=== PATIENT | female | born 1945 | race Caucasian/White ===

== ENCOUNTER 2017-03-29 16:34 | Inpatient (IN) | payer BC, MEDICARE ==
[~2017-03-29] VITALS: Ht 165.1 cm; Wt 80.3 kg
--- NOTE | 2017-03-29 17:11 | PHYS DOC ---
Past Medical History Past Medical History: High Cholesterol, Hypertension, Hypothyroid Past Surgical History: No Surgical History Alcohol Use: None Drug Use: None Adult General Chief Complaint Chief Complaint: ABDOMINAL PAIN HPI HPI Patient is a 71 year old female who presents with joey-umbilicus pain and constipation. She states it started yesterday. It comes in waves. Sometimes move around makes it feel better. Nothing makes it feel worse. She is afraid that she might have a bowel blockage concerns her area around her bellybutton swollen. She has had an appendectomy and cholecystectomy that was laparoscopic in nature. She denies any fevers chills or vomiting. She's had some nausea. Review of Systems Review of Systems Constitutional: Denies fever or chills [] Eyes: Denies change in visual acuity, redness, or eye pain [] HENT: Denies nasal congestion or sore throat [] Respiratory: Denies cough or shortness of breath [] Cardiovascular: No additional information not addressed in HPI [] GI: Positive for abdominal pain, nausea, denies any vomiting, bloody stools or diarrhea [] : Denies dysuria or hematuria [] Musculoskeletal: Denies back pain or joint pain [] Integument: Denies rash or skin lesions [] Neurologic: Denies headache, focal weakness or sensory changes [] Endocrine: Denies polyuria or polydipsia [] Current Medications Current Medications Current Medications Medications (Trade) Dose Ordered Sig/Stevie Start Time Stop Time Status Last Admin Dose Admin Diphenhydramine HCl (Benadryl) 25 mg 1X ONCE 03/29/17 21:15 03/29/17 21:16 DC 03/29/17 21:01 25 MG Iohexol (Omnipaque 240 Mg/ml) 30 ml 1X ONCE 03/29/17 19:45 03/29/17 19:46 DC 03/29/17 19:45 30 ML Morphine Sulfate 2 mg 2 mg PRN Q15MIN PRN 03/29/17 17:45 03/30/17 17:44 03/29/17 17:46 2 MG Ondansetron HCl (Zofran) 4 mg 1X ONCE 03/29/17 20:00 03/29/17 20:01 DC 03/29/17 19:58 4 MG Prochlorperazine Edisylate (Compazine) 10 mg 1X ONCE 03/29/17 21:15 03/29/17 21:16 DC 03/29/17 21:01 10 MG Sodium Chloride (Iv Sodium Chloride 0.9% 1000ml Bag) 1,000 ml @ 1,000 mls/hr Q1H 03/29/17 17:32 03/29/17 18:31 DC 03/29/17 17:32 1,000 MLS/HR Allergies Allergies Allergies Coded Allergies Type Severity Reaction Last Updated Verified Sulfa (Sulfonamide Antibiotics) Allergy Intermediate hives 06/25/15 No penicillin Allergy Intermediate hives 06/25/15 Yes Physical Exam Physical Exam Constitutional: Well developed, well nourished, no acute distress, non-toxic appearance. [] HENT: Normocephalic, atraumatic, bilateral external ears normal, oropharynx moist, no oral exudates, nose normal. [] Eyes: PERRLA, EOMI, conjunctiva normal, no discharge. [] Neck: Normal range of motion, no tenderness, supple, no stridor. [] Cardiovascular:Heart rate regular rhythm, no murmur [] Lungs & Thorax: Bilateral breath sounds clear to auscultation [] Abdomen: Bowel sounds normal, soft, palpation with likely periumbilical hernia, no masses, no pulsatile masses. [] Skin: Warm, dry, no erythema, no rash. [] Back: No tenderness, no CVA tenderness. [] Extremities: No tenderness, no cyanosis, no clubbing, ROM intact, no edema. [] Neurologic: Alert and oriented X 3, normal motor function, normal sensory function, no focal deficits noted. [] Psychologic: Affect normal, judgement normal, mood normal. [] Current Patient Data Vital Signs Vital Signs Date Time Temp Pulse Resp B/P Pulse Ox O2 Delivery O2 Flow Rate FiO2 03/29/17 19:30 80 18 147/79 96 Room Air 03/29/17 16:35 98.2 98.2 Lab Values Laboratory Tests Test 03/29/17 17:11 03/29/17 22:49 White Blood Count 18.5x10^3/uL (4.0-11.0) H Red Blood Count 5.55x10^6/uL (3.50-5.40) H Hemoglobin 18.3g/dL (12.0-15.5) H Hematocrit 54.3% (36.0-47.0) H Mean Corpuscular Volume 98fL (79-100) Mean Corpuscular Hemoglobin 33pg (25-35) Mean Corpuscular Hemoglobin Concent 34g/dL (31-37) Red Cell Distribution Width 13.7% (11.5-14.5) Platelet Count 373x10^3/uL (140-400) Neutrophils (%) (Auto) 91% (31-73) H Lymphocytes (%) (Auto) 5% (24-48) L Monocytes (%) (Auto) 3% (0-9) Eosinophils (%) (Auto) 0% (0-3) Basophils (%) (Auto) 0% (0-3) Neutrophils # (Auto) 16.9x10^3uL (1.8-7.7) H Lymphocytes # (Auto) 1.0x10^3/uL (1.0-4.8) Monocytes # (Auto) 0.6x10^3/uL (0.0-1.1) Eosinophils # (Auto) 0.0x10^3/uL (0.0-0.7) Basophils # (Auto) 0.0x10^3/uL (0.0-0.2) Segmented Neutrophils % 89% (35-66) H Band Neutrophils % 1% (0-9) Lymphocytes % 6% (24-48) L Monocytes % 4% (0-10) Platelet Estimate Adequate (ADEQUATE) Large Platelets Occ Ovalocytes Occ Prothrombin Time 12.5SEC (11.7-14.0) Prothrombin Time INR 1.0 (0.8-1.1) PTT 27SEC (24-38) Urine Color Roslyn Urine Clarity Clear Urine pH 5.5 Urine Specific [place] >=1.030 Urine Protein 30mg/dL (NEG-TRACE) Urine Glucose (UA) Negativemg/dL (NEG) Urine Ketones (Stick) Tracemg/dL (NEG) Urine Blood Negative (NEG) Urine Nitrite Negative (NEG) Urine Bilirubin Small (NEG) Urine Urobilinogen Dipstick 0.2mg/dL (0.2 mg/dL) Urine Leukocyte Esterase Small (NEG) Urine RBC 0/HPF (0-2) Urine WBC 1-4/HPF (0-4) Urine Squamous Epithelial Cells Occ/LPF Urine Amorphous Sediment Present/HPF Urine Bacteria 0/HPF (0-FEW) Urine Hyaline Casts Moderate/HPF Urine Mucus Slight/LPF Sodium Level 135mmol/L (136-145) L Potassium Level 3.9mmol/L (3.5-5.1) Chloride Level 96mmol/L (98-107) L Carbon Dioxide Level 27mmol/L (21-32) Anion Gap 12 (6-14) Blood Urea Nitrogen 29mg/dL (7-20) H Creatinine 1.7mg/dL (0.6-1.0) H Estimated GFR (Cockcroft-Gault) 29.7 Glucose Level 238mg/dL (70-99) H Calcium Level 9.2mg/dL (8.5-10.1) Total Bilirubin 0.9mg/dL (0.2-1.0) Direct Bilirubin 0.2mg/dL (0.0-0.2) Aspartate Amino Transferase (AST) 25U/L (15-37) Alanine Aminotransferase (ALT) 23U/L (14-59) Alkaline Phosphatase 64U/L (46-116) Creatine Kinase 53U/L (26-192) Creatine Kinase MB (Mass) 1.4ng/mL (0.0-3.6) Creatine Kinase MB Relative Index 2.6% (0-4) Total Protein 7.3g/dL (6.4-8.2) Albumin 3.5g/dL (3.4-5.0) Lipase 72U/L (73-393) L Lactic Acid Level 3.3mmol/L (0.4-2.0) H Laboratory Tests 03/29/17 17:11 Laboratory Tests 03/29/17 17:11 EKG EKG [] Radiology/Procedures Radiology/Procedures [facility] [address] [place] [address] IMAGING REPORT Signed PATIENT: MAG CASTANEDA ACCOUNT: [id number] : 1945 LOCATION: ER AGE: 71 SEX: F EXAM STATUS: REG ER ORD. PHYSICIAN: ABE DU MD REASON: abd pain PROCEDURE: CT ABD PEL W/ORAL CONTRST ONLY Examination: CT of the abdomen pelvis with oral contrast. HISTORY History of umbilical pain, constipation. COMPARISON None available. TECHNIQUE Axial CT images of the abdomen pelvis were performed with oral contrast. Coronal sagittal reformats were performed. Exposure: One or more of the following dose reduction technique were utilized for this examination: 1. Automated exposure control. 2.Adjustment of MA and /or KV according to patient size. 3. Use of iterative reconstruction technique. Findings: The visualized bibasilar lungs demonstrates minimal bibasilar lung atelectasis. No evidence of free air identified in the abdomen. The evaluation of the solid organs is limited lack of IV contrast. Patient could not finish oral contrast as patient started vomiting. Cholecystectomy clips identified. The visualized non contrasted liver, spleen, adrenals grossly appears unremarkable. No evidence of intrarenal collecting system calculi identified. Cystic structure identified in superior pole of the right kidney probably a cyst measuring 5.2 centimeters however evaluation is limited without contrast. The visualized pancreas grossly appears unremarkable. The stomach is mildly distended. There are multiple dilated small bowel loops identified in the left mid abdomen with some collapsed small bowel loops identified in the right lower quadrant. There is a likely transition point in the left mid abdomen best visualized on series 2 image #64. Moderate inflammatory fat stranding identified about the small bowel loops with fluid identified around the small bowel loops in the right mid abdomen.There is a moderate size anterior abdominal wall umbilical hernia containing fat and fluid. An obvious bowel loop extension into the umbilical hernia is not identified. Examination limited without IV contrast. Urinary bladder is mildly distended. Feces and gas noted in the colon. The urinary bladder is mildly distended. Moderate aortic atherosclerosis. Moderate amount of free fluid identified in the abdomen measuring water density. Moderate degenerative changes identified in the visualized thoracolumbar spine. Impression: 1. Findings consistent with small bowel obstruction with dilated small bowel loops proximally and collapsed small bowel loops distally. There is a possible transition point identified on series 2 image #62 in the left mid abdomen. Internal hernia or closed loop obstruction is not completely excluded given the amount of fluid around the bowel loops. 2. Moderate inflammatory fat stranding identified in the right mid abdomen with some with some fluid within with moderate amount of fluid in the abdomen could be secondary enteritis. 3. Moderate ascites. 4. Moderate size umbilical hernia containing fat and possibly fluid within. An obvious bowel loop extension into the umbilical hernia is not identified however examination is limited. Electronically signed by: Farhad Pittman (Mar 29, 2017 21:53:59) DICTATED and SIGNED BY: FARHAD PITTMAN MD DATE: 03/29/17 215 CC: ABE DU MD; ZAKI JULES MD ~ Impressions: Abdominal pain Small bowel obstruction Course & Med Decision Making Course & Med Decision Making Pertinent Labs and Imaging studies reviewed. (See chart for details) Patient is have an elevated white blood cell count 18.5 with hemoglobin 18.5. She's received IV fluids and antinausea meds. She does not have an acidosis or other concerns at this time. She is feeling better infection was sleeping upon my reassessment on her. CT scan does confirm a small bowel obstruction with transition point. At this point I do not believe a acute surgical intervention is needed. Patient being admitted to the hospitalist with consultations to Dr. Everett I spoke with an updated on the CT scan lab results and vitals the patient also did the same for Dr. Rosenbaum with GI. Hospitalist will be to start Cipro Flagyl and continue IV fluids. Patient's in stable condition at this time be admitted to the hospital with interim orders written. Dragon Disclaimer Dragon Disclaimer This electronic medical record was generated, in whole or in part, using a voice recognition dictation system. Departure Departure Impression: Primary Impression: Abdominal pain Disposition: ADMITTED INPATIENT Admitting Physician: Regina Caldera Condition: STABLE Referrals: ZAKI JULES MD (PCP) ABE DU MD Mar 29, 2017 17:11
[2017-03-29] MEDS ORDERED: IV NORMAL SALINE 1000ML BAG 1,000 ML IV SCH (17:32)
[2017-03-29] MEDS ORDERED: ONDANSETRON PF 4 MG/2 ML VIAL. IV ONE ×2 (17:45→20:00)
[2017-03-29] MEDS: MORPHINE SULFATE 2 MG/ML DISP.SYRIN. IV/SQ PRN (17:46)
[2017-03-29 17:47] LABS: BILIRUBIN,URINE SMALL (NEG); GLUCOSE,URINE NEGATIVE (NEG); NITRITE,URINE NEGATIVE (NEG); PH,URINE 5.5; PROTEIN,URINE 30 mg/dL (NEG-TRACE); UROBILINOGEN,URINE 0.2 mg/dL (0.2 mg/dL)
[2017-03-29 17:57] LABS: BACTERIA,URINE 0 /HPF (0-FEW); RBC,URINE 0 /HPF (0-2); SQUAMOUS EPITHELIAL CELL,UR OCC /LPF
[2017-03-29 18:15] LABS: BASO % 0 % (0-3); EOS % 0 % (0-3); HEMATOCRIT 54.3 % (36.0-47.0); HEMOGLOBIN 18.3 g/dL (12.0-15.5); LYMPH % 5 % (24-48); MEAN CORPUSCULAR HEMOGLOBIN 33 pg (25-35); MEAN CORPUSCULAR HGB CONC 34 g/dL (31-37); MEAN CORPUSCULAR VOLUME 98 fL (79-100); MONO % 3 % (0-9); NEUT % 91 % (31-73); PLATELET COUNT 373 x10^3/uL (140-400); RED BLOOD COUNT 5.55 x10^6/uL (3.50-5.40); RED CELL DISTRIBUTION WIDTH 13.7 % (11.5-14.5); WHITE BLOOD COUNT 18.5 x10^3/uL (4.0-11.0)
[2017-03-29 18:25] LABS: PROTHROMBIN TIME PATIENT 12.5 SEC (11.7-14.0)
[2017-03-29 18:27] LABS: CALCIUM 9.2 mg/dL (8.5-10.1); CREATININE 1.7 mg/dL (0.6-1.0); GFR 29.7; POTASSIUM 3.9 mmol/L (3.5-5.1)
[2017-03-29 18:33] LABS: ALBUMIN 3.5 g/dL (3.4-5.0); DIRECT BILIRUBIN 0.2 mg/dL (0.0-0.2); TOTAL BILIRUBIN 0.9 mg/dL (0.2-1.0); TOTAL PROTEIN 7.3 g/dL (6.4-8.2)
[2017-03-29 18:52] LABS: CKMB MASS 1.4 ng/mL (0.0-3.6)
[2017-03-29] MEDS ORDERED: IOHEXOL 240 MG/ML 50ML VIAL. PO ONE (19:45)
[2017-03-29 20:45] LABS: OVALOCYTES OCC; PLT ESTIMATE ADEQUATE (ADEQUATE)
[2017-03-29] MEDS ORDERED: diphenhydrAMINE 50 MG/ML VIAL IVP ONE (21:15)
[2017-03-29] MEDS ORDERED: PROCHLORPERAZINE 10 MG/2 ML VIAL. IV ONE (21:15)
--- NOTE | 2017-03-29 21:55 | RAD ---
Examination: CT of the abdomen pelvis with oral contrast. HISTORY History of umbilical pain, constipation. COMPARISON None available. TECHNIQUE Axial CT images of the abdomen pelvis were performed with oral contrast. Coronal sagittal reformats were performed. Exposure: One or more of the following dose reduction technique were utilized for this examination: 1. Automated exposure control. 2.Adjustment of MA and /or KV according to patient size. 3. Use of iterative reconstruction technique. Findings: The visualized bibasilar lungs demonstrates minimal bibasilar lung atelectasis. No evidence of free air identified in the abdomen. The evaluation of the solid organs is limited lack of IV contrast. Patient could not finish oral contrast as patient started vomiting. Cholecystectomy clips identified. The visualized non contrasted liver, spleen, adrenals grossly appears unremarkable. No evidence of intrarenal collecting system calculi identified. Cystic structure identified in superior pole of the right kidney probably a cyst measuring 5.2 centimeters however evaluation is limited without contrast. The visualized pancreas grossly appears unremarkable. The stomach is mildly distended. There are multiple dilated small bowel loops identified in the left mid abdomen with some collapsed small bowel loops identified in the right lower quadrant. There is a likely transition point in the left mid abdomen best visualized on series 2 image #64. Moderate inflammatory fat stranding identified about the small bowel loops with fluid identified around the small bowel loops in the right mid abdomen.There is a moderate size anterior abdominal wall umbilical hernia containing fat and fluid. An obvious bowel loop extension into the umbilical hernia is not identified. Examination limited without IV contrast. Urinary bladder is mildly distended. Feces and gas noted in the colon. The urinary bladder is mildly distended. Moderate aortic atherosclerosis. Moderate amount of free fluid identified in the abdomen measuring water density. Moderate degenerative changes identified in the visualized thoracolumbar spine. Impression: 1. Findings consistent with small bowel obstruction with dilated small bowel loops proximally and collapsed small bowel loops distally. There is a possible transition point identified on series 2 image #62 in the left mid abdomen. Internal hernia or closed loop obstruction is not completely excluded given the amount of fluid around the bowel loops. 2. Moderate inflammatory fat stranding identified in the right mid abdomen with some with some fluid within with moderate amount of fluid in the abdomen could be secondary enteritis. 3. Moderate ascites. 4. Moderate size umbilical hernia containing fat and possibly fluid within. An obvious bowel loop extension into the umbilical hernia is not identified however examination is limited. Electronically signed by: Farhad Pittman (Mar 29, 2017 21:53:59)
[2017-03-29] MEDS ORDERED: ONDANSETRON PF 4 MG/2 ML VIAL. IV PRN (23:45)
[2017-03-29] MEDS ORDERED: fentaNYL PF VIAL 100 MCG/2 ML VIAL IV PRN (23:45)
[2017-03-30] VITALS (8 sets, daily range): BP systolic 114–150; BP diastolic 63–81
--- NOTE | 2017-03-30 00:32 | ACF ---
Admission Forms Criteria ABDOMINAL PAIN Clinical Indications for Admission to Inpatient Care (Place 'X' for any and all applicable criteria): Admission is indicated for ANY ONE of the following(1)(2)(3)(4)(5): [X ]I. Inpatient admission required rather than observation care (Also use Abdominal Pain: Observation Care, as appropriate) because of ANY ONE of the following: [ ]a) Severe pain requiring acute inpatient management [X ]b) Identification of etiology/finding that requires inpatient care (eg, aortic dissection, free air) [ ]c) Absent bowel sounds with complete ileus(6) [ ]d) Suspected toxic megacolon [ ]e) Severe electrolyte abnormalities requiring inpatient care [ ]f) High fever or infection requiring inpatient admission as indicated by ANY ONE of following(7)(8): [ ] i) Appropriate outpatient or observational care antimicrobial treatment unavailable, not effective, or not feasible [ ] ii) Documented bacteremia [ ] iii) Temperature > 104.9 degrees F (oral) [ ] iv) T >103.1 F (oral) or < 96.8 F(rectal) that does not respond to all emergency treatment measures [ ]g) Signs of intestinal obstruction [B] [ ]h) Hemodynamic instability [ ]i) IV fluid to replace significant ongoing losses (greater than 3 L/m2 per day) (12)(13) [ ]j) Percutaneous or open drainage (eg, abscess, biliary tract ) procedures [ ]k) Parenteral nutrition regimen that must be implemented on inpatient basis [ ]l) Other condition,treatment or monitoring requiring inpatient admission. [ ]II. Peritoneal signs present [ ]III. Surgery needed that cannot be performed on an ambulatory basis. [ ]IV. Evaluation requires patient to not eat or drink for extended period ( eg, more than 24 hours). [ ]V. Contraindications and/or Inappropriate clinical situations for Observational Care in patients with abdominal pain, when ANY ONE of the following is required: [ ]a) Thorough evaluation is required to prevent catastrophic events due to delays in diagnosing (e.g.Mesenteric ischemia) 1,3 [ ]b) Patient with severe pathology or with chronic symptoms unlikely to improve in the ED stay (3) [ ]. General contraindications and/or Inappropriate clinical situations for Observational Care in patients with abdominal pain, when ANY ONE of the following is required: [ ]a) Prediction of prolongation of LOS based on ANY ONE of the following may be considered as a contraindication for observational care 2, 3, 4, 5, 6, 7, 8, 9, 10, 11 [ ]i) Age > 65 yrs. [ ]ii) Patient arriving by ambulance [ ]iii) Patient with high acuity [ ]iv) Patient requiring vital sign monitoring [ ]v) Patient on IV medication [ ]b) Systolic blood pressures 180mmHg 3,12 [ ]c) Patient with altered mental status including delirium and other alteration of consciousness, (3) [ ]d) Patient whose discharge disposition will be to a long-term home or rehabilitation home should not be managed in Emergency Department Observation Unit. CMS rule requires 3 days hospital stay before such placement.3,13 [ ]e) Patient with failure to thrive due to broad array of etiologies 3,16,17 [ ]f) Inability to ambulate 3,14 Extended stay beyond goal length of stay may be needed for(2)(3): [ ]a) Persistent abdominal pain with suspected intra-abdominal process [ ]b) Diagnosed condition requiring continued stay (e.g., pancreatitis, complicated diverticulitis) [ ]c) Surgery (e.g., colectomy) The original [facility] content created by [employer] has been revised. The portions of the content which have been revised are identified through the use of italic text or in bold, and [facility] has neither reviewed nor approved the modified material.All other unmodified content is copyright [facility]. Please see references footnoted in the original [facility] edition 2015 Admission Criteria Met?: Yes MARCI HART Mar 30, 2017 00:32
[2017-03-30] MEDS: POTASSIUM CL 20MEQ D5-0.45NACL 1,000 ML IV ONE ×2 (00:34→06:13)
[2017-03-30] MEDS: CIPROFLOXACIN 400MG PREMIX 200 ML IV ONE ×2 (00:35→06:14)
[2017-03-30] MEDS: MORPHINE SULFATE 2 MG/ML DISP.SYRIN. IV/SQ PRN (00:39)
[2017-03-30 06:00] LABS: HEMATOCRIT 50.4 % (36.0-47.0); HEMOGLOBIN 17.1 g/dL (12.0-15.5); MEAN CORPUSCULAR VOLUME 98 fL (79-100); RED BLOOD COUNT 5.17 x10^6/uL (3.50-5.40); WHITE BLOOD COUNT 21.4 x10^3/uL (4.0-11.0)
[2017-03-30 06:01] LABS: BASO % 0 % (0-3); EOS % 0 % (0-3); LYMPH # 1.4 x10^3/uL (1.0-4.8); LYMPH % 7 % (24-48); MEAN CORPUSCULAR HEMOGLOBIN 33 pg (25-35); MEAN CORPUSCULAR HGB CONC 34 g/dL (31-37); MONO % 6 % (0-9); NEUT % 87 % (31-73); PLATELET COUNT 335 x10^3/uL (140-400); RED CELL DISTRIBUTION WIDTH 13.8 % (11.5-14.5)
[2017-03-30 06:43] LABS: ALBUMIN 3.3 g/dL (3.4-5.0); ALBUMIN/GLOBULIN RATIO 1.1 (1.0-1.7); CALCIUM 9.2 mg/dL (8.5-10.1); CREATININE 1.8 mg/dL (0.6-1.0); GFR 27.8; POTASSIUM 4.8 mmol/L (3.5-5.1); TOTAL BILIRUBIN 0.9 mg/dL (0.2-1.0); TOTAL PROTEIN 6.3 g/dL (6.4-8.2)
[2017-03-30] MEDS ORDERED: LEVO88TA4 PO (07:45)
[2017-03-30] MEDS ORDERED: NIAC1000 PO (07:47)
--- NOTE | 2017-03-30 07:56 | PDOC1 ---
History and Physical Current Problem List Problem List Problems Medical Problems: (1) Abdominal pain Status: Acute (2) Nausea & vomiting Status: Acute Current Medications Current Medications Current Medications Medications (Trade) Dose Ordered Sig/Stevie Start Time Stop Time Status Last Admin Dose Admin Ciprofloxacin Lactate (Cipro 200mg Premix) 100 ml @ 100 mls/hr [id number] 03/30/17 18:00 Diphenhydramine HCl (Benadryl) 25 mg 1X ONCE 03/29/17 21:15 03/29/17 21:16 DC 03/29/17 21:01 25 MG Fentanyl Citrate 25 mcg 25 mcg PRN Q1HR PRN 03/29/17 23:45 03/30/17 23:44 03/30/17 06:12 25 MCG Iohexol (Omnipaque 240 Mg/ml) 30 ml 1X ONCE 03/29/17 19:45 03/29/17 19:46 DC 03/29/17 19:45 30 ML Metronidazole 100 ml @ 100 mls/hr Q8HRS 03/30/17 00:00 Morphine Sulfate 2 mg 2 mg PRN Q15MIN PRN 03/29/17 17:45 03/30/17 17:44 03/30/17 00:39 2 MG Ondansetron HCl (Zofran) 4 mg PRN Q8HRS PRN 03/29/17 23:45 03/30/17 23:44 Potassium Chloride/Dextrose/ Sod Cl 1,000 ml @ 75 mls/hr 1X ONCE 03/30/17 00:00 03/30/17 13:19 03/30/17 06:13 75 MLS/HR Prochlorperazine Edisylate (Compazine) 10 mg 1X ONCE 03/29/17 21:15 03/29/17 21:16 DC 03/29/17 21:01 10 MG Sodium Chloride (Iv Sodium Chloride 0.9% 1000ml Bag) 1,000 ml @ 1,000 mls/hr Q1H 03/29/17 17:32 03/29/17 18:31 DC 03/29/17 17:32 1,000 MLS/HR Allergies Allergies Allergies Coded Allergies Type Severity Reaction Last Updated Verified Sulfa (Sulfonamide Antibiotics) Allergy Intermediate hives 06/25/15 No penicillin Allergy Intermediate hives 06/25/15 Yes ROS Review of System CONSTITUTIONAL: No fever or chills EYES: No recent changes SKIN: No rash or itching CARDIOVASCULAR: No chest pain, syncope, palpitations, or edema RESPIRATORY: No SOB or cough GASTROINTESTINAL: Nausea, vomiting or abdominal pain NEUROLOGICAL: No headaches or weakness ENDOCRINE: No cold or heat intolerance GENITOURINARY: No urgency or frequency of urination MUSCULOSKELETAL: No back pain or joint pain LYMPHATICS: No enlarged lymph nodes PSYCHIATRIC: No anxiety or depression Physical Exam Physical Exam GEN.: No apparent distress. Alert and oriented times 3 HEENT: Head is normocephalic, atraumatic NECK: Supple. no jvd LUNGS: Clear to auscultation. normal airflow HEART: RRR, S1, S2 present. Peripheral pulses intact ABDOMEN: Soft, umbical hernia, mild tenderness around umbical ok, decreased BM EXTREMITIES: Without any cyanosis. NEUROLOGIC: Normal speech, normal tone PSYCHIATRIC: Normal affect, normal mood. SKIN: No ulcerations Vitals Vitals Vital Signs Date Time Temp Pulse Resp B/P Pulse Ox O2 Delivery O2 Flow Rate FiO2 03/30/17 06:12 20 Room Air 03/30/17 02:10 92 139/71 93 03/29/17 16:35 98.2 98.2 Labs Labs Laboratory Tests Test 03/29/17 17:11 03/29/17 22:49 03/30/17 05:20 White Blood Count 18.5x10^3/uL (4.0-11.0) 21.4x10^3/uL (4.0-11.0) Red Blood Count 5.55x10^6/uL (3.50-5.40) 5.17x10^6/uL (3.50-5.40) Hemoglobin 18.3g/dL (12.0-15.5) 17.1g/dL (12.0-15.5) Hematocrit 54.3% (36.0-47.0) 50.4% (36.0-47.0) Mean Corpuscular Volume 98fL (79-100) 98fL (79-100) Mean Corpuscular Hemoglobin 33pg (25-35) 33pg (25-35) Mean Corpuscular Hemoglobin Concent 34g/dL (31-37) 34g/dL (31-37) Red Cell Distribution Width 13.7% (11.5-14.5) 13.8% (11.5-14.5) Platelet Count 373x10^3/uL (140-400) 335x10^3/uL (140-400) Neutrophils (%) (Auto) 91% (31-73) 87% (31-73) Lymphocytes (%) (Auto) 5% (24-48) 7% (24-48) Monocytes (%) (Auto) 3% (0-9) 6% (0-9) Eosinophils (%) (Auto) 0% (0-3) 0% (0-3) Basophils (%) (Auto) 0% (0-3) 0% (0-3) Neutrophils # (Auto) 16.9x10^3uL (1.8-7.7) 18.7x10^3uL (1.8-7.7) Lymphocytes # (Auto) 1.0x10^3/uL (1.0-4.8) 1.4x10^3/uL (1.0-4.8) Monocytes # (Auto) 0.6x10^3/uL (0.0-1.1) 1.2x10^3/uL (0.0-1.1) Eosinophils # (Auto) 0.0x10^3/uL (0.0-0.7) 0.0x10^3/uL (0.0-0.7) Basophils # (Auto) 0.0x10^3/uL (0.0-0.2) 0.0x10^3/uL (0.0-0.2) Segmented Neutrophils % 89% (35-66) Band Neutrophils % 1% (0-9) Lymphocytes % 6% (24-48) Monocytes % 4% (0-10) Platelet Estimate Adequate (ADEQUATE) Large Platelets Occ Ovalocytes Occ Prothrombin Time 12.5SEC (11.7-14.0) Prothromb Time International Ratio 1.0 (0.8-1.1) Activated Partial Thromboplast Time 27SEC (24-38) Urine Color Roslyn Urine Clarity Clear Urine pH 5.5 Urine Specific [place] >=1.030 Urine Protein 30mg/dL (NEG-TRACE) Urine Glucose (UA) Negativemg/dL (NEG) Urine Ketones (Stick) Tracemg/dL (NEG) Urine Blood Negative (NEG) Urine Nitrite Negative (NEG) Urine Bilirubin Small (NEG) Urine Urobilinogen Dipstick 0.2mg/dL (0.2 mg/dL) Urine Leukocyte Esterase Small (NEG) Urine RBC 0/HPF (0-2) Urine WBC 1-4/HPF (0-4) Urine Squamous Epithelial Cells Occ/LPF Urine Amorphous Sediment Present/HPF Urine Bacteria 0/HPF (0-FEW) Urine Hyaline Casts Moderate/HPF Urine Mucus Slight/LPF Sodium Level 135mmol/L (136-145) 137mmol/L (136-145) Potassium Level 3.9mmol/L (3.5-5.1) 4.8mmol/L (3.5-5.1) Chloride Level 96mmol/L (98-107) 99mmol/L (98-107) Carbon Dioxide Level 27mmol/L (21-32) 26mmol/L (21-32) Anion Gap 12 (6-14) 12 (6-14) Blood Urea Nitrogen 29mg/dL (7-20) 40mg/dL (7-20) Creatinine 1.7mg/dL (0.6-1.0) 1.8mg/dL (0.6-1.0) Estimated GFR (Cockcroft-Gault) 29.7 27.8 Glucose Level 238mg/dL (70-99) 163mg/dL (70-99) Calcium Level 9.2mg/dL (8.5-10.1) 9.2mg/dL (8.5-10.1) Total Bilirubin 0.9mg/dL (0.2-1.0) 0.9mg/dL (0.2-1.0) Direct Bilirubin 0.2mg/dL (0.0-0.2) Aspartate Amino Transf (AST/SGOT) 25U/L (15-37) 23U/L (15-37) Alanine Aminotransferase (ALT/SGPT) 23U/L (14-59) 18U/L (14-59) Alkaline Phosphatase 64U/L (46-116) 62U/L (46-116) Creatine Kinase 53U/L (26-192) Creatine Kinase MB (Mass) 1.4ng/mL (0.0-3.6) Creatine Kinase MB Relative Index 2.6% (0-4) Total Protein 7.3g/dL (6.4-8.2) 6.3g/dL (6.4-8.2) Albumin 3.5g/dL (3.4-5.0) 3.3g/dL (3.4-5.0) Lipase 72U/L (73-393) Lactic Acid Level 3.3mmol/L (0.4-2.0) BUN/Creatinine Ratio 22 (6-20) Albumin/Globulin Ratio 1.1 (1.0-1.7) Laboratory Tests Test 03/29/17 17:11 03/29/17 22:49 03/30/17 05:20 White Blood Count 18.5x10^3/uL (4.0-11.0) 21.4x10^3/uL (4.0-11.0) Red Blood Count 5.55x10^6/uL (3.50-5.40) 5.17x10^6/uL (3.50-5.40) Hemoglobin 18.3g/dL (12.0-15.5) 17.1g/dL (12.0-15.5) Hematocrit 54.3% (36.0-47.0) 50.4% (36.0-47.0) Mean Corpuscular Volume 98fL (79-100) 98fL (79-100) Mean Corpuscular Hemoglobin 33pg (25-35) 33pg (25-35) Mean Corpuscular Hemoglobin Concent 34g/dL (31-37) 34g/dL (31-37) Red Cell Distribution Width 13.7% (11.5-14.5) 13.8% (11.5-14.5) Platelet Count 373x10^3/uL (140-400) 335x10^3/uL (140-400) Neutrophils (%) (Auto) 91% (31-73) 87% (31-73) Lymphocytes (%) (Auto) 5% (24-48) 7% (24-48) Monocytes (%) (Auto) 3% (0-9) 6% (0-9) Eosinophils (%) (Auto) 0% (0-3) 0% (0-3) Basophils (%) (Auto) 0% (0-3) 0% (0-3) Neutrophils # (Auto) 16.9x10^3uL (1.8-7.7) 18.7x10^3uL (1.8-7.7) Lymphocytes # (Auto) 1.0x10^3/uL (1.0-4.8) 1.4x10^3/uL (1.0-4.8) Monocytes # (Auto) 0.6x10^3/uL (0.0-1.1) 1.2x10^3/uL (0.0-1.1) Eosinophils # (Auto) 0.0x10^3/uL (0.0-0.7) 0.0x10^3/uL (0.0-0.7) Basophils # (Auto) 0.0x10^3/uL (0.0-0.2) 0.0x10^3/uL (0.0-0.2) Segmented Neutrophils % 89% (35-66) Band Neutrophils % 1% (0-9) Lymphocytes % 6% (24-48) Monocytes % 4% (0-10) Platelet Estimate Adequate (ADEQUATE) Large Platelets Occ Ovalocytes Occ Prothrombin Time 12.5SEC (11.7-14.0) Prothromb Time International Ratio 1.0 (0.8-1.1) Activated Partial Thromboplast Time 27SEC (24-38) Urine Color Roslyn Urine Clarity Clear Urine pH 5.5 Urine Specific [place] >=1.030 Urine Protein 30mg/dL (NEG-TRACE) Urine Glucose (UA) Negativemg/dL (NEG) Urine Ketones (Stick) Tracemg/dL (NEG) Urine Blood Negative (NEG) Urine Nitrite Negative (NEG) Urine Bilirubin Small (NEG) Urine Urobilinogen Dipstick 0.2mg/dL (0.2 mg/dL) Urine Leukocyte Esterase Small (NEG) Urine RBC 0/HPF (0-2) Urine WBC 1-4/HPF (0-4) Urine Squamous Epithelial Cells Occ/LPF Urine Amorphous Sediment Present/HPF Urine Bacteria 0/HPF (0-FEW) Urine Hyaline Casts Moderate/HPF Urine Mucus Slight/LPF Sodium Level 135mmol/L (136-145) 137mmol/L (136-145) Potassium Level 3.9mmol/L (3.5-5.1) 4.8mmol/L (3.5-5.1) Chloride Level 96mmol/L (98-107) 99mmol/L (98-107) Carbon Dioxide Level 27mmol/L (21-32) 26mmol/L (21-32) Anion Gap 12 (6-14) 12 (6-14) Blood Urea Nitrogen 29mg/dL (7-20) 40mg/dL (7-20) Creatinine 1.7mg/dL (0.6-1.0) 1.8mg/dL (0.6-1.0) Estimated GFR (Cockcroft-Gault) 29.7 27.8 Glucose Level 238mg/dL (70-99) 163mg/dL (70-99) Calcium Level 9.2mg/dL (8.5-10.1) 9.2mg/dL (8.5-10.1) Total Bilirubin 0.9mg/dL (0.2-1.0) 0.9mg/dL (0.2-1.0) Direct Bilirubin 0.2mg/dL (0.0-0.2) Aspartate Amino Transf (AST/SGOT) 25U/L (15-37) 23U/L (15-37) Alanine Aminotransferase (ALT/SGPT) 23U/L (14-59) 18U/L (14-59) Alkaline Phosphatase 64U/L (46-116) 62U/L (46-116) Creatine Kinase 53U/L (26-192) Creatine Kinase MB (Mass) 1.4ng/mL (0.0-3.6) Creatine Kinase MB Relative Index 2.6% (0-4) Total Protein 7.3g/dL (6.4-8.2) 6.3g/dL (6.4-8.2) Albumin 3.5g/dL (3.4-5.0) 3.3g/dL (3.4-5.0) Lipase 72U/L (73-393) Lactic Acid Level 3.3mmol/L (0.4-2.0) BUN/Creatinine Ratio 22 (6-20) Albumin/Globulin Ratio 1.1 (1.0-1.7) VTE Prophylaxis Ordered VTE Prophylaxis Devices: Yes VTE Pharmacological Prophylaxi: Yes MERCEDEZ DUPREE MD Mar 30, 2017 07:56
--- NOTE | 2017-03-30 08:30 | EKG ---
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
[2017-03-30] MEDS ORDERED: CIPROFLOXACIN 400MG PREMIX 200 ML IV SCH (09:00)
--- NOTE | 2017-03-30 09:50 | PDOC2 ---
VITALY ROSS PROGRAM OFFICER 03/30/17 0950: CONSULT Date of Consult Date of Consult DATE: 03/30/17 TIME: 09:42 Reason for Consult Reason for Consult: sbo Referring Physician Referring Physician: ER Identification/Chief Complaint Chief Complaint abdominal pain Source Source: Chart review, Patient History of Present Illness Reason for Visit: Abdominal pain with n/v starting , although constipation since saturday. Not currently passing any flatus. Denies similar problems in past. Has a bulge to umbilical area that is where most of her pain is located. Past Medical History Cardiovascular: HTN Endocrine: Hypothyroidism Past Surgical History Past Surgical History: Appendectomy (open), Cholecystectomy, Hysterectomy Family History Family History: Coronary Artery Disease, Diabetes Social History Quit ALCOHOL: none Drugs: None Lives: with Family Current Problem List Problem List Problems Medical Problems: (1) Abdominal pain Status: Acute (2) Nausea & vomiting Status: Acute Current Medications Current Medications Current Medications Morphine Sulfate 2 mg 2 mg PRN Q15MIN PRN IV/SQ PAIN GREATER THAN 3/10 Last administered on 03/30/17 00:39; Start 03/29/17 at 17:45; Stop 03/30/17 at 17:44 Sodium Chloride (Iv Sodium Chloride 0.9% 1000ml Bag) 1,000 ml @ 1,000 mls/hr Q1H IV Last administered on 03/29/17 17:32; Start 03/29/17 at 17:32; Stop at 18:31; Status DC Ondansetron HCl (Zofran) 4 mg 1X ONCE IV Last administered on 03/29/17 17:45 ; Start 03/29/17 at 17:45; Stop 03/29/17 at 17:46; Status DC Iohexol (Omnipaque 240 Mg/ml) 30 ml 1X ONCE PO Last administered on 03/29/17 19:45; Start 03/29/17 at 19:45; Stop 03/29/17 at 19:46; Status DC Ondansetron HCl (Zofran) 4 mg 1X ONCE IV Last administered on 03/29/17 19:58 ; Start 03/29/17 at 20:00; Stop 03/29/17 at 20:01; Status DC Prochlorperazine Edisylate (Compazine) 10 mg 1X ONCE IV Last administered on 21:01; Start 03/29/17 at 21:15; Stop 03/29/17 at 21:16; Status DC Diphenhydramine HCl (Benadryl) 25 mg 1X ONCE IVP Last administered on 21:01; Start 03/29/17 at 21:15; Stop 03/29/17 at 21:16; Status DC Ondansetron HCl (Zofran) 4 mg PRN Q8HRS PRN IV NAUSEA/VOMITING Last administered on 03/30/17 07:59; Start 03/29/17 at 23:45; Stop 03/30/17 at 23:44 Fentanyl Citrate 25 mcg 25 mcg PRN Q1HR PRN IV SEVERE PAIN Last administered on 03/30/17 06:12; Start 03/29/17 at 23:45; Stop 03/30/17 at 23:44 Potassium Chloride/Dextrose/ Sod Cl 1,000 ml @ 75 mls/hr 1X ONCE IV Last administered on 03/30/17 06:13; Start 03/30/17 at 00:00; Stop 03/30/17 at 13:19 Ciprofloxacin Lactate 200 ml @ 200 mls/hr Q12HR IV ; Start 03/30/17 at 09:00; Status UNV Metronidazole 100 ml @ 100 mls/hr Q8HRS IV Last administered on 03/30/17 08: 18; Start 03/30/17 at 00:00 Ciprofloxacin Lactate 200 ml @ 200 mls/hr 1X ONCE IV Last administered on 06:14; Start 03/30/17 at 00:00; Stop 03/30/17 at 00:59; Status DC Ciprofloxacin Lactate (Cipro 200mg Premix) 100 ml @ 100 mls/hr [id number] IV ; Start 03/30/17 at 18:00 Active Scripts Active Reported Niaspan (Niacin) 1,000 Mg Tab.er.24h 1 Tab PO BID Levothyroxine Sodium 88 Mcg Tablet 1 Tab PO DAILY Allergies Allergies: Coded Allergies: Sulfa (Sulfonamide Antibiotics) (Unverified Allergy, Intermediate, hives, 06/25/15) penicillin (Verified Allergy, Intermediate, hives, 06/25/15) ROS General: YES: Appetite (loss), No: Chills, Other (fevers) PSYCHOLOGICAL ROS: No: Anxiety, Depression Eyes: No Blurry vision, No Double vision HEENT: No: Heacaches, Sore Throat Hematological and Lymphatic: No: Bleeding Problems, Blood Clots Respiratory: No: Cough, Shortness of breath Cardiovascular: No Chest Pain, No Palpitations Gastrointestinal: Yes Other (see hpi) Genitourinary: No Dysuria, No Hematuria Musculoskeletal: No Joint Pain Neurological: No Confusion, No Numbness/Tingling Skin: No Pruritus, No Rash Physical Exam General: Alert, Oriented X3, Cooperative, No acute distress HEENT: PERRLA, Mucous membr. moist/pink Lungs: Clear to auscultation, Normal air movement Heart: Regular rate, Normal S1, Normal S2, No murmurs Abdomen: Soft, Other (palpable mass to umbilicus, unable to reduce, moderate pain to hernia, mild pain to epigastric, no guarding or rebound) Extremities: No clubbing, No cyanosis Skin: No rashes, No breakdown Neuro: Normal gait, Normal speech Psych/Mental Status: Mental status NL, Mood NL MUSCULOSKELETAL: No deformity, No swelling Vitals VITALS Vital Signs Date Time Temp Pulse Resp B/P Pulse Ox O2 Delivery O2 Flow Rate FiO2 03/30/17 08:01 18 93 Room Air 03/30/17 07:00 98.9 98 126/63 98.9 Labs Labs Laboratory Tests Test 03/29/17 17:11 03/29/17 22:49 03/30/17 05:20 White Blood Count 18.5x10^3/uL (4.0-11.0) 21.4x10^3/uL (4.0-11.0) Red Blood Count 5.55x10^6/uL (3.50-5.40) 5.17x10^6/uL (3.50-5.40) Hemoglobin 18.3g/dL (12.0-15.5) 17.1g/dL (12.0-15.5) Hematocrit 54.3% (36.0-47.0) 50.4% (36.0-47.0) Mean Corpuscular Volume 98fL (79-100) 98fL (79-100) Mean Corpuscular Hemoglobin 33pg (25-35) 33pg (25-35) Mean Corpuscular Hemoglobin Concent 34g/dL (31-37) 34g/dL (31-37) Red Cell Distribution Width 13.7% (11.5-14.5) 13.8% (11.5-14.5) Platelet Count 373x10^3/uL (140-400) 335x10^3/uL (140-400) Neutrophils (%) (Auto) 91% (31-73) 87% (31-73) Lymphocytes (%) (Auto) 5% (24-48) 7% (24-48) Monocytes (%) (Auto) 3% (0-9) 6% (0-9) Eosinophils (%) (Auto) 0% (0-3) 0% (0-3) Basophils (%) (Auto) 0% (0-3) 0% (0-3) Neutrophils # (Auto) 16.9x10^3uL (1.8-7.7) 18.7x10^3uL (1.8-7.7) Lymphocytes # (Auto) 1.0x10^3/uL (1.0-4.8) 1.4x10^3/uL (1.0-4.8) Monocytes # (Auto) 0.6x10^3/uL (0.0-1.1) 1.2x10^3/uL (0.0-1.1) Eosinophils # (Auto) 0.0x10^3/uL (0.0-0.7) 0.0x10^3/uL (0.0-0.7) Basophils # (Auto) 0.0x10^3/uL (0.0-0.2) 0.0x10^3/uL (0.0-0.2) Segmented Neutrophils % 89% (35-66) Band Neutrophils % 1% (0-9) Lymphocytes % 6% (24-48) Monocytes % 4% (0-10) Platelet Estimate Adequate (ADEQUATE) Large Platelets Occ Ovalocytes Occ Prothrombin Time 12.5SEC (11.7-14.0) Prothromb Time International Ratio 1.0 (0.8-1.1) Activated Partial Thromboplast Time 27SEC (24-38) Urine Color Roslyn Urine Clarity Clear Urine pH 5.5 Urine Specific [place] >=1.030 Urine Protein 30mg/dL (NEG-TRACE) Urine Glucose (UA) Negativemg/dL (NEG) Urine Ketones (Stick) Tracemg/dL (NEG) Urine Blood Negative (NEG) Urine Nitrite Negative (NEG) Urine Bilirubin Small (NEG) Urine Urobilinogen Dipstick 0.2mg/dL (0.2 mg/dL) Urine Leukocyte Esterase Small (NEG) Urine RBC 0/HPF (0-2) Urine WBC 1-4/HPF (0-4) Urine Squamous Epithelial Cells Occ/LPF Urine Amorphous Sediment Present/HPF Urine Bacteria 0/HPF (0-FEW) Urine Hyaline Casts Moderate/HPF Urine Mucus Slight/LPF Sodium Level 135mmol/L (136-145) 137mmol/L (136-145) Potassium Level 3.9mmol/L (3.5-5.1) 4.8mmol/L (3.5-5.1) Chloride Level 96mmol/L (98-107) 99mmol/L (98-107) Carbon Dioxide Level 27mmol/L (21-32) 26mmol/L (21-32) Anion Gap 12 (6-14) 12 (6-14) Blood Urea Nitrogen 29mg/dL (7-20) 40mg/dL (7-20) Creatinine 1.7mg/dL (0.6-1.0) 1.8mg/dL (0.6-1.0) Estimated GFR (Cockcroft-Gault) 29.7 27.8 Glucose Level 238mg/dL (70-99) 163mg/dL (70-99) Calcium Level 9.2mg/dL (8.5-10.1) 9.2mg/dL (8.5-10.1) Total Bilirubin 0.9mg/dL (0.2-1.0) 0.9mg/dL (0.2-1.0) Direct Bilirubin 0.2mg/dL (0.0-0.2) Aspartate Amino Transf (AST/SGOT) 25U/L (15-37) 23U/L (15-37) Alanine Aminotransferase (ALT/SGPT) 23U/L (14-59) 18U/L (14-59) Alkaline Phosphatase 64U/L (46-116) 62U/L (46-116) Creatine Kinase 53U/L (26-192) Creatine Kinase MB (Mass) 1.4ng/mL (0.0-3.6) Creatine Kinase MB Relative Index 2.6% (0-4) Total Protein 7.3g/dL (6.4-8.2) 6.3g/dL (6.4-8.2) Albumin 3.5g/dL (3.4-5.0) 3.3g/dL (3.4-5.0) Lipase 72U/L (73-393) Lactic Acid Level 3.3mmol/L (0.4-2.0) BUN/Creatinine Ratio 22 (6-20) Albumin/Globulin Ratio 1.1 (1.0-1.7) Laboratory Tests Test 03/29/17 17:11 03/29/17 22:49 03/30/17 05:20 White Blood Count 18.5x10^3/uL (4.0-11.0) 21.4x10^3/uL (4.0-11.0) Red Blood Count 5.55x10^6/uL (3.50-5.40) 5.17x10^6/uL (3.50-5.40) Hemoglobin 18.3g/dL (12.0-15.5) 17.1g/dL (12.0-15.5) Hematocrit 54.3% (36.0-47.0) 50.4% (36.0-47.0) Mean Corpuscular Volume 98fL (79-100) 98fL (79-100) Mean Corpuscular Hemoglobin 33pg (25-35) 33pg (25-35) Mean Corpuscular Hemoglobin Concent 34g/dL (31-37) 34g/dL (31-37) Red Cell Distribution Width 13.7% (11.5-14.5) 13.8% (11.5-14.5) Platelet Count 373x10^3/uL (140-400) 335x10^3/uL (140-400) Neutrophils (%) (Auto) 91% (31-73) 87% (31-73) Lymphocytes (%) (Auto) 5% (24-48) 7% (24-48) Monocytes (%) (Auto) 3% (0-9) 6% (0-9) Eosinophils (%) (Auto) 0% (0-3) 0% (0-3) Basophils (%) (Auto) 0% (0-3) 0% (0-3) Neutrophils # (Auto) 16.9x10^3uL (1.8-7.7) 18.7x10^3uL (1.8-7.7) Lymphocytes # (Auto) 1.0x10^3/uL (1.0-4.8) 1.4x10^3/uL (1.0-4.8) Monocytes # (Auto) 0.6x10^3/uL (0.0-1.1) 1.2x10^3/uL (0.0-1.1) Eosinophils # (Auto) 0.0x10^3/uL (0.0-0.7) 0.0x10^3/uL (0.0-0.7) Basophils # (Auto) 0.0x10^3/uL (0.0-0.2) 0.0x10^3/uL (0.0-0.2) Segmented Neutrophils % 89% (35-66) Band Neutrophils % 1% (0-9) Lymphocytes % 6% (24-48) Monocytes % 4% (0-10) Platelet Estimate Adequate (ADEQUATE) Large Platelets Occ Ovalocytes Occ Prothrombin Time 12.5SEC (11.7-14.0) Prothromb Time International Ratio 1.0 (0.8-1.1) Activated Partial Thromboplast Time 27SEC (24-38) Urine Color Roslyn Urine Clarity Clear Urine pH 5.5 Urine Specific [place] >=1.030 Urine Protein 30mg/dL (NEG-TRACE) Urine Glucose (UA) Negativemg/dL (NEG) Urine Ketones (Stick) Tracemg/dL (NEG) Urine Blood Negative (NEG) Urine Nitrite Negative (NEG) Urine Bilirubin Small (NEG) Urine Urobilinogen Dipstick 0.2mg/dL (0.2 mg/dL) Urine Leukocyte Esterase Small (NEG) Urine RBC 0/HPF (0-2) Urine WBC 1-4/HPF (0-4) Urine Squamous Epithelial Cells Occ/LPF Urine Amorphous Sediment Present/HPF Urine Bacteria 0/HPF (0-FEW) Urine Hyaline Casts Moderate/HPF Urine Mucus Slight/LPF Sodium Level 135mmol/L (136-145) 137mmol/L (136-145) Potassium Level 3.9mmol/L (3.5-5.1) 4.8mmol/L (3.5-5.1) Chloride Level 96mmol/L (98-107) 99mmol/L (98-107) Carbon Dioxide Level 27mmol/L (21-32) 26mmol/L (21-32) Anion Gap 12 (6-14) 12 (6-14) Blood Urea Nitrogen 29mg/dL (7-20) 40mg/dL (7-20) Creatinine 1.7mg/dL (0.6-1.0) 1.8mg/dL (0.6-1.0) Estimated GFR (Cockcroft-Gault) 29.7 27.8 Glucose Level 238mg/dL (70-99) 163mg/dL (70-99) Calcium Level 9.2mg/dL (8.5-10.1) 9.2mg/dL (8.5-10.1) Total Bilirubin 0.9mg/dL (0.2-1.0) 0.9mg/dL (0.2-1.0) Direct Bilirubin 0.2mg/dL (0.0-0.2) Aspartate Amino Transf (AST/SGOT) 25U/L (15-37) 23U/L (15-37) Alanine Aminotransferase (ALT/SGPT) 23U/L (14-59) 18U/L (14-59) Alkaline Phosphatase 64U/L (46-116) 62U/L (46-116) Creatine Kinase 53U/L (26-192) Creatine Kinase MB (Mass) 1.4ng/mL (0.0-3.6) Creatine Kinase MB Relative Index 2.6% (0-4) Total Protein 7.3g/dL (6.4-8.2) 6.3g/dL (6.4-8.2) Albumin 3.5g/dL (3.4-5.0) 3.3g/dL (3.4-5.0) Lipase 72U/L (73-393) Lactic Acid Level 3.3mmol/L (0.4-2.0) BUN/Creatinine Ratio 22 (6-20) Albumin/Globulin Ratio 1.1 (1.0-1.7) Assessment/Plan Assessment/Plan abdominal pain n/v dehydration, leukocytosis, lactic acidosis, ark/jyoti incarcerated fat containing umbilical hernia sbo vs ileus will place NG, LIS for decompression recheck lactic acid hydration, electrolyte management per primary provider plan GG SBFT in AM to further eval for sbo consider elective repair of hernia once sbo resolved d/w MARGOTH Womack MD 03/30/17 1214: CONSULT Allergies Allergies: Coded Allergies: Sulfa (Sulfonamide Antibiotics) (Unverified Allergy, Intermediate, hives, 06/25/15) penicillin (Verified Allergy, Intermediate, hives, 06/25/15) Assessment/Plan Assessment/Plan Pt seen and examined independently by myself: 71 year old female with 2 day history of abdominal pain, diffuse but worse in upper abdomen. She reports associated nausea and vomiting, no bowel movement today, passed a little gas this morning. Other HPI as above; PMH/PSH/ROS/SH as above, reviewed; exam: alert, oriented, appears ill, tired; NG just placed, no scleral icterus, lungs clear, heart RR and R, abdomen soft, reports mild tenderness upper abdomen , mid abdominal mass consistent with fat containing hernia on CT, not reducible but soft, ext neg for edema; CT reviewed, dilated SB loops, fat containing mid abdominal hernia, significant ascites, no free air; Labs noted with elevated WBC; A/P) Abdominal pain, ileus vs SBO, dehydration, fat containing abdominal hernia; Recommend hydration, NG tube decompression, gastrograffin SB series now to better determine bowel process; if mechanical obstruction present would likely need to proceed to surgery. Will follow VITALY ROSS APRN Mar 30, 2017 09:50 MARGOTH DAWSON MD Mar 30, 2017 12:14
[2017-03-30] MEDS ORDERED: ALBUTEROL SULFATE 2.5 MG/3 ML NEBU. NEB PRN (10:30)
[2017-03-30] MEDS ORDERED: hydrALAZINE 20 MG/ML VIAL. IVP PRN (10:30)
[2017-03-30] MEDS ORDERED: HYDROcodone/APAP 5/325MG 1 TAB TABLET PO PRN (10:30)
[2017-03-30] MEDS ORDERED: IOHEXOL 350 MG/ML 100 ML VIAL. PO ONE (11:00)
[2017-03-30] MEDS ORDERED: CONTRAST GIVEN MC PRN (11:00)
[2017-03-30] MEDS: MORPHINE SULFATE 2 MG/ML DISP.SYRIN. IV PRN ×2 (11:05→13:45)
--- NOTE | 2017-03-30 12:15 | HP ---
ADMIT DATE: 03/30/2017 CHIEF COMPLAINT: Nausea, vomiting, abdominal pain. HISTORY OF PRESENT ILLNESS: A 71-year-old female patient with prior history of hypertension, hypothyroidism, presented to the ER with complaints of nausea, vomiting, abdominal pain, started 2 days ago, . Symptoms are intractable in nature, and she could not keep anything down, still having nausea and abdominal pain located over right lower quadrant. She denies any fever or prior surgeries; however, when she was a child, she had an appendectomy and recent cholecystectomy. The patient denies any sick contacts or travel history. She did eat at [employer] and her ate the same food; he is doing fine. PAST MEDICAL HISTORY: Hypertension, hyperlipidemia, hypothyroidism. PAST SURGICAL HISTORY: Appendectomy and cholecystectomy. PERSONAL HISTORY: No smoking, no alcohol, no drug abuse. FAMILY HISTORY: Unknown to the patient. ALLERGIES: SULFA, PENICILLIN. REVIEW OF SYSTEMS AND PHYSICAL EXAMINATION: Please see my electronic H and P. LABORATORY DATA: On presentation, WBC 18.5, hemoglobin 18.3, MCV is 98, platelets 373, segmented neutrophils 89. Chemistry: Sodium is 135, potassium 3.9, chloride is 96, carbon dioxide is 27, gap is 12, BUN is 29, creatinine 1.7, glucose 238. Lactic acid 3.3, lipase 72. PT/INR within normal limits. Urinalysis: Ketones trace, nitrites negative, leukocyte esterase is small, and casts moderate. IMAGING STUDIES: 1. CT abdomen and pelvis showed small-bowel obstruction with dilated small bowel loops proximally and collapsed small bowel loops distally. There is a possible transition point identified in the left mid abdomen. 2. Moderate inflammatory fat stranding identified in the right mid abdomen. 3. Moderate ascites. 4. Moderate sized umbilical hernia. ASSESSMENT: 1. Nausea, vomiting, abdominal pain due to small-bowel obstruction, transition point in the left mid abdomen. 2. Umbilical hernia, moderate size. 3. Hypothyroidism. 4. Hypertension. 5. Leukocytosis. 6. Acute kidney injury, unknown baseline creatinine. 7. Hyperglycemia. PLAN: 1. She has been admitted to the hospital and will keep her n.p.o. and IV hydration at 75 mL per hour. Ciprofloxacin and Flagyl has been started. 2. Pain control with IV morphine. 3. General Surgery has been consulted, appreciate the recommendations. 4. Monitor WBC. 5. Monitor renal functions. 6. I will order a renal ultrasound. 7. Sliding scale insulin for hyperglycemia. 8. P.r.n. Zofran for nausea. 9. Plan explained to the patient. Prognosis is guarded. MERCEDEZ DUPREE MD DR: OMEGA/truman JOB#: [id number] / [id number] PINA
[2017-03-30] MEDS: IV NORMAL SALINE 1000ML BAG 1,000 ML IV SCH (12:33)
[2017-03-30] MEDS: ENOXAPARIN 30 MG/0.3 ML SYRINGE. SQ SCH (12:33)
--- NOTE | 2017-03-30 13:28 | PDOC2 ---
GI CONSULT Date Date/Time DATE: 03/30/17 TIME: 13:19 Providers Attending Physician Heber Abarca MD Referring Physician Consulting Physician Dr. Jackson History of Present Illness HPI 71 yo WF with history of mild constipation- but does not take laxatives- denies abd pain in past and denies SBO symptoms in past- onset for 1-2 days of n /v and abd pain and CT on admission suggests SBO and umbilical hernia. Risk factors are open appy nearly burst- at age 14, plus cholecystectomy and hysterectomy in past. Last BM was earlier this week, none yesterday or today. NGT place and presently undergoing SBFT. Had colonoscopy in past with Dr. Rodas - described as negative History Past Medical History HTN hypothroid Past Surgical History appy age 14 jonnie hysterectomy Past Surgical History: Appendectomy (open), Cholecystectomy, Hysterectomy FAMILY HISTORY: Coronary Artery Disease Social/Personal History ex smoker no alcohol no illicit drugs Review of Systems Gastrointestinal: Yes: abdominal pain, constipation, nausea, vomiting Allergies Allergies Allergies Coded Allergies Type Severity Reaction Last Updated Verified Sulfa (Sulfonamide Antibiotics) Allergy Intermediate hives 06/25/15 No penicillin Allergy Intermediate hives 06/25/15 Yes Medications Medications Current Medications Morphine Sulfate 2 mg 2 mg PRN Q15MIN PRN IV/SQ PAIN GREATER THAN 3/10 Last administered on 03/30/17 00:39; Start 03/29/17 at 17:45; Stop 03/30/17 at 17:44 Sodium Chloride (Iv Sodium Chloride 0.9% 1000ml Bag) 1,000 ml @ 1,000 mls/hr Q1H IV Last administered on 03/29/17 17:32; Start 03/29/17 at 17:32; Stop at 18:31; Status DC Ondansetron HCl (Zofran) 4 mg 1X ONCE IV Last administered on 03/29/17 17:45 ; Start 03/29/17 at 17:45; Stop 03/29/17 at 17:46; Status DC Iohexol (Omnipaque 240 Mg/ml) 30 ml 1X ONCE PO Last administered on 03/29/17 19:45; Start 03/29/17 at 19:45; Stop 03/29/17 at 19:46; Status DC Ondansetron HCl (Zofran) 4 mg 1X ONCE IV Last administered on 03/29/17 19:58 ; Start 03/29/17 at 20:00; Stop 03/29/17 at 20:01; Status DC Prochlorperazine Edisylate (Compazine) 10 mg 1X ONCE IV Last administered on 21:01; Start 03/29/17 at 21:15; Stop 03/29/17 at 21:16; Status DC Diphenhydramine HCl (Benadryl) 25 mg 1X ONCE IVP Last administered on 21:01; Start 03/29/17 at 21:15; Stop 03/29/17 at 21:16; Status DC Ondansetron HCl (Zofran) 4 mg PRN Q8HRS PRN IV NAUSEA/VOMITING Last administered on 03/30/17 07:59; Start 03/29/17 at 23:45; Stop 03/30/17 at 23:44 Fentanyl Citrate 25 mcg 25 mcg PRN Q1HR PRN IV SEVERE PAIN Last administered on 03/30/17 06:12; Start 03/29/17 at 23:45; Stop 03/30/17 at 23:44 Potassium Chloride/Dextrose/ Sod Cl 1,000 ml @ 75 mls/hr 1X ONCE IV Last administered on 03/30/17 06:13; Start 03/30/17 at 00:00; Stop 03/30/17 at 13:19 Ciprofloxacin Lactate 200 ml @ 200 mls/hr Q12HR IV ; Start 03/30/17 at 09:00; Status UNV Metronidazole 100 ml @ 100 mls/hr Q8HRS IV Last administered on 03/30/17 08: 18; Start 03/30/17 at 00:00 Ciprofloxacin Lactate 200 ml @ 200 mls/hr 1X ONCE IV Last administered on 06:14; Start 03/30/17 at 00:00; Stop 03/30/17 at 00:59; Status DC Ciprofloxacin Lactate (Cipro 200mg Premix) 100 ml @ 100 mls/hr [id number] IV ; Start 03/30/17 at 18:00 Enoxaparin Sodium (Lovenox 30mg Syringe) 30 mg Q24H SQ Last administered on 12:33; Start 03/30/17 at 11:00 Acetaminophen (Tylenol) 325 mg PRN Q6HRS PRN PO MILD PAIN / TEMP; Start at 10:30 Acetaminophen/ Hydrocodone Bitart (Lortab 5/325) 1 tab PRN Q6HRS PRN PO MODERATE TO SEVERE PAIN; Start 03/30/17 at 10:30 Hydralazine HCl (Apresoline) 10 mg PRN Q4HRS PRN IVP ELEVATED BP, SEE COMMENTS ; Start 03/30/17 at 10:30 Ondansetron HCl (Zofran) 4 mg PRN Q8HRS PRN IV NAUSEA/VOMITING; Start 03/30/17 at 10:30 Albuterol Sulfate 2.5 mg 2.5 mg PRN Q4HRS PRN NEB SHORTNESS OF BREATH; Start at 10:30 Sodium Chloride (Iv Sodium Chloride 0.9% 1000ml Bag) 1,000 ml @ 75 mls/hr [id number] IV Last administered on 03/30/17 12:33; Start 03/30/17 at 10:30 Morphine Sulfate 2 mg 2 mg PRN Q2HR PRN IV PAIN Last administered on 03/30/17 11:05; Start 03/30/17 at 10:30 Metronidazole 100 ml @ 100 mls/hr Q12HR IV ; Start 03/30/17 at 21:00; Stop at 21:00; Status DC Ciprofloxacin Lactate (Cipro 200mg Premix) 100 ml @ 100 mls/hr Q12HR IV ; Start 03/30/17 at 21:00; Stop 03/30/17 at 21:00; Status DC Iohexol (Omnipaque 350 Mg/ml) 400 ml 1X ONCE PO Last administered on 11:47; Start 03/30/17 at 11:00; Stop 03/30/17 at 11:01; Status DC Info (Do NOT chart on this entry -- for MONITORING) 1 each PRN DAILY PRN MC SEE COMMENTS; Start 03/30/17 at 11:00; Stop 04/01/17 at 10:59 Active Scripts Active Reported Niaspan (Niacin) 1,000 Mg Tab.er.24h 1 Tab PO BID Levothyroxine Sodium 88 Mcg Tablet 1 Tab PO DAILY Physical Exam Physical Exam VSS afebrile chest -clear cor- RRR abd- soft mildly distended mildly tender- few if any bowel sounds NGT in place extrem - no CCE neuro - alert non focal Labs Labs Laboratory Tests Test 03/29/17 17:11 03/29/17 22:49 03/30/17 05:20 03/30/17 10:00 White Blood Count 18.5x10^3/uL (4.0-11.0) 21.4x10^3/uL (4.0-11.0) Red Blood Count 5.55x10^6/uL (3.50-5.40) 5.17x10^6/uL (3.50-5.40) Hemoglobin 18.3g/dL (12.0-15.5) 17.1g/dL (12.0-15.5) Hematocrit 54.3% (36.0-47.0) 50.4% (36.0-47.0) Mean Corpuscular Volume 98fL (79-100) 98fL (79-100) Mean Corpuscular Hemoglobin 33pg (25-35) 33pg (25-35) Mean Corpuscular Hemoglobin Concent 34g/dL (31-37) 34g/dL (31-37) Red Cell Distribution Width 13.7% (11.5-14.5) 13.8% (11.5-14.5) Platelet Count 373x10^3/uL (140-400) 335x10^3/uL (140-400) Neutrophils (%) (Auto) 91% (31-73) 87% (31-73) Lymphocytes (%) (Auto) 5% (24-48) 7% (24-48) Monocytes (%) (Auto) 3% (0-9) 6% (0-9) Eosinophils (%) (Auto) 0% (0-3) 0% (0-3) Basophils (%) (Auto) 0% (0-3) 0% (0-3) Neutrophils # (Auto) 16.9x10^3uL (1.8-7.7) 18.7x10^3uL (1.8-7.7) Lymphocytes # (Auto) 1.0x10^3/uL (1.0-4.8) 1.4x10^3/uL (1.0-4.8) Monocytes # (Auto) 0.6x10^3/uL (0.0-1.1) 1.2x10^3/uL (0.0-1.1) Eosinophils # (Auto) 0.0x10^3/uL (0.0-0.7) 0.0x10^3/uL (0.0-0.7) Basophils # (Auto) 0.0x10^3/uL (0.0-0.2) 0.0x10^3/uL (0.0-0.2) Segmented Neutrophils % 89% (35-66) Band Neutrophils % 1% (0-9) Lymphocytes % 6% (24-48) Monocytes % 4% (0-10) Platelet Estimate Adequate (ADEQUATE) Large Platelets Occ Ovalocytes Occ Prothrombin Time 12.5SEC (11.7-14.0) Prothromb Time International Ratio 1.0 (0.8-1.1) Activated Partial Thromboplast Time 27SEC (24-38) Urine Color Roslyn Urine Clarity Clear Urine pH 5.5 Urine Specific Marston >=1.030 Urine Protein 30mg/dL (NEG-TRACE) Urine Glucose (UA) Negativemg/dL (NEG) Urine Ketones (Stick) Tracemg/dL (NEG) Urine Blood Negative (NEG) Urine Nitrite Negative (NEG) Urine Bilirubin Small (NEG) Urine Urobilinogen Dipstick 0.2mg/dL (0.2 mg/dL) Urine Leukocyte Esterase Small (NEG) Urine RBC 0/HPF (0-2) Urine WBC 1-4/HPF (0-4) Urine Squamous Epithelial Cells Occ/LPF Urine Amorphous Sediment Present/HPF Urine Bacteria 0/HPF (0-FEW) Urine Hyaline Casts Moderate/HPF Urine Mucus Slight/LPF Sodium Level 135mmol/L (136-145) 137mmol/L (136-145) Potassium Level 3.9mmol/L (3.5-5.1) 4.8mmol/L (3.5-5.1) Chloride Level 96mmol/L (98-107) 99mmol/L (98-107) Carbon Dioxide Level 27mmol/L (21-32) 26mmol/L (21-32) Anion Gap 12 (6-14) 12 (6-14) Blood Urea Nitrogen 29mg/dL (7-20) 40mg/dL (7-20) Creatinine 1.7mg/dL (0.6-1.0) 1.8mg/dL (0.6-1.0) Estimated GFR (Cockcroft-Gault) 29.7 27.8 Glucose Level 238mg/dL (70-99) 163mg/dL (70-99) Calcium Level 9.2mg/dL (8.5-10.1) 9.2mg/dL (8.5-10.1) Total Bilirubin 0.9mg/dL (0.2-1.0) 0.9mg/dL (0.2-1.0) Direct Bilirubin 0.2mg/dL (0.0-0.2) Aspartate Amino Transf (AST/SGOT) 25U/L (15-37) 23U/L (15-37) Alanine Aminotransferase (ALT/SGPT) 23U/L (14-59) 18U/L (14-59) Alkaline Phosphatase 64U/L (46-116) 62U/L (46-116) Creatine Kinase 53U/L (26-192) Creatine Kinase MB (Mass) 1.4ng/mL (0.0-3.6) Creatine Kinase MB Relative Index 2.6% (0-4) Total Protein 7.3g/dL (6.4-8.2) 6.3g/dL (6.4-8.2) Albumin 3.5g/dL (3.4-5.0) 3.3g/dL (3.4-5.0) Lipase 72U/L (73-393) Lactic Acid Level 3.3mmol/L (0.4-2.0) 2.2mmol/L (0.4-2.0) BUN/Creatinine Ratio 22 (6-20) Albumin/Globulin Ratio 1.1 (1.0-1.7) Imaging Imaging CT Assessment Assessment Abd pain with n/v and imaging suggesting SBO with transition point- NGT in place Mild elevation in lactate and elevated HGb and BUN suggesting pre renal - elevated WBC suggests inflammation and surgery plans are moving forward Problems: Plan Plan Surgery- timing per surgery consultation Thank you for allowing us to participate in the care of your patient. We will continue to follow the patient with you and provide an appropriate recommendation as it becomes available. FINA JACKSON MD Mar 30, 2017 13:28
--- NOTE | 2017-03-30 15:15 | RAD ---
Small bowel series with water-soluble contrast History: Small bowel obstruction. Findings: Preliminary supine and upright films demonstrates moderate central small bowel dilatation consistent with small bowel obstruction. Small air-fluid levels are seen. No free air is evident. Tip of NG tube is seen within the distal body of the stomach. A total of 200 cc of Omnipaque 350 was administered via the NG tube. Subsequent overhead films were obtained including portable films up to 3 hours and 10 minutes. There is contrast opacification of the dilated central jejunal bowel loops. There is no significant progression from 30 minutes at 12:10 PM to 3 hours and 10 minutes at 2:50 PM. Findings are consistent with high-grade small bowel obstruction. These findings were discussed with Dr. Noé Everett at 3:00 PM. IMPRESSION: High-grade small bowel obstruction. Follow-up KUB will be performed at 4:30 PM which will be 4 hours 50 minutes.
[2017-03-30] MEDS ORDERED: IV RINGERS,LACTATED 1000ML 1,000 ML IV SCH (16:43)
[2017-03-30] MEDS ORDERED: HYDROmorphone 2 MG/ML VIAL IV PRN (16:45)
[2017-03-30] MEDS ORDERED: LIDOCAINE 1% 1 ML SYRINGE. ID PRN (16:45)
[2017-03-30] MEDS ORDERED: fentaNYL PF VIAL 100 MCG/2 ML VIAL IV PRN (16:45)
[2017-03-30] MEDS ORDERED: PROCHLORPERAZINE 10 MG/2 ML VIAL. IV PRN (16:45)
[2017-03-30] MEDS ORDERED: MORPHINE SULFATE 2 MG/ML DISP.SYRIN. IV PRN (16:45)
[2017-03-30] MEDS ORDERED: LIDOCAINE 2% 100 MG/5 ML SYRINGE. ONE (17:18)
[2017-03-30] MEDS ORDERED: ROCURONIUM 50 MG/5 ML VIAL. ONE (17:18)
[2017-03-30] MEDS ORDERED: PROPOFOL 20 ML IV ONE (17:18)
[2017-03-30] MEDS ORDERED: DESFLURANE > 120 MINUTES IH ONE (17:18)
[2017-03-30] MEDS ORDERED: SUCCINYLCHOLINE 200 MG/10 ML VIAL. ONE (17:18)
[2017-03-30] MEDS ORDERED: DEXAMETHASONE SOD PHOS 20 MG/5 ML VIAL. ONE (17:18)
[2017-03-30] MEDS ORDERED: fentaNYL PF VIAL 100 MCG/2 ML VIAL ONE ×2 (17:18→18:58)
[2017-03-30] MEDS ORDERED: ONDANSETRON PF 4 MG/2 ML VIAL. ONE (17:18)
[2017-03-30] MEDS: CIPROFLOXACIN 200MG PREMIX 100 ML IV SCH (17:49)
--- NOTE | 2017-03-30 17:55 | PDOC ---
Provider Note Provider Note Attempted to see pt Down for surgery Exploratory lap Labs stable. Will follow in am KAY NUNEZ MD Mar 30, 2017 17:55
[2017-03-30] MEDS ORDERED: PHENYLEPHRINE in 0.9% NACL PF 1 MG/10 ML DISP.SYRIN. IV ONE (18:09)
--- NOTE | 2017-03-30 20:20 | PDOC4 ---
Operative Note Operative Note Operative Note: Preoperative Diagnosis: Small bowel obstruction, ventral hernia Postoperative Diagnosis: Same Procedure: Exploratory laparotomy, lysis of adhesions with release of small bowel obstruction, small bowel resection with primary anastomosis, primary repair of ventral hernia Surgeon: Karlos Metallographic Technician: Jessica MICHELE Anesthesia: Gen. Specimen: Segment of the ileum to pathology Drains: None Complications: None Findings: Ventral hernia containing adherent omentum, mechanical small bowel obstruction due to adhesions involving ileum with secondary focal ischemia Indication: The patient is a 71-year-old female who reported to the hospital with abdominal pain. Her evaluation was consistent with a high-grade small bowel obstruction. She was offered surgical treatment with expected laparotomy and potential bowel resection. The risks of surgery were discussed which include bleeding, infection, anastomotic leak, pain, anesthetic risk, this or injury, potential need for additional surgery or procedure. In addition she has a ventral hernia which appears to contain fat on her CAT scan. Surgery will likely involve repair of the hernia and she is aware of this. Description: The patient was taken to the operating room and placed supine on the operating table. Gen. anesthesia was performed. The abdomen was prepped with ChloraPrep and draped in a standard surgical manner. A fairly small vertical midline incision was made extending superior and inferior to the umbilicus. Cautery dissection was carried down through the subcutaneous tissue to the fascia. The patient had a hernia near her umbilicus and old suture material was identified. The appearance was most consistent with a recurrent hernia following prior attempted suture repair. There was no mesh or other foreign body. The hernia sac was opened and the abdominal cavity was entered. The fascia was clear of adhesions and I was able to open the fascia for the length of the skin incision. Initial inspection showed multiple dilated loops of small bowel with bloody ascitic fluid. The fluid was suctioned and we began a running the small intestine. The site of obstruction became clear in the low abdomen. There were some focal adhesions leading to a choke point causing a high -grade bowel obstruction in the ileum. The adhesions were lysed allowing the involved bowel to be brought into the area of visualization. Inspection showed some compromise of a segment of the ileum. We allowed several minutes to elapse to see if some of the ischemic effect was reversible. A portion of the small intestine did improve significantly and appeared viable. There remained however a focal segment with some patchy darker areas on the serosa concerning for irreversible ischemia. We proceeded with resection of this segment of ileum. The intestine was divided proximal and distal to the involved segment using a [id number] stapling device. The mesentery was then dissected. Blood vessels were dissected free, ligated with 2-0 Vicryl, and divided. The LigaSure device assisted with mesenteric dissection as well. The small bowel segment was then fully excised and sent to pathology. A 2 layer handsewn anastomosis was then constructed between the viable limbs of small bowel. The posterior seromuscular layer was developed first with interrupted 3-0 Vicryl sutures. The staple lines were then excised. The next layer was then constructed with 3-0 PDS in a running locked fashion. The anterior seromuscular layer was then completed with interrupted 3-0 Vicryl. The mesenteric defect was also closed with 3-0 Vicryl. Upon completion the anastomosis appeared well viable and was tension-free. The abdominal cavity was irrigated with sterile saline which was then suctioned. The remainder of the small bowel was run in its entirety and appeared unremarkable apart from the secondary obstructive defect. The bowel was then returned to the abdominal cavity. The hernia sac was then excised and the fascial edges were freshened up. The fascia and hernia defect were then closed primarily using a 1 PDS suture. The subcutaneous tissue was approximated with 3- 0 Vicryl. The skin was then closed with a running 4-0 Monocryl suture. Steri- Strips and a sterile dressing were then applied. The patient tolerated the procedure well and was sent to the recovery room in stable condition. At the end of the case all counts were correct. MARGOTH DAWSON MD Mar 30, 2017 20:20
[2017-03-30] MEDS: fentaNYL PF VIAL 100 MCG/2 ML VIAL IV PRN ×2 (20:55→21:23)
[2017-03-30] MEDS ORDERED: CIPROFLOXACIN 200MG PREMIX 100 ML IV SCH (21:00)
[2017-03-31] VITALS (7 sets, daily range): BP systolic 103–151; BP diastolic 49–86
[2017-03-31] MEDS: MORPHINE SULFATE 2 MG/ML DISP.SYRIN. IV PRN ×7 (03:44→22:18)
[2017-03-31] MEDS: IV NORMAL SALINE 1000ML BAG 1,000 ML IV SCH ×3 (03:51→14:16)
[2017-03-31 05:20] LABS: BASO % 0 % (0-3); EOS % 0 % (0-3); HEMATOCRIT 44.2 % (36.0-47.0); LYMPH # 0.8 x10^3/uL (1.0-4.8); LYMPH % 6 % (24-48); MEAN CORPUSCULAR HEMOGLOBIN 33 pg (25-35); MEAN CORPUSCULAR HGB CONC 34 g/dL (31-37); MEAN CORPUSCULAR VOLUME 98 fL (79-100); MONO % 8 % (0-9); NEUT % 86 % (31-73); PLATELET COUNT 257 x10^3/uL (140-400); RED BLOOD COUNT 4.52 x10^6/uL (3.50-5.40); RED CELL DISTRIBUTION WIDTH 13.8 % (11.5-14.5); WHITE BLOOD COUNT 14.2 x10^3/uL (4.0-11.0)
[2017-03-31 05:35] LABS: CALCIUM 8.6 mg/dL (8.5-10.1); CREATININE 1.7 mg/dL (0.6-1.0); GFR 29.7; POTASSIUM 4.3 mmol/L (3.5-5.1)
[2017-03-31] MEDS: CIPROFLOXACIN 200MG PREMIX 100 ML IV SCH ×2 (06:39→18:04)
[2017-03-31] MEDS ORDERED: IV NORMAL SALINE 500ML BAG 500 ML IV PRN (08:30)
[2017-03-31] MEDS ORDERED: MAGNESIUM SULFATE 2GM 50 ML IV PRN (08:30)
--- NOTE | 2017-03-31 08:41 | PDOC2 ---
DATE OF CONSULT Date of Consult 03/31/2017 REASON FOR CONSULT Reason for Consult CRISTINA REFERRING PHYSICIAN Referring Provider Dr Abarca CHIEF COMPLAINT Chief Complaint Problems Medical Problems: (1) Abdominal pain Status: Acute (2) Nausea & vomiting Status: Acute SOURCE Source pt and EMR HPI HPI as dictated. SBO now S/p Exploratory laparotomy, lysis of adhesions with release of small bowel obstruction, small bowel resection with primary anastomosis, primary repair of ventral hernia SOCIAL HISTORY Social History ex smoker no alcohol no illicit drugs CURRENT MEDICATIONS Current Meds Current Medications Medications (Trade) Dose Ordered Sig/Stevie Route PRN Reason Start Time Stop Time Status Last Admin Dose Admin Ciprofloxacin Lactate (Cipro 200mg Premix) 100 ml @ 100 mls/hr [id number] IV 03/30/17 18:00 03/31/17 06:39 Enoxaparin Sodium 30 mg 30 mg Q24H SQ 03/30/17 11:00 03/30/17 12:33 Sodium Chloride (Iv Sodium Chloride 0.9% 1000ml Bag) 1,000 ml @ 75 mls/hr [id number] IV 03/30/17 10:30 03/31/17 03:51 Morphine Sulfate 2 mg PRN Q2HR PRN IV PAIN 03/30/17 10:30 03/31/17 08:21 Iohexol (Omnipaque 350 Mg/ml) 400 ml 1X ONCE PO 03/30/17 11:00 03/30/17 11:01 DC 03/30/17 11:47 Fentanyl Citrate (Fentanyl 2ml Vial) 50 mcg PRN Q5MIN PRN IV MODERATE PAIN 03/30/17 16:45 03/31/17 16:44 03/30/17 21:23 ALLERGIES Allergies: Coded Allergies: Sulfa (Sulfonamide Antibiotics) (Unverified Allergy, Intermediate, hives, 06/25/15) penicillin (Verified Allergy, Intermediate, hives, 06/25/15) ROS ROS GEN: no Fevers no Chills EYES: no new Visual Complaints ENT: no EN Drainage no Hearing deficiets CVS: no Orthopnea no CP RESP: no SOB no KERN GI: + Nausea + Vomiting (Better post op) : no Dysuria no Urgency HEME: no easy bruising no Palp Ly Nodes NEURO no Focal Weakness no Sz + Gen Weakness and pre-syncopal s/s PSYCH: no Suicidal Ideation no Depression SKIN: no Rashes ENDO: no Polyuria or Polydipsia no Hot/Cold Intolerance MU SK: occ Arthraigia no Myalgia VITAL SIGNS Vital Signs VS - Last 72 Hours, by Label Date Time Temp Pulse Resp B/P Pulse Ox O2 Delivery O2 Flow Rate FiO2 03/31/17 08:21 18 94 Nasal Cannula 2.0 03/31/17 03:59 98.1 88 20 142/86 94 Nasal Cannula 2.0 98.1 03/31/17 03:44 20 Nasal Cannula 03/31/17 00:30 98.4 88 20 151/49 96 Nasal Cannula 2.0 98.4 03/30/17 23:30 98.6 94 18 148/69 96 Nasal Cannula 2.0 98.6 03/30/17 23:00 98.7 80 20 139/67 95 Nasal Cannula 2.0 98.7 03/30/17 22:30 98.0 93 18 141/79 98 Nasal Cannula 2.0 98.0 03/30/17 22:15 98.3 96 18 142/78 93 Nasal Cannula 2.0 98.3 03/30/17 22:00 98.2 91 18 150/74 93 Nasal Cannula 2.0 98.2 03/30/17 21:53 20 Nasal Cannula 03/30/17 21:45 98.5 98 18 150/81 95 Nasal Cannula 2.0 98.5 03/30/17 21:25 99.1 96 16 168/63 94 Nasal Cannula 2 99.1 03/30/17 21:23 16 96 Nasal Cannula 2.0 03/30/17 21:10 99.7 92 16 166/74 96 Nasal Cannula 2 99.7 03/30/17 21:00 Nasal Cannula 2 03/30/17 20:55 90 14 166/70 95 Room Air 03/30/17 20:55 16 94 Room Air 03/30/17 20:40 80 16 172/69 100 Simple Mask 10 03/30/17 20:25 Mask 10 03/30/17 20:25 99.2 81 16 174/76 100 Simple Mask 10 99.2 03/30/17 17:26 98.1 93 22 143/65 100 Room Air 98.1 03/30/17 14:55 96 Room Air 03/30/17 14:15 18 96 Room Air 03/30/17 13:45 18 97 Room Air 03/30/17 12:32 98.1 88 24 114/72 97 Room Air 98.1 03/30/17 11:05 18 93 Room Air 03/30/17 08:01 18 93 Room Air 03/30/17 08:00 18 93 Room Air 03/30/17 07:50 Room Air 03/30/17 07:00 98.9 98 22 126/63 98 Room Air 98.9 PHYSICAL EXAM Physical Exam General Appearance: Awake Alert Oriented x 3 In no Distress Eyes: VIsion Unchanged Conjunctiva Normal EN: No EN Drainage Mucous Memb. moist Neck: no JVD no JVP Supple no Thyromegaly CVS: S1 S2 no Murmur No Gallop No Rub no Edema Resp: no Rales no Rhonchi no Acc. Muscle use GI: BS hypoactive NO Bruit + Tender Non Distended : no CVA tenderness; no Suprapubic Tenderness SKIN: no Rashes Breast Exam deferred Mu.Sk: Adequate ROM no Muscle Atrophy Heme: Unable to palpate Obvious LAD no Splenomegaly NEURO: Good Strength and Tone Cranial Nerves II - XII grossly intact Psych: not Depressed no Active hallucination ASSESSMENT/PLAN Assessment/Plan CRISTINA - VMn due to previous NV - Uo improving with IVF,watch trend. Current FLuid and E-lyte status does not necessitate emergent need for Dialysis. Will re- evaluate for Dialysis in am Oliguria - suspect sev vol depeliton - ^ IVF for now, prn Boluses (pt denies cardiac history) vol depeliton asso with sev NV - feeling better now Lactic Acidemia - suspect due to above. ^ IVF and reval SBO - now s/p Exploratory laparotomy, lysis of adhesions with release of small bowel obstruction, small bowel resection with primary anastomosis, primary repair of ventral hernia - ? NEed for TPN - await GS eval Discussed Plan of Care and prognosis etc. at length with pt. LABS Labs: Laboratory Tests Test 03/30/17 10:00 03/31/17 04:20 Lactic Acid Level 2.2mmol/L (0.4-2.0) White Blood Count 14.2x10^3/uL (4.0-11.0) Red Blood Count 4.52x10^6/uL (3.50-5.40) Hemoglobin 15.0g/dL (12.0-15.5) Hematocrit 44.2% (36.0-47.0) Mean Corpuscular Volume 98fL (79-100) Mean Corpuscular Hemoglobin 33pg (25-35) Mean Corpuscular Hemoglobin Concent 34g/dL (31-37) Red Cell Distribution Width 13.8% (11.5-14.5) Platelet Count 257x10^3/uL (140-400) Neutrophils (%) (Auto) 86% (31-73) Lymphocytes (%) (Auto) 6% (24-48) Monocytes (%) (Auto) 8% (0-9) Eosinophils (%) (Auto) 0% (0-3) Basophils (%) (Auto) 0% (0-3) Neutrophils # (Auto) 12.3x10^3uL (1.8-7.7) Lymphocytes # (Auto) 0.8x10^3/uL (1.0-4.8) Monocytes # (Auto) 1.1x10^3/uL (0.0-1.1) Eosinophils # (Auto) 0.0x10^3/uL (0.0-0.7) Basophils # (Auto) 0.0x10^3/uL (0.0-0.2) Sodium Level 137mmol/L (136-145) Chloride Level 101mmol/L (98-107) Carbon Dioxide Level 28mmol/L (21-32) Anion Gap 8 (6-14) Blood Urea Nitrogen 50mg/dL (7-20) Estimated GFR (Cockcroft-Gault) 29.7 Glucose Level 167mg/dL (70-99) Calcium Level 8.6mg/dL (8.5-10.1) PAULA KELLY MD Mar 31, 2017 08:41
--- NOTE | 2017-03-31 09:12 | CONS ---
DATE OF CONSULTATION: 03/31/2017 PRIMARY PHYSICIAN: Dr. Abarca. REASON FOR CONSULTATION: Acute renal failure. HISTORY OF PRESENT ILLNESS: The patient is a 71-year-old female who has usually been in good health by her reports. She developed nausea, vomiting and abdominal pain on and she presented to the hospital for further evaluation. She claims she was so weak, she could barely even stand. She could not keep fluids or food down. She is not aware of known renal insufficiency. She underwent a CT scan without IV contrast with only oral contrast and she was noted to have small-bowel obstruction. She is now status post surgery for the same. Denies history of kidney stones, etc. No NSAID use. PAST MEDICAL HISTORY: Significant for appendectomy, cholecystectomy, hypertension, hyperlipidemia, hypothyroidism, questionable history of COPD, occasional constipation. FAMILY HISTORY: Positive for father with heart problems. No renal problems in the family. Brother is known to have diabetes. SOCIAL HISTORY: She is , previous smoker. No significant alcohol use per se. For rest of the details, please see electronic records. PAULA KELLY MD DR: KIM/truman JOB#: [id number] / [id number]
--- NOTE | 2017-03-31 09:40 | RAD ---
KUB History: Follow-up from small bowel series. Small bowel obstruction. Comparison: Small bowel series performed earlier. The last film was 3 hours 10 minutes. This KUB is labeled as 4 hours and 50 minutes. Findings: There is no further progression of the contrast material over the past one hour and 40 minutes. This is consistent with a high-grade small bowel obstruction. IMPRESSION: High-grade small bowel obstruction.
--- NOTE | 2017-03-31 10:22 | PDOC ---
PROGRESS NOTES Chief Complaint Chief Complaint 1. Small-bowel obstruction, transition, S/P Exploratory laparotomy, lysis of adhesions with release of small bowel obstruction, small bowel resection with primary anastomosis, primary repair of ventral hernia: On Cipro and Flagyl, IV Dilaudid, NG tube, IV hydration, 2. Umbilical hernia, Repaired, Abdominal binder present. 3. Hypothyroidism. 4. Hypertension.: stable 5. Leukocytosis.: improving, on abx. 6. Acute kidney injury, unknown baseline creatinine.: better, nephrology consulted. 7. Hyperglycemia.: on SSI, NPO, History of Present Illness History of Present Illness no flatus on ng no fever doing better Vitals Vitals Vital Signs Date Time Temp Pulse Resp B/P Pulse Ox O2 Delivery O2 Flow Rate FiO2 03/31/17 08:21 18 94 Nasal Cannula 2.0 03/31/17 07:00 98.4 90 148/54 98.4 Physical Exam General: Alert, Oriented X3, Cooperative, No acute distress, Other (NG) Heart: Regular rate, Normal S1, Normal S2, No murmurs Abdomen: Soft, No masses, Other (abdominal bidner) Extremities: No clubbing, No cyanosis Skin: No rashes, No breakdown Labs LABS Laboratory Tests Test 03/31/17 04:20 White Blood Count 14.2x10^3/uL (4.0-11.0) Red Blood Count 4.52x10^6/uL (3.50-5.40) Hemoglobin 15.0g/dL (12.0-15.5) Hematocrit 44.2% (36.0-47.0) Mean Corpuscular Volume 98fL (79-100) Mean Corpuscular Hemoglobin 33pg (25-35) Mean Corpuscular Hemoglobin Concent 34g/dL (31-37) Red Cell Distribution Width 13.8% (11.5-14.5) Platelet Count 257x10^3/uL (140-400) Neutrophils (%) (Auto) 86% (31-73) Lymphocytes (%) (Auto) 6% (24-48) Monocytes (%) (Auto) 8% (0-9) Eosinophils (%) (Auto) 0% (0-3) Basophils (%) (Auto) 0% (0-3) Neutrophils # (Auto) 12.3x10^3uL (1.8-7.7) Lymphocytes # (Auto) 0.8x10^3/uL (1.0-4.8) Monocytes # (Auto) 1.1x10^3/uL (0.0-1.1) Eosinophils # (Auto) 0.0x10^3/uL (0.0-0.7) Basophils # (Auto) 0.0x10^3/uL (0.0-0.2) Sodium Level 137mmol/L (136-145) Potassium Level 4.3mmol/L (3.5-5.1) Chloride Level 101mmol/L (98-107) Carbon Dioxide Level 28mmol/L (21-32) Anion Gap 8 (6-14) Blood Urea Nitrogen 50mg/dL (7-20) Creatinine 1.7mg/dL (0.6-1.0) Estimated GFR (Cockcroft-Gault) 29.7 Glucose Level 167mg/dL (70-99) Calcium Level 8.6mg/dL (8.5-10.1) Assessment and Plan Assessmemt and Plan Problems Medical Problems: (1) Abdominal pain Status: Acute (2) Nausea & vomiting Status: Acute Problems: Comment Review of Relevant I have reviewed the following items daphne (where applicable) has been applied. Labs Laboratory Tests Test 03/29/17 17:11 03/29/17 22:49 03/30/17 05:20 03/30/17 10:00 White Blood Count 18.5x10^3/uL (4.0-11.0) 21.4x10^3/uL (4.0-11.0) Red Blood Count 5.55x10^6/uL (3.50-5.40) 5.17x10^6/uL (3.50-5.40) Hemoglobin 18.3g/dL (12.0-15.5) 17.1g/dL (12.0-15.5) Hematocrit 54.3% (36.0-47.0) 50.4% (36.0-47.0) Mean Corpuscular Volume 98fL (79-100) 98fL (79-100) Mean Corpuscular Hemoglobin 33pg (25-35) 33pg (25-35) Mean Corpuscular Hemoglobin Concent 34g/dL (31-37) 34g/dL (31-37) Red Cell Distribution Width 13.7% (11.5-14.5) 13.8% (11.5-14.5) Platelet Count 373x10^3/uL (140-400) 335x10^3/uL (140-400) Neutrophils (%) (Auto) 91% (31-73) 87% (31-73) Lymphocytes (%) (Auto) 5% (24-48) 7% (24-48) Monocytes (%) (Auto) 3% (0-9) 6% (0-9) Eosinophils (%) (Auto) 0% (0-3) 0% (0-3) Basophils (%) (Auto) 0% (0-3) 0% (0-3) Neutrophils # (Auto) 16.9x10^3uL (1.8-7.7) 18.7x10^3uL (1.8-7.7) Lymphocytes # (Auto) 1.0x10^3/uL (1.0-4.8) 1.4x10^3/uL (1.0-4.8) Monocytes # (Auto) 0.6x10^3/uL (0.0-1.1) 1.2x10^3/uL (0.0-1.1) Eosinophils # (Auto) 0.0x10^3/uL (0.0-0.7) 0.0x10^3/uL (0.0-0.7) Basophils # (Auto) 0.0x10^3/uL (0.0-0.2) 0.0x10^3/uL (0.0-0.2) Segmented Neutrophils % 89% (35-66) Band Neutrophils % 1% (0-9) Lymphocytes % 6% (24-48) Monocytes % 4% (0-10) Platelet Estimate Adequate (ADEQUATE) Large Platelets Occ Ovalocytes Occ Prothrombin Time 12.5SEC (11.7-14.0) Prothromb Time International Ratio 1.0 (0.8-1.1) Activated Partial Thromboplast Time 27SEC (24-38) Urine Color [place] Urine Clarity Clear Urine pH 5.5 Urine Specific [place] >=1.030 Urine Protein 30mg/dL (NEG-TRACE) Urine Glucose (UA) Negativemg/dL (NEG) Urine Ketones (Stick) Tracemg/dL (NEG) Urine Blood Negative (NEG) Urine Nitrite Negative (NEG) Urine Bilirubin Small (NEG) Urine Urobilinogen Dipstick 0.2mg/dL (0.2 mg/dL) Urine Leukocyte Esterase Small (NEG) Urine RBC 0/HPF (0-2) Urine WBC 1-4/HPF (0-4) Urine Squamous Epithelial Cells Occ/LPF Urine Amorphous Sediment Present/HPF Urine Bacteria 0/HPF (0-FEW) Urine Hyaline Casts Moderate/HPF Urine Mucus Slight/LPF Sodium Level 135mmol/L (136-145) 137mmol/L (136-145) Potassium Level 3.9mmol/L (3.5-5.1) 4.8mmol/L (3.5-5.1) Chloride Level 96mmol/L (98-107) 99mmol/L (98-107) Carbon Dioxide Level 27mmol/L (21-32) 26mmol/L (21-32) Anion Gap 12 (6-14) 12 (6-14) Blood Urea Nitrogen 29mg/dL (7-20) 40mg/dL (7-20) Creatinine 1.7mg/dL (0.6-1.0) 1.8mg/dL (0.6-1.0) Estimated GFR (Cockcroft-Gault) 29.7 27.8 Glucose Level 238mg/dL (70-99) 163mg/dL (70-99) Calcium Level 9.2mg/dL (8.5-10.1) 9.2mg/dL (8.5-10.1) Total Bilirubin 0.9mg/dL (0.2-1.0) 0.9mg/dL (0.2-1.0) Direct Bilirubin 0.2mg/dL (0.0-0.2) Aspartate Amino Transf (AST/SGOT) 25U/L (15-37) 23U/L (15-37) Alanine Aminotransferase (ALT/SGPT) 23U/L (14-59) 18U/L (14-59) Alkaline Phosphatase 64U/L (46-116) 62U/L (46-116) Creatine Kinase 53U/L (26-192) Creatine Kinase MB (Mass) 1.4ng/mL (0.0-3.6) Creatine Kinase MB Relative Index 2.6% (0-4) Total Protein 7.3g/dL (6.4-8.2) 6.3g/dL (6.4-8.2) Albumin 3.5g/dL (3.4-5.0) 3.3g/dL (3.4-5.0) Lipase 72U/L (73-393) Lactic Acid Level 3.3mmol/L (0.4-2.0) 2.2mmol/L (0.4-2.0) BUN/Creatinine Ratio 22 (6-20) Albumin/Globulin Ratio 1.1 (1.0-1.7) Test 03/31/17 04:20 White Blood Count 14.2x10^3/uL (4.0-11.0) Red Blood Count 4.52x10^6/uL (3.50-5.40) Hemoglobin 15.0g/dL (12.0-15.5) Hematocrit 44.2% (36.0-47.0) Mean Corpuscular Volume 98fL (79-100) Mean Corpuscular Hemoglobin 33pg (25-35) Mean Corpuscular Hemoglobin Concent 34g/dL (31-37) Red Cell Distribution Width 13.8% (11.5-14.5) Platelet Count 257x10^3/uL (140-400) Neutrophils (%) (Auto) 86% (31-73) Lymphocytes (%) (Auto) 6% (24-48) Monocytes (%) (Auto) 8% (0-9) Eosinophils (%) (Auto) 0% (0-3) Basophils (%) (Auto) 0% (0-3) Neutrophils # (Auto) 12.3x10^3uL (1.8-7.7) Lymphocytes # (Auto) 0.8x10^3/uL (1.0-4.8) Monocytes # (Auto) 1.1x10^3/uL (0.0-1.1) Eosinophils # (Auto) 0.0x10^3/uL (0.0-0.7) Basophils # (Auto) 0.0x10^3/uL (0.0-0.2) Sodium Level 137mmol/L (136-145) Potassium Level 4.3mmol/L (3.5-5.1) Chloride Level 101mmol/L (98-107) Carbon Dioxide Level 28mmol/L (21-32) Anion Gap 8 (6-14) Blood Urea Nitrogen 50mg/dL (7-20) Creatinine 1.7mg/dL (0.6-1.0) Estimated GFR (Cockcroft-Gault) 29.7 Glucose Level 167mg/dL (70-99) Calcium Level 8.6mg/dL (8.5-10.1) Laboratory Tests Test 03/31/17 04:20 White Blood Count 14.2x10^3/uL (4.0-11.0) Red Blood Count 4.52x10^6/uL (3.50-5.40) Hemoglobin 15.0g/dL (12.0-15.5) Hematocrit 44.2% (36.0-47.0) Mean Corpuscular Volume 98fL (79-100) Mean Corpuscular Hemoglobin 33pg (25-35) Mean Corpuscular Hemoglobin Concent 34g/dL (31-37) Red Cell Distribution Width 13.8% (11.5-14.5) Platelet Count 257x10^3/uL (140-400) Neutrophils (%) (Auto) 86% (31-73) Lymphocytes (%) (Auto) 6% (24-48) Monocytes (%) (Auto) 8% (0-9) Eosinophils (%) (Auto) 0% (0-3) Basophils (%) (Auto) 0% (0-3) Neutrophils # (Auto) 12.3x10^3uL (1.8-7.7) Lymphocytes # (Auto) 0.8x10^3/uL (1.0-4.8) Monocytes # (Auto) 1.1x10^3/uL (0.0-1.1) Eosinophils # (Auto) 0.0x10^3/uL (0.0-0.7) Basophils # (Auto) 0.0x10^3/uL (0.0-0.2) Sodium Level 137mmol/L (136-145) Potassium Level 4.3mmol/L (3.5-5.1) Chloride Level 101mmol/L (98-107) Carbon Dioxide Level 28mmol/L (21-32) Anion Gap 8 (6-14) Blood Urea Nitrogen 50mg/dL (7-20) Creatinine 1.7mg/dL (0.6-1.0) Estimated GFR (Cockcroft-Gault) 29.7 Glucose Level 167mg/dL (70-99) Calcium Level 8.6mg/dL (8.5-10.1) Microbiology 03/30/17 Blood Culture - Preliminary, Resulted NO GROWTH AFTER 1 DAY Medications Current Medications Morphine Sulfate 2 mg 2 mg PRN Q15MIN PRN IV/SQ PAIN GREATER THAN 3/10 Last administered on 03/30/17 00:39; Start 03/29/17 at 17:45; Stop 03/30/17 at 17:44 ; Status DC Sodium Chloride (Iv Sodium Chloride 0.9% 1000ml Bag) 1,000 ml @ 1,000 mls/hr Q1H IV Last administered on 03/29/17 17:32; Start 03/29/17 at 17:32; Stop at 18:31; Status DC Ondansetron HCl (Zofran) 4 mg 1X ONCE IV Last administered on 03/29/17 17:45 ; Start 03/29/17 at 17:45; Stop 03/29/17 at 17:46; Status DC Iohexol (Omnipaque 240 Mg/ml) 30 ml 1X ONCE PO Last administered on 03/29/17 19:45; Start 03/29/17 at 19:45; Stop 03/29/17 at 19:46; Status DC Ondansetron HCl (Zofran) 4 mg 1X ONCE IV Last administered on 03/29/17 19:58 ; Start 03/29/17 at 20:00; Stop 03/29/17 at 20:01; Status DC Prochlorperazine Edisylate (Compazine) 10 mg 1X ONCE IV Last administered on 21:01; Start 03/29/17 at 21:15; Stop 03/29/17 at 21:16; Status DC Diphenhydramine HCl (Benadryl) 25 mg 1X ONCE IVP Last administered on 21:01; Start 03/29/17 at 21:15; Stop 03/29/17 at 21:16; Status DC Ondansetron HCl (Zofran) 4 mg PRN Q8HRS PRN IV NAUSEA/VOMITING Last administered on 03/30/17 07:59; Start 03/29/17 at 23:45; Stop 03/30/17 at 23:44 ; Status DC Fentanyl Citrate 25 mcg 25 mcg PRN Q1HR PRN IV SEVERE PAIN Last administered on 03/30/17 06:12; Start 03/29/17 at 23:45; Stop 03/30/17 at 23:44; Status DC Potassium Chloride/Dextrose/ Sod Cl 1,000 ml @ 75 mls/hr 1X ONCE IV Last administered on 03/30/17 06:13; Start 03/30/17 at 00:00; Stop 03/30/17 at 13:19 ; Status DC Ciprofloxacin Lactate 200 ml @ 200 mls/hr Q12HR IV ; Start 03/30/17 at 09:00; Status UNV Metronidazole 100 ml @ 100 mls/hr Q8HRS IV Last administered on 03/31/17 05: 40; Start 03/30/17 at 00:00 Ciprofloxacin Lactate 200 ml @ 200 mls/hr 1X ONCE IV Last administered on 06:14; Start 03/30/17 at 00:00; Stop 03/30/17 at 00:59; Status DC Ciprofloxacin Lactate (Cipro 200mg Premix) 100 ml @ 100 mls/hr [id number] IV Last administered on 03/31/17 06:39; Start 03/30/17 at 18:00 Enoxaparin Sodium (Lovenox 30mg Syringe) 30 mg Q24H SQ Last administered on 12:33; Start 03/30/17 at 11:00 Acetaminophen (Tylenol) 325 mg PRN Q6HRS PRN PO MILD PAIN / TEMP; Start at 10:30 Acetaminophen/ Hydrocodone Bitart (Lortab 5/325) 1 tab PRN Q6HRS PRN PO MODERATE TO SEVERE PAIN; Start 03/30/17 at 10:30 Hydralazine HCl (Apresoline) 10 mg PRN Q4HRS PRN IVP ELEVATED BP, SEE COMMENTS ; Start 03/30/17 at 10:30 Ondansetron HCl (Zofran) 4 mg PRN Q8HRS PRN IV NAUSEA/VOMITING; Start 03/30/17 at 10:30 Albuterol Sulfate 2.5 mg 2.5 mg PRN Q4HRS PRN NEB SHORTNESS OF BREATH; Start at 10:30 Sodium Chloride (Iv Sodium Chloride 0.9% 1000ml Bag) 1,000 ml @ 150 mls/hr Q6H40M IV Last administered on 03/31/17 03:51; Start 03/30/17 at 10:30 Morphine Sulfate 2 mg 2 mg PRN Q2HR PRN IV PAIN Last administered on 03/31/17 08:21; Start 03/30/17 at 10:30 Metronidazole 100 ml @ 100 mls/hr Q12HR IV ; Start 03/30/17 at 21:00; Stop at 21:00; Status DC Ciprofloxacin Lactate (Cipro 200mg Premix) 100 ml @ 100 mls/hr Q12HR IV ; Start 03/30/17 at 21:00; Stop 03/30/17 at 21:00; Status DC Iohexol (Omnipaque 350 Mg/ml) 400 ml 1X ONCE PO Last administered on 11:47; Start 03/30/17 at 11:00; Stop 03/30/17 at 11:01; Status DC Info (Do NOT chart on this entry -- for MONITORING) 1 each PRN DAILY PRN MC SEE COMMENTS; Start 03/30/17 at 11:00; Stop 04/01/17 at 10:59 Fentanyl Citrate (Fentanyl 2ml Vial) 25 mcg PRN Q5MIN PRN IV MILD PAIN; Start 03/30/17 at 16:45; Stop 03/31/17 at 16:44 Fentanyl Citrate (Fentanyl 2ml Vial) 50 mcg PRN Q5MIN PRN IV MODERATE PAIN Last administered on 03/30/17 21:23; Start 03/30/17 at 16:45; Stop 03/31/17 at 16:44 Morphine Sulfate 1 mg 1 mg PRN Q10MIN PRN IV SEVERE PAIN; Start 03/30/17 at 16: 45; Stop 03/31/17 at 16:44 Lactated Ringer's (Iv Lactated Ringers) 1,000 ml @ 30 mls/hr Q24H IV ; Start at 16:43; Stop 03/31/17 at 04:43; Status DC Lidocaine HCl 2 ml PRN 1X PRN ID PRIOR TO IV START; Start 03/30/17 at 16:45; Stop 03/31/17 at 16:44 Hydromorphone HCl (Dilaudid) 0.5 mg PRN Q10MIN PRN IV SEV PAIN, Second choice; Start 03/30/17 at 16:45; Stop 03/31/17 at 16:44 Prochlorperazine Edisylate (Compazine) 5 mg PACU PRN PRN IV NAUSEA, MRX1; Start 03/30/17 at 16:45; Stop 03/31/17 at 16:44 Dexamethasone Sodium Phosphate (Decadron) 20 mg STK-MED ONCE .ROUTE ; Start at 17:18; Stop 03/30/17 at 17:19; Status DC Ondansetron HCl 4 mg 4 mg STK-MED ONCE .ROUTE ; Start 03/30/17 at 17:18; Stop at 17:19; Status DC Propofol (Diprivan) 20 ml @ As Directed STK-MED ONCE IV ; Start 03/30/17 at 17: 18; Stop 03/30/17 at 17:19; Status DC Lidocaine HCl (Lidocaine HCl 2% Abboject) 100 mg STK-MED ONCE .ROUTE ; Start at 17:18; Stop 03/30/17 at 17:19; Status DC Desflurane (Suprane) 90 ml STK-MED ONCE IH ; Start 03/30/17 at 17:18; Stop 03/30 at 17:19; Status DC Fentanyl Citrate (Fentanyl 2ml Vial) 100 mcg STK-MED ONCE .ROUTE ; Start at 17:18; Stop 03/30/17 at 17:19; Status DC Succinylcholine Chloride (Anectine) 200 mg STK-MED ONCE .ROUTE ; Start 03/30/17 at 17:18; Stop 03/30/17 at 17:19; Status DC Rocuronium [place] (Zemuron) 50 mg STK-MED ONCE .ROUTE ; Start 03/30/17 at 17:18 ; Stop 03/30/17 at 17:19; Status DC Phenylephrine HCl 1 mg STK-MED ONCE IV ; Start 03/30/17 at 18:09; Stop 03/30/17 at 18:10; Status DC Fentanyl Citrate 100 mcg 100 mcg STK-MED ONCE .ROUTE ; Start 03/30/17 at 18:58; Stop 03/30/17 at 18:59; Status DC Sodium Chloride 500 ml @ 0 mls/hr QID PRN IV UO< 30cc/hr over previous 6hrs; Start 03/31/17 at 08:30 Magnesium Sulfate/ Dextrose (Magnesium Sulfate PREMIX 2GM) 50 ml @ 25 mls/hr PRN DAILY PRN IV for Mag < 1.7 on am labs; Start 03/31/17 at 08:30 Active Scripts Active Reported Niaspan (Niacin) 1,000 Mg Tab.er.24h 1 Tab PO BID Levothyroxine Sodium 88 Mcg Tablet 1 Tab PO DAILY Vitals/I & O Vital Sign - Last 24 Hours 03/30/17 03/30/17 03/30/17 03/30/17 11:05 12:32 13:45 14:15 Temp 98.1 98.1 Pulse 88 Resp 18 24 18 18 B/P 114/72 Pulse Ox 93 97 97 96 O2 Delivery Room Air Room Air Room Air Room Air 03/30/17 03/30/17 03/30/17 03/30/17 14:55 17:26 20:25 20:25 Temp 98.1 99.2 98.1 99.2 Pulse 93 81 Resp 22 16 B/P 143/65 174/76 Pulse Ox 96 100 100 O2 Delivery Room Air Room Air Simple Mask Mask O2 Flow Rate 10 10 03/30/17 03/30/17 03/30/17 03/30/17 20:40 20:55 20:55 21:00 Pulse 80 90 Resp 16 16 14 B/P 172/69 166/70 Pulse Ox 100 94 95 O2 Delivery Simple Mask Room Air Room Air Nasal Cannula O2 Flow Rate 10 2 03/30/17 03/30/17 03/30/17 03/30/17 21:10 21:23 21:25 21:45 Temp 99.7 99.1 98.5 99.7 99.1 98.5 Pulse 92 96 98 Resp 16 16 16 18 B/P 166/74 168/63 150/81 Pulse Ox 96 96 94 95 O2 Delivery Nasal Cannula Nasal Cannula Nasal Cannula Nasal Cannula O2 Flow Rate 2 2.0 2 2.0 03/30/17 03/30/17 03/30/17 03/30/17 21:53 22:00 22:15 22:30 Temp 98.2 98.3 98.0 98.2 98.3 98.0 Pulse 91 96 93 Resp 20 18 18 18 B/P 150/74 142/78 141/79 Pulse Ox 93 93 98 O2 Delivery Nasal Cannula Nasal Cannula Nasal Cannula Nasal Cannula O2 Flow Rate 2.0 2.0 2.0 03/30/17 03/30/17 03/31/17 03/31/17 23:00 23:30 00:30 03:44 Temp 98.7 98.6 98.4 98.7 98.6 98.4 Pulse 80 94 88 Resp 20 18 20 20 B/P 139/67 148/69 151/49 Pulse Ox 95 96 96 O2 Delivery Nasal Cannula Nasal Cannula Nasal Cannula Nasal Cannula O2 Flow Rate 2.0 2.0 2.0 03/31/17 03/31/17 03/31/17 03/31/17 03:59 07:00 07:50 08:21 Temp 98.1 98.4 98.1 98.4 Pulse 88 90 Resp 18 B/P 142/86 148/54 Pulse Ox 94 96 94 O2 Delivery Nasal Cannula Room Air Nasal Cannula O2 Flow Rate 2.0 2.0 Intake and Output 03/30/17 03/30/17 03/31/17 15:00 23:00 07:00 Intake Total 100 ml Output Total 2525 ml 200 ml Balance -2425 ml -200 ml MERCEDEZ DUPREE MD Mar 31, 2017 10:22
--- NOTE | 2017-03-31 10:28 | PDOC ---
VITALY ROSS [employer] DIRECTOR 03/31/17 1028: SURGICAL PROGRESS NOTE Subjective incisional pain, improved however from admission no flatus Vital Signs Vital Signs Date Time Temp Pulse Resp B/P Pulse Ox O2 Delivery O2 Flow Rate FiO2 03/31/17 08:21 18 94 Nasal Cannula 2.0 03/31/17 07:00 98.4 90 148/54 98.4 I&O Intake and Output 03/31/17 07:00 Intake Total 100 ml Output Total 2725 ml Balance -2625 ml Intake Oral 0 ml IV Total 100 ml Output Urine Total 850 ml Gastric Drainage Total 1825 ml Estimated Blood Loss 50 ml PATIENT HAS A ROLON: Yes (dc pod#2) General: Alert, Oriented X3, Cooperative, No acute distress HEENT: Other (ng bilious) Abdomen: Soft, Other (dressing dry, binder in place) Labs Laboratory Tests Test 03/29/17 17:11 03/29/17 22:49 03/30/17 05:20 03/30/17 10:00 White Blood Count 18.5x10^3/uL (4.0-11.0) 21.4x10^3/uL (4.0-11.0) Red Blood Count 5.55x10^6/uL (3.50-5.40) 5.17x10^6/uL (3.50-5.40) Hemoglobin 18.3g/dL (12.0-15.5) 17.1g/dL (12.0-15.5) Hematocrit 54.3% (36.0-47.0) 50.4% (36.0-47.0) Mean Corpuscular Volume 98fL (79-100) 98fL (79-100) Mean Corpuscular Hemoglobin 33pg (25-35) 33pg (25-35) Mean Corpuscular Hemoglobin Concent 34g/dL (31-37) 34g/dL (31-37) Red Cell Distribution Width 13.7% (11.5-14.5) 13.8% (11.5-14.5) Platelet Count 373x10^3/uL (140-400) 335x10^3/uL (140-400) Neutrophils (%) (Auto) 91% (31-73) 87% (31-73) Lymphocytes (%) (Auto) 5% (24-48) 7% (24-48) Monocytes (%) (Auto) 3% (0-9) 6% (0-9) Eosinophils (%) (Auto) 0% (0-3) 0% (0-3) Basophils (%) (Auto) 0% (0-3) 0% (0-3) Neutrophils # (Auto) 16.9x10^3uL (1.8-7.7) 18.7x10^3uL (1.8-7.7) Lymphocytes # (Auto) 1.0x10^3/uL (1.0-4.8) 1.4x10^3/uL (1.0-4.8) Monocytes # (Auto) 0.6x10^3/uL (0.0-1.1) 1.2x10^3/uL (0.0-1.1) Eosinophils # (Auto) 0.0x10^3/uL (0.0-0.7) 0.0x10^3/uL (0.0-0.7) Basophils # (Auto) 0.0x10^3/uL (0.0-0.2) 0.0x10^3/uL (0.0-0.2) Segmented Neutrophils % 89% (35-66) Band Neutrophils % 1% (0-9) Lymphocytes % 6% (24-48) Monocytes % 4% (0-10) Platelet Estimate Adequate (ADEQUATE) Large Platelets Occ Ovalocytes Occ Prothrombin Time 12.5SEC (11.7-14.0) Prothromb Time International Ratio 1.0 (0.8-1.1) Activated Partial Thromboplast Time 27SEC (24-38) Urine Color [place] Urine Clarity Clear Urine pH 5.5 Urine Specific [place] >=1.030 Urine Protein 30mg/dL (NEG-TRACE) Urine Glucose (UA) Negativemg/dL (NEG) Urine Ketones (Stick) Tracemg/dL (NEG) Urine Blood Negative (NEG) Urine Nitrite Negative (NEG) Urine Bilirubin Small (NEG) Urine Urobilinogen Dipstick 0.2mg/dL (0.2 mg/dL) Urine Leukocyte Esterase Small (NEG) Urine RBC 0/HPF (0-2) Urine WBC 1-4/HPF (0-4) Urine Squamous Epithelial Cells Occ/LPF Urine Amorphous Sediment Present/HPF Urine Bacteria 0/HPF (0-FEW) Urine Hyaline Casts Moderate/HPF Urine Mucus Slight/LPF Sodium Level 135mmol/L (136-145) 137mmol/L (136-145) Potassium Level 3.9mmol/L (3.5-5.1) 4.8mmol/L (3.5-5.1) Chloride Level 96mmol/L (98-107) 99mmol/L (98-107) Carbon Dioxide Level 27mmol/L (21-32) 26mmol/L (21-32) Anion Gap 12 (6-14) 12 (6-14) Blood Urea Nitrogen 29mg/dL (7-20) 40mg/dL (7-20) Creatinine 1.7mg/dL (0.6-1.0) 1.8mg/dL (0.6-1.0) Estimated GFR (Cockcroft-Gault) 29.7 27.8 Glucose Level 238mg/dL (70-99) 163mg/dL (70-99) Calcium Level 9.2mg/dL (8.5-10.1) 9.2mg/dL (8.5-10.1) Total Bilirubin 0.9mg/dL (0.2-1.0) 0.9mg/dL (0.2-1.0) Direct Bilirubin 0.2mg/dL (0.0-0.2) Aspartate Amino Transf (AST/SGOT) 25U/L (15-37) 23U/L (15-37) Alanine Aminotransferase (ALT/SGPT) 23U/L (14-59) 18U/L (14-59) Alkaline Phosphatase 64U/L (46-116) 62U/L (46-116) Creatine Kinase 53U/L (26-192) Creatine Kinase MB (Mass) 1.4ng/mL (0.0-3.6) Creatine Kinase MB Relative Index 2.6% (0-4) Total Protein 7.3g/dL (6.4-8.2) 6.3g/dL (6.4-8.2) Albumin 3.5g/dL (3.4-5.0) 3.3g/dL (3.4-5.0) Lipase 72U/L (73-393) Lactic Acid Level 3.3mmol/L (0.4-2.0) 2.2mmol/L (0.4-2.0) BUN/Creatinine Ratio 22 (6-20) Albumin/Globulin Ratio 1.1 (1.0-1.7) Test 03/31/17 04:20 White Blood Count 14.2x10^3/uL (4.0-11.0) Red Blood Count 4.52x10^6/uL (3.50-5.40) Hemoglobin 15.0g/dL (12.0-15.5) Hematocrit 44.2% (36.0-47.0) Mean Corpuscular Volume 98fL (79-100) Mean Corpuscular Hemoglobin 33pg (25-35) Mean Corpuscular Hemoglobin Concent 34g/dL (31-37) Red Cell Distribution Width 13.8% (11.5-14.5) Platelet Count 257x10^3/uL (140-400) Neutrophils (%) (Auto) 86% (31-73) Lymphocytes (%) (Auto) 6% (24-48) Monocytes (%) (Auto) 8% (0-9) Eosinophils (%) (Auto) 0% (0-3) Basophils (%) (Auto) 0% (0-3) Neutrophils # (Auto) 12.3x10^3uL (1.8-7.7) Lymphocytes # (Auto) 0.8x10^3/uL (1.0-4.8) Monocytes # (Auto) 1.1x10^3/uL (0.0-1.1) Eosinophils # (Auto) 0.0x10^3/uL (0.0-0.7) Basophils # (Auto) 0.0x10^3/uL (0.0-0.2) Sodium Level 137mmol/L (136-145) Potassium Level 4.3mmol/L (3.5-5.1) Chloride Level 101mmol/L (98-107) Carbon Dioxide Level 28mmol/L (21-32) Anion Gap 8 (6-14) Blood Urea Nitrogen 50mg/dL (7-20) Creatinine 1.7mg/dL (0.6-1.0) Estimated GFR (Cockcroft-Gault) 29.7 Glucose Level 167mg/dL (70-99) Calcium Level 8.6mg/dL (8.5-10.1) Laboratory Tests Test 03/31/17 04:20 White Blood Count 14.2x10^3/uL (4.0-11.0) Red Blood Count 4.52x10^6/uL (3.50-5.40) Hemoglobin 15.0g/dL (12.0-15.5) Hematocrit 44.2% (36.0-47.0) Mean Corpuscular Volume 98fL (79-100) Mean Corpuscular Hemoglobin 33pg (25-35) Mean Corpuscular Hemoglobin Concent 34g/dL (31-37) Red Cell Distribution Width 13.8% (11.5-14.5) Platelet Count 257x10^3/uL (140-400) Neutrophils (%) (Auto) 86% (31-73) Lymphocytes (%) (Auto) 6% (24-48) Monocytes (%) (Auto) 8% (0-9) Eosinophils (%) (Auto) 0% (0-3) Basophils (%) (Auto) 0% (0-3) Neutrophils # (Auto) 12.3x10^3uL (1.8-7.7) Lymphocytes # (Auto) 0.8x10^3/uL (1.0-4.8) Monocytes # (Auto) 1.1x10^3/uL (0.0-1.1) Eosinophils # (Auto) 0.0x10^3/uL (0.0-0.7) Basophils # (Auto) 0.0x10^3/uL (0.0-0.2) Sodium Level 137mmol/L (136-145) Potassium Level 4.3mmol/L (3.5-5.1) Chloride Level 101mmol/L (98-107) Carbon Dioxide Level 28mmol/L (21-32) Anion Gap 8 (6-14) Blood Urea Nitrogen 50mg/dL (7-20) Creatinine 1.7mg/dL (0.6-1.0) Estimated GFR (Cockcroft-Gault) 29.7 Glucose Level 167mg/dL (70-99) Calcium Level 8.6mg/dL (8.5-10.1) Problem List Problems Medical Problems: (1) Abdominal pain Status: Acute (2) Nausea & vomiting Status: Acute Assessment/Plan POD#1 xlap, ISABELA, release SBO, SBR, VIH continue NG, wbc improved CRISTINA, renal following Problems: MARGOTH DAWSON MD 03/31/17 1711: SURGICAL PROGRESS NOTE Assessment/Plan Reviewed, agree with above Problems: VITALY ROSS [employer] DIRECTOR Mar 31, 2017 10:28 MARGOTH DAWSON MD Mar 31, 2017 17:11
[2017-03-31] MEDS: ENOXAPARIN 30 MG/0.3 ML SYRINGE. SQ SCH (10:49)
--- NOTE | 2017-03-31 12:47 | PDOC ---
GI PROGRESS NOTES Date Date/Time DATE: 03/31/17 TIME: 12:45 Subjective Subjective post op SB resection and lysis of adhesions Objective Vitals Vital Signs Date Time Temp Pulse Resp B/P Pulse Ox O2 Delivery O2 Flow Rate FiO2 03/31/17 11:00 98.6 80 22 150/60 98 Room Air 98.6 03/31/17 10:49 18 94 Room Air 2.0 03/31/17 08:21 18 94 Nasal Cannula 2.0 03/31/17 07:50 Room Air 03/31/17 07:00 98.4 90 22 148/54 96 98.4 03/31/17 03:59 98.1 88 20 142/86 94 Nasal Cannula 2.0 98.1 03/31/17 03:44 20 Nasal Cannula 03/31/17 00:30 98.4 88 20 151/49 96 Nasal Cannula 2.0 98.4 03/30/17 23:30 98.6 94 18 148/69 96 Nasal Cannula 2.0 98.6 03/30/17 23:00 98.7 80 20 139/67 95 Nasal Cannula 2.0 98.7 03/30/17 22:30 98.0 93 18 141/79 98 Nasal Cannula 2.0 98.0 03/30/17 22:15 98.3 96 18 142/78 93 Nasal Cannula 2.0 98.3 03/30/17 22:00 98.2 91 18 150/74 93 Nasal Cannula 2.0 98.2 03/30/17 21:53 20 Nasal Cannula 03/30/17 21:45 98.5 98 18 150/81 95 Nasal Cannula 2.0 98.5 03/30/17 21:25 99.1 96 16 168/63 94 Nasal Cannula 2 99.1 03/30/17 21:23 16 96 Nasal Cannula 2.0 03/30/17 21:10 99.7 92 16 166/74 96 Nasal Cannula 2 99.7 03/30/17 21:00 Nasal Cannula 2 03/30/17 20:55 90 14 166/70 95 Room Air 03/30/17 20:55 16 94 Room Air 03/30/17 20:40 80 16 172/69 100 Simple Mask 10 03/30/17 20:25 Mask 10 03/30/17 20:25 99.2 81 16 174/76 100 Simple Mask 10 99.2 03/30/17 17:26 98.1 93 22 143/65 100 Room Air 98.1 03/30/17 14:55 96 Room Air 03/30/17 14:15 18 96 Room Air 03/30/17 13:45 18 97 Room Air Labs Labs Laboratory Tests Test 03/31/17 04:20 White Blood Count 14.2x10^3/uL (4.0-11.0) Red Blood Count 4.52x10^6/uL (3.50-5.40) Hemoglobin 15.0g/dL (12.0-15.5) Hematocrit 44.2% (36.0-47.0) Mean Corpuscular Volume 98fL (79-100) Mean Corpuscular Hemoglobin 33pg (25-35) Mean Corpuscular Hemoglobin Concent 34g/dL (31-37) Red Cell Distribution Width 13.8% (11.5-14.5) Platelet Count 257x10^3/uL (140-400) Neutrophils (%) (Auto) 86% (31-73) Lymphocytes (%) (Auto) 6% (24-48) Monocytes (%) (Auto) 8% (0-9) Eosinophils (%) (Auto) 0% (0-3) Basophils (%) (Auto) 0% (0-3) Neutrophils # (Auto) 12.3x10^3uL (1.8-7.7) Lymphocytes # (Auto) 0.8x10^3/uL (1.0-4.8) Monocytes # (Auto) 1.1x10^3/uL (0.0-1.1) Eosinophils # (Auto) 0.0x10^3/uL (0.0-0.7) Basophils # (Auto) 0.0x10^3/uL (0.0-0.2) Sodium Level 137mmol/L (136-145) Potassium Level 4.3mmol/L (3.5-5.1) Chloride Level 101mmol/L (98-107) Carbon Dioxide Level 28mmol/L (21-32) Anion Gap 8 (6-14) Blood Urea Nitrogen 50mg/dL (7-20) Creatinine 1.7mg/dL (0.6-1.0) Estimated GFR (Cockcroft-Gault) 29.7 Glucose Level 167mg/dL (70-99) Calcium Level 8.6mg/dL (8.5-10.1) Physical Exam Physical Exam VSS afebrile chest -clear cor- RRR abd- soft mildly tender- few if any bowel sounds NGT in place extrem - no CCE neuro - alert non focal Assessment Assessment Post op SBO- SB resection of ischemic area and lysis of adhesions with release of SBO- clinically improved- pain better- NGT in place await return of bowel function Problems: FINA RAMIREZ MD Mar 31, 2017 12:47
[2017-04-01] MEDS: IV NORMAL SALINE 1000ML BAG 1,000 ML IV SCH (01:41)
[2017-04-01] MEDS: MORPHINE SULFATE 2 MG/ML DISP.SYRIN. IV PRN ×3 (02:40→19:54)
[2017-04-01 03:08] VITALS: BP 113/45
[2017-04-01 04:23] LABS: BASO % 0 % (0-3); EOS % 0 % (0-3); HEMATOCRIT 31.2 % (36.0-47.0); HEMOGLOBIN 10.7 g/dL (12.0-15.5); LYMPH # 1.3 x10^3/uL (1.0-4.8); LYMPH % 16 % (24-48); MEAN CORPUSCULAR HEMOGLOBIN 34 pg (25-35); MEAN CORPUSCULAR HGB CONC 34 g/dL (31-37); MEAN CORPUSCULAR VOLUME 98 fL (79-100); MONO % 12 % (0-9); NEUT % 72 % (31-73); PLATELET COUNT 179 x10^3/uL (140-400); RED BLOOD COUNT 3.19 x10^6/uL (3.50-5.40); RED CELL DISTRIBUTION WIDTH 14.1 % (11.5-14.5); WHITE BLOOD COUNT 8.1 x10^3/uL (4.0-11.0)
[2017-04-01 05:40] LABS: CALCIUM 8.1 mg/dL (8.5-10.1); GFR 54.8; POTASSIUM 3.8 mmol/L (3.5-5.1)
[2017-04-01 05:45] LABS: ALBUMIN 2.4 g/dL (3.4-5.0); CALCIUM 7.9 mg/dL (8.5-10.1); GFR 54.8; PHOSPHORUS 2.6 mg/dL (2.6-4.7)
[2017-04-01 07:00] VITALS: BP 109/54
[2017-04-01] MEDS: CIPROFLOXACIN 200MG PREMIX 100 ML IV SCH ×2 (09:03→21:24)
--- NOTE | 2017-04-01 10:30 | PDOC ---
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 04/01/17 1030: SURGICAL PROGRESS NOTE Subjective pain managed + headache was up ambulating yesterday evening no flatus Vital Signs Vital Signs Date Time Temp Pulse Resp B/P Pulse Ox O2 Delivery O2 Flow Rate FiO2 04/01/17 09:03 Nasal Cannula 2.0 04/01/17 07:00 98.4 71 17 109/54 96 98.4 I&O Intake and Output 04/01/17 07:00 Intake Total 510 ml Output Total 2700 ml Balance -2190 ml Intake Oral 410 ml IV Total 100 ml Output Urine Total 1850 ml Gastric Drainage Total 850 ml PATIENT HAS A NOBLE: Yes General: Alert, Oriented X3, Cooperative, No acute distress HEENT: Other (ng bilious ) Abdomen: Soft, Other (binder in place, dressing dry, tender midabdomen) Labs Laboratory Tests Test 03/31/17 04:20 04/01/17 03:39 White Blood Count 14.2x10^3/uL (4.0-11.0) 8.1x10^3/uL (4.0-11.0) Red Blood Count 4.52x10^6/uL (3.50-5.40) 3.19x10^6/uL (3.50-5.40) Hemoglobin 15.0g/dL (12.0-15.5) 10.7g/dL (12.0-15.5) Hematocrit 44.2% (36.0-47.0) 31.2% (36.0-47.0) Mean Corpuscular Volume 98fL (79-100) 98fL (79-100) Mean Corpuscular Hemoglobin 33pg (25-35) 34pg (25-35) Mean Corpuscular Hemoglobin Concent 34g/dL (31-37) 34g/dL (31-37) Red Cell Distribution Width 13.8% (11.5-14.5) 14.1% (11.5-14.5) Platelet Count 257x10^3/uL (140-400) 179x10^3/uL (140-400) Neutrophils (%) (Auto) 86% (31-73) 72% (31-73) Lymphocytes (%) (Auto) 6% (24-48) 16% (24-48) Monocytes (%) (Auto) 8% (0-9) 12% (0-9) Eosinophils (%) (Auto) 0% (0-3) 0% (0-3) Basophils (%) (Auto) 0% (0-3) 0% (0-3) Neutrophils # (Auto) 12.3x10^3uL (1.8-7.7) 5.9x10^3uL (1.8-7.7) Lymphocytes # (Auto) 0.8x10^3/uL (1.0-4.8) 1.3x10^3/uL (1.0-4.8) Monocytes # (Auto) 1.1x10^3/uL (0.0-1.1) 1.0x10^3/uL (0.0-1.1) Eosinophils # (Auto) 0.0x10^3/uL (0.0-0.7) 0.0x10^3/uL (0.0-0.7) Basophils # (Auto) 0.0x10^3/uL (0.0-0.2) 0.0x10^3/uL (0.0-0.2) Sodium Level 137mmol/L (136-145) 141mmol/L (136-145) Potassium Level 4.3mmol/L (3.5-5.1) 4.0mmol/L (3.5-5.1) Chloride Level 101mmol/L (98-107) 107mmol/L (98-107) Carbon Dioxide Level 28mmol/L (21-32) 28mmol/L (21-32) Anion Gap 8 (6-14) 6 (6-14) Blood Urea Nitrogen 50mg/dL (7-20) 32mg/dL (7-20) Creatinine 1.7mg/dL (0.6-1.0) 1.0mg/dL (0.6-1.0) Estimated GFR (Cockcroft-Gault) 29.7 54.8 Glucose Level 167mg/dL (70-99) 94mg/dL (70-99) Calcium Level 8.6mg/dL (8.5-10.1) 7.9mg/dL (8.5-10.1) Phosphorus Level 2.6mg/dL (2.6-4.7) Magnesium Level 1.9mg/dL (1.8-2.4) Albumin 2.4g/dL (3.4-5.0) Laboratory Tests Test 04/01/17 03:39 White Blood Count 8.1x10^3/uL (4.0-11.0) Red Blood Count 3.19x10^6/uL (3.50-5.40) Hemoglobin 10.7g/dL (12.0-15.5) Hematocrit 31.2% (36.0-47.0) Mean Corpuscular Volume 98fL (79-100) Mean Corpuscular Hemoglobin 34pg (25-35) Mean Corpuscular Hemoglobin Concent 34g/dL (31-37) Red Cell Distribution Width 14.1% (11.5-14.5) Platelet Count 179x10^3/uL (140-400) Neutrophils (%) (Auto) 72% (31-73) Lymphocytes (%) (Auto) 16% (24-48) Monocytes (%) (Auto) 12% (0-9) Eosinophils (%) (Auto) 0% (0-3) Basophils (%) (Auto) 0% (0-3) Neutrophils # (Auto) 5.9x10^3uL (1.8-7.7) Lymphocytes # (Auto) 1.3x10^3/uL (1.0-4.8) Monocytes # (Auto) 1.0x10^3/uL (0.0-1.1) Eosinophils # (Auto) 0.0x10^3/uL (0.0-0.7) Basophils # (Auto) 0.0x10^3/uL (0.0-0.2) Sodium Level 141mmol/L (136-145) Potassium Level 4.0mmol/L (3.5-5.1) Chloride Level 107mmol/L (98-107) Carbon Dioxide Level 28mmol/L (21-32) Anion Gap 6 (6-14) Blood Urea Nitrogen 32mg/dL (7-20) Creatinine 1.0mg/dL (0.6-1.0) Estimated GFR (Cockcroft-Gault) 54.8 Glucose Level 94mg/dL (70-99) Calcium Level 7.9mg/dL (8.5-10.1) Phosphorus Level 2.6mg/dL (2.6-4.7) Magnesium Level 1.9mg/dL (1.8-2.4) Albumin 2.4g/dL (3.4-5.0) Problem List Problems Medical Problems: (1) Abdominal pain Status: Acute (2) Nausea & vomiting Status: Acute Assessment/Plan s/p sxlap, sbr continue NG today cr 1 now wbc normal dc noble ambulate await bowel function Problems: MARGOTH DAWSON MD 04/01/171952: SURGICAL PROGRESS NOTE Assessment/Plan Agree with above Problems: VITALY ROSS APRN April 01, 2017 10:30 MARGOTH DAWSON MD April 01, 2017 19:53
[2017-04-01 10:48] VITALS: BP 116/55
[2017-04-01] MEDS: ACETAMINOPHEN 325 MG TABLET. PO PRN (11:25)
[2017-04-01] MEDS: ENOXAPARIN 30 MG/0.3 ML SYRINGE. SQ SCH (11:26)
--- NOTE | 2017-04-01 12:02 | PDOC ---
PROGRESS NOTES Chief Complaint Chief Complaint 1. Small-bowel obstruction, transition, S/P Exploratory laparotomy, lysis of adhesions with release of small bowel obstruction, small bowel resection with primary anastomosis, primary repair of ventral hernia: On Cipro and Flagyl, IV Dilaudid, NG tube, IV hydration, no bowel movement yet, no flatus, continue current care. 2. Umbilical hernia, Repaired, Abdominal binder present. 3. Hypothyroidism. 4. Hypertension.: stable 5. Leukocytosis.: improving, on abx. 6. Acute kidney injury, unknown baseline creatinine.: better, nephrology consulted. 7. Hyperglycemia.: on SSI, NPO, History of Present Illness History of Present Illness no flatus on ng no fever doing better Vitals Vitals Vital Signs Date Time Temp Pulse Resp B/P Pulse Ox O2 Delivery O2 Flow Rate FiO2 04/01/17 10:48 98.2 70 17 116/55 95 Room Air 98.2 04/01/17 09:03 2.0 Physical Exam General: Alert, Oriented X3, Cooperative, No acute distress Heart: Regular rate, Normal S1, Normal S2, No murmurs Abdomen: Soft, Other (binder in place, dressing dry, tender midabdomen) Extremities: No clubbing, No cyanosis Skin: No rashes, No breakdown Labs LABS Laboratory Tests Test 04/01/17 03:39 White Blood Count 8.1x10^3/uL (4.0-11.0) Red Blood Count 3.19x10^6/uL (3.50-5.40) Hemoglobin 10.7g/dL (12.0-15.5) Hematocrit 31.2% (36.0-47.0) Mean Corpuscular Volume 98fL (79-100) Mean Corpuscular Hemoglobin 34pg (25-35) Mean Corpuscular Hemoglobin Concent 34g/dL (31-37) Red Cell Distribution Width 14.1% (11.5-14.5) Platelet Count 179x10^3/uL (140-400) Neutrophils (%) (Auto) 72% (31-73) Lymphocytes (%) (Auto) 16% (24-48) Monocytes (%) (Auto) 12% (0-9) Eosinophils (%) (Auto) 0% (0-3) Basophils (%) (Auto) 0% (0-3) Neutrophils # (Auto) 5.9x10^3uL (1.8-7.7) Lymphocytes # (Auto) 1.3x10^3/uL (1.0-4.8) Monocytes # (Auto) 1.0x10^3/uL (0.0-1.1) Eosinophils # (Auto) 0.0x10^3/uL (0.0-0.7) Basophils # (Auto) 0.0x10^3/uL (0.0-0.2) Sodium Level 141mmol/L (136-145) Potassium Level 4.0mmol/L (3.5-5.1) Chloride Level 107mmol/L (98-107) Carbon Dioxide Level 28mmol/L (21-32) Anion Gap 6 (6-14) Blood Urea Nitrogen 32mg/dL (7-20) Creatinine 1.0mg/dL (0.6-1.0) Estimated GFR (Cockcroft-Gault) 54.8 Glucose Level 94mg/dL (70-99) Calcium Level 7.9mg/dL (8.5-10.1) Phosphorus Level 2.6mg/dL (2.6-4.7) Magnesium Level 1.9mg/dL (1.8-2.4) Albumin 2.4g/dL (3.4-5.0) Assessment and Plan Assessmemt and Plan Problems Medical Problems: (1) Abdominal pain Status: Acute (2) Nausea & vomiting Status: Acute Problems: Comment Review of Relevant I have reviewed the following items dpahne (where applicable) has been applied. Labs Laboratory Tests Test 03/31/17 04:20 04/01/17 03:39 White Blood Count 14.2x10^3/uL (4.0-11.0) 8.1x10^3/uL (4.0-11.0) Red Blood Count 4.52x10^6/uL (3.50-5.40) 3.19x10^6/uL (3.50-5.40) Hemoglobin 15.0g/dL (12.0-15.5) 10.7g/dL (12.0-15.5) Hematocrit 44.2% (36.0-47.0) 31.2% (36.0-47.0) Mean Corpuscular Volume 98fL (79-100) 98fL (79-100) Mean Corpuscular Hemoglobin 33pg (25-35) 34pg (25-35) Mean Corpuscular Hemoglobin Concent 34g/dL (31-37) 34g/dL (31-37) Red Cell Distribution Width 13.8% (11.5-14.5) 14.1% (11.5-14.5) Platelet Count 257x10^3/uL (140-400) 179x10^3/uL (140-400) Neutrophils (%) (Auto) 86% (31-73) 72% (31-73) Lymphocytes (%) (Auto) 6% (24-48) 16% (24-48) Monocytes (%) (Auto) 8% (0-9) 12% (0-9) Eosinophils (%) (Auto) 0% (0-3) 0% (0-3) Basophils (%) (Auto) 0% (0-3) 0% (0-3) Neutrophils # (Auto) 12.3x10^3uL (1.8-7.7) 5.9x10^3uL (1.8-7.7) Lymphocytes # (Auto) 0.8x10^3/uL (1.0-4.8) 1.3x10^3/uL (1.0-4.8) Monocytes # (Auto) 1.1x10^3/uL (0.0-1.1) 1.0x10^3/uL (0.0-1.1) Eosinophils # (Auto) 0.0x10^3/uL (0.0-0.7) 0.0x10^3/uL (0.0-0.7) Basophils # (Auto) 0.0x10^3/uL (0.0-0.2) 0.0x10^3/uL (0.0-0.2) Sodium Level 137mmol/L (136-145) 141mmol/L (136-145) Potassium Level 4.3mmol/L (3.5-5.1) 4.0mmol/L (3.5-5.1) Chloride Level 101mmol/L (98-107) 107mmol/L (98-107) Carbon Dioxide Level 28mmol/L (21-32) 28mmol/L (21-32) Anion Gap 8 (6-14) 6 (6-14) Blood Urea Nitrogen 50mg/dL (7-20) 32mg/dL (7-20) Creatinine 1.7mg/dL (0.6-1.0) 1.0mg/dL (0.6-1.0) Estimated GFR (Cockcroft-Gault) 29.7 54.8 Glucose Level 167mg/dL (70-99) 94mg/dL (70-99) Calcium Level 8.6mg/dL (8.5-10.1) 7.9mg/dL (8.5-10.1) Phosphorus Level 2.6mg/dL (2.6-4.7) Magnesium Level 1.9mg/dL (1.8-2.4) Albumin 2.4g/dL (3.4-5.0) Laboratory Tests Test 04/01/17 03:39 White Blood Count 8.1x10^3/uL (4.0-11.0) Red Blood Count 3.19x10^6/uL (3.50-5.40) Hemoglobin 10.7g/dL (12.0-15.5) Hematocrit 31.2% (36.0-47.0) Mean Corpuscular Volume 98fL (79-100) Mean Corpuscular Hemoglobin 34pg (25-35) Mean Corpuscular Hemoglobin Concent 34g/dL (31-37) Red Cell Distribution Width 14.1% (11.5-14.5) Platelet Count 179x10^3/uL (140-400) Neutrophils (%) (Auto) 72% (31-73) Lymphocytes (%) (Auto) 16% (24-48) Monocytes (%) (Auto) 12% (0-9) Eosinophils (%) (Auto) 0% (0-3) Basophils (%) (Auto) 0% (0-3) Neutrophils # (Auto) 5.9x10^3uL (1.8-7.7) Lymphocytes # (Auto) 1.3x10^3/uL (1.0-4.8) Monocytes # (Auto) 1.0x10^3/uL (0.0-1.1) Eosinophils # (Auto) 0.0x10^3/uL (0.0-0.7) Basophils # (Auto) 0.0x10^3/uL (0.0-0.2) Sodium Level 141mmol/L (136-145) Potassium Level 4.0mmol/L (3.5-5.1) Chloride Level 107mmol/L (98-107) Carbon Dioxide Level 28mmol/L (21-32) Anion Gap 6 (6-14) Blood Urea Nitrogen 32mg/dL (7-20) Creatinine 1.0mg/dL (0.6-1.0) Estimated GFR (Cockcroft-Gault) 54.8 Glucose Level 94mg/dL (70-99) Calcium Level 7.9mg/dL (8.5-10.1) Phosphorus Level 2.6mg/dL (2.6-4.7) Magnesium Level 1.9mg/dL (1.8-2.4) Albumin 2.4g/dL (3.4-5.0) Microbiology 03/30/17 Blood Culture - Preliminary, Resulted NO GROWTH AFTER 2 DAYS 03/29/17 Urine Culture - Final, Complete 03/29/17 Urine Culture Result 1 (CYNTHIA) - Final, Complete Medications Current Medications Morphine Sulfate 2 mg 2 mg PRN Q15MIN PRN IV/SQ PAIN GREATER THAN 3/10 Last administered on 03/30/17 00:39; Start 03/29/17 at 17:45; Stop 03/30/17 at 17:44 ; Status DC Sodium Chloride (Iv Sodium Chloride 0.9% 1000ml Bag) 1,000 ml @ 1,000 mls/hr Q1H IV Last administered on 03/29/17 17:32; Start 03/29/17 at 17:32; Stop at 18:31; Status DC Ondansetron HCl (Zofran) 4 mg 1X ONCE IV Last administered on 03/29/17 17:45 ; Start 03/29/17 at 17:45; Stop 03/29/17 at 17:46; Status DC Iohexol (Omnipaque 240 Mg/ml) 30 ml 1X ONCE PO Last administered on 03/29/17 19:45; Start 03/29/17 at 19:45; Stop 03/29/17 at 19:46; Status DC Ondansetron HCl (Zofran) 4 mg 1X ONCE IV Last administered on 03/29/17 19:58 ; Start 03/29/17 at 20:00; Stop 03/29/17 at 20:01; Status DC Prochlorperazine Edisylate (Compazine) 10 mg 1X ONCE IV Last administered on 21:01; Start 03/29/17 at 21:15; Stop 03/29/17 at 21:16; Status DC Diphenhydramine HCl (Benadryl) 25 mg 1X ONCE IVP Last administered on 21:01; Start 03/29/17 at 21:15; Stop 03/29/17 at 21:16; Status DC Ondansetron HCl (Zofran) 4 mg PRN Q8HRS PRN IV NAUSEA/VOMITING Last administered on 03/30/17 07:59; Start 03/29/17 at 23:45; Stop 03/30/17 at 23:44 ; Status DC Fentanyl Citrate 25 mcg 25 mcg PRN Q1HR PRN IV SEVERE PAIN Last administered on 03/30/17 06:12; Start 03/29/17 at 23:45; Stop 03/30/17 at 23:44; Status DC Potassium Chloride/Dextrose/ Sod Cl 1,000 ml @ 75 mls/hr 1X ONCE IV Last administered on 03/30/17 06:13; Start 03/30/17 at 00:00; Stop 03/30/17 at 13:19 ; Status DC Ciprofloxacin Lactate 200 ml @ 200 mls/hr Q12HR IV ; Start 03/30/17 at 09:00; Status UNV Metronidazole 100 ml @ 100 mls/hr Q8HRS IV Last administered on 04/01/17 05:58 ; Start 03/30/17 at 00:00 Ciprofloxacin Lactate 200 ml @ 200 mls/hr 1X ONCE IV Last administered on 06:14; Start 03/30/17 at 00:00; Stop 03/30/17 at 00:59; Status DC Ciprofloxacin Lactate (Cipro 200mg Premix) 100 ml @ 100 mls/hr [id number] IV Last administered on 04/01/17 09:03; Start 03/30/17 at 18:00 Enoxaparin Sodium (Lovenox 30mg Syringe) 30 mg Q24H SQ Last administered on 04/01 11:26; Start 03/30/17 at 11:00; Stop 04/01/17 at 11:50; Status DC Acetaminophen (Tylenol) 325 mg PRN Q6HRS PRN PO MILD PAIN / TEMP Last administered on 04/01/17 11:25; Start 03/30/17 at 10:30 Acetaminophen/ Hydrocodone Bitart (Lortab 5/325) 1 tab PRN Q6HRS PRN PO MODERATE TO SEVERE PAIN; Start 03/30/17 at 10:30 Hydralazine HCl (Apresoline) 10 mg PRN Q4HRS PRN IVP ELEVATED BP, SEE COMMENTS ; Start 03/30/17 at 10:30 Ondansetron HCl (Zofran) 4 mg PRN Q8HRS PRN IV NAUSEA/VOMITING; Start 03/30/17 at 10:30 Albuterol Sulfate 2.5 mg 2.5 mg PRN Q4HRS PRN NEB SHORTNESS OF BREATH; Start at 10:30 Sodium Chloride (Iv Sodium Chloride 0.9% 1000ml Bag) 1,000 ml @ 150 mls/hr Q6H40M IV Last administered on 04/01/17 01:41; Start 03/30/17 at 10:30 Morphine Sulfate 2 mg 2 mg PRN Q2HR PRN IV PAIN Last administered on 04/01/17 09:03; Start 03/30/17 at 10:30 Metronidazole 100 ml @ 100 mls/hr Q12HR IV ; Start 03/30/17 at 21:00; Stop at 21:00; Status DC Ciprofloxacin Lactate (Cipro 200mg Premix) 100 ml @ 100 mls/hr Q12HR IV ; Start 03/30/17 at 21:00; Stop 03/30/17 at 21:00; Status DC Iohexol (Omnipaque 350 Mg/ml) 400 ml 1X ONCE PO Last administered on 11:47; Start 03/30/17 at 11:00; Stop 03/30/17 at 11:01; Status DC Info (Do NOT chart on this entry -- for MONITORING) 1 each PRN DAILY PRN MC SEE COMMENTS; Start 03/30/17 at 11:00; Stop 04/01/17 at 10:59; Status DC Fentanyl Citrate (Fentanyl 2ml Vial) 25 mcg PRN Q5MIN PRN IV MILD PAIN; Start 03/30/17 at 16:45; Stop 03/31/17 at 16:44; Status DC Fentanyl Citrate (Fentanyl 2ml Vial) 50 mcg PRN Q5MIN PRN IV MODERATE PAIN Last administered on 03/30/17t 21:23; Start 03/30/17 at 16:45; Stop 03/31/17 at 16:44; Status DC Morphine Sulfate 1 mg 1 mg PRN Q10MIN PRN IV SEVERE PAIN; Start 03/30/17 at 16: 45; Stop 03/31/17 at 16:44; Status DC Lactated Ringer's (Iv Lactated Ringers) 1,000 ml @ 30 mls/hr Q24H IV ; Start at 16:43; Stop 03/31/17 at 04:43; Status DC Lidocaine HCl 2 ml PRN 1X PRN ID PRIOR TO IV START; Start 03/30/17 at 16:45; Stop 03/31/17 at 16:44; Status DC Hydromorphone HCl (Dilaudid) 0.5 mg PRN Q10MIN PRN IV SEV PAIN, Second choice; Start 03/30/17 at 16:45; Stop 03/31/17 at 16:44; Status DC Prochlorperazine Edisylate (Compazine) 5 mg PACU PRN PRN IV NAUSEA, MRX1; Start 03/30/17 at 16:45; Stop 03/31/17 at 16:44; Status DC Dexamethasone Sodium Phosphate (Decadron) 20 mg STK-MED ONCE .ROUTE ; Start at 17:18; Stop 03/30/17 at 17:19; Status DC Ondansetron HCl 4 mg 4 mg STK-MED ONCE .ROUTE ; Start 03/30/17 at 17:18; Stop at 17:19; Status DC Propofol (Diprivan) 20 ml @ As Directed STK-MED ONCE IV ; Start 03/30/17 at 17: 18; Stop 03/30/17 at 17:19; Status DC Lidocaine HCl (Lidocaine HCl 2% Abboject) 100 mg STK-MED ONCE .ROUTE ; Start at 17:18; Stop 03/30/17 at 17:19; Status DC Desflurane (Suprane) 90 ml STK-MED ONCE IH ; Start 03/30/17 at 17:18; Stop 03/30 at 17:19; Status DC Fentanyl Citrate (Fentanyl 2ml Vial) 100 mcg STK-MED ONCE .ROUTE ; Start at 17:18; Stop 03/30/17 at 17:19; Status DC Succinylcholine Chloride (Anectine) 200 mg STK-MED ONCE .ROUTE ; Start 03/30/17 at 17:18; Stop 03/30/17 at 17:19; Status DC Rocuronium Dora (Zemuron) 50 mg STK-MED ONCE .ROUTE ; Start 03/30/17 at 17:18 ; Stop 03/30/17 at 17:19; Status DC Phenylephrine HCl 1 mg STK-MED ONCE IV ; Start 03/30/17 at 18:09; Stop 03/30/17 at 18:10; Status DC Fentanyl Citrate 100 mcg 100 mcg STK-MED ONCE .ROUTE ; Start 03/30/17 at 18:58; Stop 03/30/17 at 18:59; Status DC Sodium Chloride 500 ml @ 0 mls/hr QID PRN IV UO< 30cc/hr over previous 6hrs; Start 03/31/17 at 08:30 Magnesium Sulfate/ Dextrose (Magnesium Sulfate PREMIX 2GM) 50 ml @ 25 mls/hr PRN DAILY PRN IV for Mag < 1.7 on am labs; Start 03/31/17 at 08:30 Enoxaparin Sodium (Lovenox 40mg Syringe) 40 mg Q24H SQ ; Start 04/02/17 at 12:00 Active Scripts Active Reported Niaspan (Niacin) 1,000 Mg Tab.er.24h 1 Tab PO BID Levothyroxine Sodium 88 Mcg Tablet 1 Tab PO DAILY Vitals/I & O Vital Sign - Last 24 Hours 03/31/17 03/31/17 03/31/17 03/31/17 12:57 15:00 15:12 15:42 Temp 97.4 97.4 Pulse 84 Resp 18 20 18 B/P 133/58 Pulse Ox 98 97 98 98 O2 Delivery Room Air Room Air Room Air O2 Flow Rate 2.0 2.0 03/31/17 03/31/17 03/31/17 03/31/17 19:00 19:02 19:32 20:00 Temp 98.3 98.3 Pulse 78 Resp 20 B/P 103/59 Pulse Ox 95 98 O2 Delivery Room Air Nasal Cannula Nasal Cannula Room Air O2 Flow Rate 2.0 2.0 03/31/17 03/31/17 04/01/17 04/01/17 22:18 22:56 02:40 03:08 Temp 98.0 98.4 98.0 98.4 Pulse 81 77 Resp 20 18 B/P 133/59 113/45 Pulse Ox 91 96 O2 Delivery Nasal Cannula Room Air Nasal Cannula Room Air 04/01/17 04/01/17 04/01/17 07:00 09:03 10:48 Temp 98.4 98.2 98.4 98.2 Pulse 71 70 Resp B/P 109/54 116/55 Pulse Ox 96 95 O2 Delivery Room Air Nasal Cannula Room Air O2 Flow Rate 2.0 Intake and Output 03/31/17 03/31/17 04/01/17 14:59 22:59 06:59 Intake Total 360 ml 50 ml 100 ml Output Total 2200 ml 500 ml Balance 360 ml -2150 ml -400 ml MERCEDEZ DUPREE MD April 01, 2017 12:02
--- NOTE | 2017-04-01 13:27 | PDOC ---
Subjective: Subjective: Feeling better, really no pain right now, no n/v, no flatus or BM. Objective: Objective: Reviewed surg note - continue NG today. Vital Signs: Vital Signs Date Time Temp Pulse Resp B/P Pulse Ox O2 Delivery O2 Flow Rate FiO2 04/01/17 10:48 98.2 70 17 116/55 95 Room Air 98.2 04/01/17 09:03 2.0 Labs: Laboratory Tests Test 04/01/17 03:39 White Blood Count 8.1x10^3/uL Red Blood Count 3.19x10^6/uL Hemoglobin 10.7g/dL Hematocrit 31.2% Mean Corpuscular Volume 98fL Mean Corpuscular Hemoglobin 34pg Mean Corpuscular Hemoglobin Concent 34g/dL Red Cell Distribution Width 14.1% Platelet Count 179x10^3/uL Neutrophils (%) (Auto) 72% Lymphocytes (%) (Auto) 16% Monocytes (%) (Auto) 12% Eosinophils (%) (Auto) 0% Basophils (%) (Auto) 0% Neutrophils # (Auto) 5.9x10^3uL Lymphocytes # (Auto) 1.3x10^3/uL Monocytes # (Auto) 1.0x10^3/uL Eosinophils # (Auto) 0.0x10^3/uL Basophils # (Auto) 0.0x10^3/uL Sodium Level 141mmol/L Potassium Level 4.0mmol/L Chloride Level 107mmol/L Carbon Dioxide Level 28mmol/L Anion Gap 6 Blood Urea Nitrogen 32mg/dL Creatinine 1.0mg/dL Estimated GFR (Cockcroft-Gault) 54.8 Glucose Level 94mg/dL Calcium Level 7.9mg/dL Phosphorus Level 2.6mg/dL Magnesium Level 1.9mg/dL Albumin 2.4g/dL PE: GEN: NAD, pleasant LUNGS: clear anteriorly, nasal cannula HEART: RRR ABD: abd binder NEURO/PSYCH: A & O 3 A/P: SBO s/p resection, ISABELA, ventral hernia repair -- Surg plans as above, will follow/await resolution of post op ileus. TRISTEN BENJAMIN April 01, 2017 13:27
--- NOTE | 2017-04-01 14:14 | PDOC ---
SUBJECTIVE ROS CRISTINA Doign and feeling much better today CVS: no Orthopnea, no CP RESP: no SOB, no KERN GI: no Nausea, no Vomiting - NGT in place : no Dysuria, no Urgency OBJECTIVE Vital Signs Vital Signs Date Time Temp Pulse Resp B/P Pulse Ox O2 Delivery O2 Flow Rate FiO2 04/01/17 10:48 98.2 70 17 116/55 95 Room Air 98.2 04/01/17 09:03 2.0 I & 0 Intake and Output 04/01/17 07:00 Intake Total 510 ml Output Total 2700 ml Balance -2190 ml Intake Oral 410 ml IV Total 100 ml Output Urine Total 1850 ml Gastric Drainage Total 850 ml PHYSICAL EXAM Physical Exam General Appearance: Awake Alert Oriented x 3 In no Distress Eyes: VIsion Unchanged Conjunctiva Normal EN: No EN Drainage Mucous Memb. moist - NGT in place Neck: no JVD no JVP Supple no Thyromegaly CVS: S1 S2 no Murmur No Gallop No Rub no Edema Resp: no Rales no Rhonchi no Acc. Muscle use GI: BS hypoactive NO Bruit + Tender Non Distended : no CVA tenderness; no Suprapubic Tenderness ASSESSMENT/PLAN CRISTINA - now resolved; VMn due to previous NV - Uo improving with IVF,watch trend. Oliguria - suspect sev vol depeliton -ct with ^ IVF prn Boluses vol depeliton asso with sev NV - feeling much better now after vol repletion SBO - ? change IVF to TPN eventually untill able to take PO Discussed Plan of Care and prognosis etc. at length with pt. COMMENT/RELEVANT DATA Meds Current Medications Medications (Trade) Dose Ordered Sig/Stevie Start Time Stop Time Status Last Admin Dose Admin Acetaminophen (Tylenol) 325 mg PRN Q6HRS PRN 03/30/17 10:30 04/01/17 11:25 325 MG Acetaminophen/ Hydrocodone Bitart (Lortab 5/325) 1 tab PRN Q6HRS PRN 03/30/17 10:30 Albuterol Sulfate 2.5 mg 2.5 mg PRN Q4HRS PRN 03/30/17 10:30 Ciprofloxacin Lactate (Cipro 200mg Premix) 100 ml @ 100 mls/hr Q12HR 03/30/17 21:00 03/30/17 21:00 DC Ciprofloxacin Lactate (Cipro 400mg Premix) 200 ml @ 200 mls/hr 1X ONCE 03/30/17 00:00 03/30/17 00:59 DC 03/30/17 06:14 200 MLS/HR Desflurane (Suprane) 90 ml STK-MED ONCE 03/30/17 17:18 03/30/17 17:19 DC Dexamethasone Sodium Phosphate (Decadron) 20 mg STK-MED ONCE 03/30/17 17:18 03/30/17 17:19 DC Diphenhydramine HCl (Benadryl) 25 mg 1X ONCE 03/29/17 21:15 03/29/17 21:16 DC 03/29/17 21:01 25 MG Enoxaparin Sodium (Lovenox 30mg Syringe) 30 mg Q24H 03/30/17 11:00 04/01/17 11:50 DC 04/01/17 11:26 30 MG Enoxaparin Sodium (Lovenox 40mg Syringe) 40 mg Q24H 04/02/17 12:00 Fentanyl Citrate (Fentanyl 2ml Vial) 100 mcg STK-MED ONCE 03/30/17 17:18 03/30/17 17:19 DC Fentanyl Citrate 25 mcg 25 mcg PRN Q1HR PRN 03/29/17 23:45 03/30/17 23:44 DC 03/30/17 06:12 25 MCG Fentanyl Citrate 100 mcg 100 mcg STK-MED ONCE 03/30/17 18:58 03/30/17 18:59 DC Hydralazine HCl (Apresoline) 10 mg PRN Q4HRS PRN 03/30/17 10:30 Hydromorphone HCl (Dilaudid) 0.5 mg PRN Q10MIN PRN 03/30/17 16:45 03/31/17 16:44 DC Info (Do NOT chart on this entry -- for MONITORING) 1 each PRN DAILY PRN 03/30/17 11:00 04/01/17 10:59 DC Iohexol (Omnipaque 240 Mg/ml) 30 ml 1X ONCE 03/29/17 19:45 03/29/17 19:46 DC 03/29/17 19:45 30 ML Iohexol (Omnipaque 350 Mg/ml) 400 ml 1X ONCE 03/30/17 11:00 03/30/17 11:01 DC 03/30/17 11:47 200 ML Lactated Ringer's (Iv Lactated Ringers) 1,000 ml @ 30 mls/hr Q24H 03/30/17 16:43 03/31/17 04:43 DC Lidocaine HCl (Lidocaine HCl 2% Abboject) 100 mg STK-MED ONCE 03/30/17 17:18 03/30/17 17:19 DC Magnesium Sulfate/ Dextrose (Magnesium Sulfate PREMIX 2GM) 50 ml @ 25 mls/hr PRN DAILY PRN 03/31/17 08:30 Metronidazole 100 ml @ 100 mls/hr Q12HR 03/30/17 21:00 03/30/17 21:00 DC Morphine Sulfate 1 mg 1 mg PRN Q10MIN PRN 03/30/17 16:45 03/31/17 16:44 DC Morphine Sulfate 2 mg 2 mg PRN Q2HR PRN 03/30/17 10:30 04/01/17 09:03 2 MG Ondansetron HCl (Zofran) 4 mg PRN Q8HRS PRN 03/30/17 10:30 Ondansetron HCl 4 mg 4 mg STK-MED ONCE 03/30/17 17:18 03/30/17 17:19 DC Phenylephrine HCl 1 mg STK-MED ONCE 03/30/17 18:09 03/30/17 18:10 DC Potassium Chloride/Dextrose/ Sod Cl 1,000 ml @ 75 mls/hr 1X ONCE 03/30/17 00:00 03/30/17 13:19 DC 03/30/17 06:13 75 MLS/HR Prochlorperazine Edisylate (Compazine) 5 mg PACU PRN PRN 03/30/17 16:45 03/31/17 16:44 DC Propofol (Diprivan) 20 ml @ As Directed STK-MED ONCE 03/30/17 17:18 03/30/17 17:19 DC Rocuronium [place] (Zemuron) 50 mg STK-MED ONCE 03/30/17 17:18 03/30/17 17:19 DC Sodium Chloride 500 ml @ 0 mls/hr QID PRN 03/31/17 08:30 Sodium Chloride (Iv Sodium Chloride 0.9% 1000ml Bag) 1,000 ml @ 150 mls/hr Q6H40M 03/30/17 10:30 04/01/17 01:41 150 MLS/HR Succinylcholine Chloride (Anectine) 200 mg STK-MED ONCE 03/30/17 17:18 03/30/17 17:19 DC Lab Laboratory Tests Test 04/01/17 03:39 White Blood Count 8.1x10^3/uL (4.0-11.0) Red Blood Count 3.19x10^6/uL (3.50-5.40) Hemoglobin 10.7g/dL (12.0-15.5) Hematocrit 31.2% (36.0-47.0) Mean Corpuscular Volume 98fL (79-100) Mean Corpuscular Hemoglobin 34pg (25-35) Mean Corpuscular Hemoglobin Concent 34g/dL (31-37) Red Cell Distribution Width 14.1% (11.5-14.5) Platelet Count 179x10^3/uL (140-400) Neutrophils (%) (Auto) 72% (31-73) Lymphocytes (%) (Auto) 16% (24-48) Monocytes (%) (Auto) 12% (0-9) Eosinophils (%) (Auto) 0% (0-3) Basophils (%) (Auto) 0% (0-3) Neutrophils # (Auto) 5.9x10^3uL (1.8-7.7) Lymphocytes # (Auto) 1.3x10^3/uL (1.0-4.8) Monocytes # (Auto) 1.0x10^3/uL (0.0-1.1) Eosinophils # (Auto) 0.0x10^3/uL (0.0-0.7) Basophils # (Auto) 0.0x10^3/uL (0.0-0.2) Sodium Level 141mmol/L (136-145) Potassium Level 4.0mmol/L (3.5-5.1) Chloride Level 107mmol/L (98-107) Carbon Dioxide Level 28mmol/L (21-32) Anion Gap 6 (6-14) Blood Urea Nitrogen 32mg/dL (7-20) Creatinine 1.0mg/dL (0.6-1.0) Estimated GFR (Cockcroft-Gault) 54.8 Glucose Level 94mg/dL (70-99) Calcium Level 7.9mg/dL (8.5-10.1) Phosphorus Level 2.6mg/dL (2.6-4.7) Magnesium Level 1.9mg/dL (1.8-2.4) Albumin 2.4g/dL (3.4-5.0) PAULA KELLY MD April 01, 2017 14:13
[2017-04-01 15:00] VITALS: BP 115/50
[2017-04-01] MEDS: AMINO AC 3%/ELECTROLYTE/GLYCER 1,000 ML IV SCH (15:41)
[2017-04-01 19:00] VITALS: BP 134/58
[2017-04-01] MEDS: ONDANSETRON PF 4 MG/2 ML VIAL. IV PRN (19:54)
--- NOTE | 2017-04-01 21:38 | RAD ---
PROCEDURE KUB HISTORY NG tube placement, difficulty breathing COMPARISON Small bowel exam March 30, 2017 FINDINGS KUB is submitted. Nasogastric tube tip is in the region of the stomach. There is persistent small bowel dilatation although some gas in the colon. There is some residual contrast in segments of the small bowel in the pelvis. IMPRESSION 1. There is now nasogastric tube terminating in the stomach. There is residual small bowel dilatation, may be seen with at least partial small-bowel obstruction. Electronically signed by: Lino Rascon MD (April 01, 2017 21:36:58)
[2017-04-01 23:00] VITALS: BP 117/49
[2017-04-02 03:00] VITALS: BP 128/61
[2017-04-02] MEDS: AMINO AC 3%/ELECTROLYTE/GLYCER 1,000 ML IV SCH ×2 (05:43→14:35)
[2017-04-02] MEDS: MORPHINE SULFATE 2 MG/ML DISP.SYRIN. IV PRN ×3 (06:34→20:37)
[2017-04-02] MEDS: CIPROFLOXACIN 200MG PREMIX 100 ML IV SCH ×2 (06:34→16:38)
[2017-04-02 07:00] VITALS: BP 117/41
[2017-04-02 07:57] LABS: BASO % 0 % (0-3); EOS % 1 % (0-3); HEMATOCRIT 36.6 % (36.0-47.0); HEMOGLOBIN 12.3 g/dL (12.0-15.5); LYMPH # 1.5 x10^3/uL (1.0-4.8); LYMPH % 16 % (24-48); MEAN CORPUSCULAR HEMOGLOBIN 33 pg (25-35); MEAN CORPUSCULAR HGB CONC 34 g/dL (31-37); MEAN CORPUSCULAR VOLUME 99 fL (79-100); MONO % 11 % (0-9); NEUT % 72 % (31-73); PLATELET COUNT 226 x10^3/uL (140-400); RED BLOOD COUNT 3.71 x10^6/uL (3.50-5.40); RED CELL DISTRIBUTION WIDTH 13.5 % (11.5-14.5)
[2017-04-02 09:32] LABS: ALBUMIN 2.4 g/dL (3.4-5.0); CALCIUM 8.8 mg/dL (8.5-10.1); CREATININE 0.8 mg/dL (0.6-1.0); GFR 70.9; PHOSPHORUS 2.1 mg/dL (2.6-4.7); POTASSIUM 3.8 mmol/L (3.5-5.1)
[2017-04-02] MEDS: ONDANSETRON PF 4 MG/2 ML VIAL. IV PRN (09:40)
[2017-04-02] MEDS ORDERED: IV NORMAL SALINE 500ML BAG 500 ML IV PRN (10:45)
[2017-04-02 11:04] VITALS: BP 120/45
[2017-04-02] MEDS: ENOXAPARIN 40 MG/0.4 ML SYRINGE. SQ SCH (11:42)
[2017-04-02] MEDS: POTASSIUM PHOSPHATE DIBASIC 13.6 MMOL in IV NORMAL SALINE 250ML 250 ML IV SCH ×3 (11:43→16:42)
[2017-04-02] MEDS: TPN PER PHARMACY MC PRN (12:15)
--- NOTE | 2017-04-02 13:09 | PDOC ---
Subjective: Subjective: Abd pain, no flatus. Objective: Objective: Still significant NG output. Vital Signs: Vital Signs Date Time Temp Pulse Resp B/P Pulse Ox O2 Delivery O2 Flow Rate FiO2 04/02/17 11:04 97.8 70 20 120/45 93 Nasal Cannula 2.0 97.8 Labs: Laboratory Tests Test 04/02/17 06:33 04/02/17 06:35 Sodium Level 139mmol/L Potassium Level 3.8mmol/L Chloride Level 105mmol/L Carbon Dioxide Level 31mmol/L Anion Gap 3 Blood Urea Nitrogen 26mg/dL Creatinine 0.8mg/dL Estimated GFR (Cockcroft-Gault) 70.9 Glucose Level 97mg/dL Calcium Level 8.8mg/dL Phosphorus Level 2.1mg/dL Albumin 2.4g/dL White Blood Count 9.0x10^3/uL Red Blood Count 3.71x10^6/uL Hemoglobin 12.3g/dL Hematocrit 36.6% Mean Corpuscular Volume 99fL Mean Corpuscular Hemoglobin 33pg Mean Corpuscular Hemoglobin Concent 34g/dL Red Cell Distribution Width 13.5% Platelet Count 226x10^3/uL Neutrophils (%) (Auto) 72% Lymphocytes (%) (Auto) 16% Monocytes (%) (Auto) 11% Eosinophils (%) (Auto) 1% Basophils (%) (Auto) 0% Neutrophils # (Auto) 6.5x10^3uL Lymphocytes # (Auto) 1.5x10^3/uL Monocytes # (Auto) 1.0x10^3/uL Eosinophils # (Auto) 0.1x10^3/uL Basophils # (Auto) 0.0x10^3/uL Magnesium Level 2.1mg/dL Imaging: KUB 04/01/17 IMPRESSION 1. There is now nasogastric tube terminating in the stomach. There is residual small bowel dilatation, may be seen with at least partial small-bowel obstruction. PE: GEN: NAD, NG LUNGS: clear anteriorly HEART: RRR ABD: abd binder NEURO/PSYCH: A & O 3 A/P: SBO s/p resection, ISABELA, ventral hernia repair -- NG per surgery. TRISTEN BENJAMIN April 02, 2017 13:09
--- NOTE | 2017-04-02 13:57 | PDOC ---
PROGRESS NOTES Subjective Subjective feeling generally better, no flatus or stool Objective Objective Vital Signs Date Time Temp Pulse Resp B/P Pulse Ox O2 Delivery O2 Flow Rate FiO2 04/02/17 11:04 97.8 70 20 120/45 93 Nasal Cannula 2.0 97.8 Intake and Output 04/02/17 07:00 Intake Total 1000 ml Output Total 2390 ml Balance -1390 ml Intake Oral 0 ml IV Total 1000 ml Output Urine Total 390 ml Gastric Drainage Total 2000 ml # Voids 1 Physical Exam Abdomen: Soft Assessment Assessment Problems Medical Problems: (1) Abdominal pain Status: Acute (2) Nausea & vomiting Status: Acute Plan Plan of Care S/P SB resection; await return of bowel function; NG output still high, will continue Comment Review of Relevant I have reviewed the following items daphne (where applicable) has been applied. Labs Laboratory Tests Test 04/01/17 03:39 04/02/17 06:33 04/02/17 06:35 White Blood Count 8.1x10^3/uL (4.0-11.0) 9.0x10^3/uL (4.0-11.0) Red Blood Count 3.19x10^6/uL (3.50-5.40) 3.71x10^6/uL (3.50-5.40) Hemoglobin 10.7g/dL (12.0-15.5) 12.3g/dL (12.0-15.5) Hematocrit 31.2% (36.0-47.0) 36.6% (36.0-47.0) Mean Corpuscular Volume 98fL (79-100) 99fL (79-100) Mean Corpuscular Hemoglobin 34pg (25-35) 33pg (25-35) Mean Corpuscular Hemoglobin Concent 34g/dL (31-37) 34g/dL (31-37) Red Cell Distribution Width 14.1% (11.5-14.5) 13.5% (11.5-14.5) Platelet Count 179x10^3/uL (140-400) 226x10^3/uL (140-400) Neutrophils (%) (Auto) 72% (31-73) 72% (31-73) Lymphocytes (%) (Auto) 16% (24-48) 16% (24-48) Monocytes (%) (Auto) 12% (0-9) 11% (0-9) Eosinophils (%) (Auto) 0% (0-3) 1% (0-3) Basophils (%) (Auto) 0% (0-3) 0% (0-3) Neutrophils # (Auto) 5.9x10^3uL (1.8-7.7) 6.5x10^3uL (1.8-7.7) Lymphocytes # (Auto) 1.3x10^3/uL (1.0-4.8) 1.5x10^3/uL (1.0-4.8) Monocytes # (Auto) 1.0x10^3/uL (0.0-1.1) 1.0x10^3/uL (0.0-1.1) Eosinophils # (Auto) 0.0x10^3/uL (0.0-0.7) 0.1x10^3/uL (0.0-0.7) Basophils # (Auto) 0.0x10^3/uL (0.0-0.2) 0.0x10^3/uL (0.0-0.2) Sodium Level 141mmol/L (136-145) 139mmol/L (136-145) Potassium Level 4.0mmol/L (3.5-5.1) 3.8mmol/L (3.5-5.1) Chloride Level 107mmol/L (98-107) 105mmol/L (98-107) Carbon Dioxide Level 28mmol/L (21-32) 31mmol/L (21-32) Anion Gap 6 (6-14) 3 (6-14) Blood Urea Nitrogen 32mg/dL (7-20) 26mg/dL (7-20) Creatinine 1.0mg/dL (0.6-1.0) 0.8mg/dL (0.6-1.0) Estimated GFR (Cockcroft-Gault) 54.8 70.9 Glucose Level 94mg/dL (70-99) 97mg/dL (70-99) Calcium Level 7.9mg/dL (8.5-10.1) 8.8mg/dL (8.5-10.1) Phosphorus Level 2.6mg/dL (2.6-4.7) 2.1mg/dL (2.6-4.7) Magnesium Level 1.9mg/dL (1.8-2.4) 2.1mg/dL (1.8-2.4) Albumin 2.4g/dL (3.4-5.0) 2.4g/dL (3.4-5.0) Laboratory Tests Test 04/02/17 06:33 04/02/17 06:35 Sodium Level 139mmol/L (136-145) Potassium Level 3.8mmol/L (3.5-5.1) Chloride Level 105mmol/L (98-107) Carbon Dioxide Level 31mmol/L (21-32) Anion Gap 3 (6-14) Blood Urea Nitrogen 26mg/dL (7-20) Creatinine 0.8mg/dL (0.6-1.0) Estimated GFR (Cockcroft-Gault) 70.9 Glucose Level 97mg/dL (70-99) Calcium Level 8.8mg/dL (8.5-10.1) Phosphorus Level 2.1mg/dL (2.6-4.7) Albumin 2.4g/dL (3.4-5.0) White Blood Count 9.0x10^3/uL (4.0-11.0) Red Blood Count 3.71x10^6/uL (3.50-5.40) Hemoglobin 12.3g/dL (12.0-15.5) Hematocrit 36.6% (36.0-47.0) Mean Corpuscular Volume 99fL (79-100) Mean Corpuscular Hemoglobin 33pg (25-35) Mean Corpuscular Hemoglobin Concent 34g/dL (31-37) Red Cell Distribution Width 13.5% (11.5-14.5) Platelet Count 226x10^3/uL (140-400) Neutrophils (%) (Auto) 72% (31-73) Lymphocytes (%) (Auto) 16% (24-48) Monocytes (%) (Auto) 11% (0-9) Eosinophils (%) (Auto) 1% (0-3) Basophils (%) (Auto) 0% (0-3) Neutrophils # (Auto) 6.5x10^3uL (1.8-7.7) Lymphocytes # (Auto) 1.5x10^3/uL (1.0-4.8) Monocytes # (Auto) 1.0x10^3/uL (0.0-1.1) Eosinophils # (Auto) 0.1x10^3/uL (0.0-0.7) Basophils # (Auto) 0.0x10^3/uL (0.0-0.2) Magnesium Level 2.1mg/dL (1.8-2.4) Microbiology 03/30/17 Blood Culture - Preliminary, Resulted NO GROWTH AFTER 3 DAYS 03/29/17 Urine Culture - Final, Complete 03/29/17 Urine Culture Result 1 (CYNTHIA) - Final, Complete Medications Current Medications Morphine Sulfate 2 mg 2 mg PRN Q15MIN PRN IV/SQ PAIN GREATER THAN 3/10 Last administered on 03/30/17 00:39; Start 03/29/17 at 17:45; Stop 03/30/17 at 17:44 ; Status DC Sodium Chloride (Iv Sodium Chloride 0.9% 1000ml Bag) 1,000 ml @ 1,000 mls/hr Q1H IV Last administered on 03/29/17 17:32; Start 03/29/17 at 17:32; Stop at 18:31; Status DC Ondansetron HCl (Zofran) 4 mg 1X ONCE IV Last administered on 03/29/17 17:45 ; Start 03/29/17 at 17:45; Stop 03/29/17 at 17:46; Status DC Iohexol (Omnipaque 240 Mg/ml) 30 ml 1X ONCE PO Last administered on 03/29/17 19:45; Start 03/29/17 at 19:45; Stop 03/29/17 at 19:46; Status DC Ondansetron HCl (Zofran) 4 mg 1X ONCE IV Last administered on 03/29/17 19:58 ; Start 03/29/17 at 20:00; Stop 03/29/17 at 20:01; Status DC Prochlorperazine Edisylate (Compazine) 10 mg 1X ONCE IV Last administered on 21:01; Start 03/29/17 at 21:15; Stop 03/29/17 at 21:16; Status DC Diphenhydramine HCl (Benadryl) 25 mg 1X ONCE IVP Last administered on 21:01; Start 03/29/17 at 21:15; Stop 03/29/17 at 21:16; Status DC Ondansetron HCl (Zofran) 4 mg PRN Q8HRS PRN IV NAUSEA/VOMITING Last administered on 03/30/17 07:59; Start 03/29/17 at 23:45; Stop 03/30/17 at 23:44 ; Status DC Fentanyl Citrate 25 mcg 25 mcg PRN Q1HR PRN IV SEVERE PAIN Last administered on 03/30/17 06:12; Start 03/29/17 at 23:45; Stop 03/30/17 at 23:44; Status DC Potassium Chloride/Dextrose/ Sod Cl 1,000 ml @ 75 mls/hr 1X ONCE IV Last administered on 03/30/17 06:13; Start 03/30/17 at 00:00; Stop 03/30/17 at 13:19 ; Status DC Ciprofloxacin Lactate 200 ml @ 200 mls/hr Q12HR IV ; Start 03/30/17 at 09:00; Status UNV Metronidazole 100 ml @ 100 mls/hr Q8HRS IV Last administered on 04/02/17 05:43 ; Start 03/30/17 at 00:00 Ciprofloxacin Lactate 200 ml @ 200 mls/hr 1X ONCE IV Last administered on 06:14; Start 03/30/17 at 00:00; Stop 03/30/17 at 00:59; Status DC Ciprofloxacin Lactate (Cipro 200mg Premix) 100 ml @ 100 mls/hr [id number] IV Last administered on 04/02/17 06:34; Start 03/30/17 at 18:00 Enoxaparin Sodium (Lovenox 30mg Syringe) 30 mg Q24H SQ Last administered on 04/01 11:26; Start 03/30/17 at 11:00; Stop 04/01/17 at 11:50; Status DC Acetaminophen (Tylenol) 325 mg PRN Q6HRS PRN PO MILD PAIN / TEMP Last administered on 04/01/17 11:25; Start 03/30/17 at 10:30 Acetaminophen/ Hydrocodone Bitart (Lortab 5/325) 1 tab PRN Q6HRS PRN PO MODERATE TO SEVERE PAIN; Start 03/30/17 at 10:30 Hydralazine HCl (Apresoline) 10 mg PRN Q4HRS PRN IVP ELEVATED BP, SEE COMMENTS ; Start 03/30/17 at 10:30 Ondansetron HCl (Zofran) 4 mg PRN Q8HRS PRN IV NAUSEA/VOMITING Last administered on 04/02/17 09:40; Start 03/30/17 at 10:30 Albuterol Sulfate 2.5 mg 2.5 mg PRN Q4HRS PRN NEB SHORTNESS OF BREATH; Start at 10:30 Sodium Chloride (Iv Sodium Chloride 0.9% 1000ml Bag) 1,000 ml @ 150 mls/hr Q6H40M IV Last administered on 04/01/17 01:41; Start 03/30/17 at 10:30; Stop at 14:14; Status DC Morphine Sulfate 2 mg 2 mg PRN Q2HR PRN IV PAIN Last administered on 04/02/17 09:34; Start 03/30/17 at 10:30 Metronidazole 100 ml @ 100 mls/hr Q12HR IV ; Start 03/30/17 at 21:00; Stop at 21:00; Status DC Ciprofloxacin Lactate (Cipro 200mg Premix) 100 ml @ 100 mls/hr Q12HR IV ; Start 03/30/17 at 21:00; Stop 03/30/17 at 21:00; Status DC Iohexol (Omnipaque 350 Mg/ml) 400 ml 1X ONCE PO Last administered on 11:47; Start 03/30/17 at 11:00; Stop 03/30/17 at 11:01; Status DC Info (Do NOT chart on this entry -- for MONITORING) 1 each PRN DAILY PRN MC SEE COMMENTS; Start 03/30/17 at 11:00; Stop 04/01/17 at 10:59; Status DC Fentanyl Citrate (Fentanyl 2ml Vial) 25 mcg PRN Q5MIN PRN IV MILD PAIN; Start 03/30/17 at 16:45; Stop 03/31/17 at 16:44; Status DC Fentanyl Citrate (Fentanyl 2ml Vial) 50 mcg PRN Q5MIN PRN IV MODERATE PAIN Last administered on 03/30/17t 21:23; Start 03/30/17 at 16:45; Stop 03/31/17 at 16:44; Status DC Morphine Sulfate 1 mg 1 mg PRN Q10MIN PRN IV SEVERE PAIN; Start 03/30/17 at 16: 45; Stop 03/31/17 at 16:44; Status DC Lactated Ringer's (Iv Lactated Ringers) 1,000 ml @ 30 mls/hr Q24H IV ; Start at 16:43; Stop 03/31/17 at 04:43; Status DC Lidocaine HCl 2 ml PRN 1X PRN ID PRIOR TO IV START; Start 03/30/17 at 16:45; Stop 03/31/17 at 16:44; Status DC Hydromorphone HCl (Dilaudid) 0.5 mg PRN Q10MIN PRN IV SEV PAIN, Second choice; Start 03/30/17 at 16:45; Stop 03/31/17 at 16:44; Status DC Prochlorperazine Edisylate (Compazine) 5 mg PACU PRN PRN IV NAUSEA, MRX1; Start 03/30/17 at 16:45; Stop 03/31/17 at 16:44; Status DC Dexamethasone Sodium Phosphate (Decadron) 20 mg STK-MED ONCE .ROUTE ; Start at 17:18; Stop 03/30/17 at 17:19; Status DC Ondansetron HCl 4 mg 4 mg STK-MED ONCE .ROUTE ; Start 03/30/17 at 17:18; Stop at 17:19; Status DC Propofol (Diprivan) 20 ml @ As Directed STK-MED ONCE IV ; Start 03/30/17 at 17: 18; Stop 03/30/17 at 17:19; Status DC Lidocaine HCl (Lidocaine HCl 2% Abboject) 100 mg STK-MED ONCE .ROUTE ; Start at 17:18; Stop 03/30/17 at 17:19; Status DC Desflurane (Suprane) 90 ml STK-MED ONCE IH ; Start 03/30/17 at 17:18; Stop 03/30 at 17:19; Status DC Fentanyl Citrate (Fentanyl 2ml Vial) 100 mcg STK-MED ONCE .ROUTE ; Start at 17:18; Stop 03/30/17 at 17:19; Status DC Succinylcholine Chloride (Anectine) 200 mg STK-MED ONCE .ROUTE ; Start 03/30/17 at 17:18; Stop 03/30/17 at 17:19; Status DC Rocuronium [place] (Zemuron) 50 mg STK-MED ONCE .ROUTE ; Start 03/30/17 at 17:18 ; Stop 03/30/17 at 17:19; Status DC Phenylephrine HCl 1 mg STK-MED ONCE IV ; Start 03/30/17 at 18:09; Stop 03/30/17 at 18:10; Status DC Fentanyl Citrate 100 mcg 100 mcg STK-MED ONCE .ROUTE ; Start 03/30/17 at 18:58; Stop 03/30/17 at 18:59; Status DC Sodium Chloride 500 ml @ 0 mls/hr QID PRN IV UO< 30cc/hr over previous 6hrs; Start 03/31/17 at 08:30 Magnesium Sulfate/ Dextrose (Magnesium Sulfate PREMIX 2GM) 50 ml @ 25 mls/hr PRN DAILY PRN IV for Mag < 1.7 on am labs; Start 03/31/17 at 08:30 Enoxaparin Sodium 40 mg 40 mg Q24H SQ Last administered on 04/02/17 11:42; Start 04/02/17 at 12:00 Amino Acids/ Glycerin/ Electrolytes 1,000 ml @ 80 mls/hr [id number] IV Last administered on 04/02/17 05:43; Start 04/01/17 at 14:15 Potassium Phosphate 13.6 mmol/Sodium Chloride 254.5333 ml @ 127.... Q2H IV Last administered on 04/02/17 11:43; Start 04/02/17 at 11:00; Stop 04/02/17 at 16: 59 Sodium Chloride (Iv Sodium Chloride 0.9% 500ml Bag) 500 ml @ 0 mls/hr PRN QID PRN IV UO< 30cc/hr over previous 6hrs; Start 04/02/17 at 10:45 Info 1 each 1 each PRN DAILY PRN MC SEE COMMENTS Last administered on 04/02/17 12:15; Start 04/02/17 at 11:30 Sodium Chloride/ Potassium Chloride/ Potassium Phosphate/ Magnesium Sulfate/ Calcium Gluconate/ Multivitamins/ Chromium/Copper/ Manganese/Seleni/ Zn/Total Parenteral Nutrition/Amino Acids/Dextrose/ Fat Emulsion Intravenous (Sodium Chloride/ Potassium Phosphate/Calc... 1,512 ml @ 63 mls/hr TPN CONT IV ; Start 04/02/17 at 22:00 Active Scripts Active Reported Niaspan (Niacin) 1,000 Mg Tab.er.24h 1 Tab PO BID Levothyroxine Sodium 88 Mcg Tablet 1 Tab PO DAILY Vitals/I & O Vital Sign - Last 24 Hours 04/01/17 04/01/17 04/01/17 04/01/17 15:00 19:00 19:54 20:30 Temp 98.2 98.8 98.2 98.8 Pulse 66 78 Resp 17 20 18 B/P 115/50 134/58 Pulse Ox 96 95 O2 Delivery Room Air Nasal Cannula Nasal Cannula Nasal Cannula O2 Flow Rate 2.0 2.0 2.0 04/01/17 04/02/17 04/02/17 04/02/17 23:00 03:00 06:34 07:00 Temp 99.0 98.7 97.8 99.0 98.7 97.8 Pulse 75 68 69 Resp 20 20 18 20 B/P 117/49 128/61 117/41 Pulse Ox 93 98 92 O2 Delivery Nasal Cannula Nasal Cannula Nasal Cannula Nasal Cannula O2 Flow Rate 2.0 2.0 2.0 2.0 04/02/17 04/02/17 04/02/17 04/02/17 07:39 08:20 09:34 10:04 Pulse Ox 96 96 O2 Delivery Room Air Room Air Room Air Room Air O2 Flow Rate 2.0 04/02/17 11:04 Temp 97.8 97.8 Pulse 70 Resp 20 B/P 120/45 Pulse Ox 93 O2 Delivery Nasal Cannula O2 Flow Rate 2.0 Intake and Output 04/01/17 04/01/17 04/02/17 15:00 23:00 07:00 Intake Total 1000 ml 0 ml Output Total 1600 ml 790 ml Balance 1000 ml -1600 ml -790 ml MARGOTH DAWSON MD April 02, 2017 13:57
--- NOTE | 2017-04-02 14:30 | PDOC ---
PROGRESS NOTES Chief Complaint Chief Complaint 1. Small-bowel obstruction, transition, S/P Exploratory laparotomy, lysis of adhesions with release of small bowel obstruction, small bowel resection with primary anastomosis, primary repair of ventral hernia: On Cipro and Flagyl, IV Dilaudid, NG tube, IV hydration, no bowel movement yet, no flatus, continue current care. 2. Umbilical hernia, Repaired, Abdominal binder present. 3. Hypothyroidism. 4. Hypertension.: stable 5. Leukocytosis.: improving, on abx. 6. Acute kidney injury, unknown baseline creatinine.: better, nephrology consulted. 7. Hyperglycemia.: on SSI, NPO, plan: fu with sx, gi, id, renal still no flatus or BM, NG suction large amount npo, ppn poor iv access, will get PICC line and start TPN pain control encourage pt to ambulate History of Present Illness History of Present Illness no flatus on ng no fever doing better Vitals Vitals Vital Signs Date Time Temp Pulse Resp B/P Pulse Ox O2 Delivery O2 Flow Rate FiO2 04/02/17 11:04 97.8 70 20 120/45 93 Nasal Cannula 2.0 97.8 Physical Exam General: Alert, Oriented X3, Cooperative, No acute distress Heart: Regular rate, Normal S1, Normal S2, No murmurs Lungs: Clear Abdomen: Soft, Other (very deminished BS) Extremities: No clubbing, No cyanosis Skin: No rashes, No breakdown Labs LABS Laboratory Tests Test 04/02/17 06:33 04/02/17 06:35 Sodium Level 139mmol/L (136-145) Potassium Level 3.8mmol/L (3.5-5.1) Chloride Level 105mmol/L (98-107) Carbon Dioxide Level 31mmol/L (21-32) Anion Gap 3 (6-14) Blood Urea Nitrogen 26mg/dL (7-20) Creatinine 0.8mg/dL (0.6-1.0) Estimated GFR (Cockcroft-Gault) 70.9 Glucose Level 97mg/dL (70-99) Calcium Level 8.8mg/dL (8.5-10.1) Phosphorus Level 2.1mg/dL (2.6-4.7) Albumin 2.4g/dL (3.4-5.0) White Blood Count 9.0x10^3/uL (4.0-11.0) Red Blood Count 3.71x10^6/uL (3.50-5.40) Hemoglobin 12.3g/dL (12.0-15.5) Hematocrit 36.6% (36.0-47.0) Mean Corpuscular Volume 99fL (79-100) Mean Corpuscular Hemoglobin 33pg (25-35) Mean Corpuscular Hemoglobin Concent 34g/dL (31-37) Red Cell Distribution Width 13.5% (11.5-14.5) Platelet Count 226x10^3/uL (140-400) Neutrophils (%) (Auto) 72% (31-73) Lymphocytes (%) (Auto) 16% (24-48) Monocytes (%) (Auto) 11% (0-9) Eosinophils (%) (Auto) 1% (0-3) Basophils (%) (Auto) 0% (0-3) Neutrophils # (Auto) 6.5x10^3uL (1.8-7.7) Lymphocytes # (Auto) 1.5x10^3/uL (1.0-4.8) Monocytes # (Auto) 1.0x10^3/uL (0.0-1.1) Eosinophils # (Auto) 0.1x10^3/uL (0.0-0.7) Basophils # (Auto) 0.0x10^3/uL (0.0-0.2) Magnesium Level 2.1mg/dL (1.8-2.4) Review of Systems Review of Systems No fever, chills, sob or chest pain Assessment and Plan Assessmemt and Plan Problems Medical Problems: (1) Abdominal pain Status: Acute (2) Nausea & vomiting Status: Acute Problems: Comment Review of Relevant I have reviewed the following items daphne (where applicable) has been applied. Labs Laboratory Tests Test 04/01/17 03:39 04/02/17 06:33 04/02/17 06:35 White Blood Count 8.1x10^3/uL (4.0-11.0) 9.0x10^3/uL (4.0-11.0) Red Blood Count 3.19x10^6/uL (3.50-5.40) 3.71x10^6/uL (3.50-5.40) Hemoglobin 10.7g/dL (12.0-15.5) 12.3g/dL (12.0-15.5) Hematocrit 31.2% (36.0-47.0) 36.6% (36.0-47.0) Mean Corpuscular Volume 98fL (79-100) 99fL (79-100) Mean Corpuscular Hemoglobin 34pg (25-35) 33pg (25-35) Mean Corpuscular Hemoglobin Concent 34g/dL (31-37) 34g/dL (31-37) Red Cell Distribution Width 14.1% (11.5-14.5) 13.5% (11.5-14.5) Platelet Count 179x10^3/uL (140-400) 226x10^3/uL (140-400) Neutrophils (%) (Auto) 72% (31-73) 72% (31-73) Lymphocytes (%) (Auto) 16% (24-48) 16% (24-48) Monocytes (%) (Auto) 12% (0-9) 11% (0-9) Eosinophils (%) (Auto) 0% (0-3) 1% (0-3) Basophils (%) (Auto) 0% (0-3) 0% (0-3) Neutrophils # (Auto) 5.9x10^3uL (1.8-7.7) 6.5x10^3uL (1.8-7.7) Lymphocytes # (Auto) 1.3x10^3/uL (1.0-4.8) 1.5x10^3/uL (1.0-4.8) Monocytes # (Auto) 1.0x10^3/uL (0.0-1.1) 1.0x10^3/uL (0.0-1.1) Eosinophils # (Auto) 0.0x10^3/uL (0.0-0.7) 0.1x10^3/uL (0.0-0.7) Basophils # (Auto) 0.0x10^3/uL (0.0-0.2) 0.0x10^3/uL (0.0-0.2) Sodium Level 141mmol/L (136-145) 139mmol/L (136-145) Potassium Level 4.0mmol/L (3.5-5.1) 3.8mmol/L (3.5-5.1) Chloride Level 107mmol/L (98-107) 105mmol/L (98-107) Carbon Dioxide Level 28mmol/L (21-32) 31mmol/L (21-32) Anion Gap 6 (6-14) 3 (6-14) Blood Urea Nitrogen 32mg/dL (7-20) 26mg/dL (7-20) Creatinine 1.0mg/dL (0.6-1.0) 0.8mg/dL (0.6-1.0) Estimated GFR (Cockcroft-Gault) 54.8 70.9 Glucose Level 94mg/dL (70-99) 97mg/dL (70-99) Calcium Level 7.9mg/dL (8.5-10.1) 8.8mg/dL (8.5-10.1) Phosphorus Level 2.6mg/dL (2.6-4.7) 2.1mg/dL (2.6-4.7) Magnesium Level 1.9mg/dL (1.8-2.4) 2.1mg/dL (1.8-2.4) Albumin 2.4g/dL (3.4-5.0) 2.4g/dL (3.4-5.0) Laboratory Tests Test 04/02/17 06:33 04/02/17 06:35 Sodium Level 139mmol/L (136-145) Potassium Level 3.8mmol/L (3.5-5.1) Chloride Level 105mmol/L (98-107) Carbon Dioxide Level 31mmol/L (21-32) Anion Gap 3 (6-14) Blood Urea Nitrogen 26mg/dL (7-20) Creatinine 0.8mg/dL (0.6-1.0) Estimated GFR (Cockcroft-Gault) 70.9 Glucose Level 97mg/dL (70-99) Calcium Level 8.8mg/dL (8.5-10.1) Phosphorus Level 2.1mg/dL (2.6-4.7) Albumin 2.4g/dL (3.4-5.0) White Blood Count 9.0x10^3/uL (4.0-11.0) Red Blood Count 3.71x10^6/uL (3.50-5.40) Hemoglobin 12.3g/dL (12.0-15.5) Hematocrit 36.6% (36.0-47.0) Mean Corpuscular Volume 99fL (79-100) Mean Corpuscular Hemoglobin 33pg (25-35) Mean Corpuscular Hemoglobin Concent 34g/dL (31-37) Red Cell Distribution Width 13.5% (11.5-14.5) Platelet Count 226x10^3/uL (140-400) Neutrophils (%) (Auto) 72% (31-73) Lymphocytes (%) (Auto) 16% (24-48) Monocytes (%) (Auto) 11% (0-9) Eosinophils (%) (Auto) 1% (0-3) Basophils (%) (Auto) 0% (0-3) Neutrophils # (Auto) 6.5x10^3uL (1.8-7.7) Lymphocytes # (Auto) 1.5x10^3/uL (1.0-4.8) Monocytes # (Auto) 1.0x10^3/uL (0.0-1.1) Eosinophils # (Auto) 0.1x10^3/uL (0.0-0.7) Basophils # (Auto) 0.0x10^3/uL (0.0-0.2) Magnesium Level 2.1mg/dL (1.8-2.4) Microbiology 03/30/17 Blood Culture - Preliminary, Resulted NO GROWTH AFTER 3 DAYS 03/29/17 Urine Culture - Final, Complete 03/29/17 Urine Culture Result 1 (CYNTHIA) - Final, Complete Medications Current Medications Morphine Sulfate 2 mg 2 mg PRN Q15MIN PRN IV/SQ PAIN GREATER THAN 3/10 Last administered on 03/30/17 00:39; Start 03/29/17 at 17:45; Stop 03/30/17 at 17:44 ; Status DC Sodium Chloride (Iv Sodium Chloride 0.9% 1000ml Bag) 1,000 ml @ 1,000 mls/hr Q1H IV Last administered on 03/29/17 17:32; Start 03/29/17 at 17:32; Stop at 18:31; Status DC Ondansetron HCl (Zofran) 4 mg 1X ONCE IV Last administered on 03/29/17 17:45 ; Start 03/29/17 at 17:45; Stop 03/29/17 at 17:46; Status DC Iohexol (Omnipaque 240 Mg/ml) 30 ml 1X ONCE PO Last administered on 03/29/17 19:45; Start 03/29/17 at 19:45; Stop 03/29/17 at 19:46; Status DC Ondansetron HCl (Zofran) 4 mg 1X ONCE IV Last administered on 03/29/17 19:58 ; Start 03/29/17 at 20:00; Stop 03/29/17 at 20:01; Status DC Prochlorperazine Edisylate (Compazine) 10 mg 1X ONCE IV Last administered on 21:01; Start 03/29/17 at 21:15; Stop 03/29/17 at 21:16; Status DC Diphenhydramine HCl (Benadryl) 25 mg 1X ONCE IVP Last administered on 21:01; Start 03/29/17 at 21:15; Stop 03/29/17 at 21:16; Status DC Ondansetron HCl (Zofran) 4 mg PRN Q8HRS PRN IV NAUSEA/VOMITING Last administered on 03/30/17 07:59; Start 03/29/17 at 23:45; Stop 03/30/17 at 23:44 ; Status DC Fentanyl Citrate 25 mcg 25 mcg PRN Q1HR PRN IV SEVERE PAIN Last administered on 03/30/17 06:12; Start 03/29/17 at 23:45; Stop 03/30/17 at 23:44; Status DC Potassium Chloride/Dextrose/ Sod Cl 1,000 ml @ 75 mls/hr 1X ONCE IV Last administered on 03/30/17 06:13; Start 03/30/17 at 00:00; Stop 03/30/17 at 13:19 ; Status DC Ciprofloxacin Lactate 200 ml @ 200 mls/hr Q12HR IV ; Start 03/30/17 at 09:00; Status UNV Metronidazole 100 ml @ 100 mls/hr Q8HRS IV Last administered on 04/02/17 05:43 ; Start 03/30/17 at 00:00 Ciprofloxacin Lactate 200 ml @ 200 mls/hr 1X ONCE IV Last administered on 06:14; Start 03/30/17 at 00:00; Stop 03/30/17 at 00:59; Status DC Ciprofloxacin Lactate (Cipro 200mg Premix) 100 ml @ 100 mls/hr [id number] IV Last administered on 04/02/17 06:34; Start 03/30/17 at 18:00 Enoxaparin Sodium (Lovenox 30mg Syringe) 30 mg Q24H SQ Last administered on 04/01 11:26; Start 03/30/17 at 11:00; Stop 04/01/17 at 11:50; Status DC Acetaminophen (Tylenol) 325 mg PRN Q6HRS PRN PO MILD PAIN / TEMP Last administered on 04/01/17 11:25; Start 03/30/17 at 10:30 Acetaminophen/ Hydrocodone Bitart (Lortab 5/325) 1 tab PRN Q6HRS PRN PO MODERATE TO SEVERE PAIN; Start 03/30/17 at 10:30 Hydralazine HCl (Apresoline) 10 mg PRN Q4HRS PRN IVP ELEVATED BP, SEE COMMENTS ; Start 03/30/17 at 10:30 Ondansetron HCl (Zofran) 4 mg PRN Q8HRS PRN IV NAUSEA/VOMITING Last administered on 04/02/17 09:40; Start 03/30/17 at 10:30 Albuterol Sulfate 2.5 mg 2.5 mg PRN Q4HRS PRN NEB SHORTNESS OF BREATH; Start at 10:30 Sodium Chloride (Iv Sodium Chloride 0.9% 1000ml Bag) 1,000 ml @ 150 mls/hr Q6H40M IV Last administered on 04/01/17 01:41; Start 03/30/17 at 10:30; Stop at 14:14; Status DC Morphine Sulfate 2 mg 2 mg PRN Q2HR PRN IV PAIN Last administered on 04/02/17 09:34; Start 03/30/17 at 10:30 Metronidazole 100 ml @ 100 mls/hr Q12HR IV ; Start 03/30/17 at 21:00; Stop at 21:00; Status DC Ciprofloxacin Lactate (Cipro 200mg Premix) 100 ml @ 100 mls/hr Q12HR IV ; Start 03/30/17 at 21:00; Stop 03/30/17 at 21:00; Status DC Iohexol (Omnipaque 350 Mg/ml) 400 ml 1X ONCE PO Last administered on 11:47; Start 03/30/17 at 11:00; Stop 03/30/17 at 11:01; Status DC Info (Do NOT chart on this entry -- for MONITORING) 1 each PRN DAILY PRN MC SEE COMMENTS; Start 03/30/17 at 11:00; Stop 04/01/17 at 10:59; Status DC Fentanyl Citrate (Fentanyl 2ml Vial) 25 mcg PRN Q5MIN PRN IV MILD PAIN; Start 03/30/17 at 16:45; Stop 03/31/17 at 16:44; Status DC Fentanyl Citrate (Fentanyl 2ml Vial) 50 mcg PRN Q5MIN PRN IV MODERATE PAIN Last administered on 03/30/17t 21:23; Start 03/30/17 at 16:45; Stop 03/31/17 at 16:44; Status DC Morphine Sulfate 1 mg 1 mg PRN Q10MIN PRN IV SEVERE PAIN; Start 03/30/17 at 16: 45; Stop 03/31/17 at 16:44; Status DC Lactated Ringer's (Iv Lactated Ringers) 1,000 ml @ 30 mls/hr Q24H IV ; Start at 16:43; Stop 03/31/17 at 04:43; Status DC Lidocaine HCl 2 ml PRN 1X PRN ID PRIOR TO IV START; Start 03/30/17 at 16:45; Stop 03/31/17 at 16:44; Status DC Hydromorphone HCl (Dilaudid) 0.5 mg PRN Q10MIN PRN IV SEV PAIN, Second choice; Start 03/30/17 at 16:45; Stop 03/31/17 at 16:44; Status DC Prochlorperazine Edisylate (Compazine) 5 mg PACU PRN PRN IV NAUSEA, MRX1; Start 03/30/17 at 16:45; Stop 03/31/17 at 16:44; Status DC Dexamethasone Sodium Phosphate (Decadron) 20 mg STK-MED ONCE .ROUTE ; Start at 17:18; Stop 03/30/17 at 17:19; Status DC Ondansetron HCl 4 mg 4 mg STK-MED ONCE .ROUTE ; Start 03/30/17 at 17:18; Stop at 17:19; Status DC Propofol (Diprivan) 20 ml @ As Directed STK-MED ONCE IV ; Start 03/30/17 at 17: 18; Stop 03/30/17 at 17:19; Status DC Lidocaine HCl (Lidocaine HCl 2% Abboject) 100 mg STK-MED ONCE .ROUTE ; Start at 17:18; Stop 03/30/17 at 17:19; Status DC Desflurane (Suprane) 90 ml STK-MED ONCE IH ; Start 03/30/17 at 17:18; Stop 03/30 at 17:19; Status DC Fentanyl Citrate (Fentanyl 2ml Vial) 100 mcg STK-MED ONCE .ROUTE ; Start at 17:18; Stop 03/30/17 at 17:19; Status DC Succinylcholine Chloride (Anectine) 200 mg STK-MED ONCE .ROUTE ; Start 03/30/17 at 17:18; Stop 03/30/17 at 17:19; Status DC Rocuronium [place] (Zemuron) 50 mg STK-MED ONCE .ROUTE ; Start 03/30/17 at 17:18 ; Stop 03/30/17 at 17:19; Status DC Phenylephrine HCl 1 mg STK-MED ONCE IV ; Start 03/30/17 at 18:09; Stop 03/30/17 at 18:10; Status DC Fentanyl Citrate 100 mcg 100 mcg STK-MED ONCE .ROUTE ; Start 03/30/17 at 18:58; Stop 03/30/17 at 18:59; Status DC Sodium Chloride 500 ml @ 0 mls/hr QID PRN IV UO< 30cc/hr over previous 6hrs; Start 03/31/17 at 08:30 Magnesium Sulfate/ Dextrose (Magnesium Sulfate PREMIX 2GM) 50 ml @ 25 mls/hr PRN DAILY PRN IV for Mag < 1.7 on am labs; Start 03/31/17 at 08:30 Enoxaparin Sodium 40 mg 40 mg Q24H SQ Last administered on 04/02/17 11:42; Start 04/02/17 at 12:00 Amino Acids/ Glycerin/ Electrolytes 1,000 ml @ 80 mls/hr [id number] IV Last administered on 04/02/17 05:43; Start 04/01/17 at 14:15 Potassium Phosphate 13.6 mmol/Sodium Chloride 254.5333 ml @ 127.... Q2H IV Last administered on 04/02/17 11:43; Start 04/02/17 at 11:00; Stop 04/02/17 at 16: 59 Sodium Chloride (Iv Sodium Chloride 0.9% 500ml Bag) 500 ml @ 0 mls/hr PRN QID PRN IV UO< 30cc/hr over previous 6hrs; Start 04/02/17 at 10:45 Info 1 each 1 each PRN DAILY PRN MC SEE COMMENTS Last administered on 04/02/17 12:15; Start 04/02/17 at 11:30 Sodium Chloride/ Potassium Chloride/ Potassium Phosphate/ Magnesium Sulfate/ Calcium Gluconate/ Multivitamins/ Chromium/Copper/ Manganese/Seleni/ Zn/Total Parenteral Nutrition/Amino Acids/Dextrose/ Fat Emulsion Intravenous (Sodium Chloride/ Potassium Phosphate/Calc... 1,512 ml @ 63 mls/hr TPN CONT IV ; Start 04/02/17 at 22:00 Active Scripts Active Reported Niaspan (Niacin) 1,000 Mg Tab.er.24h 1 Tab PO BID Levothyroxine Sodium 88 Mcg Tablet 1 Tab PO DAILY Vitals/I & O Vital Sign - Last 24 Hours 04/01/17 04/01/17 04/01/17 04/01/17 15:00 19:00 19:54 20:30 Temp 98.2 98.8 98.2 98.8 Pulse 66 78 Resp 17 20 18 B/P 115/50 134/58 Pulse Ox 96 95 O2 Delivery Room Air Nasal Cannula Nasal Cannula Nasal Cannula O2 Flow Rate 2.0 2.0 2.0 04/01/17 04/02/17 04/02/17 04/02/17 23:00 03:00 06:34 07:00 Temp 99.0 98.7 97.8 99.0 98.7 97.8 Pulse 75 68 69 Resp 20 20 18 20 B/P 117/49 128/61 117/41 Pulse Ox 93 98 92 O2 Delivery Nasal Cannula Nasal Cannula Nasal Cannula Nasal Cannula O2 Flow Rate 2.0 2.0 2.0 2.0 04/02/17 04/02/17 04/02/17 04/02/17 07:39 08:20 09:34 10:04 Pulse Ox 96 96 O2 Delivery Room Air Room Air Room Air Room Air O2 Flow Rate 2.0 04/02/17 11:04 Temp 97.8 97.8 Pulse 70 Resp 20 B/P 120/45 Pulse Ox 93 O2 Delivery Nasal Cannula O2 Flow Rate 2.0 Intake and Output 04/01/17 04/01/17 04/02/17 15:00 23:00 07:00 Intake Total 1000 ml 0 ml Output Total 1600 ml 790 ml Balance 1000 ml -1600 ml -790 ml LAURA TATUM MD April 02, 2017 14:30
[2017-04-02] MEDS ORDERED: 0.9 % SODIUM CHLORIDE 10 ML DISP.SYRIN. IV PRN ×2 (14:45)
[2017-04-02 15:00] VITALS: BP 122/44
[2017-04-02 19:00] VITALS: BP 132/58
[2017-04-02] MEDS ORDERED: TOTAL PARENTERAL NUTRITION 1,424.9987 ML, AMINO ACIDS 10 % 60 GM, DEXTROSE 70 % IN WATE... IV SCH ×10 (22:00)
[2017-04-02 23:00] VITALS: BP 124/56
[2017-04-03 04:25] LABS: BASO % 1 % (0-3); EOS % 2 % (0-3); HEMATOCRIT 32.4 % (36.0-47.0); LYMPH # 1.7 x10^3/uL (1.0-4.8); LYMPH % 21 % (24-48); MEAN CORPUSCULAR HEMOGLOBIN 34 pg (25-35); MEAN CORPUSCULAR HGB CONC 34 g/dL (31-37); MEAN CORPUSCULAR VOLUME 99 fL (79-100); MONO % 12 % (0-9); NEUT % 65 % (31-73); PLATELET COUNT 209 x10^3/uL (140-400); RED BLOOD COUNT 3.28 x10^6/uL (3.50-5.40); RED CELL DISTRIBUTION WIDTH 13.6 % (11.5-14.5); WHITE BLOOD COUNT 7.9 x10^3/uL (4.0-11.0)
[2017-04-03 04:28] LABS: ALBUMIN 2.2 g/dL (3.4-5.0); CALCIUM 8.2 mg/dL (8.5-10.1); CREATININE 0.7 mg/dL (0.6-1.0); GFR 82.7
[2017-04-03] MEDS: MORPHINE SULFATE 2 MG/ML DISP.SYRIN. IV PRN (06:21)
[2017-04-03 07:00] VITALS: BP 120/60
[2017-04-03] MEDS: CIPROFLOXACIN 200MG PREMIX 100 ML IV SCH ×2 (07:43→16:44)
[2017-04-03 10:38] VITALS: BP 121/59
[2017-04-03] MEDS: ENOXAPARIN 40 MG/0.4 ML SYRINGE. SQ SCH (11:33)
--- NOTE | 2017-04-03 12:26 | PDOC ---
SUBJECTIVE ROS CRISTINA/ Oliguria Doing and feeling much better today CVS: no Orthopnea, no CP RESP: no SOB, no KERN GI: no Nausea, no Vomiting : no Dysuria, no Urgency OBJECTIVE Vital Signs Vital Signs Date Time Temp Pulse Resp B/P Pulse Ox O2 Delivery O2 Flow Rate FiO2 04/03/17 10:38 97.7 74 20 121/59 95 Nasal Cannula 2.0 97.7 I & 0 Intake and Output 04/03/17 07:00 Intake Total 904.5333 ml Output Total 1650 ml Balance -745.4667 ml Intake Oral 0 ml IV Total 354.5333 ml Blood Product IV Normal Saline Flush 550 ml Output Urine Total 650 ml Stool Total 0 ml Gastric Drainage Total 500 ml Drainage Total 500 ml # Voids 2 # Bowel Movements 1 PHYSICAL EXAM Physical Exam General Appearance: Awake Alert Oriented x 3 In no Distress Eyes: VIsion Unchanged Conjunctiva Normal EN: No EN Drainage Mucous Memb. moist - NGT in place Neck: no JVD no JVP Supple no Thyromegaly CVS: S1 S2 no Murmur No Gallop No Rub no Edema Resp: no Rales no Rhonchi no Acc. Muscle use GI: BS hypoactive NO Bruit min Tender Non Distended : no CVA tenderness; no Suprapubic Tenderness ASSESSMENT/PLAN CRISTINA - now resolved; VMn due to previous NV - Uo improving with IVF, Oliguria - suspect sev vol depeliton -ct with ^ IVF prn Boluses vol depeliton asso with sev NV - feeling much better now after vol repletion SBO - changed IVF to TPN eventually untill able to take PO. NGT to come out today Discussed Plan of Care and prognosis etc. at length with pt and Dr Everett COMMENT/RELEVANT DATA Meds Current Medications Medications (Trade) Dose Ordered Sig/Stevie Start Time Stop Time Status Last Admin Dose Admin Acetaminophen (Tylenol) 325 mg PRN Q6HRS PRN 03/30/17 10:30 04/01/17 11:25 325 MG Acetaminophen/ Hydrocodone Bitart (Lortab 5/325) 1 tab PRN Q6HRS PRN 03/30/17 10:30 Albuterol Sulfate 2.5 mg 2.5 mg PRN Q4HRS PRN 03/30/17 10:30 Amino Acids/ Glycerin/ Electrolytes 1,000 ml @ 80 mls/hr [id number] 04/01/17 14:15 04/02/17 14:40 DC 04/02/17 05:43 80 MLS/HR Ciprofloxacin Lactate (Cipro 200mg Premix) 100 ml @ 100 mls/hr Q12HR 03/30/17 21:00 03/30/17 21:00 DC Ciprofloxacin Lactate (Cipro 400mg Premix) 200 ml @ 200 mls/hr 1X ONCE 03/30/17 00:00 03/30/17 00:59 DC 03/30/17 06:14 200 MLS/HR Desflurane (Suprane) 90 ml STK-MED ONCE 03/30/17 17:18 03/30/17 17:19 DC Dexamethasone Sodium Phosphate (Decadron) 20 mg STK-MED ONCE 03/30/17 17:18 03/30/17 17:19 DC Diphenhydramine HCl (Benadryl) 25 mg 1X ONCE 03/29/17 21:15 03/29/17 21:16 DC 03/29/17 21:01 25 MG Enoxaparin Sodium (Lovenox 30mg Syringe) 30 mg Q24H 03/30/17 11:00 04/01/17 11:50 DC 04/01/17 11:26 30 MG Enoxaparin Sodium 40 mg 40 mg Q24H 04/02/17 12:00 04/03/17 11:33 40 MG Fentanyl Citrate (Fentanyl 2ml Vial) 100 mcg STK-MED ONCE 03/30/17 17:18 03/30/17 17:19 DC Fentanyl Citrate 25 mcg 25 mcg PRN Q1HR PRN 03/29/17 23:45 03/30/17 23:44 DC 03/30/17 06:12 25 MCG Fentanyl Citrate 100 mcg 100 mcg STK-MED ONCE 03/30/17 18:58 03/30/17 18:59 DC Hydralazine HCl (Apresoline) 10 mg PRN Q4HRS PRN 03/30/17 10:30 Hydromorphone HCl (Dilaudid) 0.5 mg PRN Q10MIN PRN 03/30/17 16:45 03/31/17 16:44 DC Info (Do NOT chart on this entry -- for MONITORING) 1 each PRN DAILY PRN 03/30/17 11:00 04/01/17 10:59 DC Info 1 each 1 each PRN DAILY PRN 04/02/17 11:30 04/02/17 12:15 1 EACH Iohexol (Omnipaque 240 Mg/ml) 30 ml 1X ONCE 03/29/17 19:45 03/29/17 19:46 DC 03/29/17 19:45 30 ML Iohexol (Omnipaque 350 Mg/ml) 400 ml 1X ONCE 03/30/17 11:00 03/30/17 11:01 DC 03/30/17 11:47 200 ML Lactated Ringer's (Iv Lactated Ringers) 1,000 ml @ 30 mls/hr Q24H 03/30/17 16:43 03/31/17 04:43 DC Lidocaine HCl (Lidocaine HCl 2% Abboject) 100 mg STK-MED ONCE 03/30/17 17:18 03/30/17 17:19 DC Magnesium Sulfate/ Dextrose (Magnesium Sulfate PREMIX 2GM) 50 ml @ 25 mls/hr PRN DAILY PRN 03/31/17 08:30 Metronidazole 100 ml @ 100 mls/hr Q12HR 03/30/17 21:00 03/30/17 21:00 DC Morphine Sulfate 1 mg 1 mg PRN Q10MIN PRN 03/30/17 16:45 03/31/17 16:44 DC Morphine Sulfate 2 mg 2 mg PRN Q2HR PRN 03/30/17 10:30 04/03/17 06:21 2 MG Ondansetron HCl (Zofran) 4 mg PRN Q8HRS PRN 03/30/17 10:30 04/02/17 09:40 4 MG Ondansetron HCl 4 mg 4 mg STK-MED ONCE 03/30/17 17:18 03/30/17 17:19 DC Phenylephrine HCl 1 mg STK-MED ONCE 03/30/17 18:09 03/30/17 18:10 DC Potassium Chloride/Dextrose/ Sod Cl 1,000 ml @ 75 mls/hr 1X ONCE 03/30/17 00:00 03/30/17 13:19 DC 03/30/17 06:13 75 MLS/HR Potassium Phosphate 13.6 mmol/Sodium Chloride 254.5333 ml @ 127.... Q2H 04/02/17 11:00 04/02/17 16:59 DC 04/02/17 16:42 127.267 MLS/HR Prochlorperazine Edisylate (Compazine) 5 mg PACU PRN PRN 03/30/17 16:45 03/31/17 16:44 DC Propofol (Diprivan) 20 ml @ As Directed STK-MED ONCE 03/30/17 17:18 03/30/17 17:19 DC Rocuronium [place] (Zemuron) 50 mg STK-MED ONCE 03/30/17 17:18 03/30/17 17:19 DC Sodium Chloride (Iv Sodium Chloride 0.9% 500ml Bag) 500 ml @ 0 mls/hr PRN QID PRN 04/02/17 10:45 Sodium Chloride (Iv Sodium Chloride 0.9% 1000ml Bag) 1,000 ml @ 150 mls/hr Q6H40M 03/30/17 10:30 04/01/17 14:14 DC 04/01/17 01:41 150 MLS/HR Sodium Chloride (Normal Saline Flush) 20 ml QSHIFT PRN 04/02/17 14:45 Sodium Chloride/ Potassium Chloride/ Potassium Phosphate/ Magnesium Sulfate/ Calcium Gluconate/ Multivitamins/ Chromium/Copper/ Manganese/Seleni/ Zn/Total Parenteral Nutrition/Amino Acids/Dextrose/ Fat Emulsion Intravenous (Sodium Chloride/ Potassium Phosphate/Calc... 1,512 ml @ 63 mls/hr TPN CONT 04/02/17 22:00 04/02/17 22:00 63 MLS/HR Succinylcholine Chloride (Anectine) 200 mg STK-MED ONCE 03/30/17 17:18 03/30/17 17:19 DC Lab Laboratory Tests Test 04/02/17 15:59 04/02/17 21:22 04/03/17 04:00 04/03/17 05:44 Glucose (Fingerstick) 81mg/dL (70-99) 78mg/dL (70-99) 127mg/dL (70-99) White Blood Count 7.9x10^3/uL (4.0-11.0) Red Blood Count 3.28x10^6/uL (3.50-5.40) Hemoglobin 11.0g/dL (12.0-15.5) Hematocrit 32.4% (36.0-47.0) Mean Corpuscular Volume 99fL (79-100) Mean Corpuscular Hemoglobin 34pg (25-35) Mean Corpuscular Hemoglobin Concent 34g/dL (31-37) Red Cell Distribution Width 13.6% (11.5-14.5) Platelet Count 209x10^3/uL (140-400) Neutrophils (%) (Auto) 65% (31-73) Lymphocytes (%) (Auto) 21% (24-48) Monocytes (%) (Auto) 12% (0-9) Eosinophils (%) (Auto) 2% (0-3) Basophils (%) (Auto) 1% (0-3) Neutrophils # (Auto) 5.1x10^3uL (1.8-7.7) Lymphocytes # (Auto) 1.7x10^3/uL (1.0-4.8) Monocytes # (Auto) 1.0x10^3/uL (0.0-1.1) Eosinophils # (Auto) 0.1x10^3/uL (0.0-0.7) Basophils # (Auto) 0.0x10^3/uL (0.0-0.2) Sodium Level 140mmol/L (136-145) Potassium Level 4.0mmol/L (3.5-5.1) Chloride Level 107mmol/L (98-107) Carbon Dioxide Level 31mmol/L (21-32) Anion Gap 2 (6-14) Blood Urea Nitrogen 21mg/dL (7-20) Creatinine 0.7mg/dL (0.6-1.0) Estimated GFR (Cockcroft-Gault) 82.7 Glucose Level 131mg/dL (70-99) Calcium Level 8.2mg/dL (8.5-10.1) Phosphorus Level 3.0mg/dL (2.6-4.7) Magnesium Level 1.7mg/dL (1.8-2.4) Albumin 2.2g/dL (3.4-5.0) Test 04/03/17 07:05 04/03/17 10:46 Glucose (Fingerstick) 135mg/dL (70-99) 139mg/dL (70-99) PAULA KELLY MD April 03, 2017 12:26
[2017-04-03] MEDS ORDERED: MAGNESIUM SULFATE 1GM 100 ML IV ONE (12:30)
--- NOTE | 2017-04-03 12:57 | PDOC ---
PROGRESS NOTES Chief Complaint Chief Complaint 1. Small-bowel obstruction, transition, S/P Exploratory laparotomy, lysis of adhesions with release of small bowel obstruction, small bowel resection with primary anastomosis, primary repair of ventral hernia: On Cipro and Flagyl, IV Dilaudid, NG tube, IV hydration, no bowel movement yet, no flatus, continue current care. 2. Umbilical hernia, Repaired, Abdominal binder present. 3. Hypothyroidism. 4. Hypertension.: stable 5. Leukocytosis.: improving, on abx. 6. Acute kidney injury, unknown baseline creatinine.: better, nephrology consulted. 7. Hyperglycemia.: on SSI, NPO, plan: fu with sx, gi, id, renal still no flatus or BM, NG suction large amount npo, ppn poor iv access, will get PICC line and start TPN pain control encourage pt to ambulate History of Present Illness History of Present Illness Claims passed gas On tPN Lytes ok Still NPO Abd wound inspected - looks good PLAN: Await GS rounds DIet per gS COnt current pain regimen and tPN Miight be able to start clears Vitals Vitals Vital Signs Date Time Temp Pulse Resp B/P Pulse Ox O2 Delivery O2 Flow Rate FiO2 04/03/17 10:38 97.7 74 20 121/59 95 Nasal Cannula 2.0 97.7 Physical Exam General: Alert, Oriented X3, Cooperative, No acute distress Heart: Regular rate, Normal S1, Normal S2, No murmurs Lungs: Clear Abdomen: Soft, Other (very deminished BS) Extremities: No clubbing, No cyanosis Skin: No rashes, No breakdown Labs LABS Laboratory Tests Test 04/02/17 15:59 04/02/17 21:22 04/03/17 04:00 04/03/17 05:44 Glucose (Fingerstick) 81mg/dL (70-99) 78mg/dL (70-99) 127mg/dL (70-99) White Blood Count 7.9x10^3/uL (4.0-11.0) Red Blood Count 3.28x10^6/uL (3.50-5.40) Hemoglobin 11.0g/dL (12.0-15.5) Hematocrit 32.4% (36.0-47.0) Mean Corpuscular Volume 99fL (79-100) Mean Corpuscular Hemoglobin 34pg (25-35) Mean Corpuscular Hemoglobin Concent 34g/dL (31-37) Red Cell Distribution Width 13.6% (11.5-14.5) Platelet Count 209x10^3/uL (140-400) Neutrophils (%) (Auto) 65% (31-73) Lymphocytes (%) (Auto) 21% (24-48) Monocytes (%) (Auto) 12% (0-9) Eosinophils (%) (Auto) 2% (0-3) Basophils (%) (Auto) 1% (0-3) Neutrophils # (Auto) 5.1x10^3uL (1.8-7.7) Lymphocytes # (Auto) 1.7x10^3/uL (1.0-4.8) Monocytes # (Auto) 1.0x10^3/uL (0.0-1.1) Eosinophils # (Auto) 0.1x10^3/uL (0.0-0.7) Basophils # (Auto) 0.0x10^3/uL (0.0-0.2) Sodium Level 140mmol/L (136-145) Potassium Level 4.0mmol/L (3.5-5.1) Chloride Level 107mmol/L (98-107) Carbon Dioxide Level 31mmol/L (21-32) Anion Gap 2 (6-14) Blood Urea Nitrogen 21mg/dL (7-20) Creatinine 0.7mg/dL (0.6-1.0) Estimated GFR (Cockcroft-Gault) 82.7 Glucose Level 131mg/dL (70-99) Calcium Level 8.2mg/dL (8.5-10.1) Phosphorus Level 3.0mg/dL (2.6-4.7) Magnesium Level 1.7mg/dL (1.8-2.4) Albumin 2.2g/dL (3.4-5.0) Test 04/03/17 07:05 04/03/17 10:46 Glucose (Fingerstick) 135mg/dL (70-99) 139mg/dL (70-99) Review of Systems Review of Systems abd soreness, flatus ,no n/v/d Assessment and Plan Assessmemt and Plan Problems Medical Problems: (1) Abdominal pain Status: Acute (2) Nausea & vomiting Status: Acute Problems: Comment Review of Relevant I have reviewed the following items daphne (where applicable) has been applied. Labs Laboratory Tests Test 04/02/17 06:33 04/02/17 06:35 04/02/17 15:59 04/02/17 21:22 Sodium Level 139mmol/L (136-145) Potassium Level 3.8mmol/L (3.5-5.1) Chloride Level 105mmol/L (98-107) Carbon Dioxide Level 31mmol/L (21-32) Anion Gap 3 (6-14) Blood Urea Nitrogen 26mg/dL (7-20) Creatinine 0.8mg/dL (0.6-1.0) Estimated GFR (Cockcroft-Gault) 70.9 Glucose Level 97mg/dL (70-99) Calcium Level 8.8mg/dL (8.5-10.1) Phosphorus Level 2.1mg/dL (2.6-4.7) Albumin 2.4g/dL (3.4-5.0) White Blood Count 9.0x10^3/uL (4.0-11.0) Red Blood Count 3.71x10^6/uL (3.50-5.40) Hemoglobin 12.3g/dL (12.0-15.5) Hematocrit 36.6% (36.0-47.0) Mean Corpuscular Volume 99fL (79-100) Mean Corpuscular Hemoglobin 33pg (25-35) Mean Corpuscular Hemoglobin Concent 34g/dL (31-37) Red Cell Distribution Width 13.5% (11.5-14.5) Platelet Count 226x10^3/uL (140-400) Neutrophils (%) (Auto) 72% (31-73) Lymphocytes (%) (Auto) 16% (24-48) Monocytes (%) (Auto) 11% (0-9) Eosinophils (%) (Auto) 1% (0-3) Basophils (%) (Auto) 0% (0-3) Neutrophils # (Auto) 6.5x10^3uL (1.8-7.7) Lymphocytes # (Auto) 1.5x10^3/uL (1.0-4.8) Monocytes # (Auto) 1.0x10^3/uL (0.0-1.1) Eosinophils # (Auto) 0.1x10^3/uL (0.0-0.7) Basophils # (Auto) 0.0x10^3/uL (0.0-0.2) Magnesium Level 2.1mg/dL (1.8-2.4) Glucose (Fingerstick) 81mg/dL (70-99) 78mg/dL (70-99) Test 04/03/17 04:00 04/03/17 05:44 04/03/17 07:05 04/03/17 10:46 White Blood Count 7.9x10^3/uL (4.0-11.0) Red Blood Count 3.28x10^6/uL (3.50-5.40) Hemoglobin 11.0g/dL (12.0-15.5) Hematocrit 32.4% (36.0-47.0) Mean Corpuscular Volume 99fL (79-100) Mean Corpuscular Hemoglobin 34pg (25-35) Mean Corpuscular Hemoglobin Concent 34g/dL (31-37) Red Cell Distribution Width 13.6% (11.5-14.5) Platelet Count 209x10^3/uL (140-400) Neutrophils (%) (Auto) 65% (31-73) Lymphocytes (%) (Auto) 21% (24-48) Monocytes (%) (Auto) 12% (0-9) Eosinophils (%) (Auto) 2% (0-3) Basophils (%) (Auto) 1% (0-3) Neutrophils # (Auto) 5.1x10^3uL (1.8-7.7) Lymphocytes # (Auto) 1.7x10^3/uL (1.0-4.8) Monocytes # (Auto) 1.0x10^3/uL (0.0-1.1) Eosinophils # (Auto) 0.1x10^3/uL (0.0-0.7) Basophils # (Auto) 0.0x10^3/uL (0.0-0.2) Sodium Level 140mmol/L (136-145) Potassium Level 4.0mmol/L (3.5-5.1) Chloride Level 107mmol/L (98-107) Carbon Dioxide Level 31mmol/L (21-32) Anion Gap 2 (6-14) Blood Urea Nitrogen 21mg/dL (7-20) Creatinine 0.7mg/dL (0.6-1.0) Estimated GFR (Cockcroft-Gault) 82.7 Glucose Level 131mg/dL (70-99) Calcium Level 8.2mg/dL (8.5-10.1) Phosphorus Level 3.0mg/dL (2.6-4.7) Magnesium Level 1.7mg/dL (1.8-2.4) Albumin 2.2g/dL (3.4-5.0) Glucose (Fingerstick) 127mg/dL (70-99) 135mg/dL (70-99) 139mg/dL (70-99) Laboratory Tests Test 04/02/17 15:59 04/02/17 21:22 04/03/17 04:00 04/03/17 05:44 Glucose (Fingerstick) 81mg/dL (70-99) 78mg/dL (70-99) 127mg/dL (70-99) White Blood Count 7.9x10^3/uL (4.0-11.0) Red Blood Count 3.28x10^6/uL (3.50-5.40) Hemoglobin 11.0g/dL (12.0-15.5) Hematocrit 32.4% (36.0-47.0) Mean Corpuscular Volume 99fL (79-100) Mean Corpuscular Hemoglobin 34pg (25-35) Mean Corpuscular Hemoglobin Concent 34g/dL (31-37) Red Cell Distribution Width 13.6% (11.5-14.5) Platelet Count 209x10^3/uL (140-400) Neutrophils (%) (Auto) 65% (31-73) Lymphocytes (%) (Auto) 21% (24-48) Monocytes (%) (Auto) 12% (0-9) Eosinophils (%) (Auto) 2% (0-3) Basophils (%) (Auto) 1% (0-3) Neutrophils # (Auto) 5.1x10^3uL (1.8-7.7) Lymphocytes # (Auto) 1.7x10^3/uL (1.0-4.8) Monocytes # (Auto) 1.0x10^3/uL (0.0-1.1) Eosinophils # (Auto) 0.1x10^3/uL (0.0-0.7) Basophils # (Auto) 0.0x10^3/uL (0.0-0.2) Sodium Level 140mmol/L (136-145) Potassium Level 4.0mmol/L (3.5-5.1) Chloride Level 107mmol/L (98-107) Carbon Dioxide Level 31mmol/L (21-32) Anion Gap 2 (6-14) Blood Urea Nitrogen 21mg/dL (7-20) Creatinine 0.7mg/dL (0.6-1.0) Estimated GFR (Cockcroft-Gault) 82.7 Glucose Level 131mg/dL (70-99) Calcium Level 8.2mg/dL (8.5-10.1) Phosphorus Level 3.0mg/dL (2.6-4.7) Magnesium Level 1.7mg/dL (1.8-2.4) Albumin 2.2g/dL (3.4-5.0) Test 04/03/17 07:05 04/03/17 10:46 Glucose (Fingerstick) 135mg/dL (70-99) 139mg/dL (70-99) Microbiology 03/30/17 Blood Culture - Preliminary, Resulted NO GROWTH AFTER 4 DAYS 03/29/17 Urine Culture - Final, Complete 03/29/17 Urine Culture Result 1 (CYNTHIA) - Final, Complete Medications Current Medications Morphine Sulfate 2 mg 2 mg PRN Q15MIN PRN IV/SQ PAIN GREATER THAN 3/10 Last administered on 03/30/17 00:39; Start 03/29/17 at 17:45; Stop 03/30/17 at 17:44 ; Status DC Sodium Chloride (Iv Sodium Chloride 0.9% 1000ml Bag) 1,000 ml @ 1,000 mls/hr Q1H IV Last administered on 03/29/17 17:32; Start 03/29/17 at 17:32; Stop at 18:31; Status DC Ondansetron HCl (Zofran) 4 mg 1X ONCE IV Last administered on 03/29/17 17:45 ; Start 03/29/17 at 17:45; Stop 03/29/17 at 17:46; Status DC Iohexol (Omnipaque 240 Mg/ml) 30 ml 1X ONCE PO Last administered on 03/29/17 19:45; Start 03/29/17 at 19:45; Stop 03/29/17 at 19:46; Status DC Ondansetron HCl (Zofran) 4 mg 1X ONCE IV Last administered on 03/29/17 19:58 ; Start 03/29/17 at 20:00; Stop 03/29/17 at 20:01; Status DC Prochlorperazine Edisylate (Compazine) 10 mg 1X ONCE IV Last administered on 21:01; Start 03/29/17 at 21:15; Stop 03/29/17 at 21:16; Status DC Diphenhydramine HCl (Benadryl) 25 mg 1X ONCE IVP Last administered on 21:01; Start 03/29/17 at 21:15; Stop 03/29/17 at 21:16; Status DC Ondansetron HCl (Zofran) 4 mg PRN Q8HRS PRN IV NAUSEA/VOMITING Last administered on 03/30/17 07:59; Start 03/29/17 at 23:45; Stop 03/30/17 at 23:44 ; Status DC Fentanyl Citrate 25 mcg 25 mcg PRN Q1HR PRN IV SEVERE PAIN Last administered on 03/30/17 06:12; Start 03/29/17 at 23:45; Stop 03/30/17 at 23:44; Status DC Potassium Chloride/Dextrose/ Sod Cl 1,000 ml @ 75 mls/hr 1X ONCE IV Last administered on 03/30/17 06:13; Start 03/30/17 at 00:00; Stop 03/30/17 at 13:19 ; Status DC Ciprofloxacin Lactate 200 ml @ 200 mls/hr Q12HR IV ; Start 03/30/17 at 09:00; Status UNV Metronidazole 100 ml @ 100 mls/hr Q8HRS IV Last administered on 04/03/17 11:33 ; Start 03/30/17 at 00:00 Ciprofloxacin Lactate 200 ml @ 200 mls/hr 1X ONCE IV Last administered on 06:14; Start 03/30/17 at 00:00; Stop 03/30/17 at 00:59; Status DC Ciprofloxacin Lactate (Cipro 200mg Premix) 100 ml @ 100 mls/hr [id number] IV Last administered on 04/03/17 07:43; Start 03/30/17 at 18:00 Enoxaparin Sodium (Lovenox 30mg Syringe) 30 mg Q24H SQ Last administered on 04/01 11:26; Start 03/30/17 at 11:00; Stop 04/01/17 at 11:50; Status DC Acetaminophen (Tylenol) 325 mg PRN Q6HRS PRN PO MILD PAIN / TEMP Last administered on 04/01/17 11:25; Start 03/30/17 at 10:30 Acetaminophen/ Hydrocodone Bitart (Lortab 5/325) 1 tab PRN Q6HRS PRN PO MODERATE TO SEVERE PAIN; Start 03/30/17 at 10:30 Hydralazine HCl (Apresoline) 10 mg PRN Q4HRS PRN IVP ELEVATED BP, SEE COMMENTS ; Start 03/30/17 at 10:30 Ondansetron HCl (Zofran) 4 mg PRN Q8HRS PRN IV NAUSEA/VOMITING Last administered on 04/02/17 09:40; Start 03/30/17 at 10:30 Albuterol Sulfate 2.5 mg 2.5 mg PRN Q4HRS PRN NEB SHORTNESS OF BREATH; Start at 10:30 Sodium Chloride (Iv Sodium Chloride 0.9% 1000ml Bag) 1,000 ml @ 150 mls/hr Q6H40M IV Last administered on 04/01/17 01:41; Start 03/30/17 at 10:30; Stop at 14:14; Status DC Morphine Sulfate 2 mg 2 mg PRN Q2HR PRN IV PAIN Last administered on 04/03/17 06:21; Start 03/30/17 at 10:30 Metronidazole 100 ml @ 100 mls/hr Q12HR IV ; Start 03/30/17 at 21:00; Stop at 21:00; Status DC Ciprofloxacin Lactate (Cipro 200mg Premix) 100 ml @ 100 mls/hr Q12HR IV ; Start 03/30/17 at 21:00; Stop 03/30/17 at 21:00; Status DC Iohexol (Omnipaque 350 Mg/ml) 400 ml 1X ONCE PO Last administered on 11:47; Start 03/30/17 at 11:00; Stop 03/30/17 at 11:01; Status DC Info (Do NOT chart on this entry -- for MONITORING) 1 each PRN DAILY PRN MC SEE COMMENTS; Start 03/30/17 at 11:00; Stop 04/01/17 at 10:59; Status DC Fentanyl Citrate (Fentanyl 2ml Vial) 25 mcg PRN Q5MIN PRN IV MILD PAIN; Start 03/30/17 at 16:45; Stop 03/31/17 at 16:44; Status DC Fentanyl Citrate (Fentanyl 2ml Vial) 50 mcg PRN Q5MIN PRN IV MODERATE PAIN Last administered on 03/30/17t 21:23; Start 03/30/17 at 16:45; Stop 03/31/17 at 16:44; Status DC Morphine Sulfate 1 mg 1 mg PRN Q10MIN PRN IV SEVERE PAIN; Start 03/30/17 at 16: 45; Stop 03/31/17 at 16:44; Status DC Lactated Ringer's (Iv Lactated Ringers) 1,000 ml @ 30 mls/hr Q24H IV ; Start at 16:43; Stop 03/31/17 at 04:43; Status DC Lidocaine HCl 2 ml PRN 1X PRN ID PRIOR TO IV START; Start 03/30/17 at 16:45; Stop 03/31/17 at 16:44; Status DC Hydromorphone HCl (Dilaudid) 0.5 mg PRN Q10MIN PRN IV SEV PAIN, Second choice; Start 03/30/17 at 16:45; Stop 03/31/17 at 16:44; Status DC Prochlorperazine Edisylate (Compazine) 5 mg PACU PRN PRN IV NAUSEA, MRX1; Start 03/30/17 at 16:45; Stop 03/31/17 at 16:44; Status DC Dexamethasone Sodium Phosphate (Decadron) 20 mg STK-MED ONCE .ROUTE ; Start at 17:18; Stop 03/30/17 at 17:19; Status DC Ondansetron HCl 4 mg 4 mg STK-MED ONCE .ROUTE ; Start 03/30/17 at 17:18; Stop at 17:19; Status DC Propofol (Diprivan) 20 ml @ As Directed STK-MED ONCE IV ; Start 03/30/17 at 17: 18; Stop 03/30/17 at 17:19; Status DC Lidocaine HCl (Lidocaine HCl 2% Abboject) 100 mg STK-MED ONCE .ROUTE ; Start at 17:18; Stop 03/30/17 at 17:19; Status DC Desflurane (Suprane) 90 ml STK-MED ONCE IH ; Start 03/30/17 at 17:18; Stop 03/30 at 17:19; Status DC Fentanyl Citrate (Fentanyl 2ml Vial) 100 mcg STK-MED ONCE .ROUTE ; Start at 17:18; Stop 03/30/17 at 17:19; Status DC Succinylcholine Chloride (Anectine) 200 mg STK-MED ONCE .ROUTE ; Start 03/30/17 at 17:18; Stop 03/30/17 at 17:19; Status DC Rocuronium Deeth (Zemuron) 50 mg STK-MED ONCE .ROUTE ; Start 03/30/17 at 17:18 ; Stop 03/30/17 at 17:19; Status DC Phenylephrine HCl 1 mg STK-MED ONCE IV ; Start 03/30/17 at 18:09; Stop 03/30/17 at 18:10; Status DC Fentanyl Citrate 100 mcg 100 mcg STK-MED ONCE .ROUTE ; Start 03/30/17 at 18:58; Stop 03/30/17 at 18:59; Status DC Sodium Chloride 500 ml @ 0 mls/hr QID PRN IV UO< 30cc/hr over previous 6hrs; Start 03/31/17 at 08:30 Magnesium Sulfate/ Dextrose (Magnesium Sulfate PREMIX 2GM) 50 ml @ 25 mls/hr PRN DAILY PRN IV for Mag < 1.7 on am labs; Start 03/31/17 at 08:30 Enoxaparin Sodium 40 mg 40 mg Q24H SQ Last administered on 04/03/17t 11:33; Start 04/02/17 at 12:00 Amino Acids/ Glycerin/ Electrolytes 1,000 ml @ 80 mls/hr [id number] IV Last administered on 04/02/17 05:43; Start 04/01/17 at 14:15; Stop 04/02/17 at 14:40; Status DC Potassium Phosphate 13.6 mmol/Sodium Chloride 254.5333 ml @ 127.... Q2H IV Last administered on 04/02/17 16:42; Start 04/02/17 at 11:00; Stop 04/02/17 at 16: 59; Status DC Sodium Chloride (Iv Sodium Chloride 0.9% 500ml Bag) 500 ml @ 0 mls/hr PRN QID PRN IV UO< 30cc/hr over previous 6hrs; Start 04/02/17 at 10:45 Info 1 each 1 each PRN DAILY PRN MC SEE COMMENTS Last administered on 04/02/17 12:15; Start 04/02/17 at 11:30 Sodium Chloride/ Potassium Chloride/ Potassium Phosphate/ Magnesium Sulfate/ Calcium Gluconate/ Multivitamins/ Chromium/Copper/ Manganese/Seleni/ Zn/Total Parenteral Nutrition/Amino Acids/Dextrose/ Fat Emulsion Intravenous (Sodium Chloride/ Potassium Phosphate/Calc... 1,512 ml @ 63 mls/hr TPN CONT IV Last administered on 04/02/17 22:00; Start 04/02/17 at 22:00 Sodium Chloride (Normal Saline Flush) 10 ml QSHIFT PRN IV AFTER MEDS AND BLOOD DRAWS; Start 04/02/17 at 14:45 Sodium Chloride 20 ml 20 ml QSHIFT PRN IV AFTER MEDS AND BLOOD DRAWS; Start 04/02/17 at 14:45 Magnesium Sulfate/ Dextrose 100 ml @ 100 mls/hr 1X ONCE IV Last administered on 04/03/17 12:40; Start 04/03/17 at 12:30; Stop 04/03/17 at 13:29 Sodium Chloride/ Potassium Chloride/ Potassium Phosphate/ Magnesium Sulfate/ Calcium Gluconate/ Multivitamins/ Zinc/Copper/ Mindi/Chrom/ Selen/Total Parenteral Nutrition/Amino Acids/Dextrose/ Fat Emulsion Intravenous (Sodium Chloride/ Potassium Phosphate/Calc... 1,512 ml @ 63 mls/hr TPN CONT IV ; Start 04/03/17 at 22:00 Active Scripts Active Reported Niaspan (Niacin) 1,000 Mg Tab.er.24h 1 Tab PO BID Levothyroxine Sodium 88 Mcg Tablet 1 Tab PO DAILY Vitals/I & O Vital Sign - Last 24 Hours 04/02/17 04/02/17 04/02/17 04/02/17 15:00 19:00 20:37 23:00 Temp 97.8 98.6 99.2 97.8 98.6 99.2 Pulse 70 74 71 Resp 20 20 20 20 B/P 122/44 132/58 124/56 Pulse Ox 94 91 93 O2 Delivery Room Air Room Air Room Air Room Air 04/03/17 04/03/17 04/03/17 04/03/17 03:00 06:21 07:00 07:00 Temp 97.7 97.7 Pulse 74 Resp 24 20 18 20 B/P 120/60 Pulse Ox 93 94 O2 Delivery Nasal Cannula Room Air Nasal Cannula O2 Flow Rate 2.0 2.0 2.0 04/03/17 04/03/17 08:00 10:38 Temp 97.7 97.7 Pulse 74 Resp 20 B/P 121/59 Pulse Ox 95 O2 Delivery Room Air Nasal Cannula O2 Flow Rate 2.0 2.0 Intake and Output 04/02/17 04/02/17 04/03/17 15:00 23:00 07:00 Intake Total 354.5333 ml 550 ml Output Total 150 ml 700 ml 800 ml Balance -150 ml -345.4667 ml -250 ml GRIS BRANDON MD April 03, 2017 12:57
[2017-04-03] MEDS: TPN PER PHARMACY MC PRN ×2 (13:01→13:13)
--- NOTE | 2017-04-03 13:06 | PDOC ---
PROGRESS NOTES Subjective Subjective looks well, passing gas Objective Objective Vital Signs Date Time Temp Pulse Resp B/P Pulse Ox O2 Delivery O2 Flow Rate FiO2 04/03/17 10:38 97.7 74 20 121/59 95 Nasal Cannula 2.0 97.7 Intake and Output 04/03/17 07:00 Intake Total 904.5333 ml Output Total 1650 ml Balance -745.4667 ml Intake Oral 0 ml IV Total 354.5333 ml Blood Product IV Normal Saline Flush 550 ml Output Urine Total 650 ml Stool Total 0 ml Gastric Drainage Total 500 ml Drainage Total 500 ml # Voids 2 # Bowel Movements 1 Physical Exam Abdomen: Soft, No hepatosplenomegaly General: Alert, Oriented X3 Assessment Assessment Problems Medical Problems: (1) Abdominal pain Status: Acute (2) Nausea & vomiting Status: Acute Plan Plan of Care DC NG tube, ice chips Comment Review of Relevant I have reviewed the following items daphne (where applicable) has been applied. Labs Laboratory Tests Test 04/02/17 06:33 04/02/17 06:35 04/02/17 15:59 04/02/17 21:22 Sodium Level 139mmol/L (136-145) Potassium Level 3.8mmol/L (3.5-5.1) Chloride Level 105mmol/L (98-107) Carbon Dioxide Level 31mmol/L (21-32) Anion Gap 3 (6-14) Blood Urea Nitrogen 26mg/dL (7-20) Creatinine 0.8mg/dL (0.6-1.0) Estimated GFR (Cockcroft-Gault) 70.9 Glucose Level 97mg/dL (70-99) Calcium Level 8.8mg/dL (8.5-10.1) Phosphorus Level 2.1mg/dL (2.6-4.7) Albumin 2.4g/dL (3.4-5.0) White Blood Count 9.0x10^3/uL (4.0-11.0) Red Blood Count 3.71x10^6/uL (3.50-5.40) Hemoglobin 12.3g/dL (12.0-15.5) Hematocrit 36.6% (36.0-47.0) Mean Corpuscular Volume 99fL (79-100) Mean Corpuscular Hemoglobin 33pg (25-35) Mean Corpuscular Hemoglobin Concent 34g/dL (31-37) Red Cell Distribution Width 13.5% (11.5-14.5) Platelet Count 226x10^3/uL (140-400) Neutrophils (%) (Auto) 72% (31-73) Lymphocytes (%) (Auto) 16% (24-48) Monocytes (%) (Auto) 11% (0-9) Eosinophils (%) (Auto) 1% (0-3) Basophils (%) (Auto) 0% (0-3) Neutrophils # (Auto) 6.5x10^3uL (1.8-7.7) Lymphocytes # (Auto) 1.5x10^3/uL (1.0-4.8) Monocytes # (Auto) 1.0x10^3/uL (0.0-1.1) Eosinophils # (Auto) 0.1x10^3/uL (0.0-0.7) Basophils # (Auto) 0.0x10^3/uL (0.0-0.2) Magnesium Level 2.1mg/dL (1.8-2.4) Glucose (Fingerstick) 81mg/dL (70-99) 78mg/dL (70-99) Test 04/03/17 04:00 04/03/17 05:44 04/03/17 07:05 04/03/17 10:46 White Blood Count 7.9x10^3/uL (4.0-11.0) Red Blood Count 3.28x10^6/uL (3.50-5.40) Hemoglobin 11.0g/dL (12.0-15.5) Hematocrit 32.4% (36.0-47.0) Mean Corpuscular Volume 99fL (79-100) Mean Corpuscular Hemoglobin 34pg (25-35) Mean Corpuscular Hemoglobin Concent 34g/dL (31-37) Red Cell Distribution Width 13.6% (11.5-14.5) Platelet Count 209x10^3/uL (140-400) Neutrophils (%) (Auto) 65% (31-73) Lymphocytes (%) (Auto) 21% (24-48) Monocytes (%) (Auto) 12% (0-9) Eosinophils (%) (Auto) 2% (0-3) Basophils (%) (Auto) 1% (0-3) Neutrophils # (Auto) 5.1x10^3uL (1.8-7.7) Lymphocytes # (Auto) 1.7x10^3/uL (1.0-4.8) Monocytes # (Auto) 1.0x10^3/uL (0.0-1.1) Eosinophils # (Auto) 0.1x10^3/uL (0.0-0.7) Basophils # (Auto) 0.0x10^3/uL (0.0-0.2) Sodium Level 140mmol/L (136-145) Potassium Level 4.0mmol/L (3.5-5.1) Chloride Level 107mmol/L (98-107) Carbon Dioxide Level 31mmol/L (21-32) Anion Gap 2 (6-14) Blood Urea Nitrogen 21mg/dL (7-20) Creatinine 0.7mg/dL (0.6-1.0) Estimated GFR (Cockcroft-Gault) 82.7 Glucose Level 131mg/dL (70-99) Calcium Level 8.2mg/dL (8.5-10.1) Phosphorus Level 3.0mg/dL (2.6-4.7) Magnesium Level 1.7mg/dL (1.8-2.4) Albumin 2.2g/dL (3.4-5.0) Glucose (Fingerstick) 127mg/dL (70-99) 135mg/dL (70-99) 139mg/dL (70-99) Laboratory Tests Test 04/02/17 15:59 04/02/17 21:22 04/03/17 04:00 04/03/17 05:44 Glucose (Fingerstick) 81mg/dL (70-99) 78mg/dL (70-99) 127mg/dL (70-99) White Blood Count 7.9x10^3/uL (4.0-11.0) Red Blood Count 3.28x10^6/uL (3.50-5.40) Hemoglobin 11.0g/dL (12.0-15.5) Hematocrit 32.4% (36.0-47.0) Mean Corpuscular Volume 99fL (79-100) Mean Corpuscular Hemoglobin 34pg (25-35) Mean Corpuscular Hemoglobin Concent 34g/dL (31-37) Red Cell Distribution Width 13.6% (11.5-14.5) Platelet Count 209x10^3/uL (140-400) Neutrophils (%) (Auto) 65% (31-73) Lymphocytes (%) (Auto) 21% (24-48) Monocytes (%) (Auto) 12% (0-9) Eosinophils (%) (Auto) 2% (0-3) Basophils (%) (Auto) 1% (0-3) Neutrophils # (Auto) 5.1x10^3uL (1.8-7.7) Lymphocytes # (Auto) 1.7x10^3/uL (1.0-4.8) Monocytes # (Auto) 1.0x10^3/uL (0.0-1.1) Eosinophils # (Auto) 0.1x10^3/uL (0.0-0.7) Basophils # (Auto) 0.0x10^3/uL (0.0-0.2) Sodium Level 140mmol/L (136-145) Potassium Level 4.0mmol/L (3.5-5.1) Chloride Level 107mmol/L (98-107) Carbon Dioxide Level 31mmol/L (21-32) Anion Gap 2 (6-14) Blood Urea Nitrogen 21mg/dL (7-20) Creatinine 0.7mg/dL (0.6-1.0) Estimated GFR (Cockcroft-Gault) 82.7 Glucose Level 131mg/dL (70-99) Calcium Level 8.2mg/dL (8.5-10.1) Phosphorus Level 3.0mg/dL (2.6-4.7) Magnesium Level 1.7mg/dL (1.8-2.4) Albumin 2.2g/dL (3.4-5.0) Test 04/03/17 07:05 04/03/17 10:46 Glucose (Fingerstick) 135mg/dL (70-99) 139mg/dL (70-99) Microbiology 03/30/17 Blood Culture - Preliminary, Resulted NO GROWTH AFTER 4 DAYS 03/29/17 Urine Culture - Final, Complete 03/29/17 Urine Culture Result 1 (CYNTHIA) - Final, Complete Medications Current Medications Morphine Sulfate 2 mg 2 mg PRN Q15MIN PRN IV/SQ PAIN GREATER THAN 3/10 Last administered on 03/30/17 00:39; Start 03/29/17 at 17:45; Stop 03/30/17 at 17:44 ; Status DC Sodium Chloride (Iv Sodium Chloride 0.9% 1000ml Bag) 1,000 ml @ 1,000 mls/hr Q1H IV Last administered on 03/29/17 17:32; Start 03/29/17 at 17:32; Stop at 18:31; Status DC Ondansetron HCl (Zofran) 4 mg 1X ONCE IV Last administered on 03/29/17 17:45 ; Start 03/29/17 at 17:45; Stop 03/29/17 at 17:46; Status DC Iohexol (Omnipaque 240 Mg/ml) 30 ml 1X ONCE PO Last administered on 03/29/17 19:45; Start 03/29/17 at 19:45; Stop 03/29/17 at 19:46; Status DC Ondansetron HCl (Zofran) 4 mg 1X ONCE IV Last administered on 03/29/17 19:58 ; Start 03/29/17 at 20:00; Stop 03/29/17 at 20:01; Status DC Prochlorperazine Edisylate (Compazine) 10 mg 1X ONCE IV Last administered on 21:01; Start 03/29/17 at 21:15; Stop 03/29/17 at 21:16; Status DC Diphenhydramine HCl (Benadryl) 25 mg 1X ONCE IVP Last administered on 21:01; Start 03/29/17 at 21:15; Stop 03/29/17 at 21:16; Status DC Ondansetron HCl (Zofran) 4 mg PRN Q8HRS PRN IV NAUSEA/VOMITING Last administered on 03/30/17 07:59; Start 03/29/17 at 23:45; Stop 03/30/17 at 23:44 ; Status DC Fentanyl Citrate 25 mcg 25 mcg PRN Q1HR PRN IV SEVERE PAIN Last administered on 03/30/17 06:12; Start 03/29/17 at 23:45; Stop 03/30/17 at 23:44; Status DC Potassium Chloride/Dextrose/ Sod Cl 1,000 ml @ 75 mls/hr 1X ONCE IV Last administered on 03/30/17 06:13; Start 03/30/17 at 00:00; Stop 03/30/17 at 13:19 ; Status DC Ciprofloxacin Lactate 200 ml @ 200 mls/hr Q12HR IV ; Start 03/30/17 at 09:00; Status UNV Metronidazole 100 ml @ 100 mls/hr Q8HRS IV Last administered on 04/03/17 11:33 ; Start 03/30/17 at 00:00 Ciprofloxacin Lactate 200 ml @ 200 mls/hr 1X ONCE IV Last administered on 06:14; Start 03/30/17 at 00:00; Stop 03/30/17 at 00:59; Status DC Ciprofloxacin Lactate (Cipro 200mg Premix) 100 ml @ 100 mls/hr [id number] IV Last administered on 04/03/17 07:43; Start 03/30/17 at 18:00 Enoxaparin Sodium (Lovenox 30mg Syringe) 30 mg Q24H SQ Last administered on 04/01 11:26; Start 03/30/17 at 11:00; Stop 04/01/17 at 11:50; Status DC Acetaminophen (Tylenol) 325 mg PRN Q6HRS PRN PO MILD PAIN / TEMP Last administered on 04/01/17 11:25; Start 03/30/17 at 10:30 Acetaminophen/ Hydrocodone Bitart (Lortab 5/325) 1 tab PRN Q6HRS PRN PO MODERATE TO SEVERE PAIN; Start 03/30/17 at 10:30 Hydralazine HCl (Apresoline) 10 mg PRN Q4HRS PRN IVP ELEVATED BP, SEE COMMENTS ; Start 03/30/17 at 10:30 Ondansetron HCl (Zofran) 4 mg PRN Q8HRS PRN IV NAUSEA/VOMITING Last administered on 04/02/17 09:40; Start 03/30/17 at 10:30 Albuterol Sulfate 2.5 mg 2.5 mg PRN Q4HRS PRN NEB SHORTNESS OF BREATH; Start at 10:30 Sodium Chloride (Iv Sodium Chloride 0.9% 1000ml Bag) 1,000 ml @ 150 mls/hr Q6H40M IV Last administered on 04/01/17 01:41; Start 03/30/17 at 10:30; Stop at 14:14; Status DC Morphine Sulfate 2 mg 2 mg PRN Q2HR PRN IV PAIN Last administered on 04/03/17 06:21; Start 03/30/17 at 10:30 Metronidazole 100 ml @ 100 mls/hr Q12HR IV ; Start 03/30/17 at 21:00; Stop at 21:00; Status DC Ciprofloxacin Lactate (Cipro 200mg Premix) 100 ml @ 100 mls/hr Q12HR IV ; Start 03/30/17 at 21:00; Stop 03/30/17 at 21:00; Status DC Iohexol (Omnipaque 350 Mg/ml) 400 ml 1X ONCE PO Last administered on 11:47; Start 03/30/17 at 11:00; Stop 03/30/17 at 11:01; Status DC Info (Do NOT chart on this entry -- for MONITORING) 1 each PRN DAILY PRN MC SEE COMMENTS; Start 03/30/17 at 11:00; Stop 04/01/17 at 10:59; Status DC Fentanyl Citrate (Fentanyl 2ml Vial) 25 mcg PRN Q5MIN PRN IV MILD PAIN; Start 03/30/17 at 16:45; Stop 03/31/17 at 16:44; Status DC Fentanyl Citrate (Fentanyl 2ml Vial) 50 mcg PRN Q5MIN PRN IV MODERATE PAIN Last administered on 03/30/17 21:23; Start 03/30/17 at 16:45; Stop 03/31/17 at 16:44; Status DC Morphine Sulfate 1 mg 1 mg PRN Q10MIN PRN IV SEVERE PAIN; Start 03/30/17 at 16: 45; Stop 03/31/17 at 16:44; Status DC Lactated Ringer's (Iv Lactated Ringers) 1,000 ml @ 30 mls/hr Q24H IV ; Start at 16:43; Stop 03/31/17 at 04:43; Status DC Lidocaine HCl 2 ml PRN 1X PRN ID PRIOR TO IV START; Start 03/30/17 at 16:45; Stop 03/31/17 at 16:44; Status DC Hydromorphone HCl (Dilaudid) 0.5 mg PRN Q10MIN PRN IV SEV PAIN, Second choice; Start 03/30/17 at 16:45; Stop 03/31/17 at 16:44; Status DC Prochlorperazine Edisylate (Compazine) 5 mg PACU PRN PRN IV NAUSEA, MRX1; Start 03/30/17 at 16:45; Stop 03/31/17 at 16:44; Status DC Dexamethasone Sodium Phosphate (Decadron) 20 mg STK-MED ONCE .ROUTE ; Start at 17:18; Stop 03/30/17 at 17:19; Status DC Ondansetron HCl 4 mg 4 mg STK-MED ONCE .ROUTE ; Start 03/30/17 at 17:18; Stop at 17:19; Status DC Propofol (Diprivan) 20 ml @ As Directed STK-MED ONCE IV ; Start 03/30/17 at 17: 18; Stop 03/30/17 at 17:19; Status DC Lidocaine HCl (Lidocaine HCl 2% Abboject) 100 mg STK-MED ONCE .ROUTE ; Start at 17:18; Stop 03/30/17 at 17:19; Status DC Desflurane (Suprane) 90 ml STK-MED ONCE IH ; Start 03/30/17 at 17:18; Stop 03/30 at 17:19; Status DC Fentanyl Citrate (Fentanyl 2ml Vial) 100 mcg STK-MED ONCE .ROUTE ; Start at 17:18; Stop 03/30/17 at 17:19; Status DC Succinylcholine Chloride (Anectine) 200 mg STK-MED ONCE .ROUTE ; Start 03/30/17 at 17:18; Stop 03/30/17 at 17:19; Status DC Rocuronium [place] (Zemuron) 50 mg STK-MED ONCE .ROUTE ; Start 03/30/17 at 17:18 ; Stop 03/30/17 at 17:19; Status DC Phenylephrine HCl 1 mg STK-MED ONCE IV ; Start 03/30/17 at 18:09; Stop 03/30/17 at 18:10; Status DC Fentanyl Citrate 100 mcg 100 mcg STK-MED ONCE .ROUTE ; Start 03/30/17 at 18:58; Stop 03/30/17 at 18:59; Status DC Sodium Chloride 500 ml @ 0 mls/hr QID PRN IV UO< 30cc/hr over previous 6hrs; Start 03/31/17 at 08:30 Magnesium Sulfate/ Dextrose (Magnesium Sulfate PREMIX 2GM) 50 ml @ 25 mls/hr PRN DAILY PRN IV for Mag < 1.7 on am labs; Start 03/31/17 at 08:30 Enoxaparin Sodium 40 mg 40 mg Q24H SQ Last administered on 04/03/17 11:33; Start 04/02/17 at 12:00 Amino Acids/ Glycerin/ Electrolytes 1,000 ml @ 80 mls/hr [id number] IV Last administered on 04/02/17 05:43; Start 04/01/17 at 14:15; Stop 04/02/17 at 14:40; Status DC Potassium Phosphate 13.6 mmol/Sodium Chloride 254.5333 ml @ 127.... Q2H IV Last administered on 04/02/17 16:42; Start 04/02/17 at 11:00; Stop 04/02/17 at 16: 59; Status DC Sodium Chloride (Iv Sodium Chloride 0.9% 500ml Bag) 500 ml @ 0 mls/hr PRN QID PRN IV UO< 30cc/hr over previous 6hrs; Start 04/02/17 at 10:45 Info 1 each 1 each PRN DAILY PRN MC SEE COMMENTS Last administered on 04/03/17 13:01; Start 04/02/17 at 11:30 Sodium Chloride/ Potassium Chloride/ Potassium Phosphate/ Magnesium Sulfate/ Calcium Gluconate/ Multivitamins/ Chromium/Copper/ Manganese/Seleni/ Zn/Total Parenteral Nutrition/Amino Acids/Dextrose/ Fat Emulsion Intravenous (Sodium Chloride/ Potassium Phosphate/Calc... 1,512 ml @ 63 mls/hr TPN CONT IV Last administered on 04/02/17 22:00; Start 04/02/17 at 22:00 Sodium Chloride (Normal Saline Flush) 10 ml QSHIFT PRN IV AFTER MEDS AND BLOOD DRAWS; Start 04/02/17 at 14:45 Sodium Chloride 20 ml 20 ml QSHIFT PRN IV AFTER MEDS AND BLOOD DRAWS; Start 04/02/17 at 14:45 Magnesium Sulfate/ Dextrose 100 ml @ 100 mls/hr 1X ONCE IV Last administered on 04/03/17t 12:40; Start 04/03/17 at 12:30; Stop 04/03/17 at 13:29 Sodium Chloride/ Potassium Chloride/ Potassium Phosphate/ Magnesium Sulfate/ Calcium Gluconate/ Multivitamins/ Zinc/Copper/ Mindi/Chrom/ Selen/Total Parenteral Nutrition/Amino Acids/Dextrose/ Fat Emulsion Intravenous (Sodium Chloride/ Potassium Phosphate/Calc... 1,512 ml @ 63 mls/hr TPN CONT IV ; Start 04/03/17 at 22:00 Active Scripts Active Reported Niaspan (Niacin) 1,000 Mg Tab.er.24h 1 Tab PO BID Levothyroxine Sodium 88 Mcg Tablet 1 Tab PO DAILY Vitals/I & O Vital Sign - Last 24 Hours 04/02/17 04/02/17 04/02/17 04/02/17 15:00 19:00 20:37 23:00 Temp 97.8 98.6 99.2 97.8 98.6 99.2 Pulse 70 74 71 Resp 20 20 20 20 B/P 122/44 132/58 124/56 Pulse Ox 94 91 93 O2 Delivery Room Air Room Air Room Air Room Air 04/03/17 04/03/17 04/03/17 04/03/17 03:00 06:21 07:00 07:00 Temp 97.7 97.7 Pulse 74 Resp 24 20 18 20 B/P 120/60 Pulse Ox 93 94 O2 Delivery Nasal Cannula Room Air Nasal Cannula O2 Flow Rate 2.0 2.0 2.0 04/03/17 04/03/17 08:00 10:38 Temp 97.7 97.7 Pulse 74 Resp 20 B/P 121/59 Pulse Ox 95 O2 Delivery Room Air Nasal Cannula O2 Flow Rate 2.0 2.0 Intake and Output 04/02/17 04/02/17 04/03/17 15:00 23:00 07:00 Intake Total 354.5333 ml 550 ml Output Total 150 ml 700 ml 800 ml Balance -150 ml -345.4667 ml -250 ml MARGOTH DAWSON MD April 03, 2017 13:06
--- NOTE | 2017-04-03 13:15 | PDOC ---
Subjective: Subjective: NG still w/ some output. Passed gas. Objective: Vital Signs: Vital Signs Date Time Temp Pulse Resp B/P Pulse Ox O2 Delivery O2 Flow Rate FiO2 04/03/17 10:38 97.7 74 20 121/59 95 Nasal Cannula 2.0 97.7 Labs: Laboratory Tests Test 04/02/17 15:59 04/02/17 21:22 04/03/17 05:44 04/03/17 07:05 Glucose (Fingerstick) 81mg/dL (70-99) 78mg/dL (70-99) 127mg/dL (70-99) 135mg/dL (70-99) Test 04/03/17 10:46 Glucose (Fingerstick) 139mg/dL (70-99) PE: GEN: NAD LUNGS: CTAB HEART: RRR ABD: soft, NG w/ ~100cc bilious NEURO/PSYCH: A & O 3 A/P: SBO s/p resection -- Reviewed surg note - plans to DC NG, try ice chips. TRISTEN BENJAMIN April 03, 2017 13:14
[2017-04-03 15:04] VITALS: BP 120/61
--- NOTE | 2017-04-03 16:56 | PATHOLOGY ---
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 - Mesenteric lymph node showing recent hemorrhage. COMMENT: The margins of resection appear viable although there are focal mucosal ischemic changes. (JPM:csd; d/t: 04/03/2017) REPORT ELECTRONICALLY SIGNED BY: Gonzalez Amaro M.D. DATE/TIME: 04/03/2017 16:55 * * * * * * * * GROSS PATHOLOGY: The specimen is received in formalin, labeled "Caron, segment of ileum", and consists of a hemorrhagic segment of ileum with attached mesenteric soft tissue weighing 191 g and measuring 32 cm in length and 2 cm in diameter. The serosa and attached mesenteric soft tissue are hemorrhagic. Opening of the bowel segment reveals a dusky red-brown mucosa without polyps or masses. Located at each end of the bowel segment is a staple resection margin. Mesenteric soft tissues are hemorrhagic without prominent lymph nodes, and there are several scattered vascular structures containing clotted blood. Portions of the bowel wall are hemorrhagic and edematous measuring up to 0.6 cm in thickness. Several hemorrhagic areas extend to mesenteric resection margins grossly. Firmware Architect sections are submitted as follows: En face section of one end of bowel segment A1, en face section of opposite end resection margin A2, sections of bowel wall from one end to the other A3-A4 and mesenteric soft tissue A5-A6. ([facility]; 04/02/2017) INITIAL CPT CODE(S): A; 13148 Professional services performed by [employer] at [address] [address] Technical services performed by [employer] at [address] [place] [address], [address] [address]. SPECIMEN(S) RECEIVED: A.Segment of ileum CLINICAL HISTORY: Abdominal pain, nausea, vomiting PATIENT: MAG CASTANEDA /AGE: 9 1945 (Age: 71) PATIENT #: [id number] ALT CASE #: SPECIMEN COLLECTION DATE: 03/30/2017 SPECIMEN RECEIVED DATE: 04/01/2017 [facility] - [address] [place] [address] - PHONE: [phone] * * * END OF REPORT * * *
[2017-04-03] MEDS: ONDANSETRON PF 4 MG/2 ML VIAL. IV PRN (18:55)
[2017-04-03 19:00] VITALS: BP 113/43
[2017-04-03] MEDS: ACETAMINOPHEN 325 MG TABLET. PO PRN (20:33)
[2017-04-03] MEDS ORDERED: DEXTROSE 70% IV SCH ×10 (22:00)
[2017-04-03] MEDS ORDERED: TOTAL PARENTERAL NUTRITION IV SCH ×10 (22:00)
[2017-04-03] MEDS ORDERED: [UNRECOGNIZED DRUG - OTHER] IV SCH ×10 (22:00)
[2017-04-03] MEDS ORDERED: AMINO ACIDS IV SCH ×10 (22:00)
[2017-04-03 23:00] VITALS: BP 114/48
[2017-04-04 02:44] VITALS: BP 122/59
[2017-04-04] MEDS: ONDANSETRON PF 4 MG/2 ML VIAL. IV PRN ×3 (03:30→21:05)
[2017-04-04] MEDS: CIPROFLOXACIN 200MG PREMIX 100 ML IV SCH (05:15)
[2017-04-04 07:00] VITALS: BP 118/75
[2017-04-04 07:47] LABS: BASO % 0 % (0-3); EOS % 2 % (0-3); HEMATOCRIT 33.5 % (36.0-47.0); HEMOGLOBIN 11.3 g/dL (12.0-15.5); LYMPH # 1.4 x10^3/uL (1.0-4.8); LYMPH % 16 % (24-48); MEAN CORPUSCULAR HEMOGLOBIN 33 pg (25-35); MEAN CORPUSCULAR HGB CONC 34 g/dL (31-37); MEAN CORPUSCULAR VOLUME 98 fL (79-100); MONO % 11 % (0-9); NEUT % 71 % (31-73); PLATELET COUNT 229 x10^3/uL (140-400); RED BLOOD COUNT 3.41 x10^6/uL (3.50-5.40); RED CELL DISTRIBUTION WIDTH 13.3 % (11.5-14.5); WHITE BLOOD COUNT 9.2 x10^3/uL (4.0-11.0)
[2017-04-04 08:07] LABS: ALBUMIN 2.5 g/dL (3.4-5.0); CALCIUM 8.3 mg/dL (8.5-10.1); CREATININE 0.7 mg/dL (0.6-1.0); GFR 82.7; PHOSPHORUS 3.4 mg/dL (2.6-4.7); POTASSIUM 4.1 mmol/L (3.5-5.1)
--- NOTE | 2017-04-04 09:33 | PDOC ---
VITALY ROSS [employer] 04/04/17 0933: SURGICAL PROGRESS NOTE Subjective emesis last night and again this AM small amount of flatus she really does not want another NG Vital Signs Vital Signs Date Time Temp Pulse Resp B/P (MAP) Pulse Ox O2 Delivery O2 Flow Rate FiO2 04/04/17 07:00 98.5 66 14 118/75 (89) 96 Nasal Cannula 2.0 98.5 I&O Intake and Output 04/04/17 07:00 Output Total 550 ml Balance -550 ml Output Urine Total 400 ml Gastric Drainage Total 150 ml # Voids 5 PATIENT HAS A ROLON: No General: Alert, Oriented X3, Cooperative, No acute distress Abdomen: Soft, Other (binder on, dressing under binder dry) Labs Laboratory Tests Test 04/02/17 15:59 04/02/17 21:22 04/03/17 04:00 04/03/17 05:44 Glucose (Fingerstick) 81 mg/dL (70-99) 78 mg/dL (70-99) 127 mg/dL (70-99) White Blood Count 7.9 x10^3/uL (4.0-11.0) Red Blood Count 3.28 x10^6/uL (3.50-5.40) Hemoglobin 11.0 g/dL (12.0-15.5) Hematocrit 32.4 % (36.0-47.0) Mean Corpuscular Volume 99 fL (79-100) Mean Corpuscular Hemoglobin 34 pg (25-35) Mean Corpuscular Hemoglobin Concent 34 g/dL (31-37) Red Cell Distribution Width 13.6 % (11.5-14.5) Platelet Count 209 x10^3/uL (140-400) Neutrophils (%) (Auto) 65 % (31-73) Lymphocytes (%) (Auto) 21 % (24-48) Monocytes (%) (Auto) 12 % (0-9) Eosinophils (%) (Auto) 2 % (0-3) Basophils (%) (Auto) 1 % (0-3) Neutrophils # (Auto) 5.1 x10^3uL (1.8-7.7) Lymphocytes # (Auto) 1.7 x10^3/uL (1.0-4.8) Monocytes # (Auto) 1.0 x10^3/uL (0.0-1.1) Eosinophils # (Auto) 0.1 x10^3/uL (0.0-0.7) Basophils # (Auto) 0.0 x10^3/uL (0.0-0.2) Sodium Level 140 mmol/L (136-145) Potassium Level 4.0 mmol/L (3.5-5.1) Chloride Level 107 mmol/L (98-107) Carbon Dioxide Level 31 mmol/L (21-32) Anion Gap 2 (6-14) Blood Urea Nitrogen 21 mg/dL (7-20) Creatinine 0.7 mg/dL (0.6-1.0) Estimated GFR (Cockcroft-Gault) 82.7 Glucose Level 131 mg/dL (70-99) Calcium Level 8.2 mg/dL (8.5-10.1) Phosphorus Level 3.0 mg/dL (2.6-4.7) Magnesium Level 1.7 mg/dL (1.8-2.4) Albumin 2.2 g/dL (3.4-5.0) Test 04/03/17 07:05 04/03/17 10:46 04/03/17 16:40 04/03/17 20:58 Glucose (Fingerstick) 135 mg/dL (70-99) 139 mg/dL (70-99) 130 mg/dL (70-99) 120 mg/dL (70-99) Test 04/04/17 06:00 04/04/17 06:15 White Blood Count 9.2 x10^3/uL (4.0-11.0) Red Blood Count 3.41 x10^6/uL (3.50-5.40) Hemoglobin 11.3 g/dL (12.0-15.5) Hematocrit 33.5 % (36.0-47.0) Mean Corpuscular Volume 98 fL (79-100) Mean Corpuscular Hemoglobin 33 pg (25-35) Mean Corpuscular Hemoglobin Concent 34 g/dL (31-37) Red Cell Distribution Width 13.3 % (11.5-14.5) Platelet Count 229 x10^3/uL (140-400) Neutrophils (%) (Auto) 71 % (31-73) Lymphocytes (%) (Auto) 16 % (24-48) Monocytes (%) (Auto) 11 % (0-9) Eosinophils (%) (Auto) 2 % (0-3) Basophils (%) (Auto) 0 % (0-3) Neutrophils # (Auto) 6.5 x10^3uL (1.8-7.7) Lymphocytes # (Auto) 1.4 x10^3/uL (1.0-4.8) Monocytes # (Auto) 1.0 x10^3/uL (0.0-1.1) Eosinophils # (Auto) 0.2 x10^3/uL (0.0-0.7) Basophils # (Auto) 0.0 x10^3/uL (0.0-0.2) Sodium Level 142 mmol/L (136-145) Potassium Level 4.1 mmol/L (3.5-5.1) Chloride Level 106 mmol/L (98-107) Carbon Dioxide Level 29 mmol/L (21-32) Anion Gap 7 (6-14) Blood Urea Nitrogen 19 mg/dL (7-20) Creatinine 0.7 mg/dL (0.6-1.0) Estimated GFR (Cockcroft-Gault) 82.7 Glucose Level 133 mg/dL (70-99) Calcium Level 8.3 mg/dL (8.5-10.1) Phosphorus Level 3.4 mg/dL (2.6-4.7) Magnesium Level 1.8 mg/dL (1.8-2.4) Albumin 2.5 g/dL (3.4-5.0) Laboratory Tests Test 04/03/17 10:46 04/03/17 16:40 04/03/17 20:58 04/04/17 06:00 Glucose (Fingerstick) 139 mg/dL (70-99) 130 mg/dL (70-99) 120 mg/dL (70-99) White Blood Count 9.2 x10^3/uL (4.0-11.0) Red Blood Count 3.41 x10^6/uL (3.50-5.40) Hemoglobin 11.3 g/dL (12.0-15.5) Hematocrit 33.5 % (36.0-47.0) Mean Corpuscular Volume 98 fL (79-100) Mean Corpuscular Hemoglobin 33 pg (25-35) Mean Corpuscular Hemoglobin Concent 34 g/dL (31-37) Red Cell Distribution Width 13.3 % (11.5-14.5) Platelet Count 229 x10^3/uL (140-400) Neutrophils (%) (Auto) 71 % (31-73) Lymphocytes (%) (Auto) 16 % (24-48) Monocytes (%) (Auto) 11 % (0-9) Eosinophils (%) (Auto) 2 % (0-3) Basophils (%) (Auto) 0 % (0-3) Neutrophils # (Auto) 6.5 x10^3uL (1.8-7.7) Lymphocytes # (Auto) 1.4 x10^3/uL (1.0-4.8) Monocytes # (Auto) 1.0 x10^3/uL (0.0-1.1) Eosinophils # (Auto) 0.2 x10^3/uL (0.0-0.7) Basophils # (Auto) 0.0 x10^3/uL (0.0-0.2) Test 04/04/17 06:15 Sodium Level 142 mmol/L (136-145) Potassium Level 4.1 mmol/L (3.5-5.1) Chloride Level 106 mmol/L (98-107) Carbon Dioxide Level 29 mmol/L (21-32) Anion Gap 7 (6-14) Blood Urea Nitrogen 19 mg/dL (7-20) Creatinine 0.7 mg/dL (0.6-1.0) Estimated GFR (Cockcroft-Gault) 82.7 Glucose Level 133 mg/dL (70-99) Calcium Level 8.3 mg/dL (8.5-10.1) Phosphorus Level 3.4 mg/dL (2.6-4.7) Magnesium Level 1.8 mg/dL (1.8-2.4) Albumin 2.5 g/dL (3.4-5.0) Problem List Problems Medical Problems: (1) Abdominal pain Status: Acute (2) Nausea & vomiting Status: Acute Assessment/Plan s/p xlap, sbr NPO, no sips await return of improved bowel function discussed NG if vomits again Problems: MARGOTH DAWSON MD 04/04/17 5332: SURGICAL PROGRESS NOTE Assessment/Plan Agree with above Problems: VITALY ROSS APRN April 04, 2017 09:33 MARGOTH DAWSON MD April 04, 2017 17:51
[2017-04-04 11:00] VITALS: BP 130/65
[2017-04-04] MEDS: MORPHINE SULFATE 2 MG/ML DISP.SYRIN. IV PRN (11:01)
--- NOTE | 2017-04-04 11:15 | PDOC ---
SUBJECTIVE ROS CRISTINA/ TPN doing OK CVS: no Orthopnea, no CP RESP: no SOB, no KERN GI: no current Nausea, + Vomiting last pm : no Dysuria, no Urgency OBJECTIVE Vital Signs Vital Signs Date Time Temp Pulse Resp B/P (MAP) Pulse Ox O2 Delivery O2 Flow Rate FiO2 04/04/17 11:01 20 Nasal Cannula 04/04/17 11:00 98.8 89 130/65 (86) 94 2.0 98.8 I & 0 Intake and Output 04/04/17 07:00 Output Total 550 ml Balance -550 ml Output Urine Total 400 ml Gastric Drainage Total 150 ml # Voids 5 PHYSICAL EXAM Physical Exam General Appearance: Awake: Alert Oriented x 3 Neck: No JVD or JVP Chest: CTA Bruno Heart: S1 S2 Abdomen - Soft + BS Extremities - No Edema ASSESSMENT/PLAN SBO/ Post Op Ileus - ct TPN untill able to take PO. Fluid and elyte status is acceptable COMMENT/RELEVANT DATA Meds Current Medications Medications (Trade) Dose Ordered Sig/Stevie Start Time Stop Time Status Last Admin Dose Admin Acetaminophen (Tylenol) 325 mg PRN Q6HRS PRN 03/30/17 10:30 04/03/17 20:33 325 MG Acetaminophen/ Hydrocodone Bitart (Lortab 5/325) 1 tab PRN Q6HRS PRN 03/30/17 10:30 Albuterol Sulfate (Ventolin Neb Soln) 2.5 mg PRN Q4HRS PRN 03/30/17 10:30 Amino Acids/ Glycerin/ Electrolytes 1,000 ml @ 80 mls/hr [id number] 04/01/17 14:15 04/02/17 14:40 DC 04/02/17 05:43 80 MLS/HR Ciprofloxacin Lactate 100 ml @ 100 mls/hr Q12HR 03/30/17 21:00 03/30/17 21:00 DC Desflurane (Suprane) 90 ml STK-MED ONCE 03/30/17 17:18 03/30/17 17:19 DC Dexamethasone Sodium Phosphate (Decadron) 20 mg STK-MED ONCE 03/30/17 17:18 03/30/17 17:19 DC Diphenhydramine HCl (Benadryl) 25 mg 1X ONCE 03/29/17 21:15 03/29/17 21:16 DC 03/29/17 21:01 25 MG Enoxaparin Sodium (Lovenox 30mg Syringe) 30 mg Q24H 03/30/17 11:00 04/01/17 11:50 DC 04/01/17 11:26 30 MG Enoxaparin Sodium (Lovenox 40mg Syringe) 40 mg Q24H 04/02/17 12:00 04/03/17 11:33 40 MG Fentanyl Citrate (Fentanyl 2ml Vial) 100 mcg STK-MED ONCE 03/30/17 18:58 03/30/17 18:59 DC Hydralazine HCl (Apresoline) 10 mg PRN Q4HRS PRN 03/30/17 10:30 Hydromorphone HCl (Dilaudid) 0.5 mg PRN Q10MIN PRN 03/30/17 16:45 03/31/17 16:44 DC Info 1 each PRN DAILY PRN 04/02/17 11:30 04/03/17 13:13 1 EACH Info (Do NOT chart on this entry -- for MONITORING) 1 each PRN DAILY PRN 03/30/17 11:00 04/01/17 10:59 DC Iohexol (Omnipaque 240 Mg/ml) 30 ml 1X ONCE 03/29/17 19:45 03/29/17 19:46 DC 03/29/17 19:45 30 ML Iohexol (Omnipaque 350 Mg/ml) 400 ml 1X ONCE 03/30/17 11:00 03/30/17 11:01 DC 03/30/17 11:47 200 ML Lactated Ringer's 1,000 ml @ 30 mls/hr Q24H 03/30/17 16:43 03/31/17 04:43 DC Lidocaine HCl (Lidocaine HCl 2% Abboject) 100 mg STK-MED ONCE 03/30/17 17:18 03/30/17 17:19 DC Magnesium Sulfate/ Dextrose 100 ml @ 100 mls/hr 1X ONCE 04/03/17 12:30 04/03/17 13:29 DC 04/03/17 12:40 100 MLS/HR Metoclopramide HCl (Reglan) 10 mg PRN Q6HRS PRN 04/04/17 10:45 Metronidazole 100 ml @ 100 mls/hr Q12HR 03/30/17 21:00 03/30/17 21:00 DC Morphine Sulfate 1 mg PRN Q10MIN PRN 03/30/17 16:45 03/31/17 16:44 DC Ondansetron HCl (Zofran) 4 mg PRN Q6HRS PRN 04/04/17 09:30 04/04/17 03:30 4 MG Phenylephrine HCl 1 mg STK-MED ONCE 03/30/17 18:09 03/30/17 18:10 DC Potassium Chloride/Dextrose/ Sod Cl 1,000 ml @ 75 mls/hr 1X ONCE 03/30/17 00:00 03/30/17 13:19 DC 03/30/17 06:13 75 MLS/HR Potassium Phosphate 13.6 mmol/Sodium Chloride 254.5333 ml @ 127.... Q2H 04/02/17 11:00 04/02/17 16:59 DC 04/02/17 16:42 127.267 MLS/HR Prochlorperazine Edisylate (Compazine) 5 mg PACU PRN PRN 03/30/17 16:45 03/31/17 16:44 DC Propofol 20 ml @ As Directed STK-MED ONCE 03/30/17 17:18 03/30/17 17:19 DC Rocuronium [place] (Zemuron) 50 mg STK-MED ONCE 03/30/17 17:18 03/30/17 17:19 DC Sodium Chloride (Normal Saline Flush) 20 ml QSHIFT PRN 04/02/17 14:45 Sodium Chloride 90 meq/Potassium Chloride 50 meq/ Potassium Phosphate 13.6 mmol/Magnesium Sulfate 10 meq/ Calcium Gluconate 10 meq/ Multivitamins 10 ml/Chromium/ Copper/Manganese/ Seleni/Zn 1 ml/ Total Parenteral Nutrition/Amino Acids/Dextrose/ Fat Emulsion Intravenous 1,512 ml @ 63 mls/hr TPN CONT 04/02/17 22:00 04/02/17 22:00 63 MLS/HR Sodium Chloride 90 meq/Potassium Chloride 50 meq/ Potassium Phosphate 13.6 mmol/Magnesium Sulfate 16 meq/ Calcium Gluconate 10 meq/ Multivitamins 10 ml/Zinc/Copper/ Mindi/Chrom/ Selen 1 ml/Total Parenteral Nutrition/Amino Acids/Dextrose/ Fat Emulsion Intravenous 1,512 ml @ 63 mls/hr TPN CONT 04/03/17 22:00 04/03/17 22:00 63 MLS/HR Succinylcholine Chloride (Anectine) 200 mg STK-MED ONCE 03/30/17 17:18 03/30/17 17:19 DC Lab Laboratory Tests Test 04/03/17 16:40 04/03/17 20:58 04/04/17 06:00 04/04/17 06:15 Glucose (Fingerstick) 130 mg/dL (70-99) 120 mg/dL (70-99) White Blood Count 9.2 x10^3/uL (4.0-11.0) Red Blood Count 3.41 x10^6/uL (3.50-5.40) Hemoglobin 11.3 g/dL (12.0-15.5) Hematocrit 33.5 % (36.0-47.0) Mean Corpuscular Volume 98 fL (79-100) Mean Corpuscular Hemoglobin 33 pg (25-35) Mean Corpuscular Hemoglobin Concent 34 g/dL (31-37) Red Cell Distribution Width 13.3 % (11.5-14.5) Platelet Count 229 x10^3/uL (140-400) Neutrophils (%) (Auto) 71 % (31-73) Lymphocytes (%) (Auto) 16 % (24-48) Monocytes (%) (Auto) 11 % (0-9) Eosinophils (%) (Auto) 2 % (0-3) Basophils (%) (Auto) 0 % (0-3) Neutrophils # (Auto) 6.5 x10^3uL (1.8-7.7) Lymphocytes # (Auto) 1.4 x10^3/uL (1.0-4.8) Monocytes # (Auto) 1.0 x10^3/uL (0.0-1.1) Eosinophils # (Auto) 0.2 x10^3/uL (0.0-0.7) Basophils # (Auto) 0.0 x10^3/uL (0.0-0.2) Sodium Level 142 mmol/L (136-145) Potassium Level 4.1 mmol/L (3.5-5.1) Chloride Level 106 mmol/L (98-107) Carbon Dioxide Level 29 mmol/L (21-32) Anion Gap 7 (6-14) Blood Urea Nitrogen 19 mg/dL (7-20) Creatinine 0.7 mg/dL (0.6-1.0) Estimated GFR (Cockcroft-Gault) 82.7 Glucose Level 133 mg/dL (70-99) Calcium Level 8.3 mg/dL (8.5-10.1) Phosphorus Level 3.4 mg/dL (2.6-4.7) Magnesium Level 1.8 mg/dL (1.8-2.4) Albumin 2.5 g/dL (3.4-5.0) PAULA KELLY MD April 04, 2017 11:15
--- NOTE | 2017-04-04 11:19 | PDOC ---
Subjective: Subjective: NG removed yesterday, emesis overnight. Abd pain. Some flatus. Wants to avoid NG replacement if possible. Objective: Vital Signs: Vital Signs Date Time Temp Pulse Resp B/P (MAP) Pulse Ox O2 Delivery O2 Flow Rate FiO2 04/04/17 11:01 20 Nasal Cannula 04/04/17 11:00 98.8 89 130/65 (86) 94 2.0 98.8 Labs: Laboratory Tests Test 04/03/17 16:40 04/03/17 20:58 04/04/17 06:00 04/04/17 06:15 Glucose (Fingerstick) 130 mg/dL 120 mg/dL White Blood Count 9.2 x10^3/uL Red Blood Count 3.41 x10^6/uL Hemoglobin 11.3 g/dL Hematocrit 33.5 % Mean Corpuscular Volume 98 fL Mean Corpuscular Hemoglobin 33 pg Mean Corpuscular Hemoglobin Concent 34 g/dL Red Cell Distribution Width 13.3 % Platelet Count 229 x10^3/uL Neutrophils (%) (Auto) 71 % Lymphocytes (%) (Auto) 16 % Monocytes (%) (Auto) 11 % Eosinophils (%) (Auto) 2 % Basophils (%) (Auto) 0 % Neutrophils # (Auto) 6.5 x10^3uL Lymphocytes # (Auto) 1.4 x10^3/uL Monocytes # (Auto) 1.0 x10^3/uL Eosinophils # (Auto) 0.2 x10^3/uL Basophils # (Auto) 0.0 x10^3/uL Sodium Level 142 mmol/L Potassium Level 4.1 mmol/L Chloride Level 106 mmol/L Carbon Dioxide Level 29 mmol/L Anion Gap 7 Blood Urea Nitrogen 19 mg/dL Creatinine 0.7 mg/dL Estimated GFR (Cockcroft-Gault) 82.7 Glucose Level 133 mg/dL Calcium Level 8.3 mg/dL Phosphorus Level 3.4 mg/dL Magnesium Level 1.8 mg/dL Albumin 2.5 g/dL PE: GEN: NAD, working w/ therapy LUNGS: clear HEART: RRR ABD: binder NEURO/PSYCH: A & O 3 A/P: SBO s/p resection -- Back to NPO, possibility of NG replacement. TRISTEN BENJAMIN April 04, 2017 11:19
--- NOTE | 2017-04-04 12:13 | PDOC ---
PROGRESS NOTES Chief Complaint Chief Complaint 1. Small-bowel obstruction, transition, S/P Exploratory laparotomy, lysis of adhesions with release of small bowel obstruction, small bowel resection with primary anastomosis, primary repair of ventral hernia: On Cipro and Flagyl, IV Dilaudid, NG tube, IV hydration, no bowel movement yet, no flatus, continue current care. 2. Umbilical hernia, Repaired, Abdominal binder present. 3. Hypothyroidism. 4. Hypertension.: stable 5. Leukocytosis.: improving, on abx. 6. Acute kidney injury, unknown baseline creatinine.: better, nephrology consulted. 7. Hyperglycemia.: on SSI, NPO, plan: fu with sx, gi, id, renal still no BM, has flatus since 04/03, NG out 04/03 npo, TPN pain control encourage pt to ambulate, CONTROL N/V, waiting for bowel function regain. History of Present Illness History of Present Illness Claims passed gas, no bm post op On tPN Lytes ok Still NPO, NG out on 04/03 N/V on 04/04 Abd wound inspected - looks good Vitals Vitals Vital Signs Date Time Temp Pulse Resp B/P (MAP) Pulse Ox O2 Delivery O2 Flow Rate FiO2 04/04/17 11:01 20 Nasal Cannula 04/04/17 11:00 98.8 89 130/65 (86) 94 2.0 98.8 Physical Exam General: Alert, Oriented X3, Cooperative, No acute distress Heart: Regular rate, Normal S1, Normal S2, No murmurs Lungs: Clear Abdomen: Soft, Other (binder on, dressing under binder dry. no BS) Extremities: No clubbing, No cyanosis Skin: No rashes, No breakdown Labs LABS Laboratory Tests Test 04/03/17 16:40 04/03/17 20:58 04/04/17 06:00 04/04/17 06:15 Glucose (Fingerstick) 130 mg/dL (70-99) 120 mg/dL (70-99) White Blood Count 9.2 x10^3/uL (4.0-11.0) Red Blood Count 3.41 x10^6/uL (3.50-5.40) Hemoglobin 11.3 g/dL (12.0-15.5) Hematocrit 33.5 % (36.0-47.0) Mean Corpuscular Volume 98 fL (79-100) Mean Corpuscular Hemoglobin 33 pg (25-35) Mean Corpuscular Hemoglobin Concent 34 g/dL (31-37) Red Cell Distribution Width 13.3 % (11.5-14.5) Platelet Count 229 x10^3/uL (140-400) Neutrophils (%) (Auto) 71 % (31-73) Lymphocytes (%) (Auto) 16 % (24-48) Monocytes (%) (Auto) 11 % (0-9) Eosinophils (%) (Auto) 2 % (0-3) Basophils (%) (Auto) 0 % (0-3) Neutrophils # (Auto) 6.5 x10^3uL (1.8-7.7) Lymphocytes # (Auto) 1.4 x10^3/uL (1.0-4.8) Monocytes # (Auto) 1.0 x10^3/uL (0.0-1.1) Eosinophils # (Auto) 0.2 x10^3/uL (0.0-0.7) Basophils # (Auto) 0.0 x10^3/uL (0.0-0.2) Sodium Level 142 mmol/L (136-145) Potassium Level 4.1 mmol/L (3.5-5.1) Chloride Level 106 mmol/L (98-107) Carbon Dioxide Level 29 mmol/L (21-32) Anion Gap 7 (6-14) Blood Urea Nitrogen 19 mg/dL (7-20) Creatinine 0.7 mg/dL (0.6-1.0) Estimated GFR (Cockcroft-Gault) 82.7 Glucose Level 133 mg/dL (70-99) Calcium Level 8.3 mg/dL (8.5-10.1) Phosphorus Level 3.4 mg/dL (2.6-4.7) Magnesium Level 1.8 mg/dL (1.8-2.4) Albumin 2.5 g/dL (3.4-5.0) Test 04/04/17 11:47 Glucose (Fingerstick) 140 mg/dL (70-99) Review of Systems Review of Systems no fever, chills, sob or chest pain Assessment and Plan Assessmemt and Plan Problems Medical Problems: (1) Abdominal pain Status: Acute (2) Nausea & vomiting Status: Acute Problems: Comment Review of Relevant I have reviewed the following items daphne (where applicable) has been applied. Labs Laboratory Tests Test 04/02/17 15:59 04/02/17 21:22 04/03/17 04:00 04/03/17 05:44 Glucose (Fingerstick) 81 mg/dL (70-99) 78 mg/dL (70-99) 127 mg/dL (70-99) White Blood Count 7.9 x10^3/uL (4.0-11.0) Red Blood Count 3.28 x10^6/uL (3.50-5.40) Hemoglobin 11.0 g/dL (12.0-15.5) Hematocrit 32.4 % (36.0-47.0) Mean Corpuscular Volume 99 fL (79-100) Mean Corpuscular Hemoglobin 34 pg (25-35) Mean Corpuscular Hemoglobin Concent 34 g/dL (31-37) Red Cell Distribution Width 13.6 % (11.5-14.5) Platelet Count 209 x10^3/uL (140-400) Neutrophils (%) (Auto) 65 % (31-73) Lymphocytes (%) (Auto) 21 % (24-48) Monocytes (%) (Auto) 12 % (0-9) Eosinophils (%) (Auto) 2 % (0-3) Basophils (%) (Auto) 1 % (0-3) Neutrophils # (Auto) 5.1 x10^3uL (1.8-7.7) Lymphocytes # (Auto) 1.7 x10^3/uL (1.0-4.8) Monocytes # (Auto) 1.0 x10^3/uL (0.0-1.1) Eosinophils # (Auto) 0.1 x10^3/uL (0.0-0.7) Basophils # (Auto) 0.0 x10^3/uL (0.0-0.2) Sodium Level 140 mmol/L (136-145) Potassium Level 4.0 mmol/L (3.5-5.1) Chloride Level 107 mmol/L (98-107) Carbon Dioxide Level 31 mmol/L (21-32) Anion Gap 2 (6-14) Blood Urea Nitrogen 21 mg/dL (7-20) Creatinine 0.7 mg/dL (0.6-1.0) Estimated GFR (Cockcroft-Gault) 82.7 Glucose Level 131 mg/dL (70-99) Calcium Level 8.2 mg/dL (8.5-10.1) Phosphorus Level 3.0 mg/dL (2.6-4.7) Magnesium Level 1.7 mg/dL (1.8-2.4) Albumin 2.2 g/dL (3.4-5.0) Test 04/03/17 07:05 04/03/17 10:46 04/03/17 16:40 04/03/17 20:58 Glucose (Fingerstick) 135 mg/dL (70-99) 139 mg/dL (70-99) 130 mg/dL (70-99) 120 mg/dL (70-99) Test 04/04/17 06:00 04/04/17 06:15 04/04/17 11:47 White Blood Count 9.2 x10^3/uL (4.0-11.0) Red Blood Count 3.41 x10^6/uL (3.50-5.40) Hemoglobin 11.3 g/dL (12.0-15.5) Hematocrit 33.5 % (36.0-47.0) Mean Corpuscular Volume 98 fL (79-100) Mean Corpuscular Hemoglobin 33 pg (25-35) Mean Corpuscular Hemoglobin Concent 34 g/dL (31-37) Red Cell Distribution Width 13.3 % (11.5-14.5) Platelet Count 229 x10^3/uL (140-400) Neutrophils (%) (Auto) 71 % (31-73) Lymphocytes (%) (Auto) 16 % (24-48) Monocytes (%) (Auto) 11 % (0-9) Eosinophils (%) (Auto) 2 % (0-3) Basophils (%) (Auto) 0 % (0-3) Neutrophils # (Auto) 6.5 x10^3uL (1.8-7.7) Lymphocytes # (Auto) 1.4 x10^3/uL (1.0-4.8) Monocytes # (Auto) 1.0 x10^3/uL (0.0-1.1) Eosinophils # (Auto) 0.2 x10^3/uL (0.0-0.7) Basophils # (Auto) 0.0 x10^3/uL (0.0-0.2) Sodium Level 142 mmol/L (136-145) Potassium Level 4.1 mmol/L (3.5-5.1) Chloride Level 106 mmol/L (98-107) Carbon Dioxide Level 29 mmol/L (21-32) Anion Gap 7 (6-14) Blood Urea Nitrogen 19 mg/dL (7-20) Creatinine 0.7 mg/dL (0.6-1.0) Estimated GFR (Cockcroft-Gault) 82.7 Glucose Level 133 mg/dL (70-99) Calcium Level 8.3 mg/dL (8.5-10.1) Phosphorus Level 3.4 mg/dL (2.6-4.7) Magnesium Level 1.8 mg/dL (1.8-2.4) Albumin 2.5 g/dL (3.4-5.0) Glucose (Fingerstick) 140 mg/dL (70-99) Laboratory Tests Test 04/03/17 16:40 04/03/17 20:58 04/04/17 06:00 04/04/17 06:15 Glucose (Fingerstick) 130 mg/dL (70-99) 120 mg/dL (70-99) White Blood Count 9.2 x10^3/uL (4.0-11.0) Red Blood Count 3.41 x10^6/uL (3.50-5.40) Hemoglobin 11.3 g/dL (12.0-15.5) Hematocrit 33.5 % (36.0-47.0) Mean Corpuscular Volume 98 fL (79-100) Mean Corpuscular Hemoglobin 33 pg (25-35) Mean Corpuscular Hemoglobin Concent 34 g/dL (31-37) Red Cell Distribution Width 13.3 % (11.5-14.5) Platelet Count 229 x10^3/uL (140-400) Neutrophils (%) (Auto) 71 % (31-73) Lymphocytes (%) (Auto) 16 % (24-48) Monocytes (%) (Auto) 11 % (0-9) Eosinophils (%) (Auto) 2 % (0-3) Basophils (%) (Auto) 0 % (0-3) Neutrophils # (Auto) 6.5 x10^3uL (1.8-7.7) Lymphocytes # (Auto) 1.4 x10^3/uL (1.0-4.8) Monocytes # (Auto) 1.0 x10^3/uL (0.0-1.1) Eosinophils # (Auto) 0.2 x10^3/uL (0.0-0.7) Basophils # (Auto) 0.0 x10^3/uL (0.0-0.2) Sodium Level 142 mmol/L (136-145) Potassium Level 4.1 mmol/L (3.5-5.1) Chloride Level 106 mmol/L (98-107) Carbon Dioxide Level 29 mmol/L (21-32) Anion Gap 7 (6-14) Blood Urea Nitrogen 19 mg/dL (7-20) Creatinine 0.7 mg/dL (0.6-1.0) Estimated GFR (Cockcroft-Gault) 82.7 Glucose Level 133 mg/dL (70-99) Calcium Level 8.3 mg/dL (8.5-10.1) Phosphorus Level 3.4 mg/dL (2.6-4.7) Magnesium Level 1.8 mg/dL (1.8-2.4) Albumin 2.5 g/dL (3.4-5.0) Test 04/04/17 11:47 Glucose (Fingerstick) 140 mg/dL (70-99) Microbiology 03/30/17 Blood Culture - Final, Complete NO GROWTH AFTER 5 DAYS 03/29/17 Urine Culture - Final, Complete 03/29/17 Urine Culture Result 1 (CYNTHIA) - Final, Complete Medications Current Medications Morphine Sulfate 2 mg PRN Q15MIN PRN IV/SQ PAIN GREATER THAN 3/10 Last administered on 03/30/17 00:39; Start 03/29/17 at 17:45; Stop 03/30/17 at 17:44 ; Status DC Sodium Chloride 1,000 ml @ 1,000 mls/hr Q1H IV Last administered on 03/29/17 17:32; Start 03/29/17 at 17:32; Stop 03/29/17 at 18:31; Status DC Ondansetron HCl (Zofran) 4 mg 1X ONCE IV Last administered on 03/29/17 17:45 ; Start 03/29/17 at 17:45; Stop 03/29/17 at 17:46; Status DC Iohexol (Omnipaque 240 Mg/ml) 30 ml 1X ONCE PO Last administered on 03/29/17 19:45; Start 03/29/17 at 19:45; Stop 03/29/17 at 19:46; Status DC Ondansetron HCl (Zofran) 4 mg 1X ONCE IV Last administered on 03/29/17 19:58 ; Start 03/29/17 at 20:00; Stop 03/29/17 at 20:01; Status DC Prochlorperazine Edisylate (Compazine) 10 mg 1X ONCE IV Last administered on 21:01; Start 03/29/17 at 21:15; Stop 03/29/17 at 21:16; Status DC Diphenhydramine HCl (Benadryl) 25 mg 1X ONCE IVP Last administered on 21:01; Start 03/29/17 at 21:15; Stop 03/29/17 at 21:16; Status DC Ondansetron HCl (Zofran) 4 mg PRN Q8HRS PRN IV NAUSEA/VOMITING Last administered on 03/30/17 07:59; Start 03/29/17 at 23:45; Stop 03/30/17 at 23:44 ; Status DC Fentanyl Citrate (Fentanyl 2ml Vial) 25 mcg PRN Q1HR PRN IV SEVERE PAIN Last administered on 03/30/17 06:12; Start 03/29/17 at 23:45; Stop 03/30/17 at 23:44 ; Status DC Potassium Chloride/Dextrose/ Sod Cl 1,000 ml @ 75 mls/hr 1X ONCE IV Last administered on 03/30/17 06:13; Start 03/30/17 at 00:00; Stop 03/30/17 at 13:19 ; Status DC Ciprofloxacin Lactate 200 ml @ 200 mls/hr Q12HR IV ; Start 03/30/17 at 09:00; Status UNV Metronidazole 100 ml @ 100 mls/hr Q8HRS IV Last administered on 04/04/17 03:31 ; Start 03/30/17 at 00:00 Ciprofloxacin Lactate 200 ml @ 200 mls/hr 1X ONCE IV Last administered on 06:14; Start 03/30/17 at 00:00; Stop 03/30/17 at 00:59; Status DC Ciprofloxacin Lactate 100 ml @ 100 mls/hr [id number] IV Last administered on 05:15; Start 03/30/17 at 18:00 Enoxaparin Sodium (Lovenox 30mg Syringe) 30 mg Q24H SQ Last administered on 04/01 11:26; Start 03/30/17 at 11:00; Stop 04/01/17 at 11:50; Status DC Acetaminophen (Tylenol) 325 mg PRN Q6HRS PRN PO MILD PAIN / TEMP Last administered on 04/03/17 20:33; Start 03/30/17 at 10:30 Acetaminophen/ Hydrocodone Bitart (Lortab 5/325) 1 tab PRN Q6HRS PRN PO MODERATE TO SEVERE PAIN; Start 03/30/17 at 10:30 Hydralazine HCl (Apresoline) 10 mg PRN Q4HRS PRN IVP ELEVATED BP, SEE COMMENTS ; Start 03/30/17 at 10:30 Ondansetron HCl (Zofran) 4 mg PRN Q8HRS PRN IV NAUSEA/VOMITING Last administered on 04/04/17 03:31; Start 03/30/17 at 10:30; Stop 04/04/17 at 09:32; Status DC Albuterol Sulfate (Ventolin Neb Soln) 2.5 mg PRN Q4HRS PRN NEB SHORTNESS OF BREATH; Start 03/30/17 at 10:30 Sodium Chloride 1,000 ml @ 150 mls/hr Q6H40M IV Last administered on 04/01/17 01:41; Start 03/30/17 at 10:30; Stop 04/01/17 at 14:14; Status DC Morphine Sulfate 2 mg PRN Q2HR PRN IV PAIN Last administered on 04/04/17 11:01 ; Start 03/30/17 at 10:30 Metronidazole 100 ml @ 100 mls/hr Q12HR IV ; Start 03/30/17 at 21:00; Stop at 21:00; Status DC Ciprofloxacin Lactate 100 ml @ 100 mls/hr Q12HR IV ; Start 03/30/17 at 21:00; Stop 03/30/17 at 21:00; Status DC Iohexol (Omnipaque 350 Mg/ml) 400 ml 1X ONCE PO Last administered on 11:47; Start 03/30/17 at 11:00; Stop 03/30/17 at 11:01; Status DC Info (Do NOT chart on this entry -- for MONITORING) 1 each PRN DAILY PRN MC SEE COMMENTS; Start 03/30/17 at 11:00; Stop 04/01/17 at 10:59; Status DC Fentanyl Citrate (Fentanyl 2ml Vial) 25 mcg PRN Q5MIN PRN IV MILD PAIN; Start 03/30/17 at 16:45; Stop 03/31/17 at 16:44; Status DC Fentanyl Citrate (Fentanyl 2ml Vial) 50 mcg PRN Q5MIN PRN IV MODERATE PAIN Last administered on 03/30/17t 21:23; Start 03/30/17 at 16:45; Stop 03/31/17 at 16:44; Status DC Morphine Sulfate 1 mg PRN Q10MIN PRN IV SEVERE PAIN; Start 03/30/17 at 16:45; Stop 03/31/17 at 16:44; Status DC Lactated Ringer's 1,000 ml @ 30 mls/hr Q24H IV ; Start 03/30/17 at 16:43; Stop 03/31/17 at 04:43; Status DC Lidocaine HCl 2 ml PRN 1X PRN ID PRIOR TO IV START; Start 03/30/17 at 16:45; Stop 03/31/17 at 16:44; Status DC Hydromorphone HCl (Dilaudid) 0.5 mg PRN Q10MIN PRN IV SEV PAIN, Second choice; Start 03/30/17 at 16:45; Stop 03/31/17 at 16:44; Status DC Prochlorperazine Edisylate (Compazine) 5 mg PACU PRN PRN IV NAUSEA, MRX1; Start 03/30/17 at 16:45; Stop 03/31/17 at 16:44; Status DC Dexamethasone Sodium Phosphate (Decadron) 20 mg STK-MED ONCE .ROUTE ; Start at 17:18; Stop 03/30/17 at 17:19; Status DC Ondansetron HCl (Zofran) 4 mg STK-MED ONCE .ROUTE ; Start 03/30/17 at 17:18; Stop 03/30/17 at 17:19; Status DC Propofol 20 ml @ As Directed STK-MED ONCE IV ; Start 03/30/17 at 17:18; Stop at 17:19; Status DC Lidocaine HCl (Lidocaine HCl 2% Abboject) 100 mg STK-MED ONCE .ROUTE ; Start at 17:18; Stop 03/30/17 at 17:19; Status DC Desflurane (Suprane) 90 ml STK-MED ONCE IH ; Start 03/30/17 at 17:18; Stop 03/30 at 17:19; Status DC Fentanyl Citrate (Fentanyl 2ml Vial) 100 mcg STK-MED ONCE .ROUTE ; Start at 17:18; Stop 03/30/17 at 17:19; Status DC Succinylcholine Chloride (Anectine) 200 mg STK-MED ONCE .ROUTE ; Start 03/30/17 at 17:18; Stop 03/30/17 at 17:19; Status DC Rocuronium [place] (Zemuron) 50 mg STK-MED ONCE .ROUTE ; Start 03/30/17 at 17:18 ; Stop 03/30/17 at 17:19; Status DC Phenylephrine HCl 1 mg STK-MED ONCE IV ; Start 03/30/17 at 18:09; Stop 03/30/17 at 18:10; Status DC Fentanyl Citrate (Fentanyl 2ml Vial) 100 mcg STK-MED ONCE .ROUTE ; Start at 18:58; Stop 03/30/17 at 18:59; Status DC Sodium Chloride 500 ml @ 0 mls/hr QID PRN IV UO< 30cc/hr over previous 6hrs; Start 03/31/17 at 08:30 Magnesium Sulfate/ Dextrose 50 ml @ 25 mls/hr PRN DAILY PRN IV for Mag < 1.7 on am labs; Start 03/31/17 at 08:30 Enoxaparin Sodium (Lovenox 40mg Syringe) 40 mg Q24H SQ Last administered on 04/03 11:33; Start 04/02/17 at 12:00 Amino Acids/ Glycerin/ Electrolytes 1,000 ml @ 80 mls/hr [id number] IV Last administered on 04/02/17 05:43; Start 04/01/17 at 14:15; Stop 04/02/17 at 14:40; Status DC Potassium Phosphate 13.6 mmol/Sodium Chloride 254.5333 ml @ 127.... Q2H IV Last administered on 04/02/17 16:42; Start 04/02/17 at 11:00; Stop 04/02/17 at 16: 59; Status DC Sodium Chloride 500 ml @ 0 mls/hr PRN QID PRN IV UO< 30cc/hr over previous 6hrs ; Start 04/02/17 at 10:45 Info 1 each PRN DAILY PRN MC SEE COMMENTS Last administered on 04/03/17 13:13; Start 04/02/17 at 11:30 Sodium Chloride 90 meq/Potassium Chloride 50 meq/ Potassium Phosphate 13.6 mmol/ Magnesium Sulfate 10 meq/ Calcium Gluconate 10 meq/ Multivitamins 10 ml/Chromium / Copper/Manganese/ Seleni/Zn 1 ml/ Total Parenteral Nutrition/Amino Acids/ Dextrose/ Fat Emulsion Intravenous 1,512 ml @ 63 mls/hr TPN CONT IV Last administered on 04/02/17 22:00; Start 04/02/17 at 22:00 Sodium Chloride (Normal Saline Flush) 10 ml QSHIFT PRN IV AFTER MEDS AND BLOOD DRAWS; Start 04/02/17 at 14:45 Sodium Chloride (Normal Saline Flush) 20 ml QSHIFT PRN IV AFTER MEDS AND BLOOD DRAWS; Start 04/02/17 at 14:45 Magnesium Sulfate/ Dextrose 100 ml @ 100 mls/hr 1X ONCE IV Last administered on 04/03/17 12:40; Start 04/03/17 at 12:30; Stop 04/03/17 at 13:29; Status DC Sodium Chloride 90 meq/Potassium Chloride 50 meq/ Potassium Phosphate 13.6 mmol/ Magnesium Sulfate 16 meq/ Calcium Gluconate 10 meq/ Multivitamins 10 ml/Zinc/ Copper/ Mindi/Chrom/ Selen 1 ml/Total Parenteral Nutrition/Amino Acids/Dextrose / Fat Emulsion Intravenous 1,512 ml @ 63 mls/hr TPN CONT IV Last administered on 04/03/17 22:00; Start 04/03/17 at 22:00 Ondansetron HCl (Zofran) 4 mg PRN Q6HRS PRN IV NAUSEA/VOMITING Last administered on 04/04/17t 03:30; Start 04/04/17 at 09:30 Metoclopramide HCl (Reglan) 10 mg PRN Q6HRS PRN IV NAUSEA/VOMITING; Start at 10:45 Active Scripts Active Reported Niaspan (Niacin) 1,000 Mg Tab.er.24h 1 Tab PO BID Levothyroxine Sodium 88 Mcg Tablet 1 Tab PO DAILY Vitals/I & O Vital Sign - Last 24 Hours 04/03/17 04/03/17 04/03/17 04/03/17 15:04 19:00 20:00 23:00 Temp 97.7 99.1 98.6 97.7 99.1 98.6 Pulse 74 64 63 Resp 20 18 18 B/P (MAP) 120/61 (80) 113/43 (66) 114/48 (70) Pulse Ox 95 95 96 O2 Delivery Nasal Cannula Nasal Cannula Room Air Nasal Cannula O2 Flow Rate 2.0 2.0 2.0 2.0 04/04/17 04/04/17 04/04/17 04/04/17 02:44 07:00 08:00 11:00 Temp 98.4 98.5 98.8 98.4 98.5 98.8 Pulse 72 66 89 Resp 18 14 16 B/P (MAP) 122/59 (80) 118/75 (89) 130/65 (86) Pulse Ox 94 96 94 O2 Delivery Nasal Cannula Nasal Cannula Nasal Cannula Nasal Cannula O2 Flow Rate 2.0 2.0 2.0 2.0 04/04/17 11:01 Resp 20 O2 Delivery Nasal Cannula Intake and Output 04/03/17 04/03/17 04/04/17 15:00 23:00 07:00 Output Total 150 ml 400 ml Balance -150 ml -400 ml LAURA TATUM MD April 04, 2017 12:12
[2017-04-04] MEDS: TPN PER PHARMACY MC PRN (13:25)
[2017-04-04 15:00] VITALS: BP 126/66
[2017-04-04] MEDS: ENOXAPARIN 40 MG/0.4 ML SYRINGE. SQ SCH (16:54)
[2017-04-04 19:00] VITALS: BP 110/45
[2017-04-04] MEDS ORDERED: [UNRECOGNIZED DRUG - OTHER] IV SCH ×10 (22:00)
[2017-04-04] MEDS ORDERED: TOTAL PARENTERAL NUTRITION IV SCH ×10 (22:00)
[2017-04-04] MEDS ORDERED: DEXTROSE 70% IV SCH ×10 (22:00)
[2017-04-04] MEDS ORDERED: AMINO ACIDS IV SCH ×10 (22:00)
[2017-04-04] MEDS: CIPROFLOXACIN 400MG PREMIX 200 ML IV SCH (22:41)
[2017-04-04] MEDS: METOCLOPRAMIDE HCL 10 MG/2 ML VIAL. IV PRN (22:45)
[2017-04-04 23:00] VITALS: BP 142/61
[2017-04-05 03:00] VITALS: BP 113/51
[2017-04-05 07:23] LABS: BASO % 0 % (0-3); EOS % 3 % (0-3); HEMATOCRIT 32.4 % (36.0-47.0); LYMPH # 1.8 x10^3/uL (1.0-4.8); LYMPH % 21 % (24-48); MEAN CORPUSCULAR HEMOGLOBIN 33 pg (25-35); MEAN CORPUSCULAR HGB CONC 34 g/dL (31-37); MEAN CORPUSCULAR VOLUME 98 fL (79-100); MONO % 12 % (0-9); NEUT % 64 % (31-73); PLATELET COUNT 225 x10^3/uL (140-400); RED BLOOD COUNT 3.31 x10^6/uL (3.50-5.40); RED CELL DISTRIBUTION WIDTH 13.3 % (11.5-14.5); WHITE BLOOD COUNT 8.7 x10^3/uL (4.0-11.0)
[2017-04-05 07:39] LABS: ALBUMIN 2.3 g/dL (3.4-5.0); CALCIUM 8.2 mg/dL (8.5-10.1); CREATININE 0.7 mg/dL (0.6-1.0); GFR 82.7; MAGNESIUM 1.7 mg/dL (1.8-2.4); PHOSPHORUS 3.5 mg/dL (2.6-4.7); POTASSIUM 4.3 mmol/L (3.5-5.1)
[2017-04-05 07:55] VITALS: BP 120/57
[2017-04-05] MEDS: CIPROFLOXACIN 400MG PREMIX 200 ML IV SCH ×2 (08:17→20:57)
--- NOTE | 2017-04-05 09:50 | PDOC ---
Subjective: Subjective: No more vomiting. Some pain. Says had soft stool. Back on ice chips. Objective: Objective: Tmax 100.4 Vital Signs: Vital Signs Date Time Temp Pulse Resp B/P (MAP) Pulse Ox O2 Delivery O2 Flow Rate FiO2 04/05/17 07:55 100.4 76 18 120/57 (78) 94 Room Air 100.4 04/04/17 23:00 2.0 Labs: Laboratory Tests Test 04/04/17 11:47 04/04/17 17:53 04/05/17 01:50 04/05/17 07:03 Glucose (Fingerstick) 140 mg/dL 109 mg/dL 134 mg/dL 115 mg/dL Test 04/05/17 07:19 White Blood Count 8.7 x10^3/uL Red Blood Count 3.31 x10^6/uL Hemoglobin 11.0 g/dL Hematocrit 32.4 % Mean Corpuscular Volume 98 fL Mean Corpuscular Hemoglobin 33 pg Mean Corpuscular Hemoglobin Concent 34 g/dL Red Cell Distribution Width 13.3 % Platelet Count 225 x10^3/uL Neutrophils (%) (Auto) 64 % Lymphocytes (%) (Auto) 21 % Monocytes (%) (Auto) 12 % Eosinophils (%) (Auto) 3 % Basophils (%) (Auto) 0 % Neutrophils # (Auto) 5.6 x10^3uL Lymphocytes # (Auto) 1.8 x10^3/uL Monocytes # (Auto) 1.0 x10^3/uL Eosinophils # (Auto) 0.3 x10^3/uL Basophils # (Auto) 0.0 x10^3/uL Sodium Level 139 mmol/L Potassium Level 4.3 mmol/L Chloride Level 106 mmol/L Carbon Dioxide Level 29 mmol/L Anion Gap 4 Blood Urea Nitrogen 18 mg/dL Creatinine 0.7 mg/dL Estimated GFR (Cockcroft-Gault) 82.7 Glucose Level 107 mg/dL Calcium Level 8.2 mg/dL Phosphorus Level 3.5 mg/dL Magnesium Level 1.7 mg/dL Albumin 2.3 g/dL PE: GEN: NAD, up to chair LUNGS: nasal cannula HEART: RRR ABD: soft NEURO/PSYCH: A & O 3 A/P: SBO s/p resection, post-op ileus -on TPN -- Improved. Diet per surgery. TRISTEN BENJAMIN April 05, 2017 09:50
--- NOTE | 2017-04-05 09:56 | PDOC ---
SUBJECTIVE ROS TPN Managemtn doing OK OBJECTIVE Vital Signs Vital Signs Date Time Temp Pulse Resp B/P (MAP) Pulse Ox O2 Delivery O2 Flow Rate FiO2 04/05/17 07:55 100.4 76 18 120/57 (78) 94 Room Air 100.4 04/04/17 23:00 2.0 I & 0 Intake and Output 04/05/17 07:00 Intake Total 880 ml Output Total 600 ml Balance 280 ml Intake Oral 480 ml IV Total 400 ml Output Urine Total 600 ml PHYSICAL EXAM Physical Exam General Appearance: Awake: Alert Oriented x 3 Neck: No JVD or JVP Chest: CTA Bruno Heart: S1 S2 Abdomen - Soft + BS Extremities - No Edema ASSESSMENT/PLAN SBO/ Post Op Ileus - ct TPN untill able to take PO. Fluid and elyte status is acceptable COMMENT/RELEVANT DATA Meds Current Medications Medications (Trade) Dose Ordered Sig/Stevie Start Time Stop Time Status Last Admin Dose Admin Acetaminophen (Tylenol) 325 mg PRN Q6HRS PRN 03/30/17 10:30 04/03/17 20:33 325 MG Acetaminophen/ Hydrocodone Bitart (Lortab 5/325) 1 tab PRN Q6HRS PRN 03/30/17 10:30 Albuterol Sulfate (Ventolin Neb Soln) 2.5 mg PRN Q4HRS PRN 03/30/17 10:30 Amino Acids/ Glycerin/ Electrolytes 1,000 ml @ 80 mls/hr [id number] 04/01/17 14:15 04/02/17 14:40 DC 04/02/17 05:43 80 MLS/HR Ciprofloxacin Lactate 200 ml @ 200 mls/hr Q12HR 04/04/17 21:00 04/05/17 08:17 200 MLS/HR Desflurane (Suprane) 90 ml STK-MED ONCE 03/30/17 17:18 03/30/17 17:19 DC Dexamethasone Sodium Phosphate (Decadron) 20 mg STK-MED ONCE 03/30/17 17:18 03/30/17 17:19 DC Diphenhydramine HCl (Benadryl) 25 mg 1X ONCE 03/29/17 21:15 03/29/17 21:16 DC 03/29/17 21:01 25 MG Enoxaparin Sodium (Lovenox 30mg Syringe) 30 mg Q24H 03/30/17 11:00 04/01/17 11:50 DC 04/01/17 11:26 30 MG Enoxaparin Sodium (Lovenox 40mg Syringe) 40 mg Q24H 04/02/17 12:00 04/04/17 16:54 40 MG Fentanyl Citrate (Fentanyl 2ml Vial) 100 mcg STK-MED ONCE 03/30/17 18:58 03/30/17 18:59 DC Hydralazine HCl (Apresoline) 10 mg PRN Q4HRS PRN 03/30/17 10:30 Hydromorphone HCl (Dilaudid) 0.5 mg PRN Q10MIN PRN 03/30/17 16:45 03/31/17 16:44 DC Info 1 each PRN DAILY PRN 04/02/17 11:30 04/04/17 13:25 1 EACH Info (Do NOT chart on this entry -- for MONITORING) 1 each PRN DAILY PRN 03/30/17 11:00 04/01/17 10:59 DC Iohexol (Omnipaque 240 Mg/ml) 30 ml 1X ONCE 03/29/17 19:45 03/29/17 19:46 DC 03/29/17 19:45 30 ML Iohexol (Omnipaque 350 Mg/ml) 400 ml 1X ONCE 03/30/17 11:00 03/30/17 11:01 DC 03/30/17 11:47 200 ML Lactated Ringer's 1,000 ml @ 30 mls/hr Q24H 03/30/17 16:43 03/31/17 04:43 DC Lidocaine HCl (Lidocaine HCl 2% Abboject) 100 mg STK-MED ONCE 03/30/17 17:18 03/30/17 17:19 DC Magnesium Sulfate/ Dextrose 100 ml @ 100 mls/hr 1X ONCE 04/03/17 12:30 04/03/17 13:29 DC 04/03/17 12:40 100 MLS/HR Metoclopramide HCl (Reglan) 10 mg PRN Q6HRS PRN 04/04/17 10:45 04/04/17 22:45 10 MG Metronidazole 100 ml @ 100 mls/hr Q12HR 03/30/17 21:00 03/30/17 21:00 DC Morphine Sulfate 1 mg PRN Q10MIN PRN 03/30/17 16:45 03/31/17 16:44 DC Ondansetron HCl (Zofran) 4 mg PRN Q6HRS PRN 04/04/17 09:30 04/04/17 21:05 4 MG Phenylephrine HCl 1 mg STK-MED ONCE 03/30/17 18:09 03/30/17 18:10 DC Potassium Chloride/Dextrose/ Sod Cl 1,000 ml @ 75 mls/hr 1X ONCE 03/30/17 00:00 03/30/17 13:19 DC 03/30/17 06:13 75 MLS/HR Potassium Phosphate 13.6 mmol/Sodium Chloride 254.5333 ml @ 127.... Q2H 04/02/17 11:00 04/02/17 16:59 DC 04/02/17 16:42 127.267 MLS/HR Prochlorperazine Edisylate (Compazine) 5 mg PACU PRN PRN 03/30/17 16:45 03/31/17 16:44 DC Propofol 20 ml @ As Directed STK-MED ONCE 03/30/17 17:18 03/30/17 17:19 DC Rocuronium Lawrence (Zemuron) 50 mg STK-MED ONCE 03/30/17 17:18 03/30/17 17:19 DC Sodium Chloride (Normal Saline Flush) 20 ml QSHIFT PRN 04/02/17 14:45 Sodium Chloride 90 meq/Potassium Chloride 50 meq/ Potassium Phosphate 13.6 mmol/Magnesium Sulfate 10 meq/ Calcium Gluconate 10 meq/ Multivitamins 10 ml/Zinc/Copper/ Mindi/Chrom/ Selen 1 ml/Total Parenteral Nutrition/Amino Acids/Dextrose/ Fat Emulsion Intravenous 1,512 ml @ 63 mls/hr TPN CONT 04/02/17 22:00 04/04/17 13:10 DC 04/02/17 22:00 63 MLS/HR Sodium Chloride 90 meq/Potassium Chloride 50 meq/ Potassium Phosphate 13.6 mmol/Magnesium Sulfate 16 meq/ Calcium Gluconate 10 meq/ Multivitamins 10 ml/Zinc/Copper/ Mindi/Chrom/ Selen 1 ml/Total Parenteral Nutrition/Amino Acids/Dextrose/ Fat Emulsion Intravenous 1,512 ml @ 63 mls/hr TPN CONT 04/04/17 22:00 04/05/17 21:59 04/04/17 22:42 63 MLS/HR Succinylcholine Chloride (Anectine) 200 mg STK-MED ONCE 03/30/17 17:18 03/30/17 17:19 DC Lab Laboratory Tests Test 04/04/17 11:47 04/04/17 17:53 04/05/17 01:50 04/05/17 07:03 Glucose (Fingerstick) 140 mg/dL (70-99) 109 mg/dL (70-99) 134 mg/dL (70-99) 115 mg/dL (70-99) Test 04/05/17 07:19 White Blood Count 8.7 x10^3/uL (4.0-11.0) Red Blood Count 3.31 x10^6/uL (3.50-5.40) Hemoglobin 11.0 g/dL (12.0-15.5) Hematocrit 32.4 % (36.0-47.0) Mean Corpuscular Volume 98 fL (79-100) Mean Corpuscular Hemoglobin 33 pg (25-35) Mean Corpuscular Hemoglobin Concent 34 g/dL (31-37) Red Cell Distribution Width 13.3 % (11.5-14.5) Platelet Count 225 x10^3/uL (140-400) Neutrophils (%) (Auto) 64 % (31-73) Lymphocytes (%) (Auto) 21 % (24-48) Monocytes (%) (Auto) 12 % (0-9) Eosinophils (%) (Auto) 3 % (0-3) Basophils (%) (Auto) 0 % (0-3) Neutrophils # (Auto) 5.6 x10^3uL (1.8-7.7) Lymphocytes # (Auto) 1.8 x10^3/uL (1.0-4.8) Monocytes # (Auto) 1.0 x10^3/uL (0.0-1.1) Eosinophils # (Auto) 0.3 x10^3/uL (0.0-0.7) Basophils # (Auto) 0.0 x10^3/uL (0.0-0.2) Sodium Level 139 mmol/L (136-145) Potassium Level 4.3 mmol/L (3.5-5.1) Chloride Level 106 mmol/L (98-107) Carbon Dioxide Level 29 mmol/L (21-32) Anion Gap 4 (6-14) Blood Urea Nitrogen 18 mg/dL (7-20) Creatinine 0.7 mg/dL (0.6-1.0) Estimated GFR (Cockcroft-Gault) 82.7 Glucose Level 107 mg/dL (70-99) Calcium Level 8.2 mg/dL (8.5-10.1) Phosphorus Level 3.5 mg/dL (2.6-4.7) Magnesium Level 1.7 mg/dL (1.8-2.4) Albumin 2.3 g/dL (3.4-5.0) PAULA KELLY MD April 05, 2017 09:56
[2017-04-05] MEDS ORDERED: MAGNESIUM SULFATE 2GM 50 ML IV PRN (10:00)
[2017-04-05] MEDS ORDERED: MAGNESIUM SULFATE 1GM 100 ML IV ONE ×2 (10:00→11:30)
[2017-04-05 10:30] VITALS: BP 120/47
--- NOTE | 2017-04-05 10:44 | PDOC ---
VITALY ROSS [employer] 04/05/17 1044: SURGICAL PROGRESS NOTE Subjective no further n/v + flatus and soft stool this AM pain managed Vital Signs Vital Signs Date Time Temp Pulse Resp B/P (MAP) Pulse Ox O2 Delivery O2 Flow Rate FiO2 04/05/17 07:55 100.4 76 18 120/57 (78) 94 Room Air 100.4 04/04/17 23:00 2.0 I&O Intake and Output 04/05/17 07:00 Intake Total 880 ml Output Total 600 ml Balance 280 ml Intake Oral 480 ml IV Total 400 ml Output Urine Total 600 ml General: Alert, Oriented X3, Cooperative, No acute distress Abdomen: Soft, Other (ND, dressing dry ) Labs Laboratory Tests Test 04/03/17 10:46 04/03/17 16:40 04/03/17 20:58 04/04/17 06:00 Glucose (Fingerstick) 139 mg/dL (70-99) 130 mg/dL (70-99) 120 mg/dL (70-99) White Blood Count 9.2 x10^3/uL (4.0-11.0) Red Blood Count 3.41 x10^6/uL (3.50-5.40) Hemoglobin 11.3 g/dL (12.0-15.5) Hematocrit 33.5 % (36.0-47.0) Mean Corpuscular Volume 98 fL (79-100) Mean Corpuscular Hemoglobin 33 pg (25-35) Mean Corpuscular Hemoglobin Concent 34 g/dL (31-37) Red Cell Distribution Width 13.3 % (11.5-14.5) Platelet Count 229 x10^3/uL (140-400) Neutrophils (%) (Auto) 71 % (31-73) Lymphocytes (%) (Auto) 16 % (24-48) Monocytes (%) (Auto) 11 % (0-9) Eosinophils (%) (Auto) 2 % (0-3) Basophils (%) (Auto) 0 % (0-3) Neutrophils # (Auto) 6.5 x10^3uL (1.8-7.7) Lymphocytes # (Auto) 1.4 x10^3/uL (1.0-4.8) Monocytes # (Auto) 1.0 x10^3/uL (0.0-1.1) Eosinophils # (Auto) 0.2 x10^3/uL (0.0-0.7) Basophils # (Auto) 0.0 x10^3/uL (0.0-0.2) Test 04/04/17 06:15 04/04/17 07:10 04/04/17 11:47 04/04/17 17:53 Sodium Level 142 mmol/L (136-145) Potassium Level 4.1 mmol/L (3.5-5.1) Chloride Level 106 mmol/L (98-107) Carbon Dioxide Level 29 mmol/L (21-32) Anion Gap 7 (6-14) Blood Urea Nitrogen 19 mg/dL (7-20) Creatinine 0.7 mg/dL (0.6-1.0) Estimated GFR (Cockcroft-Gault) 82.7 Glucose Level 133 mg/dL (70-99) Calcium Level 8.3 mg/dL (8.5-10.1) Phosphorus Level 3.4 mg/dL (2.6-4.7) Magnesium Level 1.8 mg/dL (1.8-2.4) Albumin 2.5 g/dL (3.4-5.0) Glucose (Fingerstick) 135 mg/dL (70-99) 140 mg/dL (70-99) 109 mg/dL (70-99) Test 04/05/17 01:50 04/05/17 07:03 04/05/17 07:19 Glucose (Fingerstick) 134 mg/dL (70-99) 115 mg/dL (70-99) White Blood Count 8.7 x10^3/uL (4.0-11.0) Red Blood Count 3.31 x10^6/uL (3.50-5.40) Hemoglobin 11.0 g/dL (12.0-15.5) Hematocrit 32.4 % (36.0-47.0) Mean Corpuscular Volume 98 fL (79-100) Mean Corpuscular Hemoglobin 33 pg (25-35) Mean Corpuscular Hemoglobin Concent 34 g/dL (31-37) Red Cell Distribution Width 13.3 % (11.5-14.5) Platelet Count 225 x10^3/uL (140-400) Neutrophils (%) (Auto) 64 % (31-73) Lymphocytes (%) (Auto) 21 % (24-48) Monocytes (%) (Auto) 12 % (0-9) Eosinophils (%) (Auto) 3 % (0-3) Basophils (%) (Auto) 0 % (0-3) Neutrophils # (Auto) 5.6 x10^3uL (1.8-7.7) Lymphocytes # (Auto) 1.8 x10^3/uL (1.0-4.8) Monocytes # (Auto) 1.0 x10^3/uL (0.0-1.1) Eosinophils # (Auto) 0.3 x10^3/uL (0.0-0.7) Basophils # (Auto) 0.0 x10^3/uL (0.0-0.2) Sodium Level 139 mmol/L (136-145) Potassium Level 4.3 mmol/L (3.5-5.1) Chloride Level 106 mmol/L (98-107) Carbon Dioxide Level 29 mmol/L (21-32) Anion Gap 4 (6-14) Blood Urea Nitrogen 18 mg/dL (7-20) Creatinine 0.7 mg/dL (0.6-1.0) Estimated GFR (Cockcroft-Gault) 82.7 Glucose Level 107 mg/dL (70-99) Calcium Level 8.2 mg/dL (8.5-10.1) Phosphorus Level 3.5 mg/dL (2.6-4.7) Magnesium Level 1.7 mg/dL (1.8-2.4) Albumin 2.3 g/dL (3.4-5.0) Laboratory Tests Test 04/04/17 11:47 04/04/17 17:53 04/05/17 01:50 04/05/17 07:03 Glucose (Fingerstick) 140 mg/dL (70-99) 109 mg/dL (70-99) 134 mg/dL (70-99) 115 mg/dL (70-99) Test 04/05/17 07:19 White Blood Count 8.7 x10^3/uL (4.0-11.0) Red Blood Count 3.31 x10^6/uL (3.50-5.40) Hemoglobin 11.0 g/dL (12.0-15.5) Hematocrit 32.4 % (36.0-47.0) Mean Corpuscular Volume 98 fL (79-100) Mean Corpuscular Hemoglobin 33 pg (25-35) Mean Corpuscular Hemoglobin Concent 34 g/dL (31-37) Red Cell Distribution Width 13.3 % (11.5-14.5) Platelet Count 225 x10^3/uL (140-400) Neutrophils (%) (Auto) 64 % (31-73) Lymphocytes (%) (Auto) 21 % (24-48) Monocytes (%) (Auto) 12 % (0-9) Eosinophils (%) (Auto) 3 % (0-3) Basophils (%) (Auto) 0 % (0-3) Neutrophils # (Auto) 5.6 x10^3uL (1.8-7.7) Lymphocytes # (Auto) 1.8 x10^3/uL (1.0-4.8) Monocytes # (Auto) 1.0 x10^3/uL (0.0-1.1) Eosinophils # (Auto) 0.3 x10^3/uL (0.0-0.7) Basophils # (Auto) 0.0 x10^3/uL (0.0-0.2) Sodium Level 139 mmol/L (136-145) Potassium Level 4.3 mmol/L (3.5-5.1) Chloride Level 106 mmol/L (98-107) Carbon Dioxide Level 29 mmol/L (21-32) Anion Gap 4 (6-14) Blood Urea Nitrogen 18 mg/dL (7-20) Creatinine 0.7 mg/dL (0.6-1.0) Estimated GFR (Cockcroft-Gault) 82.7 Glucose Level 107 mg/dL (70-99) Calcium Level 8.2 mg/dL (8.5-10.1) Phosphorus Level 3.5 mg/dL (2.6-4.7) Magnesium Level 1.7 mg/dL (1.8-2.4) Albumin 2.3 g/dL (3.4-5.0) Problem List Problems Medical Problems: (1) Abdominal pain Status: Acute (2) Nausea & vomiting Status: Acute Assessment/Plan s/p xlap, SBR, VIH repair wear abdominal binder try clears today tmax 100.4, ambulate, IS, normal WBC Problems: MARGOTH DAWSON MD 04/05/17 1436: SURGICAL PROGRESS NOTE Assessment/Plan Reviewed, try clears today Problems: VITALY ROSS [employer] April 05, 2017 10:44 MARGOTH DAWSON MD April 05, 2017 14:36
[2017-04-05] MEDS: TPN PER PHARMACY MC PRN (11:59)
--- NOTE | 2017-04-05 12:24 | PDOC ---
PROGRESS NOTES Chief Complaint Chief Complaint 1. Small-bowel obstruction, transition, S/P Exploratory laparotomy, lysis of adhesions with release of small bowel obstruction, small bowel resection with primary anastomosis, primary repair of ventral hernia: On Cipro and Flagyl, IV Dilaudid, NG tube, IV hydration, no bowel movement yet, no flatus, continue current care. 2. Umbilical hernia, Repaired, Abdominal binder present. 3. Hypothyroidism. 4. Hypertension.: stable 5. Leukocytosis.: improving, on abx. 6. Acute kidney injury, unknown baseline creatinine.: better, nephrology consulted. 7. Hyperglycemia.: on SSI, NPO, 8. hypomagnesemia plan: fu with sx, gi, id, renal + BM 04/05 , has flatus since 04/03, NG out 04/03 TPN clear liquid on 04/05 as per sx pain control encourage pt to ambulate, CONTROL N/V, waiting for bowel function regain. fever 04/05, clinically better, ob for now History of Present Illness History of Present Illness Claims passed gas, 1 bm post op on 04/05 On tPN Lytes ok Still NPO, NG out on 04/03 N/V on 04/04, better 5.5 Abd wound inspected - looks good T 101 04/05. but clinically better, wbc normal Vitals Vitals Vital Signs Date Time Temp Pulse Resp B/P (MAP) Pulse Ox O2 Delivery O2 Flow Rate FiO2 04/05/17 10:30 101.3 69 18 120/47 (71) 95 Nasal Cannula 2.0 101.3 Physical Exam General: Alert, Oriented X3, Cooperative, No acute distress Heart: Regular rate, Normal S1, Normal S2, No murmurs Lungs: Clear Abdomen: Soft, Other (ND, dressing dry ) Extremities: No clubbing, No cyanosis Skin: No rashes, No breakdown Labs LABS Laboratory Tests Test 04/04/17 17:53 04/05/17 01:50 04/05/17 07:03 04/05/17 07:19 Glucose (Fingerstick) 109 mg/dL (70-99) 134 mg/dL (70-99) 115 mg/dL (70-99) White Blood Count 8.7 x10^3/uL (4.0-11.0) Red Blood Count 3.31 x10^6/uL (3.50-5.40) Hemoglobin 11.0 g/dL (12.0-15.5) Hematocrit 32.4 % (36.0-47.0) Mean Corpuscular Volume 98 fL (79-100) Mean Corpuscular Hemoglobin 33 pg (25-35) Mean Corpuscular Hemoglobin Concent 34 g/dL (31-37) Red Cell Distribution Width 13.3 % (11.5-14.5) Platelet Count 225 x10^3/uL (140-400) Neutrophils (%) (Auto) 64 % (31-73) Lymphocytes (%) (Auto) 21 % (24-48) Monocytes (%) (Auto) 12 % (0-9) Eosinophils (%) (Auto) 3 % (0-3) Basophils (%) (Auto) 0 % (0-3) Neutrophils # (Auto) 5.6 x10^3uL (1.8-7.7) Lymphocytes # (Auto) 1.8 x10^3/uL (1.0-4.8) Monocytes # (Auto) 1.0 x10^3/uL (0.0-1.1) Eosinophils # (Auto) 0.3 x10^3/uL (0.0-0.7) Basophils # (Auto) 0.0 x10^3/uL (0.0-0.2) Sodium Level 139 mmol/L (136-145) Potassium Level 4.3 mmol/L (3.5-5.1) Chloride Level 106 mmol/L (98-107) Carbon Dioxide Level 29 mmol/L (21-32) Anion Gap 4 (6-14) Blood Urea Nitrogen 18 mg/dL (7-20) Creatinine 0.7 mg/dL (0.6-1.0) Estimated GFR (Cockcroft-Gault) 82.7 Glucose Level 107 mg/dL (70-99) Calcium Level 8.2 mg/dL (8.5-10.1) Phosphorus Level 3.5 mg/dL (2.6-4.7) Magnesium Level 1.7 mg/dL (1.8-2.4) Albumin 2.3 g/dL (3.4-5.0) Test 04/05/17 11:21 Glucose (Fingerstick) 148 mg/dL (70-99) Review of Systems Review of Systems no chills, sob or chest pain Assessment and Plan Assessmemt and Plan Problems Medical Problems: (1) Abdominal pain Status: Acute (2) Nausea & vomiting Status: Acute Problems: Comment Review of Relevant I have reviewed the following items daphne (where applicable) has been applied. Labs Laboratory Tests Test 04/03/17 16:40 04/03/17 20:58 04/04/17 06:00 04/04/17 06:15 Glucose (Fingerstick) 130 mg/dL (70-99) 120 mg/dL (70-99) White Blood Count 9.2 x10^3/uL (4.0-11.0) Red Blood Count 3.41 x10^6/uL (3.50-5.40) Hemoglobin 11.3 g/dL (12.0-15.5) Hematocrit 33.5 % (36.0-47.0) Mean Corpuscular Volume 98 fL (79-100) Mean Corpuscular Hemoglobin 33 pg (25-35) Mean Corpuscular Hemoglobin Concent 34 g/dL (31-37) Red Cell Distribution Width 13.3 % (11.5-14.5) Platelet Count 229 x10^3/uL (140-400) Neutrophils (%) (Auto) 71 % (31-73) Lymphocytes (%) (Auto) 16 % (24-48) Monocytes (%) (Auto) 11 % (0-9) Eosinophils (%) (Auto) 2 % (0-3) Basophils (%) (Auto) 0 % (0-3) Neutrophils # (Auto) 6.5 x10^3uL (1.8-7.7) Lymphocytes # (Auto) 1.4 x10^3/uL (1.0-4.8) Monocytes # (Auto) 1.0 x10^3/uL (0.0-1.1) Eosinophils # (Auto) 0.2 x10^3/uL (0.0-0.7) Basophils # (Auto) 0.0 x10^3/uL (0.0-0.2) Sodium Level 142 mmol/L (136-145) Potassium Level 4.1 mmol/L (3.5-5.1) Chloride Level 106 mmol/L (98-107) Carbon Dioxide Level 29 mmol/L (21-32) Anion Gap 7 (6-14) Blood Urea Nitrogen 19 mg/dL (7-20) Creatinine 0.7 mg/dL (0.6-1.0) Estimated GFR (Cockcroft-Gault) 82.7 Glucose Level 133 mg/dL (70-99) Calcium Level 8.3 mg/dL (8.5-10.1) Phosphorus Level 3.4 mg/dL (2.6-4.7) Magnesium Level 1.8 mg/dL (1.8-2.4) Albumin 2.5 g/dL (3.4-5.0) Test 04/04/17 07:10 04/04/17 11:47 04/04/17 17:53 04/05/17 01:50 Glucose (Fingerstick) 135 mg/dL (70-99) 140 mg/dL (70-99) 109 mg/dL (70-99) 134 mg/dL (70-99) Test 04/05/17 07:03 04/05/17 07:19 04/05/17 11:21 Glucose (Fingerstick) 115 mg/dL (70-99) 148 mg/dL (70-99) White Blood Count 8.7 x10^3/uL (4.0-11.0) Red Blood Count 3.31 x10^6/uL (3.50-5.40) Hemoglobin 11.0 g/dL (12.0-15.5) Hematocrit 32.4 % (36.0-47.0) Mean Corpuscular Volume 98 fL (79-100) Mean Corpuscular Hemoglobin 33 pg (25-35) Mean Corpuscular Hemoglobin Concent 34 g/dL (31-37) Red Cell Distribution Width 13.3 % (11.5-14.5) Platelet Count 225 x10^3/uL (140-400) Neutrophils (%) (Auto) 64 % (31-73) Lymphocytes (%) (Auto) 21 % (24-48) Monocytes (%) (Auto) 12 % (0-9) Eosinophils (%) (Auto) 3 % (0-3) Basophils (%) (Auto) 0 % (0-3) Neutrophils # (Auto) 5.6 x10^3uL (1.8-7.7) Lymphocytes # (Auto) 1.8 x10^3/uL (1.0-4.8) Monocytes # (Auto) 1.0 x10^3/uL (0.0-1.1) Eosinophils # (Auto) 0.3 x10^3/uL (0.0-0.7) Basophils # (Auto) 0.0 x10^3/uL (0.0-0.2) Sodium Level 139 mmol/L (136-145) Potassium Level 4.3 mmol/L (3.5-5.1) Chloride Level 106 mmol/L (98-107) Carbon Dioxide Level 29 mmol/L (21-32) Anion Gap 4 (6-14) Blood Urea Nitrogen 18 mg/dL (7-20) Creatinine 0.7 mg/dL (0.6-1.0) Estimated GFR (Cockcroft-Gault) 82.7 Glucose Level 107 mg/dL (70-99) Calcium Level 8.2 mg/dL (8.5-10.1) Phosphorus Level 3.5 mg/dL (2.6-4.7) Magnesium Level 1.7 mg/dL (1.8-2.4) Albumin 2.3 g/dL (3.4-5.0) Laboratory Tests Test 04/04/17 17:53 04/05/17 01:50 04/05/17 07:03 04/05/17 07:19 Glucose (Fingerstick) 109 mg/dL (70-99) 134 mg/dL (70-99) 115 mg/dL (70-99) White Blood Count 8.7 x10^3/uL (4.0-11.0) Red Blood Count 3.31 x10^6/uL (3.50-5.40) Hemoglobin 11.0 g/dL (12.0-15.5) Hematocrit 32.4 % (36.0-47.0) Mean Corpuscular Volume 98 fL (79-100) Mean Corpuscular Hemoglobin 33 pg (25-35) Mean Corpuscular Hemoglobin Concent 34 g/dL (31-37) Red Cell Distribution Width 13.3 % (11.5-14.5) Platelet Count 225 x10^3/uL (140-400) Neutrophils (%) (Auto) 64 % (31-73) Lymphocytes (%) (Auto) 21 % (24-48) Monocytes (%) (Auto) 12 % (0-9) Eosinophils (%) (Auto) 3 % (0-3) Basophils (%) (Auto) 0 % (0-3) Neutrophils # (Auto) 5.6 x10^3uL (1.8-7.7) Lymphocytes # (Auto) 1.8 x10^3/uL (1.0-4.8) Monocytes # (Auto) 1.0 x10^3/uL (0.0-1.1) Eosinophils # (Auto) 0.3 x10^3/uL (0.0-0.7) Basophils # (Auto) 0.0 x10^3/uL (0.0-0.2) Sodium Level 139 mmol/L (136-145) Potassium Level 4.3 mmol/L (3.5-5.1) Chloride Level 106 mmol/L (98-107) Carbon Dioxide Level 29 mmol/L (21-32) Anion Gap 4 (6-14) Blood Urea Nitrogen 18 mg/dL (7-20) Creatinine 0.7 mg/dL (0.6-1.0) Estimated GFR (Cockcroft-Gault) 82.7 Glucose Level 107 mg/dL (70-99) Calcium Level 8.2 mg/dL (8.5-10.1) Phosphorus Level 3.5 mg/dL (2.6-4.7) Magnesium Level 1.7 mg/dL (1.8-2.4) Albumin 2.3 g/dL (3.4-5.0) Test 04/05/17 11:21 Glucose (Fingerstick) 148 mg/dL (70-99) Microbiology 03/30/17 Blood Culture - Final, Complete NO GROWTH AFTER 5 DAYS 03/29/17 Urine Culture - Final, Complete 03/29/17 Urine Culture Result 1 (CYNTHIA) - Final, Complete Medications Current Medications Morphine Sulfate 2 mg PRN Q15MIN PRN IV/SQ PAIN GREATER THAN 3/10 Last administered on 03/30/17 00:39; Start 03/29/17 at 17:45; Stop 03/30/17 at 17:44 ; Status DC Sodium Chloride 1,000 ml @ 1,000 mls/hr Q1H IV Last administered on 03/29/17 17:32; Start 03/29/17 at 17:32; Stop 03/29/17 at 18:31; Status DC Ondansetron HCl (Zofran) 4 mg 1X ONCE IV Last administered on 03/29/17 17:45 ; Start 03/29/17 at 17:45; Stop 03/29/17 at 17:46; Status DC Iohexol (Omnipaque 240 Mg/ml) 30 ml 1X ONCE PO Last administered on 03/29/17 19:45; Start 03/29/17 at 19:45; Stop 03/29/17 at 19:46; Status DC Ondansetron HCl (Zofran) 4 mg 1X ONCE IV Last administered on 03/29/17 19:58 ; Start 03/29/17 at 20:00; Stop 03/29/17 at 20:01; Status DC Prochlorperazine Edisylate (Compazine) 10 mg 1X ONCE IV Last administered on 21:01; Start 03/29/17 at 21:15; Stop 03/29/17 at 21:16; Status DC Diphenhydramine HCl (Benadryl) 25 mg 1X ONCE IVP Last administered on 21:01; Start 03/29/17 at 21:15; Stop 03/29/17 at 21:16; Status DC Ondansetron HCl (Zofran) 4 mg PRN Q8HRS PRN IV NAUSEA/VOMITING Last administered on 03/30/17 07:59; Start 03/29/17 at 23:45; Stop 03/30/17 at 23:44 ; Status DC Fentanyl Citrate (Fentanyl 2ml Vial) 25 mcg PRN Q1HR PRN IV SEVERE PAIN Last administered on 03/30/17 06:12; Start 03/29/17 at 23:45; Stop 03/30/17 at 23:44 ; Status DC Potassium Chloride/Dextrose/ Sod Cl 1,000 ml @ 75 mls/hr 1X ONCE IV Last administered on 03/30/17 06:13; Start 03/30/17 at 00:00; Stop 03/30/17 at 13:19 ; Status DC Ciprofloxacin Lactate 200 ml @ 200 mls/hr Q12HR IV ; Start 03/30/17 at 09:00; Status UNV Metronidazole 100 ml @ 100 mls/hr Q8HRS IV Last administered on 04/05/17 06:00 ; Start 03/30/17 at 00:00 Ciprofloxacin Lactate 200 ml @ 200 mls/hr 1X ONCE IV Last administered on 06:14; Start 03/30/17 at 00:00; Stop 03/30/17 at 00:59; Status DC Ciprofloxacin Lactate 100 ml @ 100 mls/hr [id number] IV Last administered on 05:15; Start 03/30/17 at 18:00; Stop 04/04/17 at 13:17; Status DC Enoxaparin Sodium (Lovenox 30mg Syringe) 30 mg Q24H SQ Last administered on 04/01 11:26; Start 03/30/17 at 11:00; Stop 04/01/17 at 11:50; Status DC Acetaminophen (Tylenol) 325 mg PRN Q6HRS PRN PO MILD PAIN / TEMP Last administered on 04/03/17 20:33; Start 03/30/17 at 10:30 Acetaminophen/ Hydrocodone Bitart (Lortab 5/325) 1 tab PRN Q6HRS PRN PO MODERATE TO SEVERE PAIN; Start 03/30/17 at 10:30 Hydralazine HCl (Apresoline) 10 mg PRN Q4HRS PRN IVP ELEVATED BP, SEE COMMENTS ; Start 03/30/17 at 10:30 Ondansetron HCl (Zofran) 4 mg PRN Q8HRS PRN IV NAUSEA/VOMITING Last administered on 04/04/17 03:31; Start 03/30/17 at 10:30; Stop 04/04/17 at 09:32; Status DC Albuterol Sulfate (Ventolin Neb Soln) 2.5 mg PRN Q4HRS PRN NEB SHORTNESS OF BREATH; Start 03/30/17 at 10:30 Sodium Chloride 1,000 ml @ 150 mls/hr Q6H40M IV Last administered on 04/01/17 01:41; Start 03/30/17 at 10:30; Stop 04/01/17 at 14:14; Status DC Morphine Sulfate 2 mg PRN Q2HR PRN IV PAIN Last administered on 04/04/17 11:01 ; Start 03/30/17 at 10:30 Metronidazole 100 ml @ 100 mls/hr Q12HR IV ; Start 03/30/17 at 21:00; Stop at 21:00; Status DC Ciprofloxacin Lactate 100 ml @ 100 mls/hr Q12HR IV ; Start 03/30/17 at 21:00; Stop 03/30/17 at 21:00; Status DC Iohexol (Omnipaque 350 Mg/ml) 400 ml 1X ONCE PO Last administered on 11:47; Start 03/30/17 at 11:00; Stop 03/30/17 at 11:01; Status DC Info (Do NOT chart on this entry -- for MONITORING) 1 each PRN DAILY PRN MC SEE COMMENTS; Start 03/30/17 at 11:00; Stop 04/01/17 at 10:59; Status DC Fentanyl Citrate (Fentanyl 2ml Vial) 25 mcg PRN Q5MIN PRN IV MILD PAIN; Start 03/30/17 at 16:45; Stop 03/31/17 at 16:44; Status DC Fentanyl Citrate (Fentanyl 2ml Vial) 50 mcg PRN Q5MIN PRN IV MODERATE PAIN Last administered on 03/30/17 21:23; Start 03/30/17 at 16:45; Stop 03/31/17 at 16:44; Status DC Morphine Sulfate 1 mg PRN Q10MIN PRN IV SEVERE PAIN; Start 03/30/17 at 16:45; Stop 03/31/17 at 16:44; Status DC Lactated Ringer's 1,000 ml @ 30 mls/hr Q24H IV ; Start 03/30/17 at 16:43; Stop 03/31/17 at 04:43; Status DC Lidocaine HCl 2 ml PRN 1X PRN ID PRIOR TO IV START; Start 03/30/17 at 16:45; Stop 03/31/17 at 16:44; Status DC Hydromorphone HCl (Dilaudid) 0.5 mg PRN Q10MIN PRN IV SEV PAIN, Second choice; Start 03/30/17 at 16:45; Stop 03/31/17 at 16:44; Status DC Prochlorperazine Edisylate (Compazine) 5 mg PACU PRN PRN IV NAUSEA, MRX1; Start 03/30/17 at 16:45; Stop 03/31/17 at 16:44; Status DC Dexamethasone Sodium Phosphate (Decadron) 20 mg STK-MED ONCE .ROUTE ; Start at 17:18; Stop 03/30/17 at 17:19; Status DC Ondansetron HCl (Zofran) 4 mg STK-MED ONCE .ROUTE ; Start 03/30/17 at 17:18; Stop 03/30/17 at 17:19; Status DC Propofol 20 ml @ As Directed STK-MED ONCE IV ; Start 03/30/17 at 17:18; Stop at 17:19; Status DC Lidocaine HCl (Lidocaine HCl 2% Abboject) 100 mg STK-MED ONCE .ROUTE ; Start at 17:18; Stop 03/30/17 at 17:19; Status DC Desflurane (Suprane) 90 ml STK-MED ONCE IH ; Start 03/30/17 at 17:18; Stop 03/30 at 17:19; Status DC Fentanyl Citrate (Fentanyl 2ml Vial) 100 mcg STK-MED ONCE .ROUTE ; Start at 17:18; Stop 03/30/17 at 17:19; Status DC Succinylcholine Chloride (Anectine) 200 mg STK-MED ONCE .ROUTE ; Start 03/30/17 at 17:18; Stop 03/30/17 at 17:19; Status DC Rocuronium Guild (Zemuron) 50 mg STK-MED ONCE .ROUTE ; Start 03/30/17 at 17:18 ; Stop 03/30/17 at 17:19; Status DC Phenylephrine HCl 1 mg STK-MED ONCE IV ; Start 03/30/17 at 18:09; Stop 03/30/17 at 18:10; Status DC Fentanyl Citrate (Fentanyl 2ml Vial) 100 mcg STK-MED ONCE .ROUTE ; Start at 18:58; Stop 03/30/17 at 18:59; Status DC Sodium Chloride 500 ml @ 0 mls/hr QID PRN IV UO< 30cc/hr over previous 6hrs; Start 03/31/17 at 08:30 Magnesium Sulfate/ Dextrose 50 ml @ 25 mls/hr PRN DAILY PRN IV for Mag < 1.7 on am labs; Start 03/31/17 at 08:30 Enoxaparin Sodium (Lovenox 40mg Syringe) 40 mg Q24H SQ Last administered on 04/04 16:54; Start 04/02/17 at 12:00 Amino Acids/ Glycerin/ Electrolytes 1,000 ml @ 80 mls/hr [id number] IV Last administered on 04/02/17 05:43; Start 04/01/17 at 14:15; Stop 04/02/17 at 14:40; Status DC Potassium Phosphate 13.6 mmol/Sodium Chloride 254.5333 ml @ 127.... Q2H IV Last administered on 04/02/17 16:42; Start 04/02/17 at 11:00; Stop 04/02/17 at 16: 59; Status DC Sodium Chloride 500 ml @ 0 mls/hr PRN QID PRN IV UO< 30cc/hr over previous 6hrs ; Start 04/02/17 at 10:45 Info 1 each PRN DAILY PRN MC SEE COMMENTS Last administered on 04/05/17 11:59; Start 04/02/17 at 11:30 Sodium Chloride 90 meq/Potassium Chloride 50 meq/ Potassium Phosphate 13.6 mmol/ Magnesium Sulfate 10 meq/ Calcium Gluconate 10 meq/ Multivitamins 10 ml/Zinc/ Copper/ Mindi/Chrom/ Selen 1 ml/Total Parenteral Nutrition/Amino Acids/Dextrose / Fat Emulsion Intravenous 1,512 ml @ 63 mls/hr TPN CONT IV Last administered on 04/02/17 22:00; Start 04/02/17 at 22:00; Stop 04/04/17 at 13:10; Status DC Sodium Chloride (Normal Saline Flush) 10 ml QSHIFT PRN IV AFTER MEDS AND BLOOD DRAWS; Start 04/02/17 at 14:45 Sodium Chloride (Normal Saline Flush) 20 ml QSHIFT PRN IV AFTER MEDS AND BLOOD DRAWS; Start 04/02/17 at 14:45 Magnesium Sulfate/ Dextrose 100 ml @ 100 mls/hr 1X ONCE IV Last administered on 04/03/17 12:40; Start 04/03/17 at 12:30; Stop 04/03/17 at 13:29; Status DC Sodium Chloride 90 meq/Potassium Chloride 50 meq/ Potassium Phosphate 13.6 mmol/ Magnesium Sulfate 16 meq/ Calcium Gluconate 10 meq/ Multivitamins 10 ml/Zinc/ Copper/ Mindi/Chrom/ Selen 1 ml/Total Parenteral Nutrition/Amino Acids/Dextrose / Fat Emulsion Intravenous 1,512 ml @ 63 mls/hr TPN CONT IV Last administered on 04/03/17 22:00; Start 04/03/17 at 22:00; Stop 04/04/17 at 21:59; Status DC Ondansetron HCl (Zofran) 4 mg PRN Q6HRS PRN IV NAUSEA/VOMITING Last administered on 04/04/17 21:05; Start 04/04/17 at 09:30 Metoclopramide HCl (Reglan) 10 mg PRN Q6HRS PRN IV NAUSEA/VOMITING Last administered on 04/04/17 22:45; Start 04/04/17 at 10:45 Ciprofloxacin Lactate 200 ml @ 200 mls/hr Q12HR IV Last administered on 08:17; Start 04/04/17 at 21:00 Sodium Chloride 90 meq/Potassium Chloride 50 meq/ Potassium Phosphate 13.6 mmol/ Magnesium Sulfate 16 meq/ Calcium Gluconate 10 meq/ Multivitamins 10 ml/Zinc/ Copper/ Mindi/Chrom/ Selen 1 ml/Total Parenteral Nutrition/Amino Acids/Dextrose / Fat Emulsion Intravenous 1,512 ml @ 63 mls/hr TPN CONT IV Last administered on 04/04/17 22:42; Start 04/04/17 at 22:00; Stop 04/05/17 at 21:59 Magnesium Sulfate/ Dextrose 50 ml @ 25 mls/hr PRN DAILY PRN IV for mag < 1.7 on am labs; Start 04/05/17 at 10:00 Magnesium Sulfate/ Dextrose 100 ml @ 100 mls/hr 1X ONCE IV Last administered on 04/05/17 10:55; Start 04/05/17 at 10:00; Stop 04/05/17 at 10:59; Status DC Magnesium Sulfate/ Dextrose 100 ml @ 100 mls/hr 1X ONCE IV ; Start 04/05/17 at 11:30; Stop 04/05/17 at 12:29 Sodium Chloride 90 meq/Potassium Chloride 50 meq/ Potassium Phosphate 13.6 mmol/ Magnesium Sulfate 18 meq/ Calcium Gluconate 10 meq/ Multivitamins 10 ml/Chromium / Copper/Manganese/ Seleni/Zn 1 ml/ Total Parenteral Nutrition/Amino Acids/ Dextrose/ Fat Emulsion Intravenous 1,512 ml @ 63 mls/hr TPN CONT IV ; Start at 22:00; Stop 04/06/17 at 21:59 Active Scripts Active Reported Niaspan (Niacin) 1,000 Mg Tab.er.24h 1 Tab PO BID Levothyroxine Sodium 88 Mcg Tablet 1 Tab PO DAILY Vitals/I & O Vital Sign - Last 24 Hours 04/04/17 04/04/17 04/04/17 04/04/17 15:00 19:00 20:00 23:00 Temp 98.9 98.7 98.7 98.9 98.7 98.7 Pulse 77 70 72 Resp 16 20 20 B/P (MAP) 126/66 (86) 110/45 (66) 142/61 (88) Pulse Ox 98 96 98 O2 Delivery Nasal Cannula Nasal Cannula Room Air Nasal Cannula O2 Flow Rate 2.0 2.0 2.0 2.0 04/05/17 04/05/17 04/05/17 03:00 07:55 10:30 Temp 98.2 100.4 101.3 98.2 100.4 101.3 Pulse 67 76 69 Resp 20 18 18 B/P (MAP) 113/51 (71) 120/57 (78) 120/47 (71) Pulse Ox 95 94 95 O2 Delivery Room Air Nasal Cannula Nasal Cannula O2 Flow Rate 2.0 2.0 Intake and Output 04/04/17 04/04/17 04/05/17 15:00 23:00 07:00 Intake Total 240 ml 340 ml 300 ml Output Total 600 ml Balance 240 ml 340 ml -300 ml LAURA TATUM MD April 05, 2017 12:24
[2017-04-05] MEDS: ACETAMINOPHEN 325 MG TABLET. PO PRN (13:06)
[2017-04-05] MEDS: ENOXAPARIN 40 MG/0.4 ML SYRINGE. SQ SCH (13:07)
[2017-04-05] MEDS: METOCLOPRAMIDE HCL 10 MG/2 ML VIAL. IV PRN (14:09)
[2017-04-05 14:32] VITALS: BP 27/59
[2017-04-05 19:00] VITALS: BP 119/69
[2017-04-05] MEDS: ONDANSETRON PF 4 MG/2 ML VIAL. IV PRN (20:57)
[2017-04-05] MEDS ORDERED: [UNRECOGNIZED DRUG - OTHER] IV SCH ×10 (22:00)
[2017-04-05] MEDS ORDERED: AMINO ACIDS IV SCH ×10 (22:00)
[2017-04-05] MEDS ORDERED: DEXTROSE 70% IV SCH ×10 (22:00)
[2017-04-05] MEDS ORDERED: TOTAL PARENTERAL NUTRITION IV SCH ×10 (22:00)
[2017-04-05 23:00] VITALS: BP 96/63
[2017-04-06 05:37] LABS: BASO # 0.1 x10^3/uL (0.0-0.2); BASO % 1 % (0-3); EOS % 3 % (0-3); LYMPH # 1.9 x10^3/uL (1.0-4.8); LYMPH % 23 % (24-48); MEAN CORPUSCULAR HEMOGLOBIN 33 pg (25-35); MEAN CORPUSCULAR HGB CONC 33 g/dL (31-37); MEAN CORPUSCULAR VOLUME 99 fL (79-100); MONO % 11 % (0-9); NEUT % 62 % (31-73); PLATELET COUNT 240 x10^3/uL (140-400); RED BLOOD COUNT 3.34 x10^6/uL (3.50-5.40); RED CELL DISTRIBUTION WIDTH 13.6 % (11.5-14.5); WHITE BLOOD COUNT 8.5 x10^3/uL (4.0-11.0)
[2017-04-06 05:56] LABS: ALBUMIN 2.5 g/dL (3.4-5.0); CALCIUM 8.2 mg/dL (8.5-10.1); CREATININE 0.7 mg/dL (0.6-1.0); GFR 82.7; PHOSPHORUS 3.5 mg/dL (2.6-4.7); POTASSIUM 4.2 mmol/L (3.5-5.1)
[2017-04-06 07:00] VITALS: BP 118/57
--- NOTE | 2017-04-06 08:43 | PDOC ---
VITALY [employer]S [employer] 04/06/17 0843: SURGICAL PROGRESS NOTE Subjective reflux, burning up chest no emesis + stool has had some SOA, felt she needed O2 Vital Signs Vital Signs Date Time Temp Pulse Resp B/P (MAP) Pulse Ox O2 Delivery O2 Flow Rate FiO2 04/06/17 07:00 97.7 76 18 118/57 (77) 93 Nasal Cannula 2.0 97.7 I&O Intake and Output 04/06/17 06:59 Intake Total 240 ml Output Total 251 ml Balance -11 ml Intake Oral 240 ml Output Urine Total 251 ml # Voids 3 # Bowel Movements 2 General: Alert, Oriented X3, Cooperative, No acute distress Abdomen: Soft, Other (ND, incision c/d/i, no erythema ) Labs Laboratory Tests Test 04/04/17 11:47 04/04/17 17:53 04/05/17 01:50 04/05/17 07:03 Glucose (Fingerstick) 140 mg/dL (70-99) 109 mg/dL (70-99) 134 mg/dL (70-99) 115 mg/dL (70-99) Test 04/05/17 07:19 04/05/17 11:21 04/05/17 16:24 04/06/17 05:00 White Blood Count 8.7 x10^3/uL (4.0-11.0) 8.5 x10^3/uL (4.0-11.0) Red Blood Count 3.31 x10^6/uL (3.50-5.40) 3.34 x10^6/uL (3.50-5.40) Hemoglobin 11.0 g/dL (12.0-15.5) 11.0 g/dL (12.0-15.5) Hematocrit 32.4 % (36.0-47.0) 33.0 % (36.0-47.0) Mean Corpuscular Volume 98 fL (79-100) 99 fL (79-100) Mean Corpuscular Hemoglobin 33 pg (25-35) 33 pg (25-35) Mean Corpuscular Hemoglobin Concent 34 g/dL (31-37) 33 g/dL (31-37) Red Cell Distribution Width 13.3 % (11.5-14.5) 13.6 % (11.5-14.5) Platelet Count 225 x10^3/uL (140-400) 240 x10^3/uL (140-400) Neutrophils (%) (Auto) 64 % (31-73) 62 % (31-73) Lymphocytes (%) (Auto) 21 % (24-48) 23 % (24-48) Monocytes (%) (Auto) 12 % (0-9) 11 % (0-9) Eosinophils (%) (Auto) 3 % (0-3) 3 % (0-3) Basophils (%) (Auto) 0 % (0-3) 1 % (0-3) Neutrophils # (Auto) 5.6 x10^3uL (1.8-7.7) 5.2 x10^3uL (1.8-7.7) Lymphocytes # (Auto) 1.8 x10^3/uL (1.0-4.8) 1.9 x10^3/uL (1.0-4.8) Monocytes # (Auto) 1.0 x10^3/uL (0.0-1.1) 0.9 x10^3/uL (0.0-1.1) Eosinophils # (Auto) 0.3 x10^3/uL (0.0-0.7) 0.3 x10^3/uL (0.0-0.7) Basophils # (Auto) 0.0 x10^3/uL (0.0-0.2) 0.1 x10^3/uL (0.0-0.2) Sodium Level 139 mmol/L (136-145) 139 mmol/L (136-145) Potassium Level 4.3 mmol/L (3.5-5.1) 4.2 mmol/L (3.5-5.1) Chloride Level 106 mmol/L (98-107) 105 mmol/L (98-107) Carbon Dioxide Level 29 mmol/L (21-32) 28 mmol/L (21-32) Anion Gap 4 (6-14) 6 (6-14) Blood Urea Nitrogen 18 mg/dL (7-20) 17 mg/dL (7-20) Creatinine 0.7 mg/dL (0.6-1.0) 0.7 mg/dL (0.6-1.0) Estimated GFR (Cockcroft-Gault) 82.7 82.7 Glucose Level 107 mg/dL (70-99) 96 mg/dL (70-99) Calcium Level 8.2 mg/dL (8.5-10.1) 8.2 mg/dL (8.5-10.1) Phosphorus Level 3.5 mg/dL (2.6-4.7) 3.5 mg/dL (2.6-4.7) Magnesium Level 1.7 mg/dL (1.8-2.4) Albumin 2.3 g/dL (3.4-5.0) 2.5 g/dL (3.4-5.0) Glucose (Fingerstick) 148 mg/dL (70-99) 130 mg/dL (70-99) Test 04/06/17 07:13 Glucose (Fingerstick) 101 mg/dL (70-99) Laboratory Tests Test 04/05/17 11:21 04/05/17 16:24 04/06/17 05:00 04/06/17 07:13 Glucose (Fingerstick) 148 mg/dL (70-99) 130 mg/dL (70-99) 101 mg/dL (70-99) White Blood Count 8.5 x10^3/uL (4.0-11.0) Red Blood Count 3.34 x10^6/uL (3.50-5.40) Hemoglobin 11.0 g/dL (12.0-15.5) Hematocrit 33.0 % (36.0-47.0) Mean Corpuscular Volume 99 fL (79-100) Mean Corpuscular Hemoglobin 33 pg (25-35) Mean Corpuscular Hemoglobin Concent 33 g/dL (31-37) Red Cell Distribution Width 13.6 % (11.5-14.5) Platelet Count 240 x10^3/uL (140-400) Neutrophils (%) (Auto) 62 % (31-73) Lymphocytes (%) (Auto) 23 % (24-48) Monocytes (%) (Auto) 11 % (0-9) Eosinophils (%) (Auto) 3 % (0-3) Basophils (%) (Auto) 1 % (0-3) Neutrophils # (Auto) 5.2 x10^3uL (1.8-7.7) Lymphocytes # (Auto) 1.9 x10^3/uL (1.0-4.8) Monocytes # (Auto) 0.9 x10^3/uL (0.0-1.1) Eosinophils # (Auto) 0.3 x10^3/uL (0.0-0.7) Basophils # (Auto) 0.1 x10^3/uL (0.0-0.2) Sodium Level 139 mmol/L (136-145) Potassium Level 4.2 mmol/L (3.5-5.1) Chloride Level 105 mmol/L (98-107) Carbon Dioxide Level 28 mmol/L (21-32) Anion Gap 6 (6-14) Blood Urea Nitrogen 17 mg/dL (7-20) Creatinine 0.7 mg/dL (0.6-1.0) Estimated GFR (Cockcroft-Gault) 82.7 Glucose Level 96 mg/dL (70-99) Calcium Level 8.2 mg/dL (8.5-10.1) Phosphorus Level 3.5 mg/dL (2.6-4.7) Albumin 2.5 g/dL (3.4-5.0) Problem List Problems Medical Problems: (1) Abdominal pain Status: Acute (2) Nausea & vomiting Status: Acute Assessment/Plan s/p xlap, sbr, VIH tmax 101.3, normal WBC will check CXR add Protonix for reflux continue clears toady Problems: ASHLEE MARTINEZ MD 04/06/17 0850: SURGICAL PROGRESS NOTE Assessment/Plan Agree with Carolina's assessment and plan. Problems: VITALY ROSS APRN April 06, 2017 08:43 ASHLEE MARTINEZ MD April 06, 2017 08:50
--- NOTE | 2017-04-06 09:08 | PDOC ---
PROGRESS NOTES Chief Complaint Chief Complaint 1. Small-bowel obstruction, transition, S/P Exploratory laparotomy, lysis of adhesions with release of small bowel obstruction, small bowel resection with primary anastomosis, primary repair of ventral hernia: 3. Hypothyroidism. on synthroid 4. Hypertension.: stable 6. Acute kidney injury, resolved. 8. hypomagnesemia replaced History of Present Illness History of Present Illness Doing relatively well NO emesis today BM positive AMbulates On liquid diet Some GERD today Wound inspected - looking good PLAn: GI cocktail now Cont PPI Resume home synthroid and niacin She thinks she is not ready to advance diet yet today Vitals Vitals Vital Signs Date Time Temp Pulse Resp B/P (MAP) Pulse Ox O2 Delivery O2 Flow Rate FiO2 04/06/17 07:00 97.7 76 18 118/57 (77) 93 Nasal Cannula 2.0 97.7 Physical Exam General: Alert, Oriented X3, Cooperative, No acute distress Heart: Regular rate, Normal S1, Normal S2, No murmurs Lungs: Clear Abdomen: Soft, Other (ND, incision c/d/i, no erythema ) Extremities: No clubbing, No cyanosis Skin: No rashes, No breakdown Labs LABS Laboratory Tests Test 04/05/17 11:21 04/05/17 16:24 04/06/17 05:00 04/06/17 07:13 Glucose (Fingerstick) 148 mg/dL (70-99) 130 mg/dL (70-99) 101 mg/dL (70-99) White Blood Count 8.5 x10^3/uL (4.0-11.0) Red Blood Count 3.34 x10^6/uL (3.50-5.40) Hemoglobin 11.0 g/dL (12.0-15.5) Hematocrit 33.0 % (36.0-47.0) Mean Corpuscular Volume 99 fL (79-100) Mean Corpuscular Hemoglobin 33 pg (25-35) Mean Corpuscular Hemoglobin Concent 33 g/dL (31-37) Red Cell Distribution Width 13.6 % (11.5-14.5) Platelet Count 240 x10^3/uL (140-400) Neutrophils (%) (Auto) 62 % (31-73) Lymphocytes (%) (Auto) 23 % (24-48) Monocytes (%) (Auto) 11 % (0-9) Eosinophils (%) (Auto) 3 % (0-3) Basophils (%) (Auto) 1 % (0-3) Neutrophils # (Auto) 5.2 x10^3uL (1.8-7.7) Lymphocytes # (Auto) 1.9 x10^3/uL (1.0-4.8) Monocytes # (Auto) 0.9 x10^3/uL (0.0-1.1) Eosinophils # (Auto) 0.3 x10^3/uL (0.0-0.7) Basophils # (Auto) 0.1 x10^3/uL (0.0-0.2) Sodium Level 139 mmol/L (136-145) Potassium Level 4.2 mmol/L (3.5-5.1) Chloride Level 105 mmol/L (98-107) Carbon Dioxide Level 28 mmol/L (21-32) Anion Gap 6 (6-14) Blood Urea Nitrogen 17 mg/dL (7-20) Creatinine 0.7 mg/dL (0.6-1.0) Estimated GFR (Cockcroft-Gault) 82.7 Glucose Level 96 mg/dL (70-99) Calcium Level 8.2 mg/dL (8.5-10.1) Phosphorus Level 3.5 mg/dL (2.6-4.7) Albumin 2.5 g/dL (3.4-5.0) Review of Systems Review of Systems reflux, no CP, SOA or inc abd pain Assessment and Plan Assessmemt and Plan Problems Medical Problems: (1) Abdominal pain Status: Acute (2) Nausea & vomiting Status: Acute Problems: Comment Review of Relevant I have reviewed the following items daphne (where applicable) has been applied. Labs Laboratory Tests Test 04/04/17 11:47 04/04/17 17:53 04/05/17 01:50 04/05/17 07:03 Glucose (Fingerstick) 140 mg/dL (70-99) 109 mg/dL (70-99) 134 mg/dL (70-99) 115 mg/dL (70-99) Test 04/05/17 07:19 04/05/17 11:21 04/05/17 16:24 04/06/17 05:00 White Blood Count 8.7 x10^3/uL (4.0-11.0) 8.5 x10^3/uL (4.0-11.0) Red Blood Count 3.31 x10^6/uL (3.50-5.40) 3.34 x10^6/uL (3.50-5.40) Hemoglobin 11.0 g/dL (12.0-15.5) 11.0 g/dL (12.0-15.5) Hematocrit 32.4 % (36.0-47.0) 33.0 % (36.0-47.0) Mean Corpuscular Volume 98 fL (79-100) 99 fL (79-100) Mean Corpuscular Hemoglobin 33 pg (25-35) 33 pg (25-35) Mean Corpuscular Hemoglobin Concent 34 g/dL (31-37) 33 g/dL (31-37) Red Cell Distribution Width 13.3 % (11.5-14.5) 13.6 % (11.5-14.5) Platelet Count 225 x10^3/uL (140-400) 240 x10^3/uL (140-400) Neutrophils (%) (Auto) 64 % (31-73) 62 % (31-73) Lymphocytes (%) (Auto) 21 % (24-48) 23 % (24-48) Monocytes (%) (Auto) 12 % (0-9) 11 % (0-9) Eosinophils (%) (Auto) 3 % (0-3) 3 % (0-3) Basophils (%) (Auto) 0 % (0-3) 1 % (0-3) Neutrophils # (Auto) 5.6 x10^3uL (1.8-7.7) 5.2 x10^3uL (1.8-7.7) Lymphocytes # (Auto) 1.8 x10^3/uL (1.0-4.8) 1.9 x10^3/uL (1.0-4.8) Monocytes # (Auto) 1.0 x10^3/uL (0.0-1.1) 0.9 x10^3/uL (0.0-1.1) Eosinophils # (Auto) 0.3 x10^3/uL (0.0-0.7) 0.3 x10^3/uL (0.0-0.7) Basophils # (Auto) 0.0 x10^3/uL (0.0-0.2) 0.1 x10^3/uL (0.0-0.2) Sodium Level 139 mmol/L (136-145) 139 mmol/L (136-145) Potassium Level 4.3 mmol/L (3.5-5.1) 4.2 mmol/L (3.5-5.1) Chloride Level 106 mmol/L (98-107) 105 mmol/L (98-107) Carbon Dioxide Level 29 mmol/L (21-32) 28 mmol/L (21-32) Anion Gap 4 (6-14) 6 (6-14) Blood Urea Nitrogen 18 mg/dL (7-20) 17 mg/dL (7-20) Creatinine 0.7 mg/dL (0.6-1.0) 0.7 mg/dL (0.6-1.0) Estimated GFR (Cockcroft-Gault) 82.7 82.7 Glucose Level 107 mg/dL (70-99) 96 mg/dL (70-99) Calcium Level 8.2 mg/dL (8.5-10.1) 8.2 mg/dL (8.5-10.1) Phosphorus Level 3.5 mg/dL (2.6-4.7) 3.5 mg/dL (2.6-4.7) Magnesium Level 1.7 mg/dL (1.8-2.4) Albumin 2.3 g/dL (3.4-5.0) 2.5 g/dL (3.4-5.0) Glucose (Fingerstick) 148 mg/dL (70-99) 130 mg/dL (70-99) Test 04/06/17 07:13 Glucose (Fingerstick) 101 mg/dL (70-99) Laboratory Tests Test 04/05/17 11:21 04/05/17 16:24 04/06/17 05:00 04/06/17 07:13 Glucose (Fingerstick) 148 mg/dL (70-99) 130 mg/dL (70-99) 101 mg/dL (70-99) White Blood Count 8.5 x10^3/uL (4.0-11.0) Red Blood Count 3.34 x10^6/uL (3.50-5.40) Hemoglobin 11.0 g/dL (12.0-15.5) Hematocrit 33.0 % (36.0-47.0) Mean Corpuscular Volume 99 fL (79-100) Mean Corpuscular Hemoglobin 33 pg (25-35) Mean Corpuscular Hemoglobin Concent 33 g/dL (31-37) Red Cell Distribution Width 13.6 % (11.5-14.5) Platelet Count 240 x10^3/uL (140-400) Neutrophils (%) (Auto) 62 % (31-73) Lymphocytes (%) (Auto) 23 % (24-48) Monocytes (%) (Auto) 11 % (0-9) Eosinophils (%) (Auto) 3 % (0-3) Basophils (%) (Auto) 1 % (0-3) Neutrophils # (Auto) 5.2 x10^3uL (1.8-7.7) Lymphocytes # (Auto) 1.9 x10^3/uL (1.0-4.8) Monocytes # (Auto) 0.9 x10^3/uL (0.0-1.1) Eosinophils # (Auto) 0.3 x10^3/uL (0.0-0.7) Basophils # (Auto) 0.1 x10^3/uL (0.0-0.2) Sodium Level 139 mmol/L (136-145) Potassium Level 4.2 mmol/L (3.5-5.1) Chloride Level 105 mmol/L (98-107) Carbon Dioxide Level 28 mmol/L (21-32) Anion Gap 6 (6-14) Blood Urea Nitrogen 17 mg/dL (7-20) Creatinine 0.7 mg/dL (0.6-1.0) Estimated GFR (Cockcroft-Gault) 82.7 Glucose Level 96 mg/dL (70-99) Calcium Level 8.2 mg/dL (8.5-10.1) Phosphorus Level 3.5 mg/dL (2.6-4.7) Albumin 2.5 g/dL (3.4-5.0) Microbiology 03/30/17 Blood Culture - Final, Complete NO GROWTH AFTER 5 DAYS 03/29/17 Urine Culture - Final, Complete 03/29/17 Urine Culture Result 1 (CYNTHIA) - Final, Complete Medications Current Medications Morphine Sulfate 2 mg PRN Q15MIN PRN IV/SQ PAIN GREATER THAN 3/10 Last administered on 03/30/17 00:39; Start 03/29/17 at 17:45; Stop 03/30/17 at 17:44 ; Status DC Sodium Chloride 1,000 ml @ 1,000 mls/hr Q1H IV Last administered on 03/29/17 17:32; Start 03/29/17 at 17:32; Stop 03/29/17 at 18:31; Status DC Ondansetron HCl (Zofran) 4 mg 1X ONCE IV Last administered on 03/29/17 17:45 ; Start 03/29/17 at 17:45; Stop 03/29/17 at 17:46; Status DC Iohexol (Omnipaque 240 Mg/ml) 30 ml 1X ONCE PO Last administered on 03/29/17 19:45; Start 03/29/17 at 19:45; Stop 03/29/17 at 19:46; Status DC Ondansetron HCl (Zofran) 4 mg 1X ONCE IV Last administered on 03/29/17 19:58 ; Start 03/29/17 at 20:00; Stop 03/29/17 at 20:01; Status DC Prochlorperazine Edisylate (Compazine) 10 mg 1X ONCE IV Last administered on 21:01; Start 03/29/17 at 21:15; Stop 03/29/17 at 21:16; Status DC Diphenhydramine HCl (Benadryl) 25 mg 1X ONCE IVP Last administered on 21:01; Start 03/29/17 at 21:15; Stop 03/29/17 at 21:16; Status DC Ondansetron HCl (Zofran) 4 mg PRN Q8HRS PRN IV NAUSEA/VOMITING Last administered on 03/30/17 07:59; Start 03/29/17 at 23:45; Stop 03/30/17 at 23:44 ; Status DC Fentanyl Citrate (Fentanyl 2ml Vial) 25 mcg PRN Q1HR PRN IV SEVERE PAIN Last administered on 03/30/17 06:12; Start 03/29/17 at 23:45; Stop 03/30/17 at 23:44 ; Status DC Potassium Chloride/Dextrose/ Sod Cl 1,000 ml @ 75 mls/hr 1X ONCE IV Last administered on 03/30/17 06:13; Start 03/30/17 at 00:00; Stop 03/30/17 at 13:19 ; Status DC Ciprofloxacin Lactate 200 ml @ 200 mls/hr Q12HR IV ; Start 03/30/17 at 09:00; Status UNV Metronidazole 100 ml @ 100 mls/hr Q8HRS IV Last administered on 04/06/17 05:13 ; Start 03/30/17 at 00:00 Ciprofloxacin Lactate 200 ml @ 200 mls/hr 1X ONCE IV Last administered on 06:14; Start 03/30/17 at 00:00; Stop 03/30/17 at 00:59; Status DC Ciprofloxacin Lactate 100 ml @ 100 mls/hr [id number] IV Last administered on 05:15; Start 03/30/17 at 18:00; Stop 04/04/17 at 13:17; Status DC Enoxaparin Sodium (Lovenox 30mg Syringe) 30 mg Q24H SQ Last administered on 04/01 11:26; Start 03/30/17 at 11:00; Stop 04/01/17 at 11:50; Status DC Acetaminophen (Tylenol) 325 mg PRN Q6HRS PRN PO MILD PAIN / TEMP Last administered on 04/05/17 13:06; Start 03/30/17 at 10:30 Acetaminophen/ Hydrocodone Bitart (Lortab 5/325) 1 tab PRN Q6HRS PRN PO MODERATE TO SEVERE PAIN Last administered on 04/05/17 20:58; Start 03/30/17 at 10:30 Hydralazine HCl (Apresoline) 10 mg PRN Q4HRS PRN IVP ELEVATED BP, SEE COMMENTS ; Start 03/30/17 at 10:30 Ondansetron HCl (Zofran) 4 mg PRN Q8HRS PRN IV NAUSEA/VOMITING Last administered on 04/04/17 03:31; Start 03/30/17 at 10:30; Stop 04/04/17 at 09:32; Status DC Albuterol Sulfate (Ventolin Neb Soln) 2.5 mg PRN Q4HRS PRN NEB SHORTNESS OF BREATH; Start 03/30/17 at 10:30 Sodium Chloride 1,000 ml @ 150 mls/hr Q6H40M IV Last administered on 04/01/17 01:41; Start 03/30/17 at 10:30; Stop 04/01/17 at 14:14; Status DC Morphine Sulfate 2 mg PRN Q2HR PRN IV PAIN Last administered on 04/04/17 11:01 ; Start 03/30/17 at 10:30 Metronidazole 100 ml @ 100 mls/hr Q12HR IV ; Start 03/30/17 at 21:00; Stop at 21:00; Status DC Ciprofloxacin Lactate 100 ml @ 100 mls/hr Q12HR IV ; Start 03/30/17 at 21:00; Stop 03/30/17 at 21:00; Status DC Iohexol (Omnipaque 350 Mg/ml) 400 ml 1X ONCE PO Last administered on 11:47; Start 03/30/17 at 11:00; Stop 03/30/17 at 11:01; Status DC Info (Do NOT chart on this entry -- for MONITORING) 1 each PRN DAILY PRN MC SEE COMMENTS; Start 03/30/17 at 11:00; Stop 04/01/17 at 10:59; Status DC Fentanyl Citrate (Fentanyl 2ml Vial) 25 mcg PRN Q5MIN PRN IV MILD PAIN; Start 03/30/17 at 16:45; Stop 03/31/17 at 16:44; Status DC Fentanyl Citrate (Fentanyl 2ml Vial) 50 mcg PRN Q5MIN PRN IV MODERATE PAIN Last administered on 03/30/17 21:23; Start 03/30/17 at 16:45; Stop 03/31/17 at 16:44; Status DC Morphine Sulfate 1 mg PRN Q10MIN PRN IV SEVERE PAIN; Start 03/30/17 at 16:45; Stop 03/31/17 at 16:44; Status DC Lactated Ringer's 1,000 ml @ 30 mls/hr Q24H IV ; Start 03/30/17 at 16:43; Stop 03/31/17 at 04:43; Status DC Lidocaine HCl 2 ml PRN 1X PRN ID PRIOR TO IV START; Start 03/30/17 at 16:45; Stop 03/31/17 at 16:44; Status DC Hydromorphone HCl (Dilaudid) 0.5 mg PRN Q10MIN PRN IV SEV PAIN, Second choice; Start 03/30/17 at 16:45; Stop 03/31/17 at 16:44; Status DC Prochlorperazine Edisylate (Compazine) 5 mg PACU PRN PRN IV NAUSEA, MRX1; Start 03/30/17 at 16:45; Stop 03/31/17 at 16:44; Status DC Dexamethasone Sodium Phosphate (Decadron) 20 mg STK-MED ONCE .ROUTE ; Start at 17:18; Stop 03/30/17 at 17:19; Status DC Ondansetron HCl (Zofran) 4 mg STK-MED ONCE .ROUTE ; Start 03/30/17 at 17:18; Stop 03/30/17 at 17:19; Status DC Propofol 20 ml @ As Directed STK-MED ONCE IV ; Start 03/30/17 at 17:18; Stop at 17:19; Status DC Lidocaine HCl (Lidocaine HCl 2% Abboject) 100 mg STK-MED ONCE .ROUTE ; Start at 17:18; Stop 03/30/17 at 17:19; Status DC Desflurane (Suprane) 90 ml STK-MED ONCE IH ; Start 03/30/17 at 17:18; Stop 03/30 at 17:19; Status DC Fentanyl Citrate (Fentanyl 2ml Vial) 100 mcg STK-MED ONCE .ROUTE ; Start at 17:18; Stop 03/30/17 at 17:19; Status DC Succinylcholine Chloride (Anectine) 200 mg STK-MED ONCE .ROUTE ; Start 03/30/17 at 17:18; Stop 03/30/17 at 17:19; Status DC Rocuronium [place] (Zemuron) 50 mg STK-MED ONCE .ROUTE ; Start 03/30/17 at 17:18 ; Stop 03/30/17 at 17:19; Status DC Phenylephrine HCl 1 mg STK-MED ONCE IV ; Start 03/30/17 at 18:09; Stop 03/30/17 at 18:10; Status DC Fentanyl Citrate (Fentanyl 2ml Vial) 100 mcg STK-MED ONCE .ROUTE ; Start at 18:58; Stop 03/30/17 at 18:59; Status DC Sodium Chloride 500 ml @ 0 mls/hr QID PRN IV UO< 30cc/hr over previous 6hrs; Start 03/31/17 at 08:30 Magnesium Sulfate/ Dextrose 50 ml @ 25 mls/hr PRN DAILY PRN IV for Mag < 1.7 on am labs; Start 03/31/17 at 08:30 Enoxaparin Sodium (Lovenox 40mg Syringe) 40 mg Q24H SQ Last administered on 04/05 13:07; Start 04/02/17 at 12:00 Amino Acids/ Glycerin/ Electrolytes 1,000 ml @ 80 mls/hr [id number] IV Last administered on 04/02/17 05:43; Start 04/01/17 at 14:15; Stop 04/02/17 at 14:40; Status DC Potassium Phosphate 13.6 mmol/Sodium Chloride 254.5333 ml @ 127.... Q2H IV Last administered on 04/02/17 16:42; Start 04/02/17 at 11:00; Stop 04/02/17 at 16: 59; Status DC Sodium Chloride 500 ml @ 0 mls/hr PRN QID PRN IV UO< 30cc/hr over previous 6hrs ; Start 04/02/17 at 10:45 Info 1 each PRN DAILY PRN MC SEE COMMENTS Last administered on 04/05/17 11:59; Start 04/02/17 at 11:30 Sodium Chloride 90 meq/Potassium Chloride 50 meq/ Potassium Phosphate 13.6 mmol/ Magnesium Sulfate 10 meq/ Calcium Gluconate 10 meq/ Multivitamins 10 ml/Zinc/ Copper/ Mindi/Chrom/ Selen 1 ml/Total Parenteral Nutrition/Amino Acids/Dextrose / Fat Emulsion Intravenous 1,512 ml @ 63 mls/hr TPN CONT IV Last administered on 04/02/17 22:00; Start 04/02/17 at 22:00; Stop 04/04/17 at 13:10; Status DC Sodium Chloride (Normal Saline Flush) 10 ml QSHIFT PRN IV AFTER MEDS AND BLOOD DRAWS; Start 04/02/17 at 14:45 Sodium Chloride (Normal Saline Flush) 20 ml QSHIFT PRN IV AFTER MEDS AND BLOOD DRAWS; Start 04/02/17 at 14:45 Magnesium Sulfate/ Dextrose 100 ml @ 100 mls/hr 1X ONCE IV Last administered on 04/03/17 12:40; Start 04/03/17 at 12:30; Stop 04/03/17 at 13:29; Status DC Sodium Chloride 90 meq/Potassium Chloride 50 meq/ Potassium Phosphate 13.6 mmol/ Magnesium Sulfate 16 meq/ Calcium Gluconate 10 meq/ Multivitamins 10 ml/Zinc/ Copper/ Mindi/Chrom/ Selen 1 ml/Total Parenteral Nutrition/Amino Acids/Dextrose / Fat Emulsion Intravenous 1,512 ml @ 63 mls/hr TPN CONT IV Last administered on 04/03/17 22:00; Start 04/03/17 at 22:00; Stop 04/04/17 at 21:59; Status DC Ondansetron HCl (Zofran) 4 mg PRN Q6HRS PRN IV NAUSEA/VOMITING Last administered on 04/05/17 20:57; Start 04/04/17 at 09:30 Metoclopramide HCl (Reglan) 10 mg PRN Q6HRS PRN IV NAUSEA/VOMITING Last administered on 04/05/17 14:09; Start 04/04/17 at 10:45 Ciprofloxacin Lactate 200 ml @ 200 mls/hr Q12HR IV Last administered on 20:57; Start 04/04/17 at 21:00 Sodium Chloride 90 meq/Potassium Chloride 50 meq/ Potassium Phosphate 13.6 mmol/ Magnesium Sulfate 16 meq/ Calcium Gluconate 10 meq/ Multivitamins 10 ml/Zinc/ Copper/ Mindi/Chrom/ Selen 1 ml/Total Parenteral Nutrition/Amino Acids/Dextrose / Fat Emulsion Intravenous 1,512 ml @ 63 mls/hr TPN CONT IV Last administered on 04/04/17 22:42; Start 04/04/17 at 22:00; Stop 04/05/17 at 21:59; Status DC Magnesium Sulfate/ Dextrose 50 ml @ 25 mls/hr PRN DAILY PRN IV for mag < 1.7 on am labs; Start 04/05/17 at 10:00 Magnesium Sulfate/ Dextrose 100 ml @ 100 mls/hr 1X ONCE IV Last administered on 04/05/17 10:55; Start 04/05/17 at 10:00; Stop 04/05/17 at 10:59; Status DC Magnesium Sulfate/ Dextrose 100 ml @ 100 mls/hr 1X ONCE IV ; Start 04/05/17 at 11:30; Stop 04/05/17 at 12:29; Status DC Sodium Chloride 90 meq/Potassium Chloride 50 meq/ Potassium Phosphate 13.6 mmol/ Magnesium Sulfate 18 meq/ Calcium Gluconate 10 meq/ Multivitamins 10 ml/Chromium / Copper/Manganese/ Seleni/Zn 1 ml/ Total Parenteral Nutrition/Amino Acids/ Dextrose/ Fat Emulsion Intravenous 1,512 ml @ 63 mls/hr TPN CONT IV ; Start at 22:00; Stop 04/06/17 at 21:59 Pantoprazole Sodium (Protonix) 40 mg DAILYAC PO ; Start 04/06/17 at 08:45 Active Scripts Active Reported Niaspan (Niacin) 1,000 Mg Tab.er.24h 1 Tab PO BID Levothyroxine Sodium 88 Mcg Tablet 1 Tab PO DAILY Vitals/I & O Vital Sign - Last 24 Hours 04/05/17 04/05/17 04/05/17 04/05/17 10:30 14:32 19:00 20:00 Temp 101.3 100.0 99.5 101.3 100.0 99.5 Pulse 69 74 91 Resp 18 18 18 B/P (MAP) 120/47 (71) 27/59 (48) 119/69 (86) Pulse Ox 95 96 92 O2 Delivery Nasal Cannula Room Air Room Air Room Air O2 Flow Rate 2.0 04/05/17 04/05/17 04/05/17 04/06/17 20:58 22:44 23:00 07:00 Temp 98.6 97.7 98.6 97.7 Pulse 86 76 Resp 18 18 18 18 B/P (MAP) 96/63 (74) 118/57 (77) Pulse Ox 94 93 O2 Delivery Room Air Nasal Cannula Room Air Nasal Cannula O2 Flow Rate 2.0 2.0 Intake and Output 04/05/17 04/05/17 04/06/17 14:59 22:59 06:59 Intake Total 240 ml Output Total 250 ml 1 ml Balance -10 ml -1 ml GRIS BRNADON MD April 06, 2017 09:08
[2017-04-06] MEDS ORDERED: LIDO:MAALOX:DONNATAL 1:1:1 15 ML SINGLE DOSE SWSW ONE (09:15)
--- NOTE | 2017-04-06 09:36 | RAD ---
Indication fever. Shortness of air. A single view of the chest was obtained and is compared to an exam 11/14/2015. Inspiratory effort is slightly suboptimal. The heart and pulmonary vessels are within normal limits. A consolidated pneumonia is not seen. There is a small right pleural effusion and a probable trace left. Right PICC line is noted. IMPRESSION: Small right pleural effusion and trace left.
[2017-04-06] MEDS: LEVOTHYROXINE 88 MCG TABLET PO SCH (09:51)
[2017-04-06] MEDS: PANTOPRAZOLE 40 MG TABLET.DR. PO SCH (09:51)
[2017-04-06] MEDS: CIPROFLOXACIN 400MG PREMIX 200 ML IV SCH (09:52)
--- NOTE | 2017-04-06 09:54 | PDOC ---
SUBJECTIVE ROS TPN Management Pt refused TPN last pm - she felt that it may be contributing to NV; She is trying to take more PO Fevers noted OBJECTIVE Vital Signs Vital Signs Date Time Temp Pulse Resp B/P (MAP) Pulse Ox O2 Delivery O2 Flow Rate FiO2 04/06/17 07:00 97.7 76 18 118/57 (77) 93 Nasal Cannula 2.0 97.7 I & 0 Intake and Output 04/06/17 06:59 Intake Total 240 ml Output Total 251 ml Balance -11 ml Intake Oral 240 ml Output Urine Total 251 ml # Voids 3 # Bowel Movements 2 PHYSICAL EXAM Physical Exam General Appearance: Awake: Alert Oriented x 3 Neck: No JVD or JVP Chest: CTA Bruno Heart: S1 S2 Abdomen - Soft + BS Extremities - No Edema ASSESSMENT/PLAN SBO/ ? resolving Post Op Ileus - now off ot TPN . Fluid and elyte status is acceptable Fevers - defer to Primary team Will sign off - pl call with Qs COMMENT/RELEVANT DATA Meds Current Medications Medications (Trade) Dose Ordered Sig/Stevie Start Time Stop Time Status Last Admin Dose Admin Acetaminophen (Tylenol) 325 mg PRN Q6HRS PRN 03/30/17 10:30 04/05/17 13:06 325 MG Acetaminophen/ Hydrocodone Bitart (Lortab 5/325) 1 tab PRN Q6HRS PRN 03/30/17 10:30 04/05/17 20:58 1 TAB Albuterol Sulfate (Ventolin Neb Soln) 2.5 mg PRN Q4HRS PRN 03/30/17 10:30 Amino Acids/ Glycerin/ Electrolytes 1,000 ml @ 80 mls/hr [id number] 04/01/17 14:15 04/02/17 14:40 DC 04/02/17 05:43 80 MLS/HR Calcium Carbonate/ Glycine (Tums) 500 mg PRN [id number] PRN 04/06/17 09:15 Ciprofloxacin (Cipro) 500 mg BID 04/06/17 21:00 Ciprofloxacin Lactate 200 ml @ 200 mls/hr Q12HR 04/04/17 21:00 04/06/17 12:00 04/05/17 20:57 200 MLS/HR Desflurane (Suprane) 90 ml STK-MED ONCE 03/30/17 17:18 4/29/17 17:19 DC Dexamethasone Sodium Phosphate (Decadron) 20 mg STK-MED ONCE 03/30/17 17:18 03/30/17 17:19 DC Diphenhydramine HCl (Benadryl) 25 mg 1X ONCE 03/29/17 21:15 03/29/17 21:16 DC 03/29/17 21:01 25 MG Enoxaparin Sodium (Lovenox 30mg Syringe) 30 mg Q24H 03/30/17 11:00 04/01/17 11:50 DC 04/01/17 11:26 30 MG Enoxaparin Sodium (Lovenox 40mg Syringe) 40 mg Q24H 04/02/17 12:00 04/05/17 13:07 40 MG Fentanyl Citrate (Fentanyl 2ml Vial) 100 mcg STK-MED ONCE 03/30/17 18:58 03/30/17 18:59 DC Hydralazine HCl (Apresoline) 10 mg PRN Q4HRS PRN 03/30/17 10:30 Hydromorphone HCl (Dilaudid) 0.5 mg PRN Q10MIN PRN 03/30/17 16:45 03/31/17 16:44 DC Info 1 each PRN DAILY PRN 04/02/17 11:30 04/05/17 11:59 1 EACH Info (Do NOT chart on this entry -- for MONITORING) 1 each PRN DAILY PRN 03/30/17 11:00 04/01/17 10:59 DC Iohexol (Omnipaque 240 Mg/ml) 30 ml 1X ONCE 03/29/17 19:45 03/29/17 19:46 DC 03/29/17 19:45 30 ML Iohexol (Omnipaque 350 Mg/ml) 400 ml 1X ONCE 03/30/17 11:00 03/30/17 11:01 DC 03/30/17 11:47 200 ML Lactated Ringer's 1,000 ml @ 30 mls/hr Q24H 03/30/17 16:43 03/31/17 04:43 DC Levothyroxine Sodium (Synthroid) 88 mcg DAILY 04/06/17 10:00 Lidocaine HCl (Lidocaine HCl 2% Abboject) 100 mg STK-MED ONCE 03/30/17 17:18 03/30/17 17:19 DC Magnesium Sulfate/ Dextrose 100 ml @ 100 mls/hr 1X ONCE 04/05/17 11:30 04/05/17 12:29 DC Metoclopramide HCl (Reglan) 10 mg PRN Q6HRS PRN 04/04/17 10:45 04/05/17 14:09 10 MG Metronidazole (Flagyl) 500 mg Q8HRS 04/06/17 14:00 Morphine Sulfate 1 mg PRN Q10MIN PRN 03/30/17 16:45 03/31/17 16:44 DC Multi-Ingredient Mouthwash/Gargle (Gi Cocktail Single Dose) 15 ml 1X ONCE 04/06/17 09:15 04/06/17 09:26 DC Niacin (Slo-Niacin) 1,000 mg [id number] 04/06/17 17:00 Ondansetron HCl (Zofran) 4 mg PRN Q6HRS PRN 04/04/17 09:30 04/05/17 20:57 4 MG Pantoprazole Sodium (Protonix) 40 mg DAILYAC 04/06/17 08:45 Phenylephrine HCl 1 mg STK-MED ONCE 03/30/17 18:09 03/30/17 18:10 DC Potassium Chloride/Dextrose/ Sod Cl 1,000 ml @ 75 mls/hr 1X ONCE 03/30/17 00:00 03/30/17 13:19 DC 03/30/17 06:13 75 MLS/HR Potassium Phosphate 13.6 mmol/Sodium Chloride 254.5333 ml @ 127.... Q2H 04/02/17 11:00 04/02/17 16:59 DC 04/02/17 16:42 127.267 MLS/HR Prochlorperazine Edisylate (Compazine) 5 mg PACU PRN PRN 03/30/17 16:45 03/31/17 16:44 DC Propofol 20 ml @ As Directed STK-MED ONCE 03/30/17 17:18 03/30/17 17:19 DC Rocuronium Tenstrike (Zemuron) 50 mg STK-MED ONCE 03/30/17 17:18 03/30/17 17:19 DC Sodium Chloride (Normal Saline Flush) 20 ml QSHIFT PRN 04/02/17 14:45 Sodium Chloride 90 meq/Potassium Chloride 50 meq/ Potassium Phosphate 13.6 mmol/Magnesium Sulfate 10 meq/ Calcium Gluconate 10 meq/ Multivitamins 10 ml/Zinc/Copper/ Mindi/Chrom/ Selen 1 ml/Total Parenteral Nutrition/Amino Acids/Dextrose/ Fat Emulsion Intravenous 1,512 ml @ 63 mls/hr TPN CONT 04/02/17 22:00 04/04/17 13:10 DC 04/02/17 22:00 63 MLS/HR Sodium Chloride 90 meq/Potassium Chloride 50 meq/ Potassium Phosphate 13.6 mmol/Magnesium Sulfate 16 meq/ Calcium Gluconate 10 meq/ Multivitamins 10 ml/Zinc/Copper/ Mindi/Chrom/ Selen 1 ml/Total Parenteral Nutrition/Amino Acids/Dextrose/ Fat Emulsion Intravenous 1,512 ml @ 63 mls/hr TPN CONT 04/04/17 22:00 04/05/17 21:59 DC 04/04/17 22:42 63 MLS/HR Sodium Chloride 90 meq/Potassium Chloride 50 meq/ Potassium Phosphate 13.6 mmol/Magnesium Sulfate 18 meq/ Calcium Gluconate 10 meq/ Multivitamins 10 ml/Chromium/ Copper/Manganese/ Seleni/Zn 1 ml/ Total Parenteral Nutrition/Amino Acids/Dextrose/ Fat Emulsion Intravenous 1,512 ml @ 63 mls/hr TPN CONT 04/05/17 22:00 04/06/17 21:59 Succinylcholine Chloride (Anectine) 200 mg STK-MED ONCE 03/30/17 17:18 03/30/17 17:19 DC Lab Laboratory Tests Test 04/05/17 11:21 04/05/17 16:24 04/06/17 05:00 04/06/17 07:13 Glucose (Fingerstick) 148 mg/dL (70-99) 130 mg/dL (70-99) 101 mg/dL (70-99) White Blood Count 8.5 x10^3/uL (4.0-11.0) Red Blood Count 3.34 x10^6/uL (3.50-5.40) Hemoglobin 11.0 g/dL (12.0-15.5) Hematocrit 33.0 % (36.0-47.0) Mean Corpuscular Volume 99 fL (79-100) Mean Corpuscular Hemoglobin 33 pg (25-35) Mean Corpuscular Hemoglobin Concent 33 g/dL (31-37) Red Cell Distribution Width 13.6 % (11.5-14.5) Platelet Count 240 x10^3/uL (140-400) Neutrophils (%) (Auto) 62 % (31-73) Lymphocytes (%) (Auto) 23 % (24-48) Monocytes (%) (Auto) 11 % (0-9) Eosinophils (%) (Auto) 3 % (0-3) Basophils (%) (Auto) 1 % (0-3) Neutrophils # (Auto) 5.2 x10^3uL (1.8-7.7) Lymphocytes # (Auto) 1.9 x10^3/uL (1.0-4.8) Monocytes # (Auto) 0.9 x10^3/uL (0.0-1.1) Eosinophils # (Auto) 0.3 x10^3/uL (0.0-0.7) Basophils # (Auto) 0.1 x10^3/uL (0.0-0.2) Sodium Level 139 mmol/L (136-145) Potassium Level 4.2 mmol/L (3.5-5.1) Chloride Level 105 mmol/L (98-107) Carbon Dioxide Level 28 mmol/L (21-32) Anion Gap 6 (6-14) Blood Urea Nitrogen 17 mg/dL (7-20) Creatinine 0.7 mg/dL (0.6-1.0) Estimated GFR (Cockcroft-Gault) 82.7 Glucose Level 96 mg/dL (70-99) Calcium Level 8.2 mg/dL (8.5-10.1) Phosphorus Level 3.5 mg/dL (2.6-4.7) Albumin 2.5 g/dL (3.4-5.0) PAULA KELLY MD April 06, 2017 09:54
[2017-04-06 10:48] VITALS: BP 108/62
[2017-04-06] MEDS: ENOXAPARIN 40 MG/0.4 ML SYRINGE. SQ SCH (12:41)
[2017-04-06] MEDS: metroNIDAZOLE 500 MG TABLET PO SCH ×2 (14:00→21:13)
[2017-04-06 15:09] VITALS: BP 126/61
[2017-04-06] MEDS: ONDANSETRON PF 4 MG/2 ML VIAL. IV PRN (16:44)
[2017-04-06] MEDS: NIACIN ER 500 MG TABLET.ER PO SCH (17:00)
[2017-04-06 19:00] VITALS: BP 122/59
[2017-04-06] MEDS: CIPROFLOXACIN HCL 250 MG TABLET. PO SCH (21:13)
[2017-04-06] MEDS: CALCIUM CARBONATE 500 MG TAB.CHEW PO PRN (21:52)
[2017-04-06 23:00] VITALS: BP 104/37
[2017-04-07 03:00] VITALS: BP 103/45
[2017-04-07] MEDS: metroNIDAZOLE 500 MG TABLET PO SCH ×3 (06:27→22:03)
[2017-04-07 07:00] VITALS: BP_SYST 109
[2017-04-07 07:25] LABS: ALBUMIN 2.4 g/dL (3.4-5.0); CREATININE 0.7 mg/dL (0.6-1.0); GFR 82.7; PHOSPHORUS 2.8 mg/dL (2.6-4.7); POTASSIUM 3.7 mmol/L (3.5-5.1)
[2017-04-07] MEDS: CIPROFLOXACIN HCL 250 MG TABLET. PO SCH ×2 (08:48→20:55)
[2017-04-07] MEDS: PANTOPRAZOLE 40 MG TABLET.DR. PO SCH (08:48)
[2017-04-07] MEDS: LEVOTHYROXINE 88 MCG TABLET PO SCH (08:48)
--- NOTE | 2017-04-07 09:15 | PDOC ---
VITALY ROSS EMPLOYMENT LEGAL ASSISTANT 04/07/17 0915: SURGICAL PROGRESS NOTE Subjective one episode of emesis yesterday AM, otherwise tolerated the clears + flatus and stool Vital Signs Vital Signs Date Time Temp Pulse Resp B/P (MAP) Pulse Ox O2 Delivery O2 Flow Rate FiO2 04/07/17 07:00 97.8 72 20 109/ 96 Nasal Cannula 2.0 97.8 I&O Intake and Output 04/07/17 07:00 Intake Total 600 ml Output Total 600 ml Balance 0 ml Intake Oral 600 ml Emesis 600 ml # Voids 6 General: Alert, Oriented X3, Cooperative, No acute distress Abdomen: Soft, Other (NTTP) Labs Laboratory Tests Test 04/05/17 11:21 04/05/17 16:24 04/06/17 05:00 04/06/17 07:13 Glucose (Fingerstick) 148 mg/dL (70-99) 130 mg/dL (70-99) 101 mg/dL (70-99) White Blood Count 8.5 x10^3/uL (4.0-11.0) Red Blood Count 3.34 x10^6/uL (3.50-5.40) Hemoglobin 11.0 g/dL (12.0-15.5) Hematocrit 33.0 % (36.0-47.0) Mean Corpuscular Volume 99 fL (79-100) Mean Corpuscular Hemoglobin 33 pg (25-35) Mean Corpuscular Hemoglobin Concent 33 g/dL (31-37) Red Cell Distribution Width 13.6 % (11.5-14.5) Platelet Count 240 x10^3/uL (140-400) Neutrophils (%) (Auto) 62 % (31-73) Lymphocytes (%) (Auto) 23 % (24-48) Monocytes (%) (Auto) 11 % (0-9) Eosinophils (%) (Auto) 3 % (0-3) Basophils (%) (Auto) 1 % (0-3) Neutrophils # (Auto) 5.2 x10^3uL (1.8-7.7) Lymphocytes # (Auto) 1.9 x10^3/uL (1.0-4.8) Monocytes # (Auto) 0.9 x10^3/uL (0.0-1.1) Eosinophils # (Auto) 0.3 x10^3/uL (0.0-0.7) Basophils # (Auto) 0.1 x10^3/uL (0.0-0.2) Sodium Level 139 mmol/L (136-145) Potassium Level 4.2 mmol/L (3.5-5.1) Chloride Level 105 mmol/L (98-107) Carbon Dioxide Level 28 mmol/L (21-32) Anion Gap 6 (6-14) Blood Urea Nitrogen 17 mg/dL (7-20) Creatinine 0.7 mg/dL (0.6-1.0) Estimated GFR (Cockcroft-Gault) 82.7 Glucose Level 96 mg/dL (70-99) Calcium Level 8.2 mg/dL (8.5-10.1) Phosphorus Level 3.5 mg/dL (2.6-4.7) Albumin 2.5 g/dL (3.4-5.0) Test 04/06/17 10:32 04/06/17 16:00 04/06/17 20:39 04/07/17 06:00 Glucose (Fingerstick) 139 mg/dL (70-99) 99 mg/dL (70-99) 84 mg/dL (70-99) Sodium Level 136 mmol/L (136-145) Potassium Level 3.7 mmol/L (3.5-5.1) Chloride Level 104 mmol/L (98-107) Carbon Dioxide Level 27 mmol/L (21-32) Anion Gap 5 (6-14) Blood Urea Nitrogen 16 mg/dL (7-20) Creatinine 0.7 mg/dL (0.6-1.0) Estimated GFR (Cockcroft-Gault) 82.7 Glucose Level 105 mg/dL (70-99) Calcium Level 8.0 mg/dL (8.5-10.1) Phosphorus Level 2.8 mg/dL (2.6-4.7) Albumin 2.4 g/dL (3.4-5.0) Laboratory Tests Test 04/06/17 10:32 04/06/17 16:00 04/06/17 20:39 04/07/17 06:00 Glucose (Fingerstick) 139 mg/dL (70-99) 99 mg/dL (70-99) 84 mg/dL (70-99) Sodium Level 136 mmol/L (136-145) Potassium Level 3.7 mmol/L (3.5-5.1) Chloride Level 104 mmol/L (98-107) Carbon Dioxide Level 27 mmol/L (21-32) Anion Gap 5 (6-14) Blood Urea Nitrogen 16 mg/dL (7-20) Creatinine 0.7 mg/dL (0.6-1.0) Estimated GFR (Cockcroft-Gault) 82.7 Glucose Level 105 mg/dL (70-99) Calcium Level 8.0 mg/dL (8.5-10.1) Phosphorus Level 2.8 mg/dL (2.6-4.7) Albumin 2.4 g/dL (3.4-5.0) Problem List Problems Medical Problems: (1) Abdominal pain Status: Acute (2) Nausea & vomiting Status: Acute Assessment/Plan s/p xlap advance to full liquids IS wean off O2 Problems: ASHLEE MARTINEZ MD 04/07/17 1208: SURGICAL PROGRESS NOTE Assessment/Plan Agree with Carolina's assessment and plan Problems: VITALY ROSS APRN April 07, 2017 09:15 ASHLEE MARTINEZ MD April 07, 2017 12:08
--- NOTE | 2017-04-07 10:49 | PDOC ---
PROGRESS NOTES Chief Complaint Chief Complaint 1. Small-bowel obstruction, transition, S/P Exploratory laparotomy, lysis of adhesions with release of small bowel obstruction, small bowel resection with primary anastomosis, primary repair of ventral hernia: 2. Hypothyroidism. on synthroid 3. Hypertension.: stable 4. Acute kidney injury, resolved. 5. hypomagnesemia replaced 6. Fevers History of Present Illness History of Present Illness Doing relatively well NO emesis PAssing gas Upgraded to full liquids by GS BUt low grade temps yesterday Admits not doing IS as much CXR mild pleural effusion R and trace on left - no PNA (04/06) UA on admit neg Pt denies any UTI sxs Wound inspected - looking good PLAn: Full liquid Check UA Encourage IS Possible next 24-48 hrs if cont to tolerate PO and no more fevers dw RN and pt and aide Vitals Vitals Vital Signs Date Time Temp Pulse Resp B/P (MAP) Pulse Ox O2 Delivery O2 Flow Rate FiO2 04/07/17 07:00 97.8 72 20 109/ 96 Nasal Cannula 2.0 97.8 Physical Exam General: Alert, Oriented X3, Cooperative, No acute distress Heart: Regular rate, Normal S1, Normal S2, No murmurs Lungs: Clear Abdomen: Soft, Other (NTTP) Extremities: No clubbing, No cyanosis Skin: No rashes, No breakdown Labs LABS Laboratory Tests Test 04/06/17 16:00 04/06/17 20:39 04/07/17 06:00 Glucose (Fingerstick) 99 mg/dL (70-99) 84 mg/dL (70-99) Sodium Level 136 mmol/L (136-145) Potassium Level 3.7 mmol/L (3.5-5.1) Chloride Level 104 mmol/L (98-107) Carbon Dioxide Level 27 mmol/L (21-32) Anion Gap 5 (6-14) Blood Urea Nitrogen 16 mg/dL (7-20) Creatinine 0.7 mg/dL (0.6-1.0) Estimated GFR (Cockcroft-Gault) 82.7 Glucose Level 105 mg/dL (70-99) Calcium Level 8.0 mg/dL (8.5-10.1) Phosphorus Level 2.8 mg/dL (2.6-4.7) Albumin 2.4 g/dL (3.4-5.0) Review of Systems Review of Systems fevers, no nausea,. emesis, diarrhea Assessment and Plan Assessmemt and Plan Problems Medical Problems: (1) Abdominal pain Status: Acute (2) Nausea & vomiting Status: Acute Problems: Comment Review of Relevant I have reviewed the following items daphne (where applicable) has been applied. Labs Laboratory Tests Test 04/05/17 11:21 04/05/17 16:24 04/06/17 05:00 04/06/17 07:13 Glucose (Fingerstick) 148 mg/dL (70-99) 130 mg/dL (70-99) 101 mg/dL (70-99) White Blood Count 8.5 x10^3/uL (4.0-11.0) Red Blood Count 3.34 x10^6/uL (3.50-5.40) Hemoglobin 11.0 g/dL (12.0-15.5) Hematocrit 33.0 % (36.0-47.0) Mean Corpuscular Volume 99 fL (79-100) Mean Corpuscular Hemoglobin 33 pg (25-35) Mean Corpuscular Hemoglobin Concent 33 g/dL (31-37) Red Cell Distribution Width 13.6 % (11.5-14.5) Platelet Count 240 x10^3/uL (140-400) Neutrophils (%) (Auto) 62 % (31-73) Lymphocytes (%) (Auto) 23 % (24-48) Monocytes (%) (Auto) 11 % (0-9) Eosinophils (%) (Auto) 3 % (0-3) Basophils (%) (Auto) 1 % (0-3) Neutrophils # (Auto) 5.2 x10^3uL (1.8-7.7) Lymphocytes # (Auto) 1.9 x10^3/uL (1.0-4.8) Monocytes # (Auto) 0.9 x10^3/uL (0.0-1.1) Eosinophils # (Auto) 0.3 x10^3/uL (0.0-0.7) Basophils # (Auto) 0.1 x10^3/uL (0.0-0.2) Sodium Level 139 mmol/L (136-145) Potassium Level 4.2 mmol/L (3.5-5.1) Chloride Level 105 mmol/L (98-107) Carbon Dioxide Level 28 mmol/L (21-32) Anion Gap 6 (6-14) Blood Urea Nitrogen 17 mg/dL (7-20) Creatinine 0.7 mg/dL (0.6-1.0) Estimated GFR (Cockcroft-Gault) 82.7 Glucose Level 96 mg/dL (70-99) Calcium Level 8.2 mg/dL (8.5-10.1) Phosphorus Level 3.5 mg/dL (2.6-4.7) Albumin 2.5 g/dL (3.4-5.0) Test 04/06/17 10:32 04/06/17 16:00 04/06/17 20:39 04/07/17 06:00 Glucose (Fingerstick) 139 mg/dL (70-99) 99 mg/dL (70-99) 84 mg/dL (70-99) Sodium Level 136 mmol/L (136-145) Potassium Level 3.7 mmol/L (3.5-5.1) Chloride Level 104 mmol/L (98-107) Carbon Dioxide Level 27 mmol/L (21-32) Anion Gap 5 (6-14) Blood Urea Nitrogen 16 mg/dL (7-20) Creatinine 0.7 mg/dL (0.6-1.0) Estimated GFR (Cockcroft-Gault) 82.7 Glucose Level 105 mg/dL (70-99) Calcium Level 8.0 mg/dL (8.5-10.1) Phosphorus Level 2.8 mg/dL (2.6-4.7) Albumin 2.4 g/dL (3.4-5.0) Laboratory Tests Test 04/06/17 16:00 04/06/17 20:39 04/07/17 06:00 Glucose (Fingerstick) 99 mg/dL (70-99) 84 mg/dL (70-99) Sodium Level 136 mmol/L (136-145) Potassium Level 3.7 mmol/L (3.5-5.1) Chloride Level 104 mmol/L (98-107) Carbon Dioxide Level 27 mmol/L (21-32) Anion Gap 5 (6-14) Blood Urea Nitrogen 16 mg/dL (7-20) Creatinine 0.7 mg/dL (0.6-1.0) Estimated GFR (Cockcroft-Gault) 82.7 Glucose Level 105 mg/dL (70-99) Calcium Level 8.0 mg/dL (8.5-10.1) Phosphorus Level 2.8 mg/dL (2.6-4.7) Albumin 2.4 g/dL (3.4-5.0) Microbiology 03/30/17 Blood Culture - Final, Complete NO GROWTH AFTER 5 DAYS 03/29/17 Urine Culture - Final, Complete 03/29/17 Urine Culture Result 1 (CYNTHIA) - Final, Complete Medications Current Medications Morphine Sulfate 2 mg PRN Q15MIN PRN IV/SQ PAIN GREATER THAN 3/10 Last administered on 03/30/17 00:39; Start 03/29/17 at 17:45; Stop 03/30/17 at 17:44 ; Status DC Sodium Chloride 1,000 ml @ 1,000 mls/hr Q1H IV Last administered on 03/29/17 17:32; Start 03/29/17 at 17:32; Stop 03/29/17 at 18:31; Status DC Ondansetron HCl (Zofran) 4 mg 1X ONCE IV Last administered on 03/29/17 17:45 ; Start 03/29/17 at 17:45; Stop 03/29/17 at 17:46; Status DC Iohexol (Omnipaque 240 Mg/ml) 30 ml 1X ONCE PO Last administered on 03/29/17 19:45; Start 03/29/17 at 19:45; Stop 03/29/17 at 19:46; Status DC Ondansetron HCl (Zofran) 4 mg 1X ONCE IV Last administered on 03/29/17 19:58 ; Start 03/29/17 at 20:00; Stop 03/29/17 at 20:01; Status DC Prochlorperazine Edisylate (Compazine) 10 mg 1X ONCE IV Last administered on 21:01; Start 03/29/17 at 21:15; Stop 03/29/17 at 21:16; Status DC Diphenhydramine HCl (Benadryl) 25 mg 1X ONCE IVP Last administered on 21:01; Start 03/29/17 at 21:15; Stop 03/29/17 at 21:16; Status DC Ondansetron HCl (Zofran) 4 mg PRN Q8HRS PRN IV NAUSEA/VOMITING Last administered on 03/30/17 07:59; Start 03/29/17 at 23:45; Stop 03/30/17 at 23:44 ; Status DC Fentanyl Citrate (Fentanyl 2ml Vial) 25 mcg PRN Q1HR PRN IV SEVERE PAIN Last administered on 03/30/17 06:12; Start 03/29/17 at 23:45; Stop 03/30/17 at 23:44 ; Status DC Potassium Chloride/Dextrose/ Sod Cl 1,000 ml @ 75 mls/hr 1X ONCE IV Last administered on 03/30/17 06:13; Start 03/30/17 at 00:00; Stop 03/30/17 at 13:19 ; Status DC Ciprofloxacin Lactate 200 ml @ 200 mls/hr Q12HR IV ; Start 03/30/17 at 09:00; Status UNV Metronidazole 100 ml @ 100 mls/hr Q8HRS IV Last administered on 04/06/17 05:13 ; Start 03/30/17 at 00:00; Stop 04/06/17 at 12:00; Status DC Ciprofloxacin Lactate 200 ml @ 200 mls/hr 1X ONCE IV Last administered on 06:14; Start 03/30/17 at 00:00; Stop 03/30/17 at 00:59; Status DC Ciprofloxacin Lactate 100 ml @ 100 mls/hr [id number] IV Last administered on 05:15; Start 03/30/17 at 18:00; Stop 04/04/17 at 13:17; Status DC Enoxaparin Sodium (Lovenox 30mg Syringe) 30 mg Q24H SQ Last administered on 04/01 11:26; Start 03/30/17 at 11:00; Stop 04/01/17 at 11:50; Status DC Acetaminophen (Tylenol) 325 mg PRN Q6HRS PRN PO MILD PAIN / TEMP Last administered on 04/05/17 13:06; Start 03/30/17 at 10:30 Acetaminophen/ Hydrocodone Bitart (Lortab 5/325) 1 tab PRN Q6HRS PRN PO MODERATE TO SEVERE PAIN Last administered on 04/05/17 20:58; Start 03/30/17 at 10:30 Hydralazine HCl (Apresoline) 10 mg PRN Q4HRS PRN IVP ELEVATED BP, SEE COMMENTS ; Start 03/30/17 at 10:30 Ondansetron HCl (Zofran) 4 mg PRN Q8HRS PRN IV NAUSEA/VOMITING Last administered on 04/04/17 03:31; Start 03/30/17 at 10:30; Stop 04/04/17 at 09:32; Status DC Albuterol Sulfate (Ventolin Neb Soln) 2.5 mg PRN Q4HRS PRN NEB SHORTNESS OF BREATH; Start 03/30/17 at 10:30 Sodium Chloride 1,000 ml @ 150 mls/hr Q6H40M IV Last administered on 04/01/17 01:41; Start 03/30/17 at 10:30; Stop 04/01/17 at 14:14; Status DC Morphine Sulfate 2 mg PRN Q2HR PRN IV PAIN Last administered on 04/04/17 11:01 ; Start 03/30/17 at 10:30 Metronidazole 100 ml @ 100 mls/hr Q12HR IV ; Start 03/30/17 at 21:00; Stop at 21:00; Status DC Ciprofloxacin Lactate 100 ml @ 100 mls/hr Q12HR IV ; Start 03/30/17 at 21:00; Stop 03/30/17 at 21:00; Status DC Iohexol (Omnipaque 350 Mg/ml) 400 ml 1X ONCE PO Last administered on 11:47; Start 03/30/17 at 11:00; Stop 03/30/17 at 11:01; Status DC Info (Do NOT chart on this entry -- for MONITORING) 1 each PRN DAILY PRN MC SEE COMMENTS; Start 03/30/17 at 11:00; Stop 04/01/17 at 10:59; Status DC Fentanyl Citrate (Fentanyl 2ml Vial) 25 mcg PRN Q5MIN PRN IV MILD PAIN; Start 03/30/17 at 16:45; Stop 03/31/17 at 16:44; Status DC Fentanyl Citrate (Fentanyl 2ml Vial) 50 mcg PRN Q5MIN PRN IV MODERATE PAIN Last administered on 03/30/17 21:23; Start 03/30/17 at 16:45; Stop 03/31/17 at 16:44; Status DC Morphine Sulfate 1 mg PRN Q10MIN PRN IV SEVERE PAIN; Start 03/30/17 at 16:45; Stop 03/31/17 at 16:44; Status DC Lactated Ringer's 1,000 ml @ 30 mls/hr Q24H IV ; Start 03/30/17 at 16:43; Stop 03/31/17 at 04:43; Status DC Lidocaine HCl 2 ml PRN 1X PRN ID PRIOR TO IV START; Start 03/30/17 at 16:45; Stop 03/31/17 at 16:44; Status DC Hydromorphone HCl (Dilaudid) 0.5 mg PRN Q10MIN PRN IV SEV PAIN, Second choice; Start 03/30/17 at 16:45; Stop 03/31/17 at 16:44; Status DC Prochlorperazine Edisylate (Compazine) 5 mg PACU PRN PRN IV NAUSEA, MRX1; Start 03/30/17 at 16:45; Stop 03/31/17 at 16:44; Status DC Dexamethasone Sodium Phosphate (Decadron) 20 mg STK-MED ONCE .ROUTE ; Start at 17:18; Stop 03/30/17 at 17:19; Status DC Ondansetron HCl (Zofran) 4 mg STK-MED ONCE .ROUTE ; Start 03/30/17 at 17:18; Stop 03/30/17 at 17:19; Status DC Propofol 20 ml @ As Directed STK-MED ONCE IV ; Start 03/30/17 at 17:18; Stop at 17:19; Status DC Lidocaine HCl (Lidocaine HCl 2% Abboject) 100 mg STK-MED ONCE .ROUTE ; Start at 17:18; Stop 03/30/17 at 17:19; Status DC Desflurane (Suprane) 90 ml STK-MED ONCE IH ; Start 03/30/17 at 17:18; Stop 03/30 at 17:19; Status DC Fentanyl Citrate (Fentanyl 2ml Vial) 100 mcg STK-MED ONCE .ROUTE ; Start at 17:18; Stop 03/30/17 at 17:19; Status DC Succinylcholine Chloride (Anectine) 200 mg STK-MED ONCE .ROUTE ; Start 03/30/17 at 17:18; Stop 03/30/17 at 17:19; Status DC Rocuronium [place] (Zemuron) 50 mg STK-MED ONCE .ROUTE ; Start 03/30/17 at 17:18 ; Stop 03/30/17 at 17:19; Status DC Phenylephrine HCl 1 mg STK-MED ONCE IV ; Start 03/30/17 at 18:09; Stop 03/30/17 at 18:10; Status DC Fentanyl Citrate (Fentanyl 2ml Vial) 100 mcg STK-MED ONCE .ROUTE ; Start at 18:58; Stop 03/30/17 at 18:59; Status DC Sodium Chloride 500 ml @ 0 mls/hr QID PRN IV UO< 30cc/hr over previous 6hrs; Start 03/31/17 at 08:30 Magnesium Sulfate/ Dextrose 50 ml @ 25 mls/hr PRN DAILY PRN IV for Mag < 1.7 on am labs; Start 03/31/17 at 08:30 Enoxaparin Sodium (Lovenox 40mg Syringe) 40 mg Q24H SQ Last administered on 04/06 12:41; Start 04/02/17 at 12:00 Amino Acids/ Glycerin/ Electrolytes 1,000 ml @ 80 mls/hr [id number] IV Last administered on 04/02/17 05:43; Start 04/01/17 at 14:15; Stop 04/02/17 at 14:40; Status DC Potassium Phosphate 13.6 mmol/Sodium Chloride 254.5333 ml @ 127.... Q2H IV Last administered on 04/02/17 16:42; Start 04/02/17 at 11:00; Stop 04/02/17 at 16: 59; Status DC Sodium Chloride 500 ml @ 0 mls/hr PRN QID PRN IV UO< 30cc/hr over previous 6hrs ; Start 04/02/17 at 10:45 Info 1 each PRN DAILY PRN MC SEE COMMENTS Last administered on 04/05/17 11:59; Start 04/02/17 at 11:30; Stop 04/06/17 at 11:30; Status DC Sodium Chloride 90 meq/Potassium Chloride 50 meq/ Potassium Phosphate 13.6 mmol/ Magnesium Sulfate 10 meq/ Calcium Gluconate 10 meq/ Multivitamins 10 ml/Zinc/ Copper/ Mindi/Chrom/ Selen 1 ml/Total Parenteral Nutrition/Amino Acids/Dextrose / Fat Emulsion Intravenous 1,512 ml @ 63 mls/hr TPN CONT IV Last administered on 04/02/17 22:00; Start 04/02/17 at 22:00; Stop 04/04/17 at 13:10; Status DC Sodium Chloride (Normal Saline Flush) 10 ml QSHIFT PRN IV AFTER MEDS AND BLOOD DRAWS; Start 04/02/17 at 14:45 Sodium Chloride (Normal Saline Flush) 20 ml QSHIFT PRN IV AFTER MEDS AND BLOOD DRAWS; Start 04/02/17 at 14:45 Magnesium Sulfate/ Dextrose 100 ml @ 100 mls/hr 1X ONCE IV Last administered on 04/03/17 12:40; Start 04/03/17 at 12:30; Stop 04/03/17 at 13:29; Status DC Sodium Chloride 90 meq/Potassium Chloride 50 meq/ Potassium Phosphate 13.6 mmol/ Magnesium Sulfate 16 meq/ Calcium Gluconate 10 meq/ Multivitamins 10 ml/Zinc/ Copper/ Mindi/Chrom/ Selen 1 ml/Total Parenteral Nutrition/Amino Acids/Dextrose / Fat Emulsion Intravenous 1,512 ml @ 63 mls/hr TPN CONT IV Last administered on 04/03/17 22:00; Start 04/03/17 at 22:00; Stop 04/04/17 at 21:59; Status DC Ondansetron HCl (Zofran) 4 mg PRN Q6HRS PRN IV NAUSEA/VOMITING Last administered on 04/06/17 16:44; Start 04/04/17 at 09:30 Metoclopramide HCl (Reglan) 10 mg PRN Q6HRS PRN IV NAUSEA/VOMITING Last administered on 04/05/17 14:09; Start 04/04/17 at 10:45 Ciprofloxacin Lactate 200 ml @ 200 mls/hr Q12HR IV Last administered on 09:52; Start 04/04/17 at 21:00; Stop 04/06/17 at 12:00; Status DC Sodium Chloride 90 meq/Potassium Chloride 50 meq/ Potassium Phosphate 13.6 mmol/ Magnesium Sulfate 16 meq/ Calcium Gluconate 10 meq/ Multivitamins 10 ml/Zinc/ Copper/ Mindi/Chrom/ Selen 1 ml/Total Parenteral Nutrition/Amino Acids/Dextrose / Fat Emulsion Intravenous 1,512 ml @ 63 mls/hr TPN CONT IV Last administered on 04/04/17 22:42; Start 04/04/17 at 22:00; Stop 04/05/17 at 21:59; Status DC Magnesium Sulfate/ Dextrose 50 ml @ 25 mls/hr PRN DAILY PRN IV for mag < 1.7 on am labs; Start 04/05/17 at 10:00 Magnesium Sulfate/ Dextrose 100 ml @ 100 mls/hr 1X ONCE IV Last administered on 04/05/17 10:55; Start 04/05/17 at 10:00; Stop 04/05/17 at 10:59; Status DC Magnesium Sulfate/ Dextrose 100 ml @ 100 mls/hr 1X ONCE IV ; Start 04/05/17 at 11:30; Stop 04/05/17 at 12:29; Status DC Sodium Chloride 90 meq/Potassium Chloride 50 meq/ Potassium Phosphate 13.6 mmol/ Magnesium Sulfate 18 meq/ Calcium Gluconate 10 meq/ Multivitamins 10 ml/Chromium / Copper/Manganese/ Seleni/Zn 1 ml/ Total Parenteral Nutrition/Amino Acids/ Dextrose/ Fat Emulsion Intravenous 1,512 ml @ 63 mls/hr TPN CONT IV ; Start at 22:00; Stop 04/06/17 at 21:59; Status DC Pantoprazole Sodium (Protonix) 40 mg DAILYAC PO Last administered on 04/07/17 08:48; Start 04/06/17 at 08:45 Calcium Carbonate/ Glycine (Tums) 500 mg PRN AFTMEALHC PRN PO INDIGESTION Last administered on 04/06/17 21:52; Start 04/06/17 at 09:15 Multi-Ingredient Mouthwash/Gargle (Gi Cocktail Single Dose) 15 ml 1X ONCE SWSW Last administered on 04/06/17 09:52; Start 04/06/17 at 09:15; Stop 04/06/17 at 09:26; Status DC Levothyroxine Sodium (Synthroid) 88 mcg DAILY PO Last administered on 04/07/17 08:48; Start 04/06/17 at 10:00 Niacin (Slo-Niacin) 1,000 mg DAILYWSUP PO ; Start 04/06/17 at 17:00 Ciprofloxacin (Cipro) 500 mg BID PO Last administered on 04/07/17 08:48; Start 04/06/17 at 21:00 Metronidazole (Flagyl) 500 mg Q8HRS PO Last administered on 04/07/17 06:27; Start 04/06/17 at 14:00 Active Scripts Active Reported Niaspan (Niacin) 1,000 Mg Tab.er.24h 1 Tab PO BID Levothyroxine Sodium 88 Mcg Tablet 1 Tab PO DAILY Vitals/I & O Vital Sign - Last 24 Hours 04/06/17 04/06/17 04/06/17 04/06/17 10:48 15:09 19:00 23:00 Temp 97.7 98.3 98.8 100.6 97.7 98.3 98.8 100.6 Pulse 86 76 67 75 Resp 18 18 18 17 B/P (MAP) 108/62 (77) 126/61 (82) 122/59 (80) 104/37 (59) Pulse Ox 96 98 95 96 O2 Delivery Nasal Cannula Nasal Cannula Nasal Cannula Nasal Cannula O2 Flow Rate 2.0 2.0 2.0 2.0 04/07/17 04/07/17 03:00 07:00 Temp 97.9 97.8 97.9 97.8 Pulse 63 72 Resp 16 20 B/P (MAP) 103/45 (64) 109/ Pulse Ox 96 96 O2 Delivery Nasal Cannula Nasal Cannula O2 Flow Rate 2.0 2.0 Intake and Output 04/06/17 04/06/17 04/07/17 15:00 23:00 07:00 Intake Total 500 ml 100 ml Output Total 600 ml Balance 500 ml -500 ml GRIS BRANDON MD April 07, 2017 10:49
[2017-04-07 11:20] VITALS: BP 109/35
[2017-04-07] MEDS: ENOXAPARIN 40 MG/0.4 ML SYRINGE. SQ SCH (12:51)
[2017-04-07 14:32] VITALS: BP 119/60
[2017-04-07 15:45] LABS: BILIRUBIN,URINE NEGATIVE (NEG); GLUCOSE,URINE NEGATIVE (NEG); NITRITE,URINE NEGATIVE (NEG); PROTEIN,URINE NEGATIVE (NEG-TRACE); UROBILINOGEN,URINE 0.2 mg/dL (0.2 mg/dL)
[2017-04-07 16:06] LABS: RBC,URINE 0 /HPF (0-2); WBC,URINE 0 /HPF (0-4)
[2017-04-07 16:07] LABS: BACTERIA,URINE 0 /HPF (0-FEW); SQUAMOUS EPITHELIAL CELL,UR FEW /LPF; YEAST,URINE PRESENT /HPF
[2017-04-07] MEDS: NIACIN ER 500 MG TABLET.ER PO SCH (17:23)
[2017-04-07 19:00] VITALS: BP 120/41
[2017-04-07] MEDS ORDERED: BENZOCAINE/MENTHOL LOZENGE. PO PRN (21:15)
[2017-04-07] MEDS: METOCLOPRAMIDE HCL 10 MG/2 ML VIAL. IV PRN (22:07)
[2017-04-07 23:00] VITALS: BP 123/51
[2017-04-08 03:09] VITALS: BP 103/48
[2017-04-08] MEDS: metroNIDAZOLE 500 MG TABLET PO SCH ×3 (05:55→20:40)
[2017-04-08] MEDS: CALCIUM CARBONATE 500 MG TAB.CHEW PO PRN ×2 (05:57→20:40)
[2017-04-08 07:00] VITALS: BP 105/51
--- NOTE | 2017-04-08 08:54 | PDOC ---
VITALY ROSS PRE PRESS MANAGER 04/08/17 0854: SURGICAL PROGRESS NOTE Subjective feels weak tolerating full liquids, no emesis, slight nausea at times loose stools does not feel ready to advance to soft diet yet Vital Signs Vital Signs Date Time Temp Pulse Resp B/P (MAP) Pulse Ox O2 Delivery O2 Flow Rate FiO2 04/08/17 07:58 96 Room Air 04/08/17 07:00 98.1 70 20 105/51 (69) 2.0 98.1 I&O Intake and Output 04/08/17 06:59 Intake Total 1590 ml Balance 1590 ml Intake Oral 1590 ml # Voids 5 # Bowel Movements 1 General: Alert, Oriented X3, Cooperative, No acute distress Abdomen: Soft, Other (ND, incision c/d/i, no erythema, NTTP) Labs Laboratory Tests Test 04/06/17 10:32 04/06/17 16:00 04/06/17 20:39 04/07/17 06:00 Glucose (Fingerstick) 139 mg/dL (70-99) 99 mg/dL (70-99) 84 mg/dL (70-99) Sodium Level 136 mmol/L (136-145) Potassium Level 3.7 mmol/L (3.5-5.1) Chloride Level 104 mmol/L (98-107) Carbon Dioxide Level 27 mmol/L (21-32) Anion Gap 5 (6-14) Blood Urea Nitrogen 16 mg/dL (7-20) Creatinine 0.7 mg/dL (0.6-1.0) Estimated GFR (Cockcroft-Gault) 82.7 Glucose Level 105 mg/dL (70-99) Calcium Level 8.0 mg/dL (8.5-10.1) Phosphorus Level 2.8 mg/dL (2.6-4.7) Albumin 2.4 g/dL (3.4-5.0) Test 04/07/17 13:40 04/08/17 06:13 Urine Collection Type Unknown Urine Color Yellow Urine Clarity Cloudy Urine pH 6.0 Urine Specific [place] 1.015 Urine Protein Negative mg/dL (NEG-TRACE) Urine Glucose (UA) Negative mg/dL (NEG) Urine Ketones (Stick) Negative mg/dL (NEG) Urine Blood Negative (NEG) Urine Nitrite Negative (NEG) Urine Bilirubin Negative (NEG) Urine Urobilinogen Dipstick 0.2 mg/dL (0.2 mg/dL) Urine Leukocyte Esterase Negative (NEG) Urine RBC 0 /HPF (0-2) Urine WBC 0 /HPF (0-4) Urine Squamous Epithelial Cells Few /LPF Urine Bacteria 0 /HPF (0-FEW) Urine Mucus Slight /LPF Urine Yeast Present /HPF Phosphorus Level 3.2 mg/dL (2.6-4.7) Laboratory Tests Test 04/07/17 13:40 04/08/17 06:13 Urine Collection Type Unknown Urine Color Yellow Urine Clarity Cloudy Urine pH 6.0 Urine Specific [place] 1.015 Urine Protein Negative mg/dL (NEG-TRACE) Urine Glucose (UA) Negative mg/dL (NEG) Urine Ketones (Stick) Negative mg/dL (NEG) Urine Blood Negative (NEG) Urine Nitrite Negative (NEG) Urine Bilirubin Negative (NEG) Urine Urobilinogen Dipstick 0.2 mg/dL (0.2 mg/dL) Urine Leukocyte Esterase Negative (NEG) Urine RBC 0 /HPF (0-2) Urine WBC 0 /HPF (0-4) Urine Squamous Epithelial Cells Few /LPF Urine Bacteria 0 /HPF (0-FEW) Urine Mucus Slight /LPF Urine Yeast Present /HPF Phosphorus Level 3.2 mg/dL (2.6-4.7) Problem List Problems Medical Problems: (1) Abdominal pain Status: Acute (2) Nausea & vomiting Status: Acute Assessment/Plan s/p xlap, sbr, VIH repair full liquids today, per pt request, plan advance to soft in AM--add nutritional supplements continue to increase activity, IS use frequently Problems: MARGOTH DAWSON MD 04/08/17 0936: SURGICAL PROGRESS NOTE Assessment/Plan Agree with above Problems: 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
[2017-04-08] MEDS: LEVOTHYROXINE 88 MCG TABLET PO SCH (09:10)
[2017-04-08] MEDS: PANTOPRAZOLE 40 MG TABLET.DR. PO SCH (09:10)
[2017-04-08] MEDS: CIPROFLOXACIN HCL 250 MG TABLET. PO SCH ×2 (09:10→20:40)
--- NOTE | 2017-04-08 09:39 | PDOC ---
PROGRESS NOTES Chief Complaint Chief Complaint cc: abdominal pain A/P 1. Small-bowel obstruction, transition, S/P Exploratory laparotomy, lysis of adhesions with release of small bowel obstruction, small bowel resection with primary anastomosis, primary repair of ventral hernia: Clinically improving, advance diet, continnue have some lose bowel, had 4 today, monitor electrolytes. 2. Hypothyroidism. on Synthroid 3. Hypertension.: stable 4. Acute kidney injury, resolved. 5. hypomagnesemia replaced 6. Fevers History of Present Illness History of Present Illness no fever diarrhea on liquid diet. Vitals Vitals Vital Signs Date Time Temp Pulse Resp B/P (MAP) Pulse Ox O2 Delivery O2 Flow Rate FiO2 04/08/17 07:58 96 Room Air 04/08/17 07:00 98.1 70 20 105/51 (69) 2.0 98.1 Physical Exam General: Alert, Oriented X3, Cooperative, No acute distress Heart: Regular rate, Normal S1, Normal S2, No murmurs Lungs: Clear Abdomen: Soft, Other (ND, incision c/d/i, no erythema, NTTP) Extremities: No clubbing, No cyanosis Skin: No rashes, No breakdown Labs LABS Laboratory Tests Test 04/07/17 13:40 04/08/17 06:13 Urine Collection Type Unknown Urine Color Yellow Urine Clarity Cloudy Urine pH 6.0 Urine Specific [place] 1.015 Urine Protein Negative mg/dL (NEG-TRACE) Urine Glucose (UA) Negative mg/dL (NEG) Urine Ketones (Stick) Negative mg/dL (NEG) Urine Blood Negative (NEG) Urine Nitrite Negative (NEG) Urine Bilirubin Negative (NEG) Urine Urobilinogen Dipstick 0.2 mg/dL (0.2 mg/dL) Urine Leukocyte Esterase Negative (NEG) Urine RBC 0 /HPF (0-2) Urine WBC 0 /HPF (0-4) Urine Squamous Epithelial Cells Few /LPF Urine Bacteria 0 /HPF (0-FEW) Urine Mucus Slight /LPF Urine Yeast Present /HPF Phosphorus Level 3.2 mg/dL (2.6-4.7) Assessment and Plan Assessmemt and Plan Problems Medical Problems: (1) Abdominal pain Status: Acute (2) Nausea & vomiting Status: Acute Problems: Comment Review of Relevant I have reviewed the following items daphne (where applicable) has been applied. Labs Laboratory Tests Test 04/06/17 10:32 04/06/17 16:00 04/06/17 20:39 04/07/17 06:00 Glucose (Fingerstick) 139 mg/dL (70-99) 99 mg/dL (70-99) 84 mg/dL (70-99) Sodium Level 136 mmol/L (136-145) Potassium Level 3.7 mmol/L (3.5-5.1) Chloride Level 104 mmol/L (98-107) Carbon Dioxide Level 27 mmol/L (21-32) Anion Gap 5 (6-14) Blood Urea Nitrogen 16 mg/dL (7-20) Creatinine 0.7 mg/dL (0.6-1.0) Estimated GFR (Cockcroft-Gault) 82.7 Glucose Level 105 mg/dL (70-99) Calcium Level 8.0 mg/dL (8.5-10.1) Phosphorus Level 2.8 mg/dL (2.6-4.7) Albumin 2.4 g/dL (3.4-5.0) Test 04/07/17 13:40 04/08/17 06:13 Urine Collection Type Unknown Urine Color Yellow Urine Clarity Cloudy Urine pH 6.0 Urine Specific [place]ard 1.015 Urine Protein Negative mg/dL (NEG-TRACE) Urine Glucose (UA) Negative mg/dL (NEG) Urine Ketones (Stick) Negative mg/dL (NEG) Urine Blood Negative (NEG) Urine Nitrite Negative (NEG) Urine Bilirubin Negative (NEG) Urine Urobilinogen Dipstick 0.2 mg/dL (0.2 mg/dL) Urine Leukocyte Esterase Negative (NEG) Urine RBC 0 /HPF (0-2) Urine WBC 0 /HPF (0-4) Urine Squamous Epithelial Cells Few /LPF Urine Bacteria 0 /HPF (0-FEW) Urine Mucus Slight /LPF Urine Yeast Present /HPF Phosphorus Level 3.2 mg/dL (2.6-4.7) Laboratory Tests Test 04/07/17 13:40 04/08/17 06:13 Urine Collection Type Unknown Urine Color Yellow Urine Clarity Cloudy Urine pH 6.0 Urine Specific [place]ard 1.015 Urine Protein Negative mg/dL (NEG-TRACE) Urine Glucose (UA) Negative mg/dL (NEG) Urine Ketones (Stick) Negative mg/dL (NEG) Urine Blood Negative (NEG) Urine Nitrite Negative (NEG) Urine Bilirubin Negative (NEG) Urine Urobilinogen Dipstick 0.2 mg/dL (0.2 mg/dL) Urine Leukocyte Esterase Negative (NEG) Urine RBC 0 /HPF (0-2) Urine WBC 0 /HPF (0-4) Urine Squamous Epithelial Cells Few /LPF Urine Bacteria 0 /HPF (0-FEW) Urine Mucus Slight /LPF Urine Yeast Present /HPF Phosphorus Level 3.2 mg/dL (2.6-4.7) Microbiology 03/30/17 Blood Culture - Final, Complete NO GROWTH AFTER 5 DAYS 03/29/17 Urine Culture - Final, Complete 03/29/17 Urine Culture Result 1 (CYNTHIA) - Final, Complete Medications Current Medications Morphine Sulfate 2 mg PRN Q15MIN PRN IV/SQ PAIN GREATER THAN 3/10 Last administered on 03/30/17 00:39; Start 03/29/17 at 17:45; Stop 03/30/17 at 17:44 ; Status DC Sodium Chloride 1,000 ml @ 1,000 mls/hr Q1H IV Last administered on 03/29/17 17:32; Start 03/29/17 at 17:32; Stop 03/29/17 at 18:31; Status DC Ondansetron HCl (Zofran) 4 mg 1X ONCE IV Last administered on 03/29/17 17:45 ; Start 03/29/17 at 17:45; Stop 03/29/17 at 17:46; Status DC Iohexol (Omnipaque 240 Mg/ml) 30 ml 1X ONCE PO Last administered on 03/29/17 19:45; Start 03/29/17 at 19:45; Stop 03/29/17 at 19:46; Status DC Ondansetron HCl (Zofran) 4 mg 1X ONCE IV Last administered on 03/29/17 19:58 ; Start 03/29/17 at 20:00; Stop 03/29/17 at 20:01; Status DC Prochlorperazine Edisylate (Compazine) 10 mg 1X ONCE IV Last administered on 21:01; Start 03/29/17 at 21:15; Stop 03/29/17 at 21:16; Status DC Diphenhydramine HCl (Benadryl) 25 mg 1X ONCE IVP Last administered on 21:01; Start 03/29/17 at 21:15; Stop 03/29/17 at 21:16; Status DC Ondansetron HCl (Zofran) 4 mg PRN Q8HRS PRN IV NAUSEA/VOMITING Last administered on 03/30/17 07:59; Start 03/29/17 at 23:45; Stop 03/30/17 at 23:44 ; Status DC Fentanyl Citrate (Fentanyl 2ml Vial) 25 mcg PRN Q1HR PRN IV SEVERE PAIN Last administered on 03/30/17 06:12; Start 03/29/17 at 23:45; Stop 03/30/17 at 23:44 ; Status DC Potassium Chloride/Dextrose/ Sod Cl 1,000 ml @ 75 mls/hr 1X ONCE IV Last administered on 03/30/17 06:13; Start 03/30/17 at 00:00; Stop 03/30/17 at 13:19 ; Status DC Ciprofloxacin Lactate 200 ml @ 200 mls/hr Q12HR IV ; Start 03/30/17 at 09:00; Status UNV Metronidazole 100 ml @ 100 mls/hr Q8HRS IV Last administered on 04/06/17 05:13 ; Start 03/30/17 at 00:00; Stop 04/06/17 at 12:00; Status DC Ciprofloxacin Lactate 200 ml @ 200 mls/hr 1X ONCE IV Last administered on 06:14; Start 03/30/17 at 00:00; Stop 03/30/17 at 00:59; Status DC Ciprofloxacin Lactate 100 ml @ 100 mls/hr [id number] IV Last administered on 05:15; Start 03/30/17 at 18:00; Stop 04/04/17 at 13:17; Status DC Enoxaparin Sodium (Lovenox 30mg Syringe) 30 mg Q24H SQ Last administered on 04/01 11:26; Start 03/30/17 at 11:00; Stop 04/01/17 at 11:50; Status DC Acetaminophen (Tylenol) 325 mg PRN Q6HRS PRN PO MILD PAIN / TEMP Last administered on 04/05/17 13:06; Start 03/30/17 at 10:30 Acetaminophen/ Hydrocodone Bitart (Lortab 5/325) 1 tab PRN Q6HRS PRN PO MODERATE TO SEVERE PAIN Last administered on 04/05/17 20:58; Start 03/30/17 at 10:30 Hydralazine HCl (Apresoline) 10 mg PRN Q4HRS PRN IVP ELEVATED BP, SEE COMMENTS ; Start 03/30/17 at 10:30 Ondansetron HCl (Zofran) 4 mg PRN Q8HRS PRN IV NAUSEA/VOMITING Last administered on 04/04/17 03:31; Start 03/30/17 at 10:30; Stop 04/04/17 at 09:32; Status DC Albuterol Sulfate (Ventolin Neb Soln) 2.5 mg PRN Q4HRS PRN NEB SHORTNESS OF BREATH; Start 03/30/17 at 10:30 Sodium Chloride 1,000 ml @ 150 mls/hr Q6H40M IV Last administered on 04/01/17 01:41; Start 03/30/17 at 10:30; Stop 04/01/17 at 14:14; Status DC Morphine Sulfate 2 mg PRN Q2HR PRN IV PAIN Last administered on 04/04/17 11:01 ; Start 03/30/17 at 10:30 Metronidazole 100 ml @ 100 mls/hr Q12HR IV ; Start 03/30/17 at 21:00; Stop at 21:00; Status DC Ciprofloxacin Lactate 100 ml @ 100 mls/hr Q12HR IV ; Start 03/30/17 at 21:00; Stop 03/30/17 at 21:00; Status DC Iohexol (Omnipaque 350 Mg/ml) 400 ml 1X ONCE PO Last administered on 11:47; Start 03/30/17 at 11:00; Stop 03/30/17 at 11:01; Status DC Info (Do NOT chart on this entry -- for MONITORING) 1 each PRN DAILY PRN MC SEE COMMENTS; Start 03/30/17 at 11:00; Stop 04/01/17 at 10:59; Status DC Fentanyl Citrate (Fentanyl 2ml Vial) 25 mcg PRN Q5MIN PRN IV MILD PAIN; Start 03/30/17 at 16:45; Stop 03/31/17 at 16:44; Status DC Fentanyl Citrate (Fentanyl 2ml Vial) 50 mcg PRN Q5MIN PRN IV MODERATE PAIN Last administered on 03/30/17t 21:23; Start 03/30/17 at 16:45; Stop 03/31/17 at 16:44; Status DC Morphine Sulfate 1 mg PRN Q10MIN PRN IV SEVERE PAIN; Start 03/30/17 at 16:45; Stop 03/31/17 at 16:44; Status DC Lactated Ringer's 1,000 ml @ 30 mls/hr Q24H IV ; Start 03/30/17 at 16:43; Stop 03/31/17 at 04:43; Status DC Lidocaine HCl 2 ml PRN 1X PRN ID PRIOR TO IV START; Start 03/30/17 at 16:45; Stop 03/31/17 at 16:44; Status DC Hydromorphone HCl (Dilaudid) 0.5 mg PRN Q10MIN PRN IV SEV PAIN, Second choice; Start 03/30/17 at 16:45; Stop 03/31/17 at 16:44; Status DC Prochlorperazine Edisylate (Compazine) 5 mg PACU PRN PRN IV NAUSEA, MRX1; Start 03/30/17 at 16:45; Stop 03/31/17 at 16:44; Status DC Dexamethasone Sodium Phosphate (Decadron) 20 mg STK-MED ONCE .ROUTE ; Start at 17:18; Stop 03/30/17 at 17:19; Status DC Ondansetron HCl (Zofran) 4 mg STK-MED ONCE .ROUTE ; Start 03/30/17 at 17:18; Stop 03/30/17 at 17:19; Status DC Propofol 20 ml @ As Directed STK-MED ONCE IV ; Start 03/30/17 at 17:18; Stop at 17:19; Status DC Lidocaine HCl (Lidocaine HCl 2% Abboject) 100 mg STK-MED ONCE .ROUTE ; Start at 17:18; Stop 03/30/17 at 17:19; Status DC Desflurane (Suprane) 90 ml STK-MED ONCE IH ; Start 03/30/17 at 17:18; Stop 03/30 at 17:19; Status DC Fentanyl Citrate (Fentanyl 2ml Vial) 100 mcg STK-MED ONCE .ROUTE ; Start at 17:18; Stop 03/30/17 at 17:19; Status DC Succinylcholine Chloride (Anectine) 200 mg STK-MED ONCE .ROUTE ; Start 03/30/17 at 17:18; Stop 03/30/17 at 17:19; Status DC Rocuronium Potosi (Zemuron) 50 mg STK-MED ONCE .ROUTE ; Start 03/30/17 at 17:18 ; Stop 03/30/17 at 17:19; Status DC Phenylephrine HCl 1 mg STK-MED ONCE IV ; Start 03/30/17 at 18:09; Stop 03/30/17 at 18:10; Status DC Fentanyl Citrate (Fentanyl 2ml Vial) 100 mcg STK-MED ONCE .ROUTE ; Start at 18:58; Stop 03/30/17 at 18:59; Status DC Sodium Chloride 500 ml @ 0 mls/hr QID PRN IV UO< 30cc/hr over previous 6hrs; Start 03/31/17 at 08:30 Magnesium Sulfate/ Dextrose 50 ml @ 25 mls/hr PRN DAILY PRN IV for Mag < 1.7 on am labs; Start 03/31/17 at 08:30 Enoxaparin Sodium (Lovenox 40mg Syringe) 40 mg Q24H SQ Last administered on 04/07 12:51; Start 04/02/17 at 12:00 Amino Acids/ Glycerin/ Electrolytes 1,000 ml @ 80 mls/hr [id number] IV Last administered on 04/02/17 05:43; Start 04/01/17 at 14:15; Stop 04/02/17 at 14:40; Status DC Potassium Phosphate 13.6 mmol/Sodium Chloride 254.5333 ml @ 127.... Q2H IV Last administered on 04/02/17 16:42; Start 04/02/17 at 11:00; Stop 04/02/17 at 16: 59; Status DC Sodium Chloride 500 ml @ 0 mls/hr PRN QID PRN IV UO< 30cc/hr over previous 6hrs ; Start 04/02/17 at 10:45 Info 1 each PRN DAILY PRN MC SEE COMMENTS Last administered on 04/05/17 11:59; Start 04/02/17 at 11:30; Stop 04/06/17 at 11:30; Status DC Sodium Chloride 90 meq/Potassium Chloride 50 meq/ Potassium Phosphate 13.6 mmol/ Magnesium Sulfate 10 meq/ Calcium Gluconate 10 meq/ Multivitamins 10 ml/Zinc/ Copper/ Mindi/Chrom/ Selen 1 ml/Total Parenteral Nutrition/Amino Acids/Dextrose / Fat Emulsion Intravenous 1,512 ml @ 63 mls/hr TPN CONT IV Last administered on 04/02/17 22:00; Start 04/02/17 at 22:00; Stop 04/04/17 at 13:10; Status DC Sodium Chloride (Normal Saline Flush) 10 ml QSHIFT PRN IV AFTER MEDS AND BLOOD DRAWS; Start 04/02/17 at 14:45 Sodium Chloride (Normal Saline Flush) 20 ml QSHIFT PRN IV AFTER MEDS AND BLOOD DRAWS; Start 04/02/17 at 14:45 Magnesium Sulfate/ Dextrose 100 ml @ 100 mls/hr 1X ONCE IV Last administered on 04/03/17 12:40; Start 04/03/17 at 12:30; Stop 04/03/17 at 13:29; Status DC Sodium Chloride 90 meq/Potassium Chloride 50 meq/ Potassium Phosphate 13.6 mmol/ Magnesium Sulfate 16 meq/ Calcium Gluconate 10 meq/ Multivitamins 10 ml/Zinc/ Copper/ Mindi/Chrom/ Selen 1 ml/Total Parenteral Nutrition/Amino Acids/Dextrose / Fat Emulsion Intravenous 1,512 ml @ 63 mls/hr TPN CONT IV Last administered on 04/03/17 22:00; Start 04/03/17 at 22:00; Stop 04/04/17 at 21:59; Status DC Ondansetron HCl (Zofran) 4 mg PRN Q6HRS PRN IV NAUSEA/VOMITING Last administered on 04/06/17 16:44; Start 04/04/17 at 09:30 Metoclopramide HCl (Reglan) 10 mg PRN Q6HRS PRN IV NAUSEA/VOMITING Last administered on 04/07/17 22:07; Start 04/04/17 at 10:45 Ciprofloxacin Lactate 200 ml @ 200 mls/hr Q12HR IV Last administered on 09:52; Start 04/04/17 at 21:00; Stop 04/06/17 at 12:00; Status DC Sodium Chloride 90 meq/Potassium Chloride 50 meq/ Potassium Phosphate 13.6 mmol/ Magnesium Sulfate 16 meq/ Calcium Gluconate 10 meq/ Multivitamins 10 ml/Zinc/ Copper/ Mindi/Chrom/ Selen 1 ml/Total Parenteral Nutrition/Amino Acids/Dextrose / Fat Emulsion Intravenous 1,512 ml @ 63 mls/hr TPN CONT IV Last administered on 04/04/17 22:42; Start 04/04/17 at 22:00; Stop 04/05/17 at 21:59; Status DC Magnesium Sulfate/ Dextrose 50 ml @ 25 mls/hr PRN DAILY PRN IV for mag < 1.7 on am labs; Start 04/05/17 at 10:00 Magnesium Sulfate/ Dextrose 100 ml @ 100 mls/hr 1X ONCE IV Last administered on 04/05/17 10:55; Start 04/05/17 at 10:00; Stop 04/05/17 at 10:59; Status DC Magnesium Sulfate/ Dextrose 100 ml @ 100 mls/hr 1X ONCE IV ; Start 04/05/17 at 11:30; Stop 04/05/17 at 12:29; Status DC Sodium Chloride 90 meq/Potassium Chloride 50 meq/ Potassium Phosphate 13.6 mmol/ Magnesium Sulfate 18 meq/ Calcium Gluconate 10 meq/ Multivitamins 10 ml/Chromium / Copper/Manganese/ Seleni/Zn 1 ml/ Total Parenteral Nutrition/Amino Acids/ Dextrose/ Fat Emulsion Intravenous 1,512 ml @ 63 mls/hr TPN CONT IV ; Start at 22:00; Stop 04/06/17 at 21:59; Status DC Pantoprazole Sodium (Protonix) 40 mg DAILYAC PO Last administered on 04/08/17 09:10; Start 04/06/17 at 08:45 Calcium Carbonate/ Glycine (Tums) 500 mg PRN AFTMEALHC PRN PO INDIGESTION Last administered on 04/08/17 05:57; Start 04/06/17 at 09:15 Multi-Ingredient Mouthwash/Gargle (Gi Cocktail Single Dose) 15 ml 1X ONCE SWSW Last administered on 04/06/17 09:52; Start 04/06/17 at 09:15; Stop 04/06/17 at 09:26; Status DC Levothyroxine Sodium (Synthroid) 88 mcg DAILY PO Last administered on 04/08/17 09:10; Start 04/06/17 at 10:00 Niacin (Slo-Niacin) 1,000 mg DAILYWSUP PO Last administered on 04/07/17 17:23; Start 04/06/17 at 17:00 Ciprofloxacin (Cipro) 500 mg BID PO Last administered on 04/08/17 09:10; Start 04/06/17 at 21:00 Metronidazole (Flagyl) 500 mg Q8HRS PO Last administered on 04/08/17 05:55; Start 04/06/17 at 14:00 Throat Lozenges (Cepacol Sore Throat Lozenge) 1 farideh PRN Q2HRS PRN PO SORE THROAT; Start 04/07/17 at 21:15 Active Scripts Active Reported Niaspan (Niacin) 1,000 Mg Tab.er.24h 1 Tab PO BID Levothyroxine Sodium 88 Mcg Tablet 1 Tab PO DAILY Vitals/I & O Vital Sign - Last 24 Hours 04/07/17 04/07/17 04/07/17 04/07/17 11:20 14:32 19:00 23:00 Temp 97.8 98.1 97.9 98.4 97.8 98.1 97.9 98.4 Pulse 66 72 67 73 Resp 20 20 20 20 B/P (MAP) 109/35 (59) 119/60 (79) 120/41 (67) 123/51 (75) Pulse Ox 95 95 97 96 O2 Delivery Nasal Cannula Nasal Cannula Room Air Room Air O2 Flow Rate 2.0 2.0 04/08/17 04/08/17 04/08/17 03:09 07:00 07:58 Temp 98.8 98.1 98.8 98.1 Pulse 62 70 Resp 20 20 B/P (MAP) 103/48 (66) 105/51 (69) Pulse Ox 92 94 96 O2 Delivery Room Air Nasal Cannula Room Air O2 Flow Rate 2.0 Intake and Output 04/07/17 04/07/17 04/08/17 14:59 22:59 06:59 Intake Total 500 ml 850 ml 240 ml Balance 500 ml 850 ml 240 ml MERCEDEZ DUPREE MD April 08, 2017 09:39
[2017-04-08 10:57] VITALS: BP 107/61
--- NOTE | 2017-04-08 12:04 | PDOC ---
Subjective: Subjective: Some nausea and loose stools. Tolerating full liquids. Objective: Objective: Walking w/ PT. Discussed her desire to go to rehab instead of home - feels weak. ?case management Vital Signs: Vital Signs Date Time Temp Pulse Resp B/P (MAP) Pulse Ox O2 Delivery O2 Flow Rate FiO2 04/08/17 10:57 98.1 77 20 107/61 (76) 95 Nasal Cannula 2.0 98.1 PE: GEN: NAD NEURO/PSYCH: A & O 3 OTHER: walking in hallway w/ walker A/P: SBO s/p resection, post-op ileus - resolving -- Plans to advance to soft diet in a.m. per surgery DC plans per primary. TRISTEN BENJAMIN April 08, 2017 12:04
[2017-04-08] MEDS: ENOXAPARIN 40 MG/0.4 ML SYRINGE. SQ SCH (14:33)
[2017-04-08 14:46] VITALS: BP 104/60
[2017-04-08] MEDS: NIACIN ER 500 MG TABLET.ER PO SCH (16:57)
[2017-04-08 19:00] VITALS: BP 100/53
[2017-04-08 23:00] VITALS: BP 117/55
[2017-04-09 03:00] VITALS: BP 110/59
[2017-04-09 07:00] VITALS: BP 115/48
[2017-04-09] MEDS: LEVOTHYROXINE 88 MCG TABLET PO SCH (07:47)
[2017-04-09] MEDS: PANTOPRAZOLE 40 MG TABLET.DR. PO SCH (07:47)
[2017-04-09] MEDS: ACETAMINOPHEN 325 MG TABLET. PO PRN (10:33)
[2017-04-09] MEDS: ENOXAPARIN 40 MG/0.4 ML SYRINGE. SQ SCH (10:33)
[2017-04-09] MEDS ORDERED: HYDR-971 PO (10:40)
[2017-04-09 11:06] VITALS: BP 106/45
--- NOTE | 2017-04-09 13:39 | PDOC ---
Subjective: Subjective: Tolerating PO w/o n/v or pain. Plans to DC home today. Objective: Vital Signs: Vital Signs Date Time Temp Pulse Resp B/P (MAP) Pulse Ox O2 Delivery O2 Flow Rate FiO2 04/09/17 11:06 98.5 89 20 106/45 (65) 95 Room Air 98.5 04/09/17 08:00 2.0 PE: GEN: NAD LUNGS: CTAB HEART: RRR ABD: S/ND/NT NEURO/PSYCH: A & O 3 A/P: SBO s/p resection, post-op ileus - resolved -- DC today. Follow-up w/ GI PRN. TRISTEN BENJAMIN April 09, 2017 13:39
[2017-04-09 15:00] VITALS: BP 110/49
[2017-04-09] MEDS: NIACIN ER 500 MG TABLET.ER PO SCH (16:27)
--- NOTE | 2017-04-10 00:12 | DS ---
DATE OF DISCHARGE: 04/09/2017 DISCHARGE DIAGNOSES: 1. Small-bowel obstruction, status post exploratory laparotomy and lysis of adhesions with removal of small-bowel obstruction and primary repair of ventral hernia and postoperative-complication ileus, resolved. 2. Acute on chronic and stable. 3. Hypertension, stable. 4. Acute kidney injury due to vasomotor nephropathy, resolved. BRIEF HOSPITAL COURSE: A 71-year-old female patient, admitted to the hospital on 03/29/2017 for nausea, vomiting, and abdominal pain. She was diagnosed with small-bowel obstruction and umbilical hernia. Also, she was seen by General Surgery. She had exploratory laparotomy. Clinically, the patient improved; however, she developed surgical complication and postoperative ileus, which has been resolved with conservative management. Today, she is deemed clinically stable enough to go home and follow up with primary care doctor. She could able to tolerate a solid diet and having regular bowel movements. The patient has been advised and instructed to see Dr. Edwards in 2 weeks. DISCHARGE EXAMINATION: GENERAL: Alert and oriented x 3. HEART: S1, S2 present. LUNGS: Anterior chest clear. ABDOMEN: Soft, nontender. No organomegaly. EXTREMITIES: No edema. DISCHARGE DISPOSITION: Home. DISCHARGE CONDITION: Stable. DISCHARGE MEDICATIONS: Hydrocodone 5/325 mg q. 4h. as needed. Total time spent for discharge is 34 minutes for patient education, counseling, and coordination of care. MERCEDEZ DUPREE MD DR: OMEGA/truman JOB#: [id number] / [id number] PINA
== END 2017-04-09 18:31 | disposition home or self-care (01) | DRG 329 ==
LOC: ER 16:34 → 5 SOUTH 21:40 → OBSVTOIN 21:40 → 5 SOUTH 04-03 07:24
PROVIDERS: ADMIT Internal Medicine; ATTEND Internal Medicine
PROC: 0WQF0ZZ Repair Abdominal Wall, Open Approach (ICD-10-PCS; principal; 2017-03-30 17:45)
PROC: 0DBB0ZZ Excision of Ileum, Open Approach (ICD-10-PCS; 2017-03-30 17:45)
PROC: 0DN80ZZ Release Small Intestine, Open Approach (ICD-10-PCS; 2017-03-30 17:45)
DX: K56.60 Unspecified intestinal obstruction (principal); N17.0 Acute kidney failure with tubular necrosis; E87.2 Acidosis; R18.8 Other ascites; K56.5 Intestinal adhesions [bands] with obstruction (postinfection); K43.9 Ventral hernia without obstruction or gangrene; D72.829 Elevated white blood cell count, unspecified; E03.9 Hypothyroidism, unspecified; E78.00 Pure hypercholesterolemia, unspecified; E78.5 Hyperlipidemia, unspecified; E83.42 Hypomagnesemia; E86.0 Dehydration; I10 Essential (primary) hypertension; K21.9 Gastro-esophageal reflux disease without esophagitis; K42.9 Umbilical hernia without obstruction or gangrene; Z82.49 Family history of ischemic heart disease and other diseases of the circulatory system; Z83.3 Family history of diabetes mellitus; Z87.891 Personal history of nicotine dependence; K56.7 Ileus, unspecified
CPT/HCPCS: 36415; 71010; 74000; 74176; 74250; 80048; 80053; 80069; 80076; 81001; 82553; 82947; 83605; 83690; 83735; 84100; 85007; 85027; 85610; 85730; 87040; 87086; 88307; 93005; 94250; 94760; G0238; G0378; J0330; J0610; J0744; J0780; J1100; J1200; J1650; J2270; J2370; J2405; J2704; J2765; J3010; J3475; J3490; J7030; J7050; Q9966; Q9967; 97110; 97116; 97530; 97535

== ENCOUNTER 2017-04-12 07:59 | Inpatient (IN) | payer BC ==
[~2017-04-12] VITALS: Ht 170.2 cm; Wt 79.0 kg
[~2017-04-12 07:59] MED LIST: HYDR-971 PO; LEVO88TA4 PO; NIAC1000 PO
[2017-04-12] MEDS ORDERED: ASPIRIN CHEWABLE 81 MG TABLET. PO ONE (08:15)
--- NOTE | 2017-04-12 08:25 | EKG ---
[facility] [address] [place] [address] Test Date: 2017-04-12 Test Time: 08:09:19 Pat Name: MAG CASTANEDA Department: Room: Gender: F Shop Girl: : 1945 Requested By: SELVIN VASQUEZ Order Number: [id number] Reading MD: Guzman Cruz Measurements Intervals [place] Rate: 84 P: 0 PA: 104 QRS: 3 QRSD: 98 T: 17 QT: 334 QTc: 398 Interpretive Statements SINUS RHYTHM BASELINE ARTIFACT NON-SPECIFIC ST/T CHANGES Electronically Signed On 04-15-2017 9:35:45 CDT by Guzman Cruz
[2017-04-12 08:44] LABS: BASO # 0.1 x10^3/uL (0.0-0.2); BASO % 0 % (0-3); EOS % 1 % (0-3); HEMATOCRIT 35.8 % (36.0-47.0); HEMOGLOBIN 12.3 g/dL (12.0-15.5); LYMPH # 1.4 x10^3/uL (1.0-4.8); LYMPH % 8 % (24-48); MEAN CORPUSCULAR HEMOGLOBIN 33 pg (25-35); MEAN CORPUSCULAR HGB CONC 34 g/dL (31-37); MEAN CORPUSCULAR VOLUME 97 fL (79-100); MONO % 4 % (0-9); NEUT % 87 % (31-73); PLATELET COUNT 550 x10^3/uL (140-400); RED CELL DISTRIBUTION WIDTH 13.5 % (11.5-14.5); WHITE BLOOD COUNT 17.2 x10^3/uL (4.0-11.0)
[2017-04-12] MEDS ORDERED: NITROGLYCERIN SUBLINGUAL 0.4 MG BOTTLE OF 25. SL PRN ×2 (08:45→10:00)
--- NOTE | 2017-04-12 08:48 | RAD ---
Exam performed: One view chest. History: Chest pain since 4:00 AM. Date of service: 04/12/17. Comparison: 04/06/17. Single AP upright portable view chest findings: Heart size and mediastinal silhouette is within limits of normal. The pulmonary vascularity is unremarkable. Streaky linear opacities are seen in the right lung base. Improving small right pleural effusion with trace left pleural effusion. Removal of right arm PICC line. Impression: 1. Improving small right pleural effusion with trace left pleural effusion. 2. Right basilar atelectasis.
[2017-04-12 08:55] LABS: CALCIUM 8.9 mg/dL (8.5-10.1); CREATININE 0.8 mg/dL (0.6-1.0); GFR 70.9; POTASSIUM 3.9 mmol/L (3.5-5.1)
[2017-04-12 09:00] LABS: ALBUMIN 2.9 g/dL (3.4-5.0); DIRECT BILIRUBIN 0.2 mg/dL (0.0-0.2); TOTAL BILIRUBIN 0.7 mg/dL (0.2-1.0); TOTAL PROTEIN 6.3 g/dL (6.4-8.2)
[2017-04-12 09:25] LABS: PLT ESTIMATE INCREASED (ADEQUATE)
--- NOTE | 2017-04-12 09:25 | PHYS DOC ---
Past Medical History Past Medical History: High Cholesterol, Hypertension, Hypothyroid, Other Additional Past Medical Histor: MENIERE'S DISEASE Past Surgical History: Appendectomy, Cholecystectomy, Hysterectomy, Other Additional Past Surgical Histo: BOWEL RESECTION 03/29/17 Alcohol Use: None Drug Use: None Adult General Chief Complaint Chief Complaint: CHEST PAIN HPI HPI 71-year-old female presenting to the emergency department today with right- sided pain that was sharp and approximately 8 out of 10. Started about 5:00 this morning. It radiates up into the neck. It is not associated with nausea or vomiting. She does have shortness of breath with leg swelling as well. Review of systems is negative for abdominal pain nausea diaphoresis headache fevers or chills. All other review of systems is negative unless otherwise noted in history of present illness. Review of Systems Review of Systems SEE ABOVE. Current Medications Current Medications Current Medications Medications (Trade) Dose Ordered Sig/Stevie Start Time Stop Time Status Last Admin Dose Admin Aspirin (Children'S Aspirin) 324 mg 1X ONCE 04/12/17 08:15 04/12/17 08:16 DC 04/12/17 08:35 324 MG Iohexol (Omnipaque 300 Mg/ml) 75 ml 1X ONCE 04/12/17 09:45 04/12/17 09:46 DC 04/12/17 09:44 75 ML Nitroglycerin (Nitrostat) 0.4 mg PRN Q5MIN PRN 04/12/17 08:45 04/12/17 08:35 0.4 MG Allergies Allergies Allergies Coded Allergies Type Severity Reaction Last Updated Verified Sulfa (Sulfonamide Antibiotics) Allergy Intermediate hives 04/04/17 Yes penicillin Allergy Intermediate hives 06/25/15 Yes Physical Exam Physical Exam Constitutional: Well developed, well nourished, no acute distress, non-toxic appearance. HENT: Normocephalic, atraumatic, bilateral external ears normal, oropharynx moist, no oral exudates, nose normal. [] Eyes: PERRLA, EOMI, conjunctiva normal, no discharge. Neck: Normal range of motion, no tenderness, supple, no stridor. [] Cardiovascular:Heart rate regular rhythm, no murmur [] Lungs & Thorax: [] Abdomen: Bowel sounds normal, soft, no tenderness, no masses, no pulsatile masses. [] Skin: Warm, dry, no erythema, no rash. Back: No tenderness, no CVA tenderness. [] Extremities: No tenderness, no cyanosis, no clubbing, ROM intact, 2+ edema. Neurologic: Alert and oriented X 3, normal motor function, normal sensory function, no focal deficits noted. [] Psychologic: Affect normal, judgement normal, mood normal. [] Current Patient Data Vital Signs Vital Signs Date Time Temp Pulse Resp B/P (MAP) Pulse Ox O2 Delivery O2 Flow Rate FiO2 04/12/17 09:07 86 18 141/66 (91) 98 Nasal Cannula 2.0 04/12/17 08:11 98.6 98.6 Lab Values Laboratory Tests Test 04/12/17 08:25 White Blood Count 17.2 x10^3/uL (4.0-11.0) #H Red Blood Count 3.70 x10^6/uL (3.50-5.40) Hemoglobin 12.3 g/dL (12.0-15.5) Hematocrit 35.8 % (36.0-47.0) L Mean Corpuscular Volume 97 fL (79-100) Mean Corpuscular Hemoglobin 33 pg (25-35) Mean Corpuscular Hemoglobin Concent 34 g/dL (31-37) Red Cell Distribution Width 13.5 % (11.5-14.5) Platelet Count 550 x10^3/uL (140-400) #H Neutrophils (%) (Auto) 87 % (31-73) H Lymphocytes (%) (Auto) 8 % (24-48) L Monocytes (%) (Auto) 4 % (0-9) Eosinophils (%) (Auto) 1 % (0-3) Basophils (%) (Auto) 0 % (0-3) Neutrophils # (Auto) 15.0 x10^3uL (1.8-7.7) H Lymphocytes # (Auto) 1.4 x10^3/uL (1.0-4.8) Monocytes # (Auto) 0.7 x10^3/uL (0.0-1.1) Eosinophils # (Auto) 0.1 x10^3/uL (0.0-0.7) Basophils # (Auto) 0.1 x10^3/uL (0.0-0.2) Segmented Neutrophils % 78 % (35-66) H Band Neutrophils % 9 % (0-9) Lymphocytes % 9 % (24-48) L Monocytes % 4 % (0-10) Platelet Estimate Increased (ADEQUATE) Sodium Level 139 mmol/L (136-145) Potassium Level 3.9 mmol/L (3.5-5.1) Chloride Level 104 mmol/L (98-107) Carbon Dioxide Level 28 mmol/L (21-32) Anion Gap 7 (6-14) Blood Urea Nitrogen 6 mg/dL (7-20) L Creatinine 0.8 mg/dL (0.6-1.0) Estimated GFR (Cockcroft-Gault) 70.9 Glucose Level 113 mg/dL (70-99) H Calcium Level 8.9 mg/dL (8.5-10.1) Total Bilirubin 0.7 mg/dL (0.2-1.0) Direct Bilirubin 0.2 mg/dL (0.0-0.2) Aspartate Amino Transferase (AST) 28 U/L (15-37) Alanine Aminotransferase (ALT) 23 U/L (14-59) Alkaline Phosphatase 42 U/L (46-116) L Troponin I Quantitative < 0.017 ng/mL (0.000-0.055) VS-Avx-U-Type Natriuretic Peptide 313 pg/mL (0-124) H Total Protein 6.3 g/dL (6.4-8.2) L Albumin 2.9 g/dL (3.4-5.0) L Lipase 245 U/L (73-393) Laboratory Tests 04/12/17 08:25 Laboratory Tests 04/12/17 08:25 EKG EKG EKG shows sinus rhythm with a regular rate. [place] normal. Intervals are within normal limits. ST segments are congruent. Not suggestive of ischemia, reviewed by myself [] Radiology/Procedures Radiology/Procedures [] Course & Med Decision Making Course & Med Decision Making Pertinent Labs and Imaging studies reviewed. (See chart for details) [] 71-year-old female presenting to the emergency department with chest pain. Triage vital signs afebrile with a normal heart rate. Blood pressure elevated. Patient was hypoxic and placed on nasal cannula. Edema present. Chest x-ray obtained. EKG unremarkable. Blood work obtained. The patient received aspirin and nitroglycerin in the emergency department which improved her pain. On reexamination she would improved. She did have a nonspecific leukocytosis. Chemistry panel otherwise grossly unremarkable with a negative troponin. Chest x -ray showed improving pleural effusion with mild atelectasis. CT angiography obtained []. The patient was then admitted to Dr. Best for further evaluation workup and care. Dragon Disclaimer Dragon Disclaimer This electronic medical record was generated, in whole or in part, using a voice recognition dictation system. Departure Departure Impression: Primary Impression: Chest pain Additional Impression: Shortness of breath Disposition: ADMITTED INPATIENT Admitting Physician: Other (Dr. Best) Condition: IMPROVED Referrals: ZAKI JULES MD (PCP) Problem Qualifiers SELVIN VASQUEZ MD April 12, 2017 09:25
[2017-04-12] MEDS ORDERED: IOHEXOL 300 MG/ML 75 ML VIAL IV ONE (09:45)
[2017-04-12] MEDS ORDERED: ONDANSETRON PF 4 MG/2 ML VIAL. IV PRN (10:00)
--- NOTE | 2017-04-12 10:19 | RAD ---
CT Pulmonary arteriogram: Indication:Chest pain today Date of Exam:04/12/17 . Comparison:Single view chest from earlier today Technique: Contiguous helical acquisitions are obtained through the chest during intravenous administration of 75 cc Omnipaque 300 . Coronal and sagittal MIP images were obtained and reviewed. Findings: The pulmonary arteries are negative for filling defects to suggest pulmonary emboli. Aorta is normal in caliber demonstrating scattered atheromatous plaquing. No aneurysm. No hilar or mediastinal abnormalities are noted. No pericardial pathology is noted and the aorta appears unremarkable. Linear bibasal opacities likely atelectasis. Small right and trace left pleural effusion is noted. Structures at the thoracic inlet appear grossly unremarkable. The visualized structures of the upper abdomen are unremarkable. Impression: No convincing evidence of pulmonary embolism is noted. Bibasal atelectasis and small right and trace left pleural effusion. PQRS Compliance Statement: One or more of the following individualized dose reduction techniques were utilized for this examination: 1. Automated exposure control 2. Adjustment of the mA and/or kV according to patient size 3. Use of iterative reconstruction technique
[2017-04-12 10:24] LABS: BILIRUBIN,URINE NEGATIVE (NEG); GLUCOSE,URINE NEGATIVE (NEG); NITRITE,URINE NEGATIVE (NEG); PH,URINE 6.5; PROTEIN,URINE NEGATIVE (NEG-TRACE); UROBILINOGEN,URINE 0.2 mg/dL (0.2 mg/dL)
[2017-04-12 10:48] LABS: BACTERIA,URINE 0 /HPF (0-FEW); RBC,URINE 0 /HPF (0-2); WBC,URINE 0 /HPF (0-4)
[2017-04-12] MEDS ORDERED: OMEG100021 PO (10:54)
[2017-04-12] MEDS ORDERED: VITA80003 PO (10:54)
[2017-04-12] MEDS ORDERED: ASCO500T3 PO (10:54)
[2017-04-12] MEDS ORDERED: UBID100C26 PO (10:54)
[2017-04-12] MEDS ORDERED: DOCU-27 PO (10:54)
[2017-04-12] MEDS ORDERED: ZINC50TA33 PO (10:54)
--- NOTE | 2017-04-12 11:17 | PDOC2 ---
CARDIAC CONSULT DATE OF CONSULT Date of Consult DATE: 04/12/17 TIME: 11:07 REASON FOR CONSULT Reason for Consult: Chest pain REFERRING PHYSICIAN Referring Physician: Salima SOURCE Source: Chart review, Patient HISTORY OF PRESENT ILLNESS HISTORY OF PRESENT ILLNESS This is a pleasant 71 female admitted for complains of chest pain. Reports of chest discomfort mid chest occurring this morning. She got up went to the bathroom and felt a little better and when she went back to her bed to lay down it hurt. She verbalized that she could not take a deep breath due to the pain and actually this is reproducible with palpation mainly to right lower sternal/ subcostal region. Worse when laying down again but better when sitting up. Denies any nausea, palpitations. Recently she just had exploratory laparotomy with hernia repair and bowel resection. Her appetite is poor and still intermittently has diarrhea. Faiza any KERN, no PND, or orthopnea. Denies any prior CAD. Denies any heartburn, falls or any recent injury. No prior VTE. PAST MEDICAL HISTORY Cardiovascular: HTN, Hyperlipidemia Pulmonary: No pertinent hx CENTRAL NERVOUS SYSTEM: Other (No pertinent history) GI: Other (SBO) Heme/Onc: No pertinent hx Hepatobiliary: No pertinent hx Psych: No pertinent hx Musculoskeletal: Osteoarthritis Rheumatologic: No pertinent hx ENT: Other ([facility]) Endocrine: Hypothyroidism PAST SURGICAL HISTORY Past Surgical History: Appendectomy, Cholecystectomy, Hysterectomy, Other (03/30 Exploratory laparotomy, lysis of adhesions with release of small bowel obstruction, small bowel resection with primary anastomosis, primary repair of ventral hernia) FAMILY HISTORY Family History: Coronary Artery Disease (Father) SOCIAL HISTORY Smoke: No (30 pk yr quit ) ALCOHOL: none Drugs: None Lives: with Family CURRENT MEDICATIONS CURRENT MEDICATIONS Current Medications Medications (Trade) Dose Ordered Sig/Stevie Route PRN Reason Start Time Stop Time Status Last Admin Dose Admin Aspirin (Children'S Aspirin) 324 mg 1X ONCE PO 04/12/17 08:15 04/12/17 08:16 DC 04/12/17 08:35 Nitroglycerin (Nitrostat) 0.4 mg PRN Q5MIN PRN SL CHEST PAIN 04/12/17 08:45 04/12/17 08:35 Iohexol (Omnipaque 300 Mg/ml) 75 ml 1X ONCE IV 04/12/17 09:45 04/12/17 09:46 DC 04/12/17 09:44 ALLERGIES ALLERGIES: Coded Allergies: Sulfa (Sulfonamide Antibiotics) (Verified Allergy, Intermediate, hives, 04/04/17) penicillin (Verified Allergy, Intermediate, hives, 06/25/15) ROS Review of System 14 point ROS evaluated with pertinent positives noted per HPI PHYSICAL EXAM General: Alert, Oriented X3, Cooperative, No acute distress HEENT: Atraumatic, Mucous membr. moist/pink Lungs: Clear to auscultation, Normal air movement Heart: Regular rate (SR), Normal S1, Normal S2, Other (2/6 systolic murmur to LLS border) Abdomen: Soft, No tenderness Extremities: No cyanosis, No tenderness/swelling Skin: No breakdown, No significant lesion, Other (abodminal incision well approximated) Neuro: Normal speech, Sensation intact Psych/Mental Status: Mental status NL, Mood NL MUSCULOSKELETAL: Osteoarthritic changes both hands VITALS VITALS Vital Signs Date Time Temp Pulse Resp B/P (MAP) Pulse Ox O2 Delivery O2 Flow Rate FiO2 04/12/17 10:00 82 18 144/77 (99) 97 Nasal Cannula 2.0 04/12/17 08:11 98.6 98.6 LABS Lab: Laboratory Tests Test 04/12/17 08:25 04/12/17 10:00 White Blood Count 17.2 x10^3/uL (4.0-11.0) Red Blood Count 3.70 x10^6/uL (3.50-5.40) Hemoglobin 12.3 g/dL (12.0-15.5) Hematocrit 35.8 % (36.0-47.0) Mean Corpuscular Volume 97 fL (79-100) Mean Corpuscular Hemoglobin 33 pg (25-35) Mean Corpuscular Hemoglobin Concent 34 g/dL (31-37) Red Cell Distribution Width 13.5 % (11.5-14.5) Platelet Count 550 x10^3/uL (140-400) Neutrophils (%) (Auto) 87 % (31-73) Lymphocytes (%) (Auto) 8 % (24-48) Monocytes (%) (Auto) 4 % (0-9) Eosinophils (%) (Auto) 1 % (0-3) Basophils (%) (Auto) 0 % (0-3) Neutrophils # (Auto) 15.0 x10^3uL (1.8-7.7) Lymphocytes # (Auto) 1.4 x10^3/uL (1.0-4.8) Monocytes # (Auto) 0.7 x10^3/uL (0.0-1.1) Eosinophils # (Auto) 0.1 x10^3/uL (0.0-0.7) Basophils # (Auto) 0.1 x10^3/uL (0.0-0.2) Segmented Neutrophils % 78 % (35-66) Band Neutrophils % 9 % (0-9) Lymphocytes % 9 % (24-48) Monocytes % 4 % (0-10) Platelet Estimate Increased (ADEQUATE) Sodium Level 139 mmol/L (136-145) Potassium Level 3.9 mmol/L (3.5-5.1) Chloride Level 104 mmol/L (98-107) Carbon Dioxide Level 28 mmol/L (21-32) Anion Gap 7 (6-14) Blood Urea Nitrogen 6 mg/dL (7-20) Creatinine 0.8 mg/dL (0.6-1.0) Estimated GFR (Cockcroft-Gault) 70.9 Glucose Level 113 mg/dL (70-99) Calcium Level 8.9 mg/dL (8.5-10.1) Total Bilirubin 0.7 mg/dL (0.2-1.0) Direct Bilirubin 0.2 mg/dL (0.0-0.2) Aspartate Amino Transf (AST/SGOT) 28 U/L (15-37) Alanine Aminotransferase (ALT/SGPT) 23 U/L (14-59) Alkaline Phosphatase 42 U/L (46-116) Troponin I Quantitative < 0.017 ng/mL (0.000-0.055) UV-Cbq-Q-Type Natriuretic Peptide 313 pg/mL (0-124) Total Protein 6.3 g/dL (6.4-8.2) Albumin 2.9 g/dL (3.4-5.0) Lipase 245 U/L (73-393) Urine Collection Type Unknown Urine Color Yellow Urine Clarity Clear Urine pH 6.5 Urine Specific [place] 1.010 Urine Protein Negative mg/dL (NEG-TRACE) Urine Glucose (UA) Negative mg/dL (NEG) Urine Ketones (Stick) Negative mg/dL (NEG) Urine Blood Negative (NEG) Urine Nitrite Negative (NEG) Urine Bilirubin Negative (NEG) Urine Urobilinogen Dipstick 0.2 mg/dL (0.2 mg/dL) Urine Leukocyte Esterase Negative (NEG) Urine RBC 0 /HPF (0-2) Urine WBC 0 /HPF (0-4) Urine Bacteria 0 /HPF (0-FEW) ASSESSMENT/PLAN ASSESSMENT/PLAN 1. Atypical Chest: Reproducible/positional. MSK with possible GI element. Doubt cardiac. Recent major surgery with good tolerance indicating good cardiac reserve. Troponin normal. EKG NSR. 2. S/P ExLap - Bowel resection/hernia repair/adhesion lysis 03/30/2017, 3. Leukocytosis with likely reactive thrombocytosis. SIRS/developing Pneumonia ? Last febrile episode 04/05 4. Anorexia/diarrhea 5. HLP: on niacin 6. Hypothyroidism Recommendations 1. Baseline TTE. If unremarkable no further cardiac workup. 2. lipid panel, TSH, CK, Mg 3. Start on PPI Problems: HA CORRIGAN APRN April 12, 2017 11:17
[2017-04-12 11:24] VITALS: BP 127/61
[2017-04-12 14:52] LABS: CHOLESTEROL/HDL RATIO 3.3; MAGNESIUM 1.5 mg/dL (1.8-2.4)
[2017-04-12] MEDS ORDERED: MAGNESIUM SULFATE 2GM 50 ML IV ONE (15:15)
[2017-04-12] MEDS: MORPHINE SULFATE 2 MG/ML DISP.SYRIN. IV PRN ×2 (15:23→18:56)
[2017-04-12] MEDS: OMEGA-3 FATTY ACIDS/FISH OIL 1,000 MG CAPSULE. PO SCH (18:50)
[2017-04-12] MEDS: ZINC SULFATE 220 MG CAPSULE. PO SCH (18:50)
[2017-04-12] MEDS: LEVOTHYROXINE 88 MCG TABLET PO SCH (18:53)
[2017-04-12] MEDS: ASCORBIC ACID 500 MG TABLET PO SCH (18:53)
[2017-04-12] MEDS: VITAMIN A 10,000 UNIT CAPSULE. PO SCH (18:54)
[2017-04-12 19:00] VITALS: BP 124/53
[2017-04-12] MEDS: NIACIN ER 500 MG TABLET.ER PO SCH (20:41)
[2017-04-12] MEDS: SENNOSIDES/DOCUSATE 8.6/50MG TABLET. PO SCH (20:41)
[2017-04-12] MEDS: HYDROcodone/APAP 5/325MG 1 TAB TABLET PO PRN (20:42)
--- NOTE | 2017-04-12 20:58 | HP ---
ADMIT DATE: 04/12/2017 CHIEF COMPLAINT: Right-sided chest pain. HISTORY OF PRESENT ILLNESS: This is a 71-year-old woman, who presented to the hospital with severe substernal to right-sided chest pain, worse with deep breathing and pressure. She related that the pain essentially started in the auto wash buffer hours. She had gotten up from the bed and go to the bathroom, but when she came back to light on, a pain started. This actually infected her breathing. She is unable to take a deep breath. Pain was worse with lying down, better with sitting up. She denies any diaphoresis, nausea or vomiting with this. She denies any injury to her chest recently. She did, however, undergo laparoscopic surgery for bowel resection with SBO. She just had cut back from her previous hospitalization about a week ago. Appetite had been poor and intermittent diarrhea has been persistent since returned from the hospital. PAST MEDICAL HISTORY: Hypertension, hyperlipidemia, recent small-bowel obstruction requiring surgery as above and Meniere's disease. PAST SURGICAL HISTORY: Include appendectomy, cholecystectomy, hysterectomy, exploratory laparotomy on 03/30/2017 with lysis of adhesions, release of small-bowel resection and primary repair of ventral hernia. FAMILY HISTORY: Coronary artery disease in father. SOCIAL HISTORY: Lives with her . Quit smoking in the 1989 after accumulating [id number] history. No other toxic habits. ALLERGIES: SULFA AND PENICILLIN. MEDICATIONS: MAR reconciled with home medications. REVIEW OF SYSTEMS: Pain in her right chest as above. Denies any nausea or vomiting. Appetite, however, is poor. No diarrhea today. Rest of organ system review was negative. PHYSICAL EXAMINATION: VITAL SIGNS: Today show blood pressure of 135/63, heart rate of 86, respiratory rate at 18. She is afebrile, satting 93% on 2 liters, improving with deep breathing. GENERAL: This is a well-nourished, 71-year-old woman, awake, alert, in no acute distress. HEENT: Shows no scleral icterus. NECK: Supple. LUNGS: Clear to auscultation bilaterally. HEART: Regular rate and rhythm. The examination of the chest wall does not reveal any bruises with abnormalities palpable. ABDOMEN: Has positive bowel sounds in a binder midline incision covered with gauze. EXTREMITIES: Show no edema. SKIN: Warm, soft and dry. LABORATORY DATA: CBC with a WBC of 17.2, hemoglobin 12.3, platelets of 550. Differential with 87% neutrophils. Chemistries show a BUN and creatinine of 6 and 0.8, normal electrolytes, normal LFTs, albumin only 2.9. Troponin negative, magnesium 1.5. IMAGING STUDIES: Chest x-ray revealing improving small right pleural effusion with trace left pleural effusion and right basilar atelectasis. CTA did essentially rule out a PE, bilateral atelectasis, small right and trace left pleural effusion noted. ASSESSMENT AND PLAN: The patient is a 71-year-old woman with risk factors for heart disease, who presented with respirophasic right-sided chest pain. I am not sure why Cardiology was called. Nevertheless, echocardiogram has been obtained. We will treat symptomatically as pulmonary embolism has been ruled out. This possibly could be referred from abdominal issues that she had in recent past, but I am more suspicious that this is chest wall related. Ibuprofen will be given as well as [place] p.r.n. She actually did not fill her prescriptions after her bowel surgery as she is afraid of constipation. We will start with senna plus b.i.d. to prevent any such problems. Hopefully, with adequate pain control. She should be able to be discharged tomorrow. TYRESE MEJIA MD DR: VASQUEZ/nts JOB#: [id number] / [id number] ecc ____Dr. HELLER
[2017-04-12] MEDS: IBUPROFEN 600 MG TABLET. PO SCH (22:45)
[2017-04-12 23:00] VITALS: BP 105/44
--- NOTE | 2017-04-13 01:43 | ACF ---
Admission Forms Criteria Admission Criteria Met?: Pending SALTY RODRIGUEZ April 13, 2017 01:43 SELVIN VASQUEZ MD May 04, 2017 06:44
[2017-04-13 03:00] VITALS: BP 95/43
[2017-04-13 05:28] LABS: BASO % 0 % (0-3); EOS % 0 % (0-3); HEMATOCRIT 32.3 % (36.0-47.0); HEMOGLOBIN 10.8 g/dL (12.0-15.5); LYMPH # 0.7 x10^3/uL (1.0-4.8); LYMPH % 4 % (24-48); MEAN CORPUSCULAR HEMOGLOBIN 33 pg (25-35); MEAN CORPUSCULAR HGB CONC 34 g/dL (31-37); MEAN CORPUSCULAR VOLUME 99 fL (79-100); MONO % 6 % (0-9); NEUT % 90 % (31-73); PLATELET COUNT 457 x10^3/uL (140-400); RED BLOOD COUNT 3.25 x10^6/uL (3.50-5.40); RED CELL DISTRIBUTION WIDTH 13.9 % (11.5-14.5); WHITE BLOOD COUNT 17.2 x10^3/uL (4.0-11.0)
[2017-04-13] MEDS: LEVOTHYROXINE 88 MCG TABLET PO SCH (06:40)
[2017-04-13] MEDS: PANTOPRAZOLE 40 MG TABLET.DR. PO SCH (06:40)
[2017-04-13] MEDS: IBUPROFEN 600 MG TABLET. PO SCH ×3 (06:41→20:24)
[2017-04-13 07:30] VITALS: BP 101/55
[2017-04-13] MEDS: ZINC SULFATE 220 MG CAPSULE. PO SCH (08:28)
[2017-04-13] MEDS: ASCORBIC ACID 500 MG TABLET PO SCH (08:28)
[2017-04-13] MEDS: SENNOSIDES/DOCUSATE 8.6/50MG TABLET. PO SCH ×2 (08:28→20:24)
[2017-04-13] MEDS: OMEGA-3 FATTY ACIDS/FISH OIL 1,000 MG CAPSULE. PO SCH (08:28)
[2017-04-13] MEDS: NIACIN ER 500 MG TABLET.ER PO SCH ×2 (08:28→20:24)
[2017-04-13] MEDS: VITAMIN A 10,000 UNIT CAPSULE. PO SCH (08:30)
--- NOTE | 2017-04-13 08:50 | CARD ---
APPROVED REPORT EXAM: Two-dimensional and M-mode echocardiogram with Doppler and color Doppler. Other Information Quality : Good INDICATION Chest Pain 2D DIMENSIONS Left Atrium(2D)3.9 (1.6-4.0cm)IVSd1.0 (0.7-1.1cm) Aortic Root(2D)2.6 (2.0-3.7cm)LVDd5.2 (3.9-5.9cm) LVOT Diameter1.9 (1.8-2.4cm)PWd1.0 (0.7-1.1cm) LVDs2.9 (2.5-4.0cm)FS (%) 30.0 % SV100.7 mlLVEF(%)60.0 (>50%) Aortic Valve AoV Peak Aroldo.180.2cm/sAoV VTI26.1cm AO Peak GR.13.0mmHgLVOT VTI 26.70cm AO Mean GR.6mmHgAVA (VTI)3.00cm2 Mitral Valve MV E Zkiqhkrm51.9cm/sMV DECEL [id number] MV A Snncduvi110.8cm/sE/A Ratio0.7 TDI Lateral E' P. V11.07cm/sMedial E' P. V8.82cm/s E/Lateral E'8.3E/Medial E'10.4 Tricuspid Valve TR P. Wuflyujp789ip/sRAP [id number] TR Peak Gr.86fgTpZYPD84azLs Pulmonary Vein S1 Fqtfxskq30.6cm/sS2 Brjzjizf20.13cm/s D2 Ylznhiud46.1cm/sPVa tivxxbwq92hyyq LEFT VENTRICLE The left ventricle is normal size. There is normal left ventricular wall thickness. The left ventricu lar systolic function is normal and the ejection fraction is within normal range. The Ejection Fracti on is 60-65%. There is normal LV segmental wall motion. Septal motion consistent with conduction abno rmality. Transmitral Doppler flow pattern is Grade I-abnormal relaxation pattern. RIGHT VENTRICLE The right ventricle is normal size. The right ventricular systolic function is normal. ATRIA The left atrium size is normal. The right atrium size is normal. The interatrial septum is intact wit h no evidence for an atrial septal defect or patent foramen ovale as noted on 2-D or Doppler imaging. AORTIC VALVE The aortic valve is not well visualized. Doppler and Color Flow revealed no significant aortic regurg itation. There is no significant aortic valvular stenosis. MITRAL VALVE The mitral valve is calcified but opens well. There is no evidence of mitral valve prolapse. There is no mitral valve stenosis. Doppler and Color-flow revealed trace to mild mitral regurgitation. TRICUSPID VALVE The tricuspid valve is normal in structure and function. Doppler and Color Flow revealed trace to mil d tricuspid regurgitation. There is moderate pulmonary hypertension. The PA pressure was estimated at 46 mmHg. There is no tricuspid valve stenosis. PULMONIC VALVE The pulmonic valve is not well visualized. Doppler and Color Flow revealed no pulmonic valvular regur gitation. There is no pulmonic valvular stenosis. GREAT VESSELS The aortic root is normal in size. The ascending aorta is normal in size. The IVC was not visualized due to abdominal surgery. PERICARDIAL EFFUSION There is no evidence of significant pericardial effusion. Critical Notification Critical Value: No <Conclusion> The left ventricular systolic function is normal and the ejection fraction is within normal range. Th e Ejection Fraction is 60-65%. There is normal LV segmental wall motion. Septal motion consistent with conduction abnormality. Doppler and Color Flow revealed trace to mild tricuspid regurgitation. There is moderate pulmonary hy pertension. The PA pressure was estimated at 46 mmHg.
[2017-04-13] MEDS ORDERED: NON FORMULARY ITEM (Ubidecarenone (Coq-10) 200 MG) PO SCH (09:00)
--- NOTE | 2017-04-13 10:27 | PDOC ---
CARDIO Progress Notes Date and Time Date of Service 04/13/2017 Time of Evaluation 1018 Subjective Subjective: No shortness of breath, No Palpitations, No Dizziness, Other ( right lower sternal border CP intermittent) Vitals Vitals Vital Signs Date Time Temp Pulse Resp B/P (MAP) Pulse Ox O2 Delivery O2 Flow Rate FiO2 04/13/17 08:00 Nasal Cannula 2.0 04/13/17 07:30 97.5 76 16 101/55 (70) 94 97.5 Weight Weight [ ] Input and Output Intake and Output Intake and Output 04/13/17 07:00 Intake Total 770 ml Output Total 900 ml Balance -130 ml Intake Oral 770 ml Output Urine Total 900 ml # Voids 2 Laboratory Labs Laboratory Tests Test 04/12/17 15:45 04/12/17 22:22 04/13/17 04:25 Troponin I Quantitative < 0.017 ng/mL (0.000-0.055) < 0.017 ng/mL (0.000-0.055) White Blood Count 17.2 x10^3/uL (4.0-11.0) Red Blood Count 3.25 x10^6/uL (3.50-5.40) Hemoglobin 10.8 g/dL (12.0-15.5) Hematocrit 32.3 % (36.0-47.0) Mean Corpuscular Volume 99 fL (79-100) Mean Corpuscular Hemoglobin 33 pg (25-35) Mean Corpuscular Hemoglobin Concent 34 g/dL (31-37) Red Cell Distribution Width 13.9 % (11.5-14.5) Platelet Count 457 x10^3/uL (140-400) Neutrophils (%) (Auto) 90 % (31-73) Lymphocytes (%) (Auto) 4 % (24-48) Monocytes (%) (Auto) 6 % (0-9) Eosinophils (%) (Auto) 0 % (0-3) Basophils (%) (Auto) 0 % (0-3) Neutrophils # (Auto) 15.4 x10^3uL (1.8-7.7) Lymphocytes # (Auto) 0.7 x10^3/uL (1.0-4.8) Monocytes # (Auto) 1.0 x10^3/uL (0.0-1.1) Eosinophils # (Auto) 0.0 x10^3/uL (0.0-0.7) Basophils # (Auto) 0.0 x10^3/uL (0.0-0.2) Physical Exam HEENT: Neck Supple W Full Motion Chest: Symmetric LUNGS: Clear to Auscultation, Other (pain remians reproducible with palpation ) Abdomen: Soft N/T Extremities: No Edema Neurology: alert, oriented, follow commands Diagnostic Tests Echocardiogram: Normal LVEF (normal segment wall motion; septal wall motion consistent with conduction abnormality), Normal Valves, Other (PA = 46 mm Hg) Assessment Assessment 1. Atypical Chest reproducible with palpation; likely musculoskeletal/costochondritis echo with preserved LV function and no segmental wall motion abnormalities 2. previous SBO Bowel resection/hernia repair/adhesion lysis 03/30/2017, 3. Hyperlipidemia LDLs = 68 treated with niacin - ? Will follow peripherally; please contact for further assistance ZEYNEP TAPIA APRN April 13, 2017 10:27
[2017-04-13 11:00] VITALS: BP 104/44
[2017-04-13 15:00] VITALS: BP 109/40
[2017-04-13] MEDS: HYDROcodone/APAP 5/325MG 1 TAB TABLET PO PRN (15:32)
[2017-04-13 19:00] VITALS: BP 112/47
--- NOTE | 2017-04-13 21:04 | PDOC ---
PROGRESS NOTES Chief Complaint Chief Complaint R sided chest wall pain ASSESSMENT AND PLAN: 1. Costochondritis: treat symptomatically, responding well to norco, heat, NSAIDs. some sedation with narc.s, decrease dose 2. CAD: no acute issues. appreciate cardiology consult. echo WNL. 3. recent SBO with SB resection, hernia repair: abd binder only if symptomatic. 4. Dispo: home in AM History of Present Illness History of Present Illness feels a little fuzzy from norco, pain almost resolved Vitals Vitals Vital Signs Date Time Temp Pulse Resp B/P (MAP) Pulse Ox O2 Delivery O2 Flow Rate FiO2 04/13/17 19:00 98.2 80 20 112/47 (68) 91 Room Air 98.2 04/13/17 08:00 2.0 Physical Exam General: Alert, Oriented X3, Cooperative, No acute distress Heart: Regular rate, Other (2/6 systolic murmur to LLS border) Lungs: Clear Abdomen: Normal bowel sounds, Soft, No tenderness, Other (binder in place) Extremities: No edema, No tenderness/swelling Skin: No breakdown, No significant lesion Labs LABS Laboratory Tests Test 04/12/17 22:22 04/13/17 04:25 Troponin I Quantitative < 0.017 ng/mL (0.000-0.055) White Blood Count 17.2 x10^3/uL (4.0-11.0) Red Blood Count 3.25 x10^6/uL (3.50-5.40) Hemoglobin 10.8 g/dL (12.0-15.5) Hematocrit 32.3 % (36.0-47.0) Mean Corpuscular Volume 99 fL (79-100) Mean Corpuscular Hemoglobin 33 pg (25-35) Mean Corpuscular Hemoglobin Concent 34 g/dL (31-37) Red Cell Distribution Width 13.9 % (11.5-14.5) Platelet Count 457 x10^3/uL (140-400) Neutrophils (%) (Auto) 90 % (31-73) Lymphocytes (%) (Auto) 4 % (24-48) Monocytes (%) (Auto) 6 % (0-9) Eosinophils (%) (Auto) 0 % (0-3) Basophils (%) (Auto) 0 % (0-3) Neutrophils # (Auto) 15.4 x10^3uL (1.8-7.7) Lymphocytes # (Auto) 0.7 x10^3/uL (1.0-4.8) Monocytes # (Auto) 1.0 x10^3/uL (0.0-1.1) Eosinophils # (Auto) 0.0 x10^3/uL (0.0-0.7) Basophils # (Auto) 0.0 x10^3/uL (0.0-0.2) TYRESE MEJIA MD April 13, 2017 21:04
[2017-04-13] MEDS ORDERED: HYDROcodone/APAP 5/325MG 1 TAB TABLET PO PRN ×2 (21:15)
[2017-04-13 23:00] VITALS: BP 111/49
[2017-04-14 03:04] VITALS: BP 90/54
[2017-04-14] MEDS: LEVOTHYROXINE 88 MCG TABLET PO SCH (06:31)
[2017-04-14] MEDS: IBUPROFEN 600 MG TABLET. PO SCH ×2 (06:32→12:12)
[2017-04-14 07:00] VITALS: BP_SYST 115; BP_SYST 97; BP_DIAS 40; BP_DIAS 50
[2017-04-14] MEDS: VITAMIN A 10,000 UNIT CAPSULE. PO SCH (08:48)
[2017-04-14] MEDS: OMEGA-3 FATTY ACIDS/FISH OIL 1,000 MG CAPSULE. PO SCH (08:48)
[2017-04-14] MEDS: NIACIN ER 500 MG TABLET.ER PO SCH (08:48)
[2017-04-14] MEDS: ASCORBIC ACID 500 MG TABLET PO SCH (08:48)
[2017-04-14] MEDS: SENNOSIDES/DOCUSATE 8.6/50MG TABLET. PO SCH (08:48)
[2017-04-14] MEDS: ZINC SULFATE 220 MG CAPSULE. PO SCH (08:48)
[2017-04-14] MEDS: PANTOPRAZOLE 40 MG TABLET.DR. PO SCH (08:48)
[2017-04-14 11:00] VITALS: BP 115/50
--- NOTE | 2017-04-17 21:00 | DS ---
DATE OF DISCHARGE: 04/14/2017 CHIEF COMPLAINT: Right-sided chest wall pain. HOSPITAL COURSE: The patient is a 71-year-old woman who presented with severe right-sided chest pain, worse with deep breathing. She was admitted for pain control. With x-rays and labs, cardiac issues were ruled out. Her symptomatology was diagnosed as costochondritis, which responded well to [place], heat and NSAIDs. For her recent small-bowel obstruction surgery with partial bowel resection and hernia repair, she was still wearing a binder which was fairly tight. She was advised to use it only as needed and loosen up. PHYSICAL EXAMINATION: VITAL SIGNS: Blood pressure of 112/47, heart rate of 80, respiratory rate at 20. She is afebrile. GENERAL: This is a well-nourished, 71-year-old woman, alert and oriented, in no acute distress. LUNGS: Clear. HEART: Regular rate and rhythm. ABDOMEN: Positive bowel sounds. Midline incision covered with gauze, well healing. EXTREMITIES: Show no edema DISCHARGE DATE: 04/14/2017. DISCHARGE DIAGNOSIS: Costochondritis. DISCHARGE DISPOSITION: To home. DISCHARGE CONDITION: Improved. DISCHARGE MEDICATIONS: Please refer to [facility]. DISCHARGE INSTRUCTIONS: The patient will follow up with her primary care physician in 1 week. TYRESE MEJIA MD DR: UR/nts JOB#: [id number] / [id number] ecc ZAKI JULES MD MTDD
== END 2017-04-14 13:28 | disposition home or self-care (01) | DRG 206 ==
LOC: ER 09:07 → 5 NORTH 10:10
PROVIDERS: ADMIT Internal Medicine Hematology & Oncology; ATTEND Internal Medicine Hematology & Oncology
DX: M94.0 Chondrocostal junction syndrome [Tietze] (principal); E44.1 Mild protein-calorie malnutrition; E03.9 Hypothyroidism, unspecified; E78.00 Pure hypercholesterolemia, unspecified; E78.5 Hyperlipidemia, unspecified; I10 Essential (primary) hypertension; I25.10 Atherosclerotic heart disease of native coronary artery without angina pectoris; D72.829 Elevated white blood cell count, unspecified; H81.09 Meniere's disease, unspecified ear; M19.90 Unspecified osteoarthritis, unspecified site; D75.89 Other specified diseases of blood and blood-forming organs; R63.0 Anorexia; Z68.27 Body mass index [BMI] 27.0-27.9, adult; Z88.2 Allergy status to sulfonamides; Z82.49 Family history of ischemic heart disease and other diseases of the circulatory system; Z90.49 Acquired absence of other specified parts of digestive tract; Z87.891 Personal history of nicotine dependence; Z88.0 Allergy status to penicillin; Z90.710 Acquired absence of both cervix and uterus
CPT/HCPCS: 36415; 71010; 71275; 80048; 80061; 80076; 81001; 82550; 83690; 83735; 83880; 84443; 84484; 85007; 85027; 93005; 93306; J2270; J7060; Q9967; 99285-25

== ENCOUNTER → 2017-12-12 | Outpatient (CLI) | payer BC | END | disposition home or self-care (01) | LOC: KCIC US 10:44 | DX: I70.0 Atherosclerosis of aorta (principal); M25.78 Osteophyte, vertebrae | CPT/HCPCS: 71046; 76536 ==

== ENCOUNTER → 2018-05-27 | Outpatient (CLI) | payer BC | END | disposition home or self-care (01) | LOC: KCIC 12:52 | DX: M79.89 Other specified soft tissue disorders (principal); E03.9 Hypothyroidism, unspecified; R06.00 Dyspnea, unspecified | CPT/HCPCS: 71046 ==

== ENCOUNTER → 2018-06-24 | Outpatient (CLI) | payer BC | END | disposition home or self-care (01) | LOC: NM 08:15 | DX: I36.1 Nonrheumatic tricuspid (valve) insufficiency (principal); I10 Essential (primary) hypertension; E78.5 Hyperlipidemia, unspecified; E78.00 Pure hypercholesterolemia, unspecified; E03.9 Hypothyroidism, unspecified; E83.42 Hypomagnesemia; K21.9 Gastro-esophageal reflux disease without esophagitis; R07.9 Chest pain, unspecified; R42 Dizziness and giddiness; Z87.891 Personal history of nicotine dependence | CPT/HCPCS: 78452; 93017; 93306; 96374; 96376; A9500 ==

== ENCOUNTER → 2019-03-19 | Outpatient (CLI) | payer BC ==
[~2019-03-19] MED LIST changes: +ASCO500T3 PO; +DOCU-109 PO; +HYDR-3164 PO; -HYDR-971 PO; +OMEG100021 PO; +UBID100C26 PO; +VITA80003 PO; +ZINC50TA33 PO
--- NOTE | 2019-03-19 13:36 | KCIC ---
3 view study of the right knee Clinical indications: Right knee pain for 3 weeks. Painful to bend or squat. FINDINGS: No acute fracture or dislocation or lytic process is seen. There is mild degenerative joint space narrowing and spurring of the medial tibiofemoral joint compartment. Mild spurring without joint space narrowing of the lateral tibial femoral joint compartment is seen. There is moderate spurring of the patellofemoral joint compartment. Small right knee joint effusion is seen. IMPRESSION: Mild tricompartmental primary degenerative osteoarthritis of the right knee. No acute osseous abnormality. Electronically signed by: Randy Pollock MD (03/19/2019 1:33 PM) [id number]
== END | disposition home or self-care (01) ==
LOC: KCIC 12:14
PROVIDERS: ATTEND Family Medicine
DX: M17.11 Unilateral primary osteoarthritis, right knee (principal)
CPT/HCPCS: 73562